=== PATIENT | female | born 1950 | race Caucasian/White ===

== ENCOUNTER 2023-02-12 09:27 | Outpatient (OUT) | payer MEDICARE, SELFPAY ==
[2023-02-12 09:51] LABS: Basophils Percent Auto 0.4 % (0.2-2.0); Eosinophils Absolute Auto 0.2 10^3/uL (0.0-0.7); Eosinophils Percent Auto 2.2 % (0.9-7.0); Hematocrit 38.8 % (36.0-48.0); Hemoglobin 13.1 g/dL (12.0-16.0); Immature Granulocytes Abs Auto 0.19 10^3/uL (0.00-0.03); Immature Granulocytes Pct Auto 1.7 % (0.0-0.5); Lymphocytes Absolute Auto 3.4 10^3/uL (1.2-3.8); Lymphocytes Percent Auto 31.2 % (20.5-60.0); Mean Corpuscular HGB Conc 33.8 g/dL (29.9-35.2); Mean Corpuscular Hemoglobin 29.6 pg (26.7-34.0); Mean Corpuscular Volume 87.6 fL (81.0-99.0); Mean Platelet Volume 9.2 fL (9.5-13.5); Monocytes Absolute Auto 0.6 10^3/uL (0.3-0.8); Monocytes Percent Auto 5.8 % (1.7-12.0); Neutrophils Absolute Auto 6.4 10^3/uL (1.4-6.5); Neutrophils Percent Auto 58.7 % (43.0-75.0); Platelet Count 221 10^3/uL (150-450); Red Blood Count 4.43 10^6/uL (4.20-5.40); Red Cell Distribution Width 12.4 % (11.0-15.0)
[2023-02-12 09:57] LABS: Microalbumin Urine Random 2.9 mg/dL (<=30.0)
[2023-02-12 09:59] LABS: Estimated Average Glucose 117 mg/dL; Glycohemoglobin A1C 5.7 % (4.5-6.2)
[2023-02-12 12:06] LABS: Bilirubin Urine NEGATIVE (NEGATIVE); Blood Urine TRACE-I (NEGATIVE); Clarity Urine CLEAR (CLEAR); Color Urine LT. YELLOW (YELLOW); Glucose Urine UA NEGATIVE (NEGATIVE); Ketones Urine NEGATIVE (NEGATIVE); Leukocyte Esterase Urine SMALL (NEGATIVE); Nitrite Urine NEGATIVE (NEGATIVE); Protein Urine NEGATIVE (NEG/TRACE); Specific Gravity Urine 1.015 (1.005-1.025); Urobilinogen Urine 0.2 EU/dL (0.2-1.0); pH Urine 6.5 (5.0-9.0)
[2023-02-12 12:27] LABS: Free T4 1.02 ng/dL (0.76-1.46)
[2023-02-12 12:35] LABS: Alanine Aminotransferase 19 U/L (14-59); Albumin Globulin Ratio 0.9; Albumin Level 3.7 g/dL (3.4-5.0); Alkaline Phosphatase 80 U/L (46-116); Anion Gap 13.1; Aspartate Amino Transferase 14 U/L (15-37); BUN Creatinine Ratio 31.7; Bilirubin Total 0.4 mg/dL (0.2-1.0); Calcium 8.8 mg/dL (8.5-10.1); Carbon Dioxide 30.3 mmol/L (21.0-32.0); Chloride 100 mmol/L (98-107); Chol HDL Ratio 4.2; Cholesterol 220 mg/dL (<=200); Estimated GFR (African America >60 (>=60); Estimated GFR (Non-African Ame >60 (>=60); Free T3 2.39 pg/mL (2.18-3.98); Globulin 4.3 g/dL; Glucose 111 mg/dL (74-106); HDL Cholesterol 52 mg/dL (40-60); Potassium 4.4 mmol/L (3.5-5.1); Sodium 139 mmol/L (136-145); Thyroid Stimulating Hormone 0.782 uIU/mL (0.358-3.740); Triglycerides 166 mg/dL (<=150); VLDL CHOLESTEROL 33.2 mg/dL
[2023-02-12 12:37] LABS: Bacteria Urine TRACE #/HPF (NONE SEEN); Mucus Urine TRACE (NONE SEEN); Squamous Epithelial Cell Urine FEW #/LPF (NONE/RARE)
[2023-02-12 12:38] LABS: Cast Seen? NONE SEEN #/LPF (NONE SEEN); Crystals Seen? None Seen #/HPF (None Seen); Urine Culture Indicated YES
== END 2023-02-12 09:28 | disposition home or self-care (01) ==
LOC: LAB 09:33
PROVIDERS: PCP Nurse Practitioner; Visit Provider Nurse Practitioner
DX: E11.65 Type 2 diabetes mellitus with hyperglycemia (principal); E03.9 Hypothyroidism, unspecified; R82.89 Other abnormal findings on cytological and histological examination of urine
CPT/HCPCS: 36415; 80053; 80061; 81001; 82043; 83036; 84439; 84443; 84481; 85025; 87086

== ENCOUNTER 2023-02-28 10:49 | Outpatient (REF) | payer MEDICARE, SELFPAY ==
[2023-02-28 12:21] LABS: Bilirubin Urine NEGATIVE (NEGATIVE); Blood Urine NEGATIVE (NEGATIVE); Clarity Urine CLEAR (CLEAR); Color Urine LT. YELLOW (YELLOW); Glucose Urine UA NEGATIVE (NEGATIVE); Ketones Urine NEGATIVE (NEGATIVE); Leukocyte Esterase Urine SMALL (NEGATIVE); Nitrite Urine NEGATIVE (NEGATIVE); Protein Urine NEGATIVE (NEG/TRACE); Urobilinogen Urine 0.2 EU/dL (0.2-1.0)
[2023-02-28 13:31] LABS: Bacteria Urine TRACE #/HPF (NONE SEEN); Mucus Urine MODERATE (NONE SEEN); RBC Urine NONE SEEN #/HPF (0-2); Squamous Epithelial Cell Urine FEW #/LPF (NONE/RARE)
[2023-02-28 13:32] LABS: Calcium Oxalate Crystals Urine FEW; Crystals Seen? Seen #/HPF (None Seen); Renal Epithelial Cells Urine FEW #/LPF (NONE SEEN); Transitional Epi Cells Urine FEW #/LPF (NONE SEEN)
== END 2023-02-28 10:50 | disposition home or self-care (01) ==
LOC: LAB 10:49
PROVIDERS: PCP Nurse Practitioner; Visit Provider Nurse Practitioner
DX: R31.29 Other microscopic hematuria (principal); E11.65 Type 2 diabetes mellitus with hyperglycemia; E03.9 Hypothyroidism, unspecified
CPT/HCPCS: 81001

== ENCOUNTER 2023-05-02 07:26 | Outpatient (RCR) | payer MEDICARE, SELFPAY ==
[2023-05-02 10:20] LABS: Alanine Aminotransferase 18 U/L (14-59); Aspartate Amino Transferase 15 U/L (15-37); Chol HDL Ratio 3.5; Cholesterol 233 mg/dL (<=200); HDL Cholesterol 67 mg/dL (40-60); Triglycerides 70 mg/dL (<=150)
[2023-05-02 10:42] LABS: Calcium 8.1 mg/dL (8.5-10.1)
[2023-05-02 10:43] LABS: Estimated GFR (African America >60 (>=60); Estimated GFR (Non-African Ame >60 (>=60)
[2023-05-02] MEDS: ZOLEDRONIC ACID/MANNITOL-WATER 5 MG/100 ML BOTTLE 400 MG IV (10:50)
== END 2023-05-17 23:59 | disposition home or self-care (01) ==
LOC: INF 07:26
PROVIDERS: PCP Nurse Practitioner; Visit Provider Nurse Practitioner
DX: M81.0 Age-related osteoporosis without current pathological fracture (principal); E78.5 Hyperlipidemia, unspecified
CPT/HCPCS: 36415; 80061; 82310; 82565; 84450; 84460; 84520; 96360; 96365; J3489

== ENCOUNTER 2023-06-04 11:53 | Outpatient (OUT) | payer MEDICARE, SELFPAY ==
[2023-06-04 12:35] LABS: Alanine Aminotransferase 22 U/L (14-59); Aspartate Amino Transferase 17 U/L (15-37); Chol HDL Ratio 3.6; Cholesterol 211 mg/dL (<=200); HDL Cholesterol 58 mg/dL (40-60); Triglycerides 140 mg/dL (<=150)
== END 2023-06-04 11:54 | disposition home or self-care (01) ==
LOC: LAB 11:55
PROVIDERS: PCP Nurse Practitioner; Visit Provider Nurse Practitioner
DX: E78.5 Hyperlipidemia, unspecified (principal)
CPT/HCPCS: 36415; 80061; 84450; 84460

== ENCOUNTER 2023-07-08 14:31 | Outpatient (OUT) | payer MEDICARE, SELFPAY ==
--- NOTE | 2023-07-08 | CONS_ITS ---
PROCEDURE DATE:?? 07/08/2023 PROCEDURE:? Right lumbar iliocostalis muscle trigger point injection at the L5 level. PREOPERATIVE DIAGNOSIS:? Pain secondary to post laminectomy syndrome with myofascial spasm of the lumbar iliocostalis muscle. POSTOPERATIVE DIAGNOSIS:? Pain secondary to post laminectomy syndrome with myofascial spasm of the lumbar iliocostalis muscle. SOLUTION USED FOR INJECTION:? 2 mL of 2% lidocaine, 2 mL of 0.25% Marcaine and 10 mg of Kenalog, total of 5 mL, and 2.5 mL used for the injection at the site. IMMEDIATE COMPLICATIONS:? None. PROCEDURE:? After informed consent was obtained from the patient, placed in the prone position.? Skin overlying the area was prepped with alcohol.? A 25 gauge, 1 ?? needle inserted into the substance of the right lumbar iliocostalis muscle at the L5 level.? Needle tip advanced until there was a mild twitch response, at which point we injected 2.5 mL of solution.? No indication of intravascular or intraneural needle tip placement or injection.? Patient reports significant reduction in pain symptoms post procedurally.?? MTDD
--- NOTE | 2023-07-08 | CONS_ITS ---
CONSULTATION DATE: ??07/08/2023 TO:? Noemi Mcnally CNP CHIEF COMPLAINT:? Includes severe right buttock pain, hip pain. HISTORY:? Patient returns today after undergoing a lumbar decompression and apparently stabilization surgery, details of which are unknown.? I did suspect a successful surgical procedure.? Patient still reports having pain in the right part of her lower back, right hip area, right buttock area.? Rates it at 9/10, a deep tingling type of pain, which increases with activities such as standing, walking and performing transitioning maneuvers.? She denies any change in bowel and bladder habits or new sensorimotor changes in the lower extremities. EXAM:? Her examination is notable for patient having dysesthesia and hypoesthesia overlying the distribution of the right superior gluteal nerve.? She had severe myofascial spasm of the right lumbar iliocostalis muscle.? She had no clinical signs consistent with myelopathy along the lower extremities. IMPRESSION:? Our impression is patient with chronic pain secondary to: 1.? Post laminectomy syndrome. 2.? Myofascial spasm of the lumbar paravertebral muscles involving the iliocostalis. 3.? 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 RECOMMENDATIONS:? I have placed her on Zonegran 15 mg at h.s.? I have discontinued tizanidine secondary to ineffectiveness.? I have placed her on baclofen 10 mg, half a pill to one pill b.i.d., and I have asked her to consider proceeding with a right superior gluteal nerve injection under fluoroscopic guidance.? I have requested she undergo lumbar spine films with flexion/extension views to evaluate the integrity of the fusion construct, and to proceed with a trigger point injection in the right lumbar iliocostalis muscle. As part of providing excellent, safe, comprehensive care, the following was completed at our patient's visit: 1. A medication reconciliation and review to ensure accurate knowledge of current/active medications, including asking our patients to inform us about any [id number] medications or herbal remedies/nutritional supplements/alternative remedies. 2. A review to specifically ensure our patients have had annual screening for: elevated body mass index (BMI, see intake chart for exact total), tobacco use, screening for depression, and screening for unhealthy alcohol use.? When screening is concerning, patients are provided with education and the specific recommendation to discuss the concerning health issue and treatment options with their primary care provider. ROSAD
== END 2023-07-08 14:32 | disposition home or self-care (01) ==
LOC: PM 15:50
PROVIDERS: PCP Nurse Practitioner; Visit Provider Anesthesiology Pain Medicine
DX: M25.551 Pain in right hip (principal); M62.838 Other muscle spasm; M96.1 Postlaminectomy syndrome, not elsewhere classified; Z98.1 Arthrodesis status
CPT/HCPCS: 20552; 72110; 73502

== ENCOUNTER 2023-07-08 15:50 | Outpatient (OUT) | payer MEDICARE, SELFPAY ==
--- NOTE | 2023-07-08 16:00 | XR_ITS ---
The [address] [address] Patient Name: RANDALL PRADO MRN: [id number] date: 1950 Sex: F Assigned Patient Location: [facility] Current Patient Location: [facility] Accession/Order Number: [id number] Exam Date: 07/08/2023 16:10 Report Date: 07/11/2023 06:10 At the request of: BRITTANY BEARDEN Procedure: XR hip RT min 2V PROCEDURE: XR hip RT min 2V HISTORY: Right Hip Pain , chronic COMPARISON: XR hip left with pelvis 05/01/2020 FINDINGS: BONES:No fracture, acute abnormality, or significant arthropathy. Posterior mechanical fusion L5-S1 with intervertebral disc spacer. SOFT TISSUES:No visible soft tissue swelling. EFFUSION:None visible. OTHER: Negative. XR/XR hip RT min 2V IMPRESSION: 1. No acute abnormality or significant degenerative joint disease of the right hip. 2. Mechanical fusion L5-S1 and intervertebral disc spacers; new since prior study. Electronically authenticated by: JACKIE ESCOBEDO Date: 07/11/2023 06:10
--- NOTE | 2023-07-08 16:00 | XR_ITS ---
The [address] [address] Patient Name: RANDALL PRADO MRN: [id number] date: 1950 Sex: F Assigned Patient Location: [facility] Current Patient Location: [facility] Accession/Order Number: [id number] Exam Date: 07/08/2023 16:10 Report Date: 07/10/2023 23:20 At the request of: BRITTANY BEARDEN Procedure: XR lumbar spine min 4V EXAM: XR lumbar spine min 4V HISTORY: Post Laminectomy COMPARISON: MRI lumbar spine 06/25/2022 TECHNIQUE: 5 views lumbar spine FINDINGS: There are 5 nonrib-bearing lumbar-type vertebral bodies. Posterior fixation with intervertebral disc spacer placement at L5-S1. Slight perihardware lucency at the right sacral fixation screw. Vertebral body heights and alignment are preserved. No significant spondylolisthesis on dynamic imaging. Incidental note of aortic vascular calcification. Moderate degenerative changes of the sacroiliac joints. Surgical clips project over the upper abdomen. XR/XR lumbar spine min 4V IMPRESSION: Posterior fixation at L5-S1 without definite complication. No spondylolisthesis on dynamic imaging. Electronically authenticated by: ADRIAN SINGLETON Date: 07/10/2023 23:20
== END 2023-07-08 15:51 | disposition home or self-care (01) ==
LOC: RAD 15:52
PROVIDERS: PCP Nurse Practitioner; Visit Provider Anesthesiology Pain Medicine
DX: M25.551 Pain in right hip (principal)
CPT/HCPCS: 72110; 73502

== ENCOUNTER 2023-07-22 06:17 | Day surgery (SDC) | payer MEDICARE, SELFPAY ==
[2023-07-22 06:58] LABS: Glucometer 117 mg/dL (74-106)
[2023-07-22 06:59] VITALS: BP 138/86; PULSE 92; RESP 16; TEMP 36.2; O2SAT 98
[2023-07-22 07:34] VITALS: BP 146/81; PULSE 92; RESP 18; O2SAT 99
[2023-07-22 07:35] VITALS: BP 153/81; PULSE 85; RESP 18; O2SAT 96
[2023-07-22] MEDS: BUPIVACAINE HCL 0.25% PF 25 MG/10 ML VIAL 2 ML INJ (07:37)
--- NOTE | 2023-07-22 09:18 | W.PM.PROCNOT ---
Date of procedure: 07/22/23 Pre-op diagnosis: Right superior gluteal neuritis Post-op diagnosis: same as pre-op Procedure: Right Superior gluteal nerve block, diagnostic Performed under fluoroscopic guidance Immediate complications none Anesthesia: none Solution used for injection: In each syringe, 2 milliliters 0.25% Marcaine 2.5 mL is used for injection for each side Time out process compliant After informed consent obtained patient was brought to the procedure room placed in the prone position skin overlying the area was prepped and draped in a sterile fashion using betadine. 25 gauge spinal needle Insert over each of the target areas identified in fluoroscopy corresponding needles were advanced Under fluoroscopic guidance until the target/targets encountered, no indication of intravascular or Intraneuronal needle tip placement. Solution injected.needles removed post procedurally. patient transferred to recovery room in stable condition to be discharged home after meeting criteria Anesthesia: Local Surgeon: Vu Melendez Condition: stable
== END 2023-07-22 07:41 | disposition home or self-care (01) ==
LOC: SURGOUT 06:18
PROVIDERS: PCP Nurse Practitioner; Visit Provider Anesthesiology Pain Medicine
DX: G57.81 Other specified mononeuropathies of right lower limb (principal); Z79.84 Long term (current) use of oral hypoglycemic drugs
CPT/HCPCS: 36415; 64450; 82948

== ENCOUNTER 2023-07-31 11:26 | Outpatient (OUT) | payer MEDICARE, SELFPAY ==
--- NOTE | 2023-07-31 11:40 | P.CN_ITS ---
Consult Note: HPI Data of Consult Patient: known to practice within the last 3 years Requesting Physician: Capri Dallas NP Primary Care Provider: Noemi Mcnally Consult Narrative Reason for consult: f/u Narrative: Michela Arias a pleasant 73 year old female presents for evaluation and management of chronic pain. Today pain 9/10 in right ankle and toes. Patient reports 99% relief from right superior gluteal nerve block. Patient finding benefit from baclofen and zonegran. cc:: CC: Capri Dallas NP Review of Systems ROS Status of ROS 10 or more systems reviewed and unremark able except as noted in history and below Musculoskeletal Reports: back pain and extremity pain PFSH PFSH Medical History Kidney stones ?N20.0 - Calculus of kidney (ICD-10) Diabetes 1.5, managed as type 2 ?E13.9 - Other specified diabetes mellitus without complications (ICD-10) Hypothyroid ?E03.9 - Hypothyroidism, unspecified (ICD-10) Surgical History H/O thyroidectomy ?E89.0 - Postprocedural hypothyroidism (ICD-10) H/O: hysterectomy ?Z90.710 - Acquired absence of both cervix and uterus (ICD-10) Hx of cholecystectomy ?Z90.49 - Acquired absence of other specified parts of digestive tract (ICD- 10) Meds Home Medications and Allergies Home Medications Medication Instructions Recorded Confirmed Type atorvastatin 80 mg tablet 80 mg PO BEDTIME 05/02/23 07/22/23 History metformin 500 mg tablet,extended 250 mg PO DAILY 05/02/23 07/22/23 History release 24 hr pioglitazone 15 mg tablet 15 mg PO DAILY 05/02/23 07/22/23 History baclofen 10 mg tablet 10 mg PO BID 07/09/23 07/22/23 History Allergies Allergy/AdvReac Type Severity Reaction Status Date / Time penicillins Allergy Mild Dizziness Uncoded 07/22/23 06:57 Exam Constitutional Documenting provider has reviewed patient's vital signs: yes Common normals: no apparent distress, oriented x3, healthy appearing, alert and well nourished General appearance: cooperative HENMT Common normals: normocephalic, hearing grossly normal bilaterally and moist oral mucous membranes Head and scalp: normocephalic Eye Common normals: PERRL Pupil: PERRL Neck & C-Spine Common normals: full ROM General: normal visual inspection Chest Common normals: inspection of chest normal Respiratory Common normals: normal respiratory effort, no retractions and no use of accessory muscles Back & Pelvis Lumbar spine/lower back: ROM limited, pain with ROM and straight leg raise positive right Other: pain following right L5/S1 dermatomal pattern Extremity Common normals: normal to inspection and full ROM Other: pain increased in bottom of right foot, lateral foot, and ankle Neuro Common normals: oriented x3, CN's II-XII intact bilaterally, moves all extremities, no focal motor deficits, no sensory deficits noted and deep tendon reflexes 2+ bilaterally Sensorium/orientation: alert Motor exam: strength 5/5 throughout and no movement abnormalities noted Psych Common normals: mental status grossly normal, thought process normal, cooperative, affect normal, speech normal and activity/motor behavior normal Speech: normal speech Thought process: normal thought process Results Additional Findings Additional findings: I have checked an [place] report on this patient today and there are no aberrancies noted in the prescribing history.?? A drug screen was completed and reviewed within the last year, and if there has not been a drug screen completed we ordered one today to monitor higher risk, state monitored pain medication use. As part of providing excellent, safe, comprehensive care, the following was completed at our patient's visit: 1. A medication reconciliation and review to ensure accurate knowledge of current/active medications, including asking our patients to inform us about any [id number]-[id number] medications or herbal remedies/nutritional supplements/alternative remedies. 2. A review to specifically ensure our patients have had annual screening for: elevated body mass index (BMI), tobacco use, screening for depression, and screening for unhealthy alcohol use. When screening is concerning, patients are provided with education and the specific recommendation to discuss the concerning health issue and treatment options with their primary care provider. Assessment and Plan Assessment and Plan (1) Lumbar radiculopathy: Assessment and Plan: The patient has had over 3 months of moderate to severe low back and right foot pain with functional impairment and inadequate response to conservative care including NSAIDS (unless there are contraindication such as concurrent blood thinners), multiple oral or topical pain medications, and home exercise program/physical therapy.? Patient has completed >6 weeks of guided home exercise program and/or formal physical therapy program without relief of their symptoms.? I have reviewed the imaging of the lumbar spine and no red flags were identified.? We discussed the risks and benefits of the procedure with the patient, and we are NOT planning on using sedation as outlined in the guidelines from Medicare unless there is a documented reason that sedation would be strongly recommended.?? ?The procedure will be completed with fluoroscopic guidance.? Plan caudal NOLVIA continue current medications at this time, can consider increase in zonegran if caudal NOLVIA not beneficial f/u 2 weeks after NOLVIA
== END 2023-07-31 11:27 | disposition home or self-care (01) ==
LOC: PM 11:27
PROVIDERS: PCP Nurse Practitioner; Visit Provider Nurse Practitioner
DX: M54.16 Radiculopathy, lumbar region (principal)
CPT/HCPCS: G0463

== ENCOUNTER 2023-08-26 06:57 | Day surgery (SDC) | payer MEDICARE, SELFPAY ==
--- OUTSIDE RECORDS SUMMARY | 2023-08-26 06:59 | XMS_ITS | CCD ---
Author Name Unknown Address [address] [facility] [address] [place] [address] Organization [facility] Care Team Providers Care Tumbling Instructor Name Role Phone PHYSICIAN, DEFAULT Admitting Unavailable PHYSICIAN, DEFAULT Attending Unavailable Kingston, Jacy T. Admitting Unavailable Hasmukh, Jacy T. Attending Unavailable AICHHOLZ, NOEMI Referring Unavailable AICHHOLZ, NOEMI Primary Care Unavailable Hasmukh, Jacy T. Admitting Unavailable Hasmukh, Jacy T. Attending Unavailable UNKNOWN, PHYSICIAN Referring Unavailable UNKNOWN, PHYSICIAN Primary Care Unavailable AICHHOLZ, OBSTETRICS TECH NOEMI Primary Care Unavailable AICHHOLZ, OBSTETRICS TECH NOEMI Attending Unavailable AICHHOLZ, OBSTETRICS TECH NOEMI Consulting Unavailable AICHHOLZ, OBSTETRICS TECH NOEMI Admitting Unavailable GREGG, DR JACKIE Li Consulting Unavailable JOSÉ MIGUEL ., DR COLLIER Admitting Unavailable HAY ., DR COLLIER Attending Unavailable KASSIDY, DR NIKA Montague Consulting Unavailable AICHHOLZ, OBSTETRICS TECH NOEMI Primary Care Unavailable HAY ., DR COLLIER Consulting Unavailable MISC, DR GIPSON Attending Unavailable MISC, DR GIPSON Admitting Unavailable AICHHOLZ, OBSTETRICS TECH NOEMI Primary Care Unavailable MISC, DR GIPSON Admitting Unavailable MISC, DR GIPSON Attending Unavailable KASSIDY, DR NIKA Montague Consulting Unavailable AICHHOLZ, OBSTETRICS TECH NOEMI Primary Care Unavailable MISC, DR GIPSON Consulting Unavailable AICHHOLZ, OBSTETRICS TECH NOEMI Primary Care Unavailable AICHHOLZ, OBSTETRICS TECH NOEMI Admitting Unavailable AICHHOLZ, OBSTETRICS TECH NOMEI Attending Unavailable AICHHOLZ, OBSTETRICS TECH NOEMI Consulting Unavailable FELISA ., DR ISHMAEL Zuniga Consulting Unavailable FELISA ., DR ISHMAEL Zuniga Admitting Unavailable AICHHOLZ, OBSTETRICS TECH NOEMI Primary Care Unavailable FELISA ., DR ISHMAEL Zuniga Attending Unavailable CAROLINE HINES Consulting Unavailable AICHHOLZ, OBSTETRICS TECH NOEMI Primary Care Unavailable JEY, DR BARRIE Gibson Consulting Unavailable JEY, DR BARRIE Gibson Admitting Unavailable JEY, DR BARRIE Gibson Attending Unavailable FELISA ., DR ISHMAEL Zuniga Admitting Unavailable ROBERTO ., DR ISHMAEL Zuniga Attending Unavailable AICHHOLZ, OBSTETRICS TECH NOEMI Primary Care Unavailable GREGG, DR JACKIE Li Consulting Unavailable ROBERTO ., DR ISHMAEL Zuniga Consulting Unavailable AICHHOLZ, OBSTETRICS TECH NOEMI Attending Unavailable AICHHOLZ, OBSTETRICS TECH NOEMI Consulting Unavailable AICHHOLZ, OBSTETRICS TECH NOEMI Admitting Unavailable AICHHOLZ, OBSTETRICS TECH NOEMI Primary Care Unavailable ROBERTO ., DR ISHMAEL Zuniga Attending Unavailable ROBERTO ., DR ISHMAEL Zuniga Admitting Unavailable AICHHOLZ, OBSTETRICS TECH NOEMI Primary Care Unavailable WEST, DR NIKA Montague Consulting Unavailable FELISA ., DR ISHMAEL Zuniga Consulting Unavailable MISC, DR GIPSON Attending Unavailable MISC, DR GIPSON Consulting Unavailable AICHHOLZ, OBSTETRICS TECH NOEMI Primary Care Unavailable MISC, DR GIPSON Admitting Unavailable MACIEL SUH Consulting Unavailable MISC, DR GIPSON Attending Unavailable MISC, DR GIPSON Consulting Unavailable AICHHOLZ, OBSTETRICS TECH NOEMI Primary Care Unavailable MISC, DR GIPSON Admitting Unavailable WEST, DR NIKA Montague Consulting Unavailable AICHHOLZ, OBSTETRICS TECH NOEMI Admitting Unavailable AICHHOLZ, OBSTETRICS TECH NOEMI Attending Unavailable AICHHOLZ, OBSTETRICS TECH NOEMI Primary Care Unavailable AICHHOLZ, OBSTETRICS TECH NOEMI Consulting Unavailable AICHHOLZ, OBSTETRICS TECH NOEMI Primary Care Unavailable AICHHOLZ, OBSTETRICS TECH NOEMI Admitting Unavailable AICHHOLZ, OBSTETRICS TECH NOEMI Attending Unavailable KASSIDY, DR NIKA Montague Consulting Unavailable AICHHOLZ, OBSTETRICS TECH NOEMI Consulting Unavailable ROBERTO ., DR ISHMAEL Zuniga Attending Unavailable ROBERTO ., DR ISHMAEL Zuniga Consulting Unavailable ROBERTO ., DR ISHMAEL Zuniga Admitting Unavailable AICHHOLZ, OBSTETRICS TECH NOEMI Primary Care Unavailable AICHHOLZ, OBSTETRICS TECH NOEMI Primary Care Unavailable AICHHOLZ, OBSTETRICS TECH NOEMI Attending Unavailable AICHHOLZ, OBSTETRICS TECH NOEMI Consulting Unavailable AICHHOLZ, OBSTETRICS TECH NOEMI Admitting Unavailable Celi Walker Consulting Unavailable AICHHOLZ, OBSTETRICS TECH NOEMI Attending Unavailable AICHHOLZ, OBSTETRICS TECH NOEMI Consulting Unavailable AICHHOLZ, OBSTETRICS TECH NOEMI Primary Care Unavailable AICHHOLZ, OBSTETRICS TECH NOEMI Admitting Unavailable GREGG, DR JACKIE Li Consulting Unavailable WHITNEY GOODMAN Primary Care Unavailable JG, DR MOLLY Alatorre Consulting Unavaillisa GREGORIO, DR MOLLY Alatorre Admitting Unavaillisa GREGORIO, DR MOLLY Alatorre Attending Unavailabl e FELISA ., DR ISHMAEL Zuniga Attending Unavailable FELISA ., DR ISHMAEL Zuniga Admitting Unavailable AICHHOLZ, OBSTETRICS TECH NOEMI Primary Care Unavailable AICHHOLZ, OBSTETRICS TECH NOEMI Admitting Unavailable AICHHOLZ, OBSTETRICS TECH NOEMI Attending Unavailable [place] [facility] Unavailable ROBERTO ., DR ISHMAEL Zuniga Attending Unavailable ROBERTO ., DR ISHMAEL Zuniga Admitting Unavailable AICHHOLZ, OBSTETRICS TECH NOEMI Primary Care Unavailable GREGG, DR JACKIE Li Consulting Unavailable FELISA ., DR ISHMAEL Zuniga Consulting Unavailable [place] [facility] Unavailable ROBERTO ., DR ISHMAEL Zuniga Attending Unavailable ROBERTO ., DR ISHMAEL Zuniga Consulting Unavailable FELISA ., DR ISHMAEL Zuniga Admitting Unavailable HASMUKH, JACY Referring Unavailable HASMUKH, JACY Attending Unavailable HASMUKH, JACY Attending Unavailable HASMUKH, JACY Attending Unavailable HASMUKH, JACY Attending Unavailable HASMUKH, JACY Attending Unavailable HASMUKH, JACY Referring Unavailable HASMUKH, JACY Referring Unavailable HASMUKH, JACY Referring Unavailable HASMUKH, JACY Referring Unavailable Allergies Allergy Classification Reported Allergen(s) Allergy Type Date of Onset Reaction(s) Facility (1 source) Penicillin Drug Allergy 04-24-2022 [facility] (1 source) Iodine (And Iodine Containting Drugs) Drug allergy (disorder) 08-08-2015 [facility] (1 source) Nalbuphine Drug Allergy 08-08-2015 [facility] (1 source) Penicillins Drug allergy (disorder) 08-08-2015 [facility] (1 source) SITagliptin Drug Allergy [facility] (1 source) Aminosyn (old formula) Drug allergy (disorder) [facility] (1 source) Iodine; Translations: [IODINE] Drug Allergy 05-[facility] (1 source) Nalbuphine; Translations: [NALBUPHINE] Drug Allergy 05-29-2022 [facility] Problems Active Problems Problem Classification Problem Date Documented Date Episodic/Chronic Complications of surgical procedures or medical care (1 source) Postprocedural hypothyroidism; Translations: [POSTPROCEDURAL HYPOTHYROIDISM] Onset: 2 Chronic Coronary atherosclerosis and other heart disease (1 source) Old myocardial infarction; Translations: [OLD MYOCARDIAL INFARCTION] Onset: 2 Chronic Diabetes mellitus with complications (1 source) Type 2 diabetes mellitus with hyperglycemia; Translations: [TYPE 2 DM W/HYPERGLYCEMIA] Onset: 2 Chronic Disorders of lipid metabolism (4 sources) Pure hyperglyceridemia; Translations: [PURE HYPERGLYCERIDEMIA] Onset: 2 Chronic Osteoporosis (4 sources) Age-related osteoporosis without current pathological fracture; Translations: [AGE-REL OSTEOPOR W/O CURR PATH FX] Onset: 2 Chronic Other connective tissue disease (4 sources) Pain in right foot; Translations: [PAIN IN RIGHT FOOT] Onset: 3 Episodic Other connective tissue disease (2 sources) Arthrodesis status; Translations: [Arthrodesis status] Onset: 3 Episodic Other screening for suspected conditions (not mental disorders or infectious disease) (9 sources) Abnormal electrocardiogram [ECG] [EKG]; Translations: [Encounter for screening mammogram for malignant neoplasm of breast] Onset: 2 Episodic Residual codes; unclassified (1 source) Family history of malignant neoplasm of breast; Translations: [FAMILY HX MALIG NEOPLASM OF BREAST] Onset: 3 Episodic Residual codes; unclassified (3 sources) Other specified postprocedural states; Translations: [OTH SPECIFIED POSTPROCEDURAL STATES] Onset: 2 Episodic Spondylosis; intervertebral disc disorders; other back problems (19 sources) Other intervertebral disc displacement, lumbar region; Translations: [Other intervertebral disc displacement, lumbosacral region] Onset: 2 Chronic Spondylosis; intervertebral disc disorders; other back problems (20 sources) Intervertebral disc disorders with radiculopathy, lumbar region; Translations: [Radiculopathy, lumbar region] Onset: 2 Episodic Thyroid disorders (8 sources) Thyroiditis, unspecified; Translations: [Nontoxic goiter, unspecified] Onset: 2 Chronic Unclassified (2 sources) DX Onset: 2 Unclassified (3 sources) LOW BACK PAIN, UNSPECIFIED; Translations: [LOW BACK PAIN, UNSPECIFIED] Onset: 2 Past or Other Problems Problem Classification Problem Date Documented Date Episodic/Chronic Other aftercare (1 source) 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; Translations: [OTH SNF CURRENT DRUG THERAPY] Onset: 06-24-2022 Episodic Other aftercare (1 source) 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; Translations: [HAIRSPRING STUDDER USE ORAL HYPOGLYCEMIC DX] Onset: 12-19-2021 Episodic Other connective tissue disease (6 sources) Other symptoms and signs involving the musculoskeletal system; Translations: [OTH SX AND SYMP INVOLV MUSCULOSKELTAL] Onset: 08-26-2022 Episodic Other connective tissue disease (5 sources) Pain in right leg; Translations: [PAIN IN RIGHT LEG] Onset: 12-25-2021 Episodic Other nervous system disorders (2 sources) Other acute postprocedural pain; Translations: [Other acute postprocedural pain] Onset: 07-15-2022 Episodic Other non-traumatic joint disorders (4 sources) Pain in right hip; Translations: [PAIN IN RIGHT HIP] Onset: 01-01-2022 Episodic Other non-traumatic joint disorders (2 sources) Pain in right ankle and joints of right foot; Translations: [Pain in right ankle and joints of right foot] Onset: 10-07-2022 Episodic Unclassified (1 source) LOW BACK PAIN, UNSPECIFIED; Translations: [LOW BACK PAIN, UNSPECIFIED] Onset: 06-20-2022 Results Test Name Value Interpretation Reference Range Facility Follow-Upon 06-23-2023 Follow-Up [id number] Michela Arias 1950 F Date Provider Department Center 06/23/2023 MOISES BOSSSTAIR [facility] Second Fl Family History Problem Relation Age of Onset Other Mother Diabetes Father Lung cancer Sister Heart attack Sister Family Status - Relation Status Age at Mother Father Sister Level of Service:53944 [place] OFFICE/OUTPATIENT ESTABLISHED MOD MDM 30-39 MIN Reason for Visit and Comments: Follow-up [211941] - Pt is here for a 6 month follow up and to review XR. [facility] Orders Onlyon 04-21-2023 Orders Only [id number] Michela Arias 1950 F Date Provider Department Center 04/21/2023 [facility] Second Fl Family History Problem Relation Age of Onset Other Mother Diabetes Father Lung cancer Sister Heart attack Sister Family Status - Relation Status Age at Mother Father Sister [facility] Follow-Upon 12-16-2022 Follow-Up [id number] Michela Arias 1950 F Date Provider Department Center 12/16/2022 Mat0-JACY NOE [facility] Second Fl Family History Problem Relation Age of Onset Other Mother Diabetes Father Lung cancer Sister Heart attack Sister Family Status - Relation Status Age at Mother Father Sister Level of Service:89214 [place] OFFICE/OUTPATIENT ESTABLISHED LOW [facility] 20-29 MIN Reason for Visit and Comments: Follow-up [348673] - Pt is here for a follow up visit. [facility] MG MAMM SCREEN 3D DIONE CADon 11-12-2022 MG MAMM SCREEN 3D DIONE CAD Patient: MICHELA ARIAS Exam Date: 11/12/2022 : 1950 Gender:F Ordering : GARRICK MCNALLY [facility] Admission #: [id number] Family : Order #: [id number] CLICK HERE TO VIEW EXAM RADIOLOGY REPORT PROCEDURE: MAMMOGRAM SCREENING 3D BILATERAL CAD COMPARISON: MG MAMM SCREEN DIONE W CAD, 08/01/2017. MG MAMM SCREEN 3D DIONE CAD, 11/07/2021. INDICATIONS: Screening mammography Calculator Name NCI Breast Cancer Risk Assessment Tool 5 Year Breast Cancer Risk 7.60% Lifetime Breast Cancer Risk 18.60% Personal Breast Cancer No Personal Ovarian Cancer No Treatments None Family Cancers Mother with breast cancer at age 42; Sister with breast cancer at age 20. LOCATION: [facility] BREAST COMPOSITION: Scattered areas fibroglandular density. FINDINGS: DIAGNOSTIC CATEGORY 1--NEGATIVE. NO CHANGE FROM COMPARISON ASSESSMENT. Scattered benign-appearing calcifications are present. Scattered benign-appearing lymph nodes are present. RIGHT BREAST: No significant suspicious finding. LEFT BREAST: No significant suspicious finding. RECOMMENDATIONS: ROUTINE MAMMOGRAM AND CLINICAL EVALUATION IN 12 MONTHS. PLEASE NOTE: A NORMAL MAMMOGRAM DOES NOT EXCLUDE THE POSSIBILITY OF BREAST CANCER. A CLINICALLY SUSPICIOUS PALPABLE LUMP SHOULD BE BIOPSIED. Dictated by: Nkia Yi MD on 11/12/2022 at 12:23 Approved by: Nika Yi MD on 11/12/2022 at 12:31 [facility] 36on 10-10-2022 36 LVM for pt with message from Dr. Noe and to call if any other questions. [facility] 36on 10-09-2022 36 Yes, XR's didn't nusrat w any fracture. I think it is fine to see PT again. If her ankle keeps bothering her, it would be a good idea to follow up with her PMD. [facility] 36 Pt called asking if you have reviewed her XR of her ankle and if it is ok to make next appt with PT. [facility] Follow-Upon 10-07-2022 Follow-Up [id number] Michela Arias 1950 F Date Provider Department Center 10/07/2022 MOISES [facility]STA[facility] Second Fl Family History Problem Relation Age of Onset Other Mother Diabetes Father Lung cancer Sister Heart attack Sister Family Status - Relation Status Age at Mother Father Sister Level of Service:37139 [place] POSTOP FOLLOW UP VISIT RELATED TO ORIGINAL PX Reason for Visit and Comments: Follow-up [[id number]] - s/p lumbar fusion, *6 wk f/u s/p PT. XR same day; Patient fell last . Landed on her back with her foot twisted under her. [facility] 36on 09-06-2022 36 Received a message from Elsy from Noemi Sanon (sp[facility] asking for gabapentin 300mg TID and add Duloxetine 30 mg. No number was given in message. [facility] Orders Onlyon 09-06-2022 Orders Only [id number] Michela Arias 1950 F Date Provider Department Center 09/06/2022 SANDHYA LINARES [facility] Second Fl Family History Problem Relation Age of Onset Other Mother Diabetes Father Lung cancer Sister Heart attack Sister Family Status - Relation Status Age at Mother Father Sister [facility] Office Visiton 08-26-2022 Follow-up visit [id number] Michela Arias 1950 F Date Provider Department Center 08/26/2022 MOISES [facility]OSSSTAIR [facility] Second Fl Family History Problem Relation Age of Onset Other Mother Diabetes Father Lung cancer Sister Heart attack Sister Family Status - Relation Status Age at Mother Father Sister Level of Service:98765 [place] POSTOP FOLLOW UP VISIT RELATED TO ORIGINAL PX Reason for Visit and Comments: Post-op [483] - s/p lumbar fusion [facility] Office Visiton 07-15-2022 Follow-up visit [id number] Michela Arias 1950 F Date Provider Department Center 07/15/2022 Hafsa-JACY NOE [facility] Second Fl Family History Problem Relation Age of Onset Other Mother Diabetes Father Lung cancer Sister Heart attack Sister Family Status - Relation Status Age at Mother Father Sister Level of Service:59277 [place] POSTOP FOLLOW UP VISIT RELATED TO ORIGINAL PX Reason for Visit and Comments: Post-op [483] - s/p lumbar fusion [facility] 36on 07-10-2022 36 Pt called stating th at she has burning pain in her foot. I asked if she was still taking gabapentin and stated she is as directed. Pt would like to know if she should take them closer together or if there is something else she could do. [facility] CBC AUTO DIFFon 06-27-2022 BASO # 0.0 103/ul Normal 0.0-0.1 [facility] Comment on above: Performed By: #### C BC #### [facility] [address] [place] [address] Dr. Lisa Thomson Basophils/100 WBC (Bld) 0.2 % Normal 0.2-2.0 [facility] Comment on above: Performed By: #### C BC #### [facility] [address] [address] [address] Lisa Thomson EO # 0.1 103/ul Normal 0.0-0.7 [facility] Comment on above: Performed By: #### C BC #### [facility] [address] [address] [address] Lisa Thomson Eosinophils/100 WBC (Bld) 0.6 % Critically low 0.9-7.0 [facility] Comment on above: Performed By: #### C BC #### [facility] [address] [place] [address] Dr. Lisa Thomson Erythrocyte distribution width (RBC) [Ratio] 14.2 % Normal 11.0-15.0 [facility] Comment on above: Performed By: #### C BC #### [facility] [address] [place] [address] Dr. Lisa Thomson Hematocrit (Bld) [Volume fraction] 39.4 % Normal 36.0-48.0 [facility] Comment on above: Performed By: #### C BC #### [facility] [address] [place] [address] Dr. Lisa Thomson Hemoglobin (Bld) [Mass/Vol] 13.4 g/dL Normal 12.0-16.0 [facility] Comment on above: Performed By: #### C BC #### [facility] [address] [place] [address] Dr. Lisa Thomson IG # 0.07 10e3/ul Critically high 0.00-0.03 [facility] Comment on above: Performed By: #### C BC #### [facility] [address] [place] [address] Dr. Lisa Thomson IG % 0.6 % Critically high 0.0-0.5 [facility] Comment on above: Performed By: #### C BC #### [facility] [address] [place] [address] Dr. Lisa Thomson LYMPH # 3.2 103/ul Normal 1.2-3.8 [facility] Comment on above: Performed By: #### C BC #### [facility] [address] [place] [address] Dr. Lisa Thomson Lymphocytes/100 WBC (Bld) 26.4 % Normal 20.5-60.0 [facility] Comment on above: Performed By: #### C BC #### [facility] [address] [place] [address] Dr. Lisa Thomson MANUAL DIFF REQ NO Normal [facility] Comment on above: Performed By: #### C BC #### [facility] [address] [place] [address] Dr. Lisa Thomson MCH (RBC) [Entitic mass] 30.9 pg Normal 26.7-34.0 [facility] Comment on above: Performed By: #### C BC #### [facility] [address] [address] [address] Lisa Thomson MCHC (RBC) [Mass/Vol] 34.0 g/dL Normal 29.9-35.2 [facility] Comment on above: Performed By: #### C BC #### [facility] [address] [address] [address] Lisa Thomson MCV (RBC) [Entitic vol] 91.0 fL Normal 81.0-99.0 [facility] Comment on above: Performed By: #### C BC #### [facility] [address] [address] [address] Lisa Thomson MONO # 1.0 103/ul Critically high 0.3-0.8 [facility] Comment on above: Performed By: #### C BC #### [facility] [address] [address] [address] Lisa Thomson Monocytes/100 WBC (Bld) 7.8 % Normal 1.7-12.0 [facility] Comment on above: Performed By: #### C BC #### [facility] [address] [address] [address] Lisa Thomson NEUT # 7.8 103/ul Critically high 1.4-6.5 [facility] Comment on above: Performed By: #### C BC #### [facility] [address] [address] [address] Lisa Thomson Neutrophils/100 WBC (Bld) 64.4 % Normal 43.0-75.0 [facility] Comment on above: Performed By: #### C BC #### [facility] [address] [address] [address] Lisa Thomson Platelet mean volume (Bld) [Entitic vol] 9.1 fL Critically low 9.5-13.5 [facility] Comment on above: Performed By: #### C BC #### [facility] [address] [address] [address] Lisa Thomson PLT 228 103/ul Normal 150-450 [facility] Comment on above: Performed By: #### C BC #### [facility] [address] [address] [address] Lisa Thomson RBC 4.33 106/ul Normal 4.20-5.40 [facility] Comment on above: Performed By: #### C BC #### [facility] [address] [address] [address] Lisa Thomson WBC 12.2 103/ul Critically high 4.0-11.0 [facility] Comment on above: Performed By: #### C BC #### [facility] [address] [place] [address] Dr. Lisa Thomson PROF CHEM 8 (BAS METB)on Anion gap [Moles/Vol] 11.7 mmol/L [facility] Comment on above: Performed By: #### B MP #### [facility] [address] [place] [address] Dr. Lisa Thomson Calcium [Mass/Vol] 8.9 mg/dL Normal 8.5-10.1 [facility] Comment on above: Performed By: #### B MP #### [facility] [address] [place] [address] Dr. Lisa Thomson Chloride [Moles/Vol] 101 mmol/L Normal 98-107 [facility] Comment on above: Performed By: #### B MP #### [facility] [address] [place] [address] Dr. Lisa Thomson CO2 [Moles/Vol] 29.0 mmol/L Normal 21.0-32.0 [facility] Comment on above: Performed By: #### B MP #### [facility] [address] [place] [address] Dr. Lisa Thomson Creatinine [Mass/Vol] 0.59 mg/dL Normal 0.55-1.02 [facility] Comment on above: Performed By: #### B MP #### [facility] [address] [place] [address] Dr. Lisa Thomson EGFR-AF ARMENIAN >60 Normal >=60 [facility] Comment on above: Performed By: #### B MP #### [facility] [address] [address] [address] Lisa Thomson EGFR-NON AF ARMENIAN >60 Normal >=60 [facility] Comment on above: Performed By: #### B MP #### [facility] [address] [address] [address] Lisa Thomson Glucose [Mass/Vol] 183 mg/dL Critically high 74-106 [facility] Comment on above: Performed By: #### B MP #### [facility] [address] [address] [address] Lisa Thomson Potassium [Moles/Vol] 3.7 mmol/L Normal 3.5-5.1 [facility] Comment on above: Performed By: #### B MP #### [facility] [address] [address] [address] Lisa Thomson Sodium [Moles/Vol] 138 mmol/L Normal 136-145 [facility] Comment on above: Performed By: #### B MP #### [facility] [address] [address] [address] Lisa Thomson Urea nitrogen [Mass/Vol] 34.0 mg/dL Critically high 7.0-18.0 [facility] Comment on above: Performed By: #### B MP #### [facility] [address] [address] [address] Lisa Thomson Urea nitrogen/Creatinine [Mass ratio] 57.6 mg/mg Normal [facility] Comment on above: Performed By: #### B MP #### [facility] [address] [address] [address] Lisa Thomson PROTIMEon 06-27-2022 INR Coag (PPP) [Relative time] 0.99 {INR} [facility] Comment on above: Performed By: #### C BC #### [facility] [address] [address] [address] Lisa Thomson INR GUIDELINES SEE BELOW Normal [facility] Comment on above: Result Comment: RONNIE RED INR: 2.0 - 3.0 CONDITIONS NOT LISTED BELOW 2.5 - 3.5 FOR PROSTHETIC HEART VALVE REPLACEMENT 2.5 - 3.5 RECURRENT THROMBOSIS Performed By: #### C BC #### [facility] [address] [address] [address] Lisa Thomson PT Coag (PPP) [Time] 10.7 s Normal 9.0-11.6 [facility] Comment on above: Performed By: #### C BC #### [facility] [id number] Lisa Thomson PTTon 06-27-2022 aPTT Coag (Bld) [Time] 23.5 s Normal 22.3-36.2 [facility] Comment on above: Performed By: #### C BC #### [facility] [address] [address] [address] iLsa Thomson MRI LSPINE WO W CONon 2021 MRI LSPINE WO W CON MRI LUMBAR SPINE WIT H AND WITHOUT CONTRAST, 06/25/2022. HISTORY: Chronic low back pain. Right leg pain. Radiculopathy. COMPARISON: MRI lumbar spine, 05/13/2022. TECHNIQUE: Sagittal T1, T2, STIR, axial T1 and T2, postcontrast sagittal and axial T1 images were obtained. FINDINGS: Alignment normal. No subluxation. Signal in the bone marrow spaces is appropriate. No bone marrow edema. No acute compression fractures. L5-S1, there are postoperative changes from previous right hemilaminectomy. There is a large amount of postoperative scar tissue in the right lateral recess. The scar tissue has low signal on T1 and contrast enhancement. The postoperative scar tissue surrounds the right S1 nerve root. The enhancing scar tissue in this area does appear to be greater than on the previous exam. No new disc herniation is clearly identified. There is scar tissue extending into the right neural foramen. There is moderate right neural foraminal narrowing which does not appear significantly changed. Facet hypertrophy results in mild left foraminal narrowing which is stable. No central canal stenosis. Moderate degenerative disc disease appears stable. L4-L5, mild degenerative disc disease. Diffuse disc bulge. No spinal canal stenosis. Disc bulge and facet hypertrophy results in mild bilateral foraminal narrowing. This level is stable. L3-L4, no spinal stenosis. No foraminal narrowing. This level is stable. L2-L3, no spinal stenosis. No foraminal narrowing. L1-L2, no spinal stenosis. No foraminal narrowing. No abnormal signal in the conus medullaris. No pathologic enhancement in the cauda equina. No paraspinal mass. IMPRESSION: 1. There are postoperative changes on the right at L5-S1 from a right hemilaminectomy. There is a large amount of enhancing scar tissue in the right lateral recess that surrounds the right S1 nerve root. There appears to be a greater amount of scar tissue in this area. No recurrent disc herniation is clearly identified. There is moderate right foraminal narrowing which appears stable. 2. The remainder of the lumbar levels appears stable. 3. Disc bulge and facet artery results in mild foraminal narrowing bilaterally at L4-L5. Electronically authenticated by: MACIEL SUH Date: 2022-06-26 12:47 Normal [facility] CBC AUTO DIFFon 06-20-2022 BASO # 0.0 103/ul Normal 0.0-0.1 [facility] Comment on above: Performed By: #### C BC #### [facility] [address] [place] [address] Dr. Lisa Thomson Basophils/100 WBC (Bld) 0.1 % Critically low 0.2-2.0 [facility] Comment on above: Performed By: #### C BC #### [facility] [address] [place] [address] Dr. Lisa Thomson EO # 0.0 103/ul Normal 0.0-0.7 [facility] Comment on above: Performed By: #### C BC #### [facility] [address] [place] [address] Dr. Lisa Thomson Eosinophils/100 WBC (Bld) 0.2 % Critically low 0.9-7.0 [facility] Comment on above: Performed By: #### C BC #### [facility] [address] [place] [address] Dr. Lisa Thomson Erythrocyte distribution width (RBC) [Ratio] 14.6 % Normal 11.0-15.0 [facility] Comment on above: Performed By: #### C BC #### [facility] [address] [place], [place] [id number] Dr. Lisa Thomson Hematocrit (Bld) [Volume fraction] 36.2 % Normal 36.0-48.0 [facility] Comment on above: Performed By: #### C BC #### [facility] [address] [place] [address] Dr. Lisa Thomson Hemoglobin (Bld) [Mass/Vol] 12.4 g/dL Normal 12.0-16.0 [facility] Comment on above: Performed By: #### C BC #### [facility] [address] [place] [address] Dr. Lisa Thomson IG # 0.04 10e3/ul Critically high 0.00-0.03 [facility] Comment on above: Performed By: #### C BC #### [facility] [address] [place] [address] Dr. Lisa Thomson IG % 0.4 % Normal 0.0-0.5 [facility] Comment on above: Performed By: #### C BC #### [facility] [address] [place] [address] Dr. Lisa Thomson LYMPH # 2.3 103/ul Normal 1.2-3.8 [facility] Comment on above: Performed By: #### C BC #### [facility] [address] [place] [address] Dr. Lisa Thomson Lymphocytes/100 WBC (Bld) 24.1 % Normal 20.5-60.0 [facility] Comment on above: Performed By: #### C BC #### [facility] [address] [place] [address] Dr. Lisa Thomson MANUAL DIFF REQ NO Normal [facility] Comment on above: Performed By: #### C BC #### [facility] [address] [place] [address] Dr. Lisa Thomson MCH (RBC) [Entitic mass] 30.9 pg Normal 26.7-34.0 [facility] Comment on above: Performed By: #### C BC #### [facility] [address] [place] [address] Dr. Lisa Thomson MCHC (RBC) [Mass/Vol] 34.3 g/dL Normal 29.9-35.2 [facility] Comment on above: Performed By: #### C BC #### [facility] [address] [place] [address] Dr. Lisa Thomson MCV (RBC) [Entitic vol] 90.3 fL Normal 81.0-99.0 [facility] Comment on above: Performed By: #### C BC #### [facility] [address] [address] [address] Lisa Thomson MONO # 0.6 103/ul Normal 0.3-0.8 [facility] Comment on above: Performed By: #### C BC #### [facility] [address] [place] [address] Dr. Lisa Thomson Monocytes/100 WBC (Bld) 5.9 % Normal 1.7-12.0 [facility] Comment on above: Performed By: #### C BC #### [facility] [address] [place] [address] Dr. Lisa Thomson NEUT # 6.7 103/ul Critically high 1.4-6.5 [facility] Comment on above: Performed By: #### C BC #### [facility] [address] [place] [address] Dr. Lisa Thomson Neutrophils/100 WBC (Bld) 69.3 % Normal 43.0-75.0 [facility] Comment on above: Performed By: #### C BC #### [facility] [address] [address] [address] Lisa Thomson Platelet mean volume (Bld) [Entitic vol] 9.6 fL Normal 9.5-13.5 [facility] Comment on above: Performed By: #### C BC #### [facility] [address] [place] [address] Dr. Lisa Thomson PLT 162 103/ul Normal 150-450 [facility] Comment on above: Performed By: #### C BC #### [facility] [address] [place] [address] Dr. Lisa Thomson RBC 4.01 106/ul Critically low 4.20-5.40 [facility] Comment on above: Performed By: #### C BC #### [facility] [address] [place], [place] [address] Dr. Lisa Thomson WBC 9.7 103/ul Normal 4.0-11.0 [facility] Comment on above: Performed By: #### C BC #### [facility] [address] [place], [place] [address] Dr. Lisa Thomson CTA ABD/PELVIS WO W CONon CTA ABD/PELVIS WO W CON EXAMINATION: CTA ABD/PELVIS WO W CON, 06/20/2022 12:22 PM EDT HISTORY: Abdominal pain COMPARISON: 12/27/2020 TECHNIQUE: CT scan of the abdomen and pelvis was performed with IV contrast. CT dose reduction technique was used, including Automated Exposure Control. FINDINGS: LUNG BASES: Cardiomegaly LIVER: No enlargement, atrophy, abnormal density, or significant focal lesion. BILIARY: Cholecystectomy PANCREAS: Diffuse irregular atrophy SPLEEN: No enlargement or focal lesion. ADRENALS: No mass or enlargement. KIDNEYS: Cortical thinning upper pole of the right kidney. No hydronephrosis or obstructing nephrolithiasis BOWEL/MESENTERY: Colonic diverticulosis without evidence of acute diverticulitis. Nonobstructive bowel gas pattern. AORTA: No aortic aneurysm or dissection. Mild to moderate atherosclerosis Celiac: Ostial atherosclerosis estimated 30% narrowing. No occlusion or aneurysm SMA: No flow significant stenosis occlusion or aneurysm Renals: Single right renal artery. Single left renal artery. No flow significant stenosis occlusion or aneurysm SADIQ: No flow significant stenosis occlusion or aneurysm Iliacs: Mild atherosclerosis. No flow significant stenosis occlusion or aneurysm RETROPERITONEUM: No mass or adenopathy. LYMPH NODES: No adenopathy. URINARY BLADDER: No visible focal wall thickening, lesion, or calculus. Underdistention PELVIC ORGANS: Hysterectomy ABDOMINAL WALL: No mass or hernia. BONES: No bony lesion or fracture. OTHER: Negative. IMPRESSION: No aortic aneurysm or dissection Stable cardiomegaly Electronically authenticated by: NIKA YI Date: 2022-06-20 13:30 Normal [facility] PROF CHEM 8 (BAS METB)on Anion gap [Moles/Vol] 10.1 mmol/L Normal [facility] Comment on above: Performed By: #### S EDR #### [facility] [address] [address] [address] Lisa Thomson Calcium [Mass/Vol] 9.0 mg/dL Normal 8.5-10.1 [facility] Comment on above: Performed By: #### S EDR #### [facility] [address] [address] [address] Lisa Thomson Chloride [Moles/Vol] 104 mmol/L Normal 98-107 [facility] Comment on above: Performed By: #### S EDR #### [facility] [address] [address] [address] Lisa Thomson CO2 [Moles/Vol] 26.2 mmol/L Normal 21.0-32.0 [facility] Comment on above: Performed By: #### S EDR #### [facility] [address] [place] [address] Dr. Lisa Thomson Creatinine [Mass/Vol] 0.59 mg/dL Normal 0.55-1.02 [facility] Comment on above: Performed By: #### S EDR #### [facility] [address] [address] [address] Lisa Thomson EGFR-AF ARMENIAN >60 Normal >=60 [facility] Comment on above: Performed By: #### S EDR #### [facility] [address] [place] [address] Dr. Lisa Thomson EGFR-NON AF ARMENIAN >60 Normal >=60 [facility] Comment on above: Performed By: #### S EDR #### [facility] [address] [address] [address] Lisa Thomson Glucose [Mass/Vol] 162 mg/dL Critically high 74-106 [facility] Comment on above: Performed By: #### S EDR #### [facility] [address] [address] [address] Lisa Thomson Potassium [Moles/Vol] 3.3 mmol/L Critically low 3.5-5.1 [facility] Comment on above: Performed By: #### S EDR #### [facility] [address] [address] [address] Lisa Thomson Sodium [Moles/Vol] 137 mmol/L Normal 136-145 [facility] Comment on above: Performed By: #### S EDR #### [facility] [address] [address] [address] Lisa Thomson Urea nitrogen [Mass/Vol] 25.0 mg/dL Critically high 7.0-18.0 [facility] Comment on above: Performed By: #### S EDR #### [facility] [address] [place] [address] Dr. Lisa Thomson Urea nitrogen/Creatinine [Mass ratio] 42.4 mg/mg Normal [facility] Comment on above: Performed By: #### S EDR #### [facility] [address] [place] [address] Dr. Lisa Thomson CREATININEon 05-13-2022 Creatinine [Mass/Vol] 0.81 mg/dL Normal 0.55-1.02 [facility] Comment on above: Performed By: #### M ALBR #### [facility] [address] [place] [address] Dr. Lisa Thomson EGFR-AF ARMENIAN >60 Normal >=60 [facility] Comment on above: Performed By: #### M ALBR #### [facility] [address] [place] [address] Dr. Lisa Thomson EGFR-NON AF ARMENIAN >60 Normal >=60 [facility] Comment on above: Performed By: #### M ALBR #### [facility] [address] [place] [address] Dr. Lisa Thomson MRI LSPINE WO W CONon 2021 MRI LSPINE WO W CON EXAMINATION: MRI LSPINE WO W CON HISTORY: Lumbar radiculopathy COMPARISON: 12/31/2021 TECHNIQUE: Axial T1 and T2; Sagittal T1, T2, and STIR sequences. Images were performed before and after the administration of 20 ml intravenous Dotarem contrast. FINDINGS: For the purposes of numbering, sagittal T2 image # 8 extends from the T10 vertebral body superiorly to the S3 level inferiorly. PARASPINAL AREA: Normal with no visible mass. BONES: Normal alignment with no acute fracture or spondylolisthesis. No bone edema CORD/CAUDA EQUINA: Normal caliber, contour, and signal intensity. DISC LEVELS: 12-L1: No significant disc/facet abnormality, spinal stenosis, or foraminal stenosis. L1-L2: No significant disc/facet abnormality, spinal stenosis, or foraminal stenosis. L2-L3: No significant disc/facet abnormality, spinal stenosis, or foraminal stenosis. L3-L4: Disc desiccation. No disc bulge or herniation. No central or foraminal stenosis. Moderate ligamentum flavum hypertrophy L4-L5: Disc desiccation. Moderate ligamentum flavum hypertrophy and facet osteoarthropathy. No central canal stenosis. Mild bilateral foraminal stenosis L5-S1: Right L5 hemilaminotomy. Disc desiccation and disc space narrowing. Right foraminal disc herniation of the protrusion type extending posteriorly up to 5.3 mm best seen on sagittal image #11. This area does not have postcontrast enhancement. This results in severe narrowing of the right neural foramen. No left foraminal stenosis IMPRESSION: Right L5-S1 foraminal disc herniation resulting in severe foraminal stenosis Electronically authenticated by: NIKA YI Date: 2022-05-13 19:43 Normal [facility] Operative Reporton 2 Operative Report MR#: [id number] [facility] Pt. Name: Michela Arias Room #: [id number] Discharge Date: Birthdate: 1950 OPERATIVE REPORT DATE OF SURGERY: 04/24/2022 SURGEON: Jacy Noe MD PREOPERATIVE DIAGNOSES: Lumbar spondylosis with lateral recess stenosis and intervertebral disk protrusion at L5-S1 with radiculopathy. POSTOPERATIVE DIAGNOSES: Lumbar spondylosis with lateral recess stenosis and intervertebral disk protrusion at L5-S1 with radiculopathy. PROCEDURES: Right L5 hemilaminectomy with L5-S1 foraminotomy and L5-S1 diskectomy. ANESTHESIA: General endotracheal. ESTIMATED BLOOD LOSS: Minimal. COMPLICATIONS: None noted. DRAINS: None. SPECIMENS: None. INDICATIONS: Ms. Arias is a 72-year-old woman, who developed severe pain and a degree of numbness involving the right lower extremity. Workup had demonstrated lateral recess stenosis with a degree of disk protrusion at the L5-S1 levels. The patient had failed multiple conservative therapies. Based on these findings, she was offered a right L5 hemilaminectomy with decompression of the lateral recess and possible diskectomy. After discussion of the risks, benefits, and alternatives, she elected to proceed. Informed consent was obtained. FINDINGS: There was a moderate-sized soft subligamentous intervertebral disk protrusion at L5-S1. There was a significant amount of hypertrophied ligamentous material within the lateral recess. At the conclusion of lateral recess decompression, foraminotomy, and diskectomy, the L5 and S1 nerve roots appeared well decompressed. There was no evidence of CSF egress. DESCRIPTION OF PROCEDURE: The patient was brought to the operating theater. General endotracheal anesthesia was induced without difficulty. Adequate vascular access was ensured. The patient was rolled into the prone position on a waiting Johnny table. Care was taken to ensure that all pressure points were padded adequately. The proposed site of surgery in the low lumbar midline was identified. The site was marked prepped and draped in the normal sterile fashion. A time-out was performed confirming the correct patient, procedure, and site. It was ensured that preoperative antibiotics had been delivered. The skin at the proposed site of incision was infiltrated with local anesthetic. A radiopaque marking needle was placed within the skin at this site and intraoperative radiographs demonstrated appropriate localization overlying the L5 lamina. The radiopaque marking needle was removed. The skin was opened in the midline at this site with a #10 blade. Dissection was carried down sharply to the superficial tissue. Monopolar cautery was used to extend the plane of dissection to the deep lumbar fascia. The lumbar fascia was opened in the midline. Subperiosteal dissection was carried down the right lateral face of the L5 lamina with monopolar cautery. Dissection was carried across the L5 lamina to the level of the facet. Care was taken not to disrupt the facet joints at L4-5 or L5-S1. A radiopaque marker was placed beneath the inferior margin of the L5 lamina and intraoperative radiographs demonstrated the correct level of exposure. A self-retaining retractor system was added to aid in exposure. The wound was irrigated thoroughly and hemostasis was ensured. Attention was then turned to right L5 hemilaminectomy. A small forward angle curette was used to define the inferior margin of the right L5 lamina. A #3 and #4 Kerrison rongeur were introduced and multiple bites were taken until the entirety of the right L5 lamina had been removed to the L4-5 disk space. Beneath hypertrophied ligamentous tissue including the ligamentum flavum was identified and resected piece orozco. The exiting L5 nerve root could be identified, although there was a significant amount of hypertrophied ligament surrounding it, which was resected piece orozco. It appeared somewhat discolored and edematous. The traversing S1 nerve root could likewise be identified. A #3 Kerrison rongeur was introduced in the lateral recess. Multiple bites were taken until there was capacious decompression of both the L5 and S1 nerve roots. A #3 Kerrison rongeur was introduced into the foramina at L5-S1 and multiple bites were taken until a Peach explorer could be easily passed into the foramina at this level. The thecal sac was mobilized and connective tissue was bluntly dissected between the L5 and S1 nerve roots. The thecal sac was retracted medially revealing a moderate-sized soft subligamentous disk protrusion. A nerve root retractor was introduced into this space. A #15 blade was used to create a rectangular opening in the posterior lateral anulus of the L5-S1 intervertebral disk. Combination of down pushing curettes and pituitary rongeurs was then used to remove disk material from this disk protrusion. A [place] #4 explorer was (more content not included)... Normal [facility] POC GLUCOSE LABon 04-25-2022 Glucose [Mass/Vol] 105 mg/dL High 70-100 [facility] Comment on above: Performed By: #### [id number] #### [facility] [address] [place] [address], [place] Glucose [Mass/Vol] 95 mg/dL Normal 70-100 [facility] Comment on above: Performed By: #### [id number] #### [facility] [address] [place] [address], [place] Glucose [Mass/Vol] 103 mg/dL High 70-100 [facility] Comment on above: Performed By: #### [id number] #### [id number] [place] [address] LUMBAR SPINE 2 OR 3 [facility] LUMBAR SPINE 2 OR 3 [facility] Department of Radiology [address] [place] [id number] ======== Patient Name: MICHELA ARIAS : 1950 Sex: F Age: Race: White Pt. Location: OUTP Patient Status: O Ordered Date: 04/24/2022 12:30:00 PM Completed Date: 04/24/2022 02:03 PM Requesting Provider: JACY NOE Attending Provider: JACY NOE Report Copy To: Signs & Symptoms: RIGHT L5 HEMILAMINECTOMY, RIGHT L5-S1 FORAMINOTOMY, POSS RIGHT L5-S1 DISCECTOMY FOR DECOMPRESSION History: Comments: RIGHT L5 HEMILAMINECTOMY, RIGHT L5-S1 FORAMINOTOMY, POSS RIGHT L5-S1 DISCECTOMY FOR DECOMPRESSION Exam: LUMBAR SPINE 2 OR 3 VWS ======== LUMBAR SPINE 2 OR 3 VWS 04/24/2022 2:03 PM CLINICAL INDICATIONS: RIGHT L5 HEMILAMINECTOMY, RIGHT L5-S1 FORAMINOTOMY, POSS RIGHT L5-S1 DISCECTOMY FOR DECOMPRESSION TECHNOLOGIST COMMENTS: 5 secs of fluoro used by Dr Noe QUESTION FOR RADIOLOGIST: RIGHT L5 HEMILAMINECTOMY, RIGHT L5-S1 FORAMINOTOMY, POSS RIGHT L5-S1 DISCECTOMY FOR DECOMPRESSION PROTOCOL: AP, Lateral and L5-S1 spot film was obtained. COMPARISON: None. IMPRESSION: Right L5 hemilaminectomy and right L5-S1 foraminotomy performed by Dr. Noe, utilizing 5 seconds of fluoroscopy time. 4 images were obtained. The radiologist was not present during this procedure. Please refer to operative documentation or referring service for further information. Approved by:Kirit Escobar04/25/2022 8:29 AM. I, Nacho Nieves,have reviewed the image(s) and agree with the findings in this report. Electronically signed: Nacho Nieves. Transcribed by: [email or web address], User Resident: NACHO LAU Electronically Signed by: NACHO NIEVES @ 04/25/2022 09:09 AM I personally read this/these film(s) with this resident Normal [facility] Comment on above: Order Comment: RIGHT L5 HEMILAMINECTOMY, RIGHT L5-S1 FORAMINOTOMY, POSS RIGHT L5-S1 DISCECTOMY FOR DECOMPRESSION POC GLUCOSE LABon 04-24-2022 Glucose [Mass/Vol] 188 mg/dL High 70-100 [facility] Comment on above: Performed By: #### [id number] #### [facility] [address] [place] [address], [place] Glucose [Mass/Vol] 127 mg/dL High 70-100 [facility] Comment on above: Performed By: #### [id number] #### [facility] [address] [place] [address], [place] Glucose [Mass/Vol] 91 mg/dL Normal 70-100 [facility] Comment on above: Performed By: #### [id number] #### [facility] [address] [place] [address], [place] TYPE AND CROSSMATCHon 2021 ABO INTERPRETATION A Normal [facility] Comment on above: Performed By: #### [id number] #### [facility] [address] [place] [address], [place] RH INTERPRETATION Positive Normal [facility] Comment on above: Performed By: #### [id number] #### [facility] [address] [place] [address], [facility] *MRSA/MSSA DNA NASALon 04-01 *MRSA/MSSA DNA NASAL Clinical Report: (D ) Specimen: NASAL SWAB Collected: 04/01/2022 17:05 Status: Final Last Updated: 04/02/2022 19:42 MSSA DNA (Final) Negative MRSA DNA (Final) Negative Normal [facility] Comment on above: Performed By: #### [id number] #### [facility] [address] [place] [address], [facility] APTTon 04-01-2022 aPTT Coag (Bld) [Time] 27.5 s Normal 25.0-35.0 [facility] Comment on above: Result Comment: ALL RESULTS MUST BE INTERPRETED WITH RESPECT TO BLOOD DRAWING ARTIFACT OR DILUTION ERROR OF ANTICOAGULANT AT THE TIME OF SAMPLING. THE APTT SHOULD NOT BE USED TO MONITOR UNFRACTIONATED HEPARIN THERAPY, THIS LABORATORY NO LONGER HAS AN ESTABLISHED THERAPEUTIC RANGE BASED ON THE APTT. IT IS RECOMMENDED THAT THE [facility] - HEPARIN ASSAY (ANTI-XA ACTIVITY) BE USED FOR THIS PURPOSE. Performed By: #### [id number] #### [facility] [address] [place] [address], [facility] BASIC METABOLIC PANELon 03-18 Calcium [Mass/Vol] 9.0 mg/dL Normal 8.6-10.3 [facility] Comment on above: Performed By: #### 8 [id number] #### [facility] [address] [place] [address], [facility] Chloride [Moles/Vol] 104 mmol/L Normal 98-107 [facility] Comment on above: Performed By: #### 8 [id number] #### [facility] [address] [place] [address], [facility] CO2 [Moles/Vol] 30 mmol/L Normal 21-31 The [facility] Comment on above: Performed By: #### 8 [id number] #### [facility] [address] [place] [address], [facility] Creatinine [Mass/Vol] 0.68 mg/dL Normal 0.60-1.20 [facility] Comment on above: Performed By: #### 8 [id number] #### [facility] [address] [place] [address], [facility] GFR/1.73 sq M.predicted among non-blacks MDRD (S/P/Bld) [Vol rate/Area] mL/min/{1.73_m2} Normal >60 [facility] Comment on above: Result Comment: [facility]'s estimated glomerular filtration rate (eGFR) will no longer include consideration of race in its calculation. The National Kid[employer] Foundation's eGFR Task Force developed new recommendations for the estimation of the glomerular filtration rate in the [place] They recommend immediate implementation of the new equation refit without the race variable in all laboratories because the calculation does not include race. In addition to not including race in the calculation and reporting, it included diversity in its development, and has acceptable performance characteristics and potential consequences that do not disproportionately affect any one group of individuals. Performed By: #### 8 [id number] #### [facility] [address] [place] [address], [facility] Glucose [Mass/Vol] 122 mg/dL High 70-100 [facility] Comment on above: Performed By: #### 8 [id number] #### [facility] [address] [place] [address], [facility] Potassium [Moles/Vol] 4.3 mmol/L Normal 3.5-5.1 [facility] Comment on above: Performed By: #### 8 [id number] #### [facility] [address] [place] [address], [place] Sodium [Moles/Vol] 144 mmol/L Normal 136-145 [facility] Comment on above: Performed By: #### 8 [id number] #### [facility] [address] Urea nitrogen [Mass/Vol] 28 mg/dL High 7-25 [facility] Comment on above: Performed By: #### 8 [id number] #### [facility] [address] [place] [address], [facility] CBC W/DIFFon 04-01-2022 ABS IMM GRANS 0.0 10*3/uL Normal 0.0-0.[address] [facility] Comment on above: Performed By: #### 8 [id number] #### [facility] [address] [place] [address], [facility] ABS NEUTROPHILS 4.7 10*3/uL Normal 1.6-7.6 The [facility] Comment on above: Performed By: #### 8 [id number] #### [facility] [address] [place] [address], [facility] Basophils (Bld) [#/Vol] 0.0 10*3/uL Normal 0.0-0.2 [facility] Comment on above: Performed By: #### 8 [id number] #### [facility] [address] [place] [address], [facility] Basophils/100 WBC (Bld) 0.4 % Normal 0.0-1.0 [facility] Comment on above: Performed By: #### 8 [id number] #### [facility] [address] [place] [address], [facility] Eosinophils (Bld) [#/Vol] 0.1 10*3/uL Normal 0.0-0.5 [facility] Comment on above: Performed By: #### 8 [id number] #### [facility] [address] [place] [address], [facility] Eosinophils/100 WBC (Bld) 1.3 % Normal 0.0-6.0 [facility] Comment on above: Performed By: #### 8 [id number] #### [facility] [address] [facility]. [address] Erythrocyte distribution width (RBC) [Ratio] 14.2 % Normal 11.5-15.0 [facility] Comment on above: Performed By: #### 8 [id number] #### [facility] [address] [facility]. [address] Hematocrit (Bld) [Volume fraction] 39.0 % Normal 36.0-45.0 [facility] Comment on above: Performed By: #### 8 [id number] #### [facility] [address] [facility]. [address] Hemoglobin (Bld) [Mass/Vol] 13.0 g/dL Normal 12.0-15.0 [facility] Comment on above: Performed By: #### 8 [id number] #### [facility] [address] [facility]. [address] IMMATURE GRANS 0.1 % Normal 0.0-1.[address] [facility] Comment on above: Performed By: #### 8 [id number] #### [facility] [address] [place] [address], [facility] Lymphocytes (Bld) [#/Vol] 2.9 10*3/uL Normal 1.2-4.0 [facility] Comment on above: Performed By: #### 8 [id number] #### [facility] [address] [facility] [place] [address], [facility] Lymphocytes/100 WBC (Bld) 35.3 % Normal 20.0-45.0 [facility] Comment on above: Performed By: #### 8 [id number] #### [facility] [address] [facility] [place] [address], [facility] MCH (RBC) [Entitic mass] 29.1 pg Normal 27.0-33.0 [facility] Comment on above: Performed By: #### 8 [id number] #### [facility] [address] [place] [address], [facility] MCHC (RBC) [Mass/Vol] 33.3 g/dL Normal 32.0-35.0 [facility] Comment on above: Performed By: #### 8 [id number] #### [facility] [address] [place] [address], [facility] MCV (RBC) [Entitic vol] 87.4 fL Normal 82.0-98.0 [facility] Comment on above: Performed By: #### 8 [id number] #### [facility] [address] [facility] [place] [address], [facility] Monocytes (Bld) [#/Vol] 0.5 10*3/uL Normal 0.1-1.0 [facility] Comment on above: Performed By: #### 8 [id number] #### [facility] [address] [facility] [place] [address], [facility] MONOS 6.2 % Normal 5.0-12.0 [facility] Comment on above: Performed By: #### 8 [id number] #### [facility] [address] [facility] [place] [address], [facility] Neutrophils/100 WBC (Bld) 56.7 % Normal 40.0-72.0 [facility] Comment on above: Performed By: #### 8 [id number] #### [facility] [address] [facility] [place] [address], [facility] Nucleated RBC/100 WBC (Bld) [Ratio] 0 % Normal 0-0 [facility] Comment on above: Performed By: #### 8 [id number] #### [facility] [address] [facility]. [place] [id number], [facility] PLAT CNT 182 10*3/uL Normal 150-400 [facility] Comment on above: Performed By: #### 8 [id number] #### [facility] [address] [place] [address], [facility] RBC (Bld) [#/Vol] 4.46 10*6/uL Normal 3.80-5.00 The [facility] Comment on above: Performed By: #### 8 [id number] #### [facility] [address] [facility] [place] [address], [facility] WBC (Bld) [#/Vol] 8.29 10*3/uL Normal 4.00-10.60 [facility] Comment on above: Performed By: #### 8 [id number] #### [facility] [address] [facility] [place] [address], [facility] CHEST AND LATERALon 04-01-20 CHEST AND LATERAL [facility] Department of Radiology [address] [place] [id number] ======== Patient Name: MICHELA ARIAS : 1950 Sex: F Age: Race: White Pt. Location: Patient Status: D Ordered Date: 04/01/2022 4:30:00 PM Completed Date: 04/01/2022 04:41 PM Requesting Provider: JACY NOE Attending Provider: JACY NOE Report Copy To: NOEMI MCNALLY Signs & Symptoms: M51.16 Intervertebral disc disorders w radiculopathy, lumbar region I10 History: Bess Comments: , , , Ordering Provider - JACY NOE MD , Exam: CHEST AND LATERAL ======== CHEST AND LATERAL 04/01/2022 4:41 PM CLINICAL INDICATIONS: M51.16 Intervertebral disc disorders w radiculopathy, lumbar region I10 TECHNOLOGIST COMMENTS: pr-op Intervertebral disc disorders w radiculopathy, lumbar region QUESTION FOR THE RADIOLOGIST: , , , Ordering Provider - JACY NOE MD , PROTOCOL: AP(PA) and Lateral views were obtained. COMPARISON: None Impression: 1. The lungs are clear. There are no effusions or pneumothorax. There is borderline enlargement of the cardiac silhouette. Electronically signed: Adrian Heath. Transcribed by: [email or web address], User Resident: Electronically Signed by: ADRIAN HEATH @ 04/02/2022 07:38 AM Normal [facility] Comment on above: Order Comment: , , = ========= , Ordering Provider - JACY NOE MD , PROTHROMBIN TIMEon 2 INR Coag (PPP) [Relative time] 0.97 {INR} Normal 0.91-1.16 [facility] Comment on above: Result Comment: ACCC P RECOMMENDED INR FOR WARFARIN THERAPY ------- ------- CONDITION INR PROPHYLAXIS OF VENOUS THROMBOSIS 2-3 (HIGH-RISK SURGERY) TREATMENT OF VENOUS THROMBOSIS 2-3 TREATMENT OF PULMONARY EMBOLISM 2-3 PREVENTION OF SYSTEMIC EMBOLISM: 2-3 ACUTE MYOCARDIAL INFARCTION TISSUE HEART VALVES VALVULAR HEART DISEASE ATRIAL FIBRILLATION RECURRENT SYSTEMIC EMBOLISM MECHANICAL HEART VALVE 2.5-3.5 FROM: ORAL ANTICOAGULANTS. MECHANISM OF ACTION, CLINICAL EFFECTIVENESS, AND OPTIMAL THERAPEUTIC RANGE. CHEST 1995;108:231S-246S. Performed By: #### 8 [id number] #### [facility] [address] [place] [address], [facility] PT Coag (PPP) [Time] 12.8 s Normal 12.3-14.8 [facility] Comment on above: Result Comment: ALL RESULTS MUST BE INTERPRETED WITH RESPECT TO BLOOD DRAWING ARTIFACT OR DILUTION ERROR OF ANTICOAGULANT AT THE TIME OF SAMPLING. Performed By: #### 8 [id number] #### [facility] [address] [place] [address], [facility] TYPE AND SCREENon 04-01-2022 ABO INTERPRETATION A Normal [facility] Comment on above: Performed By: #### 6 [id number] #### [facility] [address] [place] [address], [facility] RH INTERPRETATION Positive Normal [facility] Comment on above: Performed By: #### 6 [id number] #### [facility] [address] [place] [address], [facility] THYROGLOBULIN ABon Thyroglobulin Antibody <1.0 Normal 0.0-0.9 [facility] Comment on above: Result Comment: Thyr oglobulin Antibody measured by [employer] Performed By: #### C BC #### [facility] [address] [place] [address] Dr. Lisa Thomson THYROID PEROXIDASE ABon 02-17 Thyroid Peroxidase (TPO) Ab <8 Normal 0-34 [facility] Comment on above: Performed By: #### M ALBR #### [facility] [address] [place] [address] Dr. Lisa Thomson US THYROIDon 02-20-2022 US THYROID EXAMINATION: US THYROID HISTORY: Simple goiter COMPARISON: No relevant comparison available. FINDINGS: RIGHT LOBE: Enlarged, heterogeneous, hypervascular lobe without appreciable nodules. Lobe size: 7.9 x 2.8 x 2.8 cm LEFT LOBE: Heterogeneous echotexture without appreciable nodules or significant vascularity. Lobe size: 3.2 x 1.3 x 1.4 cm ISTHMUS: Heterogeneous echotexture without abnormal thickening or nodules. Thickness: 2 mm IMPRESSION: 1. Heterogeneous thyroid gland throughout without appreciable nodules. 2. Marked enlargement of the right lobe and increased vascularity; nonspecific. Appearance is suggestive of thyroiditis, but unusual to affect 1 lobe and not the other. Electronically authenticated by: JACKIE ESCOBEDO Date: 2022-02-20 09:25 Normal [facility] MRI CSPINE WO CONon 02-08-20 22 MRI CSPINE WO CON Exam: MR scan cervic al spine. TECHNIQUE: Sagittal T1, SERENA T2, STIR, axial gradient echo, and T2-weighted images through the cervical spine without contrast performed. COMPARISON: None. HISTORY: Degenerative cervical disc, acute pain. FINDINGS: Occiput to T6 evaluated in sagittal plane. Disc space narrowing C5-C6 and C6-C7. The craniocervical junction, cervicothoracic junction and cervical cord are normal in appearance. C1-C2: Normal. C2-C3: Normal. C3-C4: Normal. C4-C5: Disc bulge without stenosis. C5-C6: Disc bulge and uncinate process hypertrophy with an AP diameter of the central spinal canal of 8 mm. Right foraminal stenosis. C6-C7: Diffuse disc bulge left foraminal disc protrusion, disc herniation with severe left foraminal stenosis. AP diameter of the central spinal canal of 10 mm. C7-T1: Normal. The vertebral bodies and disc spaces are otherwise normal in appearance. Right thyroid goiter extending to the level of the manubrium. IMPRESSION: 1. Discogenic disease with an AP diameter canal of 8 mm C5-C6 effacing the CSF column. 2. Right foraminal stenosis C5-C6 and left foraminal disc protrusion, disc herniation and severe stenosis C6-C7. 3. Right thyroid goiter. Electronically authenticated by: Celi WALKER Date: 2022-02-07 16:19 Normal [facility] XR CSPINE MIN 4 VIEWSon 01-16 XR CSPINE MIN 4 VIEWS EXAMINATION: XR CSPINE MIN 4 VIEWS HISTORY: Chronic neck pain , arm and hand numbness, right leg pain COMPARISON: No relevant comparison available. FINDINGS: BONES: Straightening of the normal lordotic curvature. No significant spondylosis, scoliosis, fracture, or visible bony lesion. DISC SPACES: Moderate narrowing C5-C6, C6-C7. PARASPINOUS: Negative. No paraspinous abnormality is seen. OTHER: Negative. IMPRESSION: 1. Moderate degenerative disc disease of the lower cervical spine. Consider MRI for further evaluation. Electronically authenticated by: JACKIE ESCOBEDO Date: 2022-01-31 09:44 Normal [facility] CBC AUTO DIFFon 01-30-2022 BASO # 0.0 103/ul Normal 0.0-0.1 [facility] Comment on above: Performed By: #### C BC #### [facility] [address] [place] [address] [address] Lisa Thomson Basophils/100 WBC (Bld) 0.4 % Normal 0.2-2.0 [facility] Comment on above: Performed By: #### C BC #### [facility] [address] [place] [address] [address] Lisa Thomson EO # 0.1 103/ul Normal 0.0-0.7 [facility] Comment on above: Performed By: #### C BC #### [facility] [address] [place] [address] [address] Lisa Thomson Eosinophils/100 WBC (Bld) 1.3 % Normal 0.9-7.0 [facility] Comment on above: Performed By: #### C BC #### [facility] [address] [place] [address] [address] Lisa Thomson Erythrocyte distribution width (RBC) [Ratio] 13.1 % Normal 11.0-15.0 [facility] Comment on above: Performed By: #### C BC #### [facility] [address] [place] [address] [address] Lisa Thomson Hematocrit (Bld) [Volume fraction] 37.0 % Normal 36.0-48.0 [facility] Comment on above: Performed By: #### C BC #### [facility] [address] [place] [address] Dr. Lisa Thomson Hemoglobin (Bld) [Mass/Vol] 12.2 g/dL Normal 12.0-16.0 [facility] Comment on above: Performed By: #### C BC #### [facility] [address] [place] [address] Dr. Lisa Thomson IG # 0.03 10e3/ul Normal 0.00-0.03 [facility] Comment on above: Performed By: #### C BC #### [facility] [address] [place] [address] Dr. Lisa Thomson IG % 0.3 % Normal 0.0-0.5 [facility] Comment on above: Performed By: #### C BC #### [facility] [address] [place] [address] Dr. Lisa Thomson LYMPH # 2.4 103/ul Normal 1.2-3.8 [facility] Comment on above: Performed By: #### C BC #### [facility] [address] [place] [address] Dr. Lisa Thomson Lymphocytes/100 WBC (Bld) 27.1 % Normal 20.5-60.0 [facility] Comment on above: Performed By: #### C BC #### [facility] [address] [place] [address] Dr. Lisa Thomson MANUAL DIFF REQ NO Normal [facility] Comment on above: Performed By: #### C BC #### [facility] [address] [place] [address] Dr. Lisa Thomson MCH (RBC) [Entitic mass] 29.0 pg Normal 26.7-34.0 [facility] Comment on above: Performed By: #### C BC #### [facility] [address] [place] [address] Dr. Lisa Thomson MCHC (RBC) [Mass/Vol] 33.0 g/dL Normal 29.9-35.2 [facility] Comment on above: Performed By: #### C BC #### [facility] [address] [place] [address] Dr. Lisa Thomson MCV (RBC) [Entitic vol] 87.9 fL Normal 81.0-99.0 [facility] Comment on above: Performed By: #### C BC #### [facility] [address] [place] [address] Dr. Lisa Thomson MONO # 0.5 103/ul Normal 0.3-0.8 [facility] Comment on above: Performed By: #### C BC #### [facility] [address] [place] [address] Dr. Lisa Thomson Monocytes/100 WBC (Bld) 5.6 % Normal 1.7-12.0 [facility] Comment on above: Performed By: #### C BC #### [facility] [address] [place] [address] Dr. Lisa Thomson NEUT # 5.8 103/ul Normal 1.4-6.5 [facility] Comment on above: Performed By: #### C BC #### [facility] [address] [place] [address] Dr. Lisa Thomson Neutrophils/100 WBC (Bld) 65.3 % Normal 43.0-75.0 [facility] Comment on above: Performed By: #### C BC #### [facility] [address] [place] [address] Dr. Lisa Thomson Platelet mean volume (Bld) [Entitic vol] 9.3 fL Critically low 9.5-13.5 [facility] Comment on above: Performed By: #### C BC #### [facility] [address] [place] [address] Dr. Lisa Thomson PLT 242 103/ul Normal 150-450 [facility] Comment on above: Performed By: #### C BC #### [facility] [address] [place] [address] Dr. Lisa Thomson RBC 4.21 106/ul Normal 4.20-5.40 [facility] Comment on above: Performed By: #### C BC #### [facility] [address] [place] [address] Dr. Lisa Thomson WBC 8.9 103/ul Normal 4.0-11.0 [facility] Comment on above: Performed By: #### C BC #### [facility] [address] [place] [address] Dr. Lisa Thomson FREE T3on 01-30-2022 FREE T3 2.14 pg/mlL Critically low 2.18-3.98 [facility] Comment on above: Performed By: #### F T3, TSH #### [facility] [address] [place] [address] Dr. Lisa Thomson FREE T4on 01-30-2022 Free T4 [Mass/Vol] 1.05 ng/dL Normal 0.76-1.46 [facility] Comment on above: Performed By: #### F T4 #### [facility] [address] [place] [address] Dr. Lisa Thomson SED RATE WESTERGRENon 2021 SED RATE 60 mm/hr Critically high <=30 [facility] Comment on above: Performed By: #### S EDR #### [facility] [address] [place] [address] Dr. Lisa Thomson TSHon 01-30-2022 TSH 0.746 uIU/mL Normal 0.358-3.740 [facility] Comment on above: Performed By: #### F T3, TSH #### [facility] [address] [place] [address] Dr. Lisa Thomson CBC AUTO DIFFon 12-31-2021 BASO # 0.0 103/ul Normal 0.0-0.1 [facility] Comment on above: Performed By: #### M ALBR #### [facility] [address] [place] [address] Dr. Lisa Thomson Basophils/100 WBC (Bld) 0.2 % Normal 0.2-2.0 [facility] Comment on above: Performed By: #### M ALBR #### [facility] [address] [place] [address] Dr. Lisa Thomson EO # 0.0 103/ul Normal 0.0-0.7 [facility] Comment on above: Performed By: #### M ALBR #### [facility] [address] [place] [address] Dr. Lisa Thomson Eosinophils/100 WBC (Bld) 0.0 % Critically low 0.9-7.0 [facility] Comment on above: Performed By: #### M ALBR #### [facility] [address] [place] [address] Dr. Lisa Thomson Erythrocyte distribution width (RBC) [Ratio] 12.9 % Normal 11.0-15.0 [facility] Comment on above: Performed By: #### M ALBR #### [facility] [address] [place] [address] Dr. Lisa Thomson Hematocrit (Bld) [Volume fraction] 45.4 % Normal 36.0-48.0 [facility] Comment on above: Performed By: #### M ALBR #### [facility] [address] [place] [address] Dr. Lisa Thomson Hemoglobin (Bld) [Mass/Vol] 15.4 g/dL Normal 12.0-16.0 [facility] Comment on above: Performed By: #### M ALBR #### [facility] [address] [place] [address] Dr. Lisa Thomson IG # 0.05 10e3/ul Critically high 0.00-0.03 [facility] Comment on above: Performed By: #### M ALBR #### [facility] [address] [place] [address] Dr. Lisa Thomson IG % 0.4 % Normal 0.0-0.5 [facility] Comment on above: Performed By: #### M ALBR #### [facility] [address] [place] [address] Dr. Lisa Thomson LYMPH # 1.4 103/ul Normal 1.2-3.8 [facility] Comment on above: Performed By: #### M ALBR #### [facility] [address] [place] [address] Dr. Lisa Thomson Lymphocytes/100 WBC (Bld) 11.3 % Critically low 20.5-60.0 [facility] Comment on above: Performed By: #### M ALBR #### [facility] [address] [place] [address] Dr. Lisa Thomson MANUAL DIFF REQ NO Normal [facility] Comment on above: Performed By: #### M ALBR #### [facility] [address] [place] [address] [address] Lisa Thomson MCH (RBC) [Entitic mass] 29.4 pg Normal 26.7-34.0 [facility] Comment on above: Performed By: #### M ALBR #### [facility] [address] [place] [address] Dr. Lisa Thomson MCHC (RBC) [Mass/Vol] 33.9 g/dL Normal 29.9-35.2 [facility] Comment on above: Performed By: #### M ALBR #### [facility] [address] [place] [address] Dr. Lisa Thomson MCV (RBC) [Entitic vol] 86.6 fL Normal 81.0-99.0 [facility] Comment on above: Performed By: #### M ALBR #### [facility] [address] [place] [address] Dr. Lisa Thomson MONO # 0.1 103/ul Critically low 0.3-0.8 [facility] Comment on above: Performed By: #### M ALBR #### [facility] [address] [place] [address] Dr. Lisa Thomson Monocytes/100 WBC (Bld) 1.0 % Critically low 1.7-12.0 [facility] Comment on above: Performed By: #### M ALBR #### [facility] [address] [place] [address] Dr. Lisa Thomson NEUT # 10.8 103/ul Critically high 1.4-6.5 [facility] Comment on above: Performed By: #### M ALBR #### [facility] [address] [place] [address] Dr. Lisa Thomson Neutrophils/100 WBC (Bld) 87.1 % Critically high 43.0-75.0 [facility] Comment on above: Performed By: #### M ALBR #### [facility] [address] [place] [address] Dr. Lisa Thomson Platelet mean volume (Bld) [Entitic vol] 9.6 fL Normal 9.5-13.5 [facility] Comment on above: Performed By: #### M ALBR #### [facility] [address] [place] [address] Dr. Lisa Thomson PLT 172 103/ul Normal 150-450 [facility] Comment on above: Performed By: #### M ALBR #### [facility] [address] [place] [address] Dr. Lisa Thomson RBC 5.24 106/ul Normal 4.20-5.40 [facility] Comment on above: Performed By: #### M ALBR #### [facility] [address] [place] [address] Dr. Lisa Thomson WBC 12.4 103/ul Critically high 4.0-11.0 [facility] Comment on above: Performed By: #### M ALBR #### [facility] [address] [place] [address] Dr. Lisa Thomson FREE T4on 12-31-2021 Free T4 [Mass/Vol] 1.15 ng/dL Normal 0.76-1.46 [facility] Comment on above: Performed By: #### S EDR #### [facility] [address] [place] [address] Dr. Lisa Thomson GLYCOHEMOGLOBIN A1Con 2021 ADA RECOMMENDATION SEE BELOW Normal [facility] Comment on above: Result Comment: ADA RECOMMENDED LIMIT 4.0 - 6.0 ADA THERAPEUTIC TARGET < 7.0 ACTION SUGGESTED > 7.0 Performed By: #### C BC #### [facility] [address] [place] [address] Dr. Lisa Thomson Glucose [Mass/Vol] 140 mg/dL Normal [facility] Comment on above: Performed By: #### C BC #### [facility] [address] [place] [address] Dr. Lisa Thomson HbA1c (Bld) [Mass fraction] 6.5 % Critically high 4.5-6.2 [facility] Comment on above: Performed By: #### C BC #### [facility] [address] [place] [address] Dr. Lisa Thosmon LIPID PROFILEon 12-31-2021 CHOL-HDL RATIO NORM SEE BELOW Normal [facility] Comment on above: Result Comment: 3.3 - 4.4 LOW RISK 4.4 - 7.1 AVERAGE RISK 7.1 - 11.0 MODERATE RISK >11.0 HIGH RISK Performed By: #### C BC #### [facility] [address] [address] [address] Lisa Thomson Cholesterol [Mass/Vol] 242 mg/dL Critically high <=200 [facility] Comment on above: Performed By: #### C BC #### [facility] [address] [address] [address] Lisa Thomson Cholesterol in HDL [Mass/Vol] 58 mg/dL Normal 40-60 [facility] Comment on above: Performed By: #### C BC #### [facility] [address] [address] [address] Lisa Thomson Cholesterol in LDL [Mass/Vol] 149.2 mg/dL Normal [facility] Comment on above: Performed By: #### C BC #### [facility] [address] [address] [address] Lisa Thomson Cholesterol.total/Ch olesterol in HDL [Mass ratio] 4.2 {ratio} Normal [facility] Comment on above: Performed By: #### C BC #### [facility] [address] [address] [address] Lisa Thomson HDL NORMAL > or = 60 mg/dl - LO W CARDIOVASCULAR RISK <40 mg/dl - HIGH CARDIOVASCULAR RISK Normal [facility] Comment on above: Performed By: #### C BC #### [facility] [address] [address] [address] Lisa Thomson LDL CALC NORMAL SEE BELOW Normal [facility] Comment on above: Result Comment: <100 mg/dl OPTIMAL 100 - 129 mg/dl NEAR OR ABOVE OPTIMAL 130 - 159 mg/dl BORDERLINE HIGH 160 - 189 mg/dl HIGH >190 mg/dl VERY HIGH Performed By: #### C BC #### [facility] [address] [address] [address] Lisa Thomson Triglyceride [Mass/Vol] 174 mg/dL Critically high <=150 [facility] Comment on above: Performed By: #### C BC #### [facility] [address] [address] [address] Lisa Thomson VLDL CALC 34.8 mg/dL Normal [facility] Comment on above: Performed By: #### C BC #### [facility] [address] [address] [address] Lisa Thomson MICROALBUMIN, RAND URon 05- mALB <1.3 Normal <=30.0 [facility] Comment on above: Performed By: #### M ALBR #### [facility] [address] [place] [address] Dr. Lisa Thomson MRI LSPINE WO CONon 01-01-20 MRI LSPINE WO CON EXAMINATION: MRI LSPINE WO CON HISTORY: Lumbar radiculopathy , right leg pain and weakness COMPARISON: MRI lumbar spine 05/08/2020 TECHNIQUE: A variety of imaging planes and parameters were utilized for visualization of suspected pathology. FINDINGS: For the purposes of numbering, sagittal T2 image # 8 extends from the T11 vertebral body superiorly to the S2-3 level inferiorly. PARASPINAL AREA: Normal with no visible mass. BONES: No fracture, pars defect, or osseous lesion. CORD/CAUDA EQUINA: Normal caliber, contour, and signal intensity. DISC LEVELS: 12-L1: No significant disc/facet abnormality, spinal stenosis, or foraminal stenosis. L1-L2: No significant disc/facet abnormality, spinal stenosis, or foraminal stenosis. L2-L3: No significant disc/facet abnormality, spinal stenosis, or foraminal stenosis. L3-L4: Early degenerative disc disease is present without focal protrusion or neural impingement. L4-L5: Impingement of the exiting right nerve root between disc and facet joint despite only mild overall foramen narrowing bilaterally without significant central canal narrowing. Minimal diffuse disc bulging without disc height reduction. Mild degenerative facet arthropathy. L5-S1: Mild foramen narrowing bilaterally without significant central canal narrowing. Minimal diffuse disc bulging without disc height reduction. Mild degenerative facet arthropathy. IMPRESSION: 1. Right L4-5 exiting nerve root impingement between disc and facet joints. This appears to be because the nerve roots passes through the lower portion of the foramen which is narrowed rather than the upper portion. Findings are stable to very minimally progressed. Electronically authenticated by: JACKIE ESCOBEDO Date: 2021-12-31 11:29 Normal [facility] PROF 14(COMP METB)on 022 Albumin [Mass/Vol] 4.1 g/dL Normal 3.4-5.0 [facility] Comment on above: Performed By: #### C BC #### [facility] [address] [place] [address] Dr. Lisa Thomson Albumin/Globulin [Mass ratio] 1.1 {ratio} Normal [facility] Comment on above: Performed By: #### C BC #### [facility] [address] [place] [address] Dr. Lisa Thomson ALP [Catalytic activity/Vol] 56 U/L Normal 46-116 [facility] Comment on above: Performed By: #### C BC #### [facility] [address] [place] [address] Dr. Lisa Thomson ALT [Catalytic activity/Vol] 26 U/L Normal 14-59 [facility] Comment on above: Performed By: #### C BC #### [facility] [address] [place] [address] Dr. Lisa Thomson Anion gap [Moles/Vol] 17.0 mmol/L Normal [facility] Comment on above: Performed By: #### C BC #### [facility] [address] [place] [address] Dr. Lisa hTomson AST [Catalytic activity/Vol] 14 U/L Critically low 15-37 [facility] Comment on above: Performed By: #### C BC #### [facility] [address] [place] [address] Dr. Lisa Thomson Bilirubin [Mass/Vol] 0.9 mg/dL Normal 0.2-1.0 [facility] Comment on above: Performed By: #### C BC #### [facility] [address] [place] [address] Dr. Lisa Thomson Calcium [Mass/Vol] 8.7 mg/dL Normal 8.5-10.1 [facility] Comment on above: Performed By: #### C BC #### [facility] [address] [place] [address] Dr. Lisa Thomson Chloride [Moles/Vol] 101 mmol/L Normal 98-107 [facility] Comment on above: Performed By: #### C BC #### [facility] [address] [place] [address] Dr. Lisa Thomson CO2 [Moles/Vol] 23.0 mmol/L Normal 21.0-32.0 [facility] Comment on above: Performed By: #### C BC #### [facility] [address] [place] [address] Dr. Lisa Thomson Creatinine [Mass/Vol] 0.70 mg/dL Normal 0.55-1.02 [facility] Comment on above: Performed By: #### C BC #### [facility] [address] [place] [address] Dr. Lisa Thomson EGFR-AF ARMENIAN >60 Normal >=60 [facility] Comment on above: Performed By: #### C BC #### [facility] [address] [place] [address] Dr. Lisa Thomson EGFR-NON AF ARMENIAN >60 Normal >=60 [facility] Comment on above: Performed By: #### C BC #### [facility] [address] [place] [address] Dr. Lisa Thomson Globulin (S) [Mass/Vol] 3.6 g/dL Normal [facility] Comment on above: Performed By: #### C BC #### [facility] [address] [place] [address] Dr. Lisa Thomson Glucose [Mass/Vol] 178 mg/dL Critically high 74-106 [facility] Comment on above: Performed By: #### C BC #### [facility] [address] [place] [address] Dr. Lisa Thomson Potassium [Moles/Vol] 4.0 mmol/L Normal 3.5-5.1 [facility] Comment on above: Performed By: #### C BC #### [facility] [address] [address] [address] Lisa Thomson Protein [Mass/Vol] 7.7 g/dL Normal 6.4-8.2 [facility] Comment on above: Performed By: #### C BC #### [facility] [address] [address] [address] Lisa Thomson Sodium [Moles/Vol] 137 mmol/L Normal 136-145 [facility] Comment on above: Performed By: #### C BC #### [facility] [address] [address] [address] Lisa Thomson Urea nitrogen [Mass/Vol] 23.0 mg/dL Critically high 7.0-18.0 [facility] Comment on above: Performed By: #### C BC #### [facility] [address] [place] [address] Dr. Lisa Thomson Urea nitrogen/Creatinine [Mass ratio] 32.9 mg/mg Normal [facility] Comment on above: Performed By: #### C BC #### [facility] [address] [address] [address] Lisa Thomson TSHon 12-31-2021 TSH 0.123 uIU/mL Critically low 0.358-3.740 [facility] Comment on above: Performed By: #### C BC #### [facility] [address] [place] [address] Dr. Lisa Thomson TSH RANGE SEE BELOW Normal [facility] Comment on above: Result Comment: <0.3 4 UIU/ml HYPERTHYROID 0.34-5.60 UIU/ml EUTHYROID >5.60 UIU/ml HYPOTHYROID Performed By: #### C BC #### [facility] [address] [address] [address] Lisa Thomson UA RANDOM W/MICROSCOPICon BACTERIA NONE SEEN Normal NONE SEEN [facility] Comment on above: Performed By: #### U AMIC #### [facility] [address] [address] [address] Lisa Thomson Bilirubin Ql (U) Negative Normal NEGATIVE [facility] Comment on above: Performed By: #### U AMIC #### [facility] [address] [address] [address] Lisa Thomson CAST NONE SEEN Normal NONE SEEN [facility] Comment on above: Performed By: #### U AMIC #### [facility] [address] [address] [address] Lisa Thomson Clarity (U) CLEAR Normal CLEAR [facility] Comment on above: Performed By: #### U AMIC #### [facility] [address] [address] [address] Lisa Thomson Color (U) LT. YELLOW Normal YELLOW [facility] Comment on above: Performed By: #### U AMIC #### [facility] [address] [place] [address] Dr. Lisa Thomson Crystals LM Nom (Urine sed) NONE SEEN Normal NONE SEEN [facility] Comment on above: Performed By: #### U AMIC #### [facility] [address] [place] [address] Dr. Lisa Thomson Epithelial cells LM Ql (Urine sed) NONE SEEN Normal NONE SEEN /RARE [facility] Comment on above: Performed By: #### U AMIC #### [facility] [address] [place] [address] Dr. Lisa Thomson Glucose Ql (U) >1000 Abnormal NEGATIVE [facility] Comment on above: Performed By: #### U AMIC #### [facility] [address] [place] [address] Dr. Lisa Thomson Hemoglobin Ql (U) Negative Normal NEGATIVE [facility] Comment on above: Performed By: #### U AMIC #### [facility] [address] [address] [address] Lisa Thomson Ketones Ql (U) 15 mg/dl Abnormal NEGATIVE [facility] Comment on above: Performed By: #### U AMIC #### [facility] [address] [place] [address] Dr. Lisa Thomson LEUKOCYTES Negative Normal NEGATIVE [facility] Comment on above: Performed By: #### U AMIC #### [facility] [address] [address] [address] Lisa Thomson MUCOUS NONE SEEN Normal NONE SEEN [facility] Comment on above: Performed By: #### U AMIC #### [facility] [address] [address] [address] Lisa Thomson Nitrite Ql (U) Negative Normal NEGATIVE [facility] Comment on above: Performed By: #### U AMIC #### [facility] [address] [address] [address] Lisa Thomson pH (U) 5.5 [pH] Normal 5-9 [facility] Comment on above: Performed By: #### U AMIC #### [facility] [address] [address] [address] Lisa Thomson RBC NONE SEEN Abnormal 0-2 [facility] Comment on above: Performed By: #### U AMIC #### [facility] [address] [place] [address] Dr. Lisa Thomson SPEC GRAVITY 1.015 Normal 1.005-<=1.025 [facility] Comment on above: Performed By: #### U AMIC #### [facility] [address] [address] [address] Lisa Thomson UA PROTEIN Negative Normal NEGATIVE/ TRACE [facility] Comment on above: Performed By: #### U AMIC #### [facility] [address] [place] [address] Dr. Lisa Thomson Urobilinogen Qn (U) 0.2 {Tony'U}/dL Normal 0.2 - 1. 0 [facility] Comment on above: Performed By: #### U AMIC #### [facility] [address] [address] [address] Lisa Thomson WBC NONE SEEN Normal NONE SEEN [facility] Comment on above: Performed By: #### U AMIC #### [facility] [address] [place] [address] Dr. Lisa Thomson XR LSPINE W_OBLS AND FLEX_EX Ton 12-24-2021 XR LSPINE W_OBLS AND FLEX_EXT EXAMINATION: XR LSPINE W_OBLS AND FLEX_EXT HISTORY: Pain of right lower leg ; lumbar and right leg pain for 2 weeks, no known injury COMPARISON: XR lumbar spine 02/15/2019 FINDINGS: BONES: Mild straightening of the normal lordotic curvature; positioning versus muscle spasm. Mild degenerative facet arthropathy L4-L5, L5-S1. No fracture or spondylolisthesis. DISC SPACES: Mild narrowing L5-S1. PARASPINOUS: Negative. No paraspinous abnormality is seen. OTHER: Negative. IMPRESSION: 1. Mild degenerative changes of the lumbar spine, most notable at L5-S1. These do not appear significantly changed compared 02/15/2019. Electronically authenticated by: JACKIE ESCOBEDO Date: 2021-12-24 14:41 Normal [facility] BONE IMAGE 3 PHASEon [place] BONE IMAGE 3 PHASE EXAMINATION: NM BONE IMAGE 3 PHASE HISTORY: Pain in right leg COMPARISON: No relevant comparison available. TECHNIQUE: 25.0 mCi Technetium 99m MDP was injected intravenously followed by acquisition of dynamic flow, immediate blood pool, and delayed static images. FINDINGS: IMAGED AREA: Pelvis, bilateral thighs FLOW PHASE: Normal. BLOOD POOL PHASE: Normal. DELAYED IMAGES: Normal. OTHER: Negative. IMPRESSION: Normal exam. No areas of increased or decreased radionuclide activity Electronically authenticated by: NIKA YI Date: 2021-12-21 16:11 Normal [facility] Encounters Encounter Date Encounter Type Care Provider Facility Start: 06-23-2023 End: 06-24-2023 [facility] Start: 12-16-2022 End: 12-17-2022 [facility] Start: 11-12-2022 End: 11-13-2022 ambulatory GARRICK MCNALLY Facility:[facility] Start: 10-16-2022 End: 10-17-[address] NIKA YI Facility:[facility] Start: 10-07-2022 End: 10-08-2022 ambulatory [facility] Start: 10-07-2022 End: 10-07-2022 ambulatory [facility] Start: 10-04-[address] DOCTOR VERDE Facility :[facility] Start: 08-26-2022 End: 08-27-2022 ambulatory [facility] Start: 07-15-2022 End: 07-15-2022 ambulatory [facility] Start: 07-01-2022 Encounter for preprocedural laboratory examination DR DOCTOR VERDE [facility] Start: 06-27-2022 End: 06-28-[address] DOCTOR VERDE Facility:[facility] Start: 06-27-2022 End: 06-28-2022 Encounter for preprocedural laboratory examination DR DOCTOR VERDE Facility:[facility] Start: 06-25-2022 End: 06-26-[address] DOCTOR VERDE Facility:[facility] Start: 06-20-2022 End: 06-20-[address] NANDO VALDEZ . Facility:[facility] Start: 05-13-2022 End: 05-14-[address] DOCTOR VERDE Facility:[facility] Start: 04-24-2022 End: 04-25-2022 ambulatory Jacy T. [place] Facility:[facility] Start: 04-01-2022 End: 04-02-2022 ambulatory Jacy T. Kingston Facility:[facility] Start: 03-14-2022 End: 03-15-2022 ambulatory OBSTETRICS TECH NOEMI AICHHOLZ Facility:[facility] Start: 02-19-2022 End: 02-20-2022 ambulatory OBSTETRICS TECH NOEMI AICHHOLZ Facility:[facility] Start: 02-07-2022 End: 02-08-2022 ambulatory OBSTETRICS TECH NOEMI AICHSARAHZ Facility:[facility] Start: 01-30-2022 End: 01-31-2022 ambulatory OBSTETRICS TECH NOEMI AICHHOLZ Facility:[facility] Start: 01-17-2022 End: 01-18-2022 ambulatory DEFAULT PHYSICIAN Facility:[facility] Start: 01-15-2022 End: 01-15-2022 ambulatory OBSTETRICS TECH NOEMI AICSHAYZ Facility:[facility] Start: 01-01-2022 End: 01-02-[address] ISHMAEL ROBERTO . Facility:[facility] Start: 12-31-2021 End: 01-01-2022 ambulatory OBSTETRICS TECH NOEMI SARABJITZ Facility:[facility] Start: 12-27-2021 End: 01-05-[address] ISHMAEL ROBERTO . Facility:[facility] Start: 12-25-2021 End: 12-26-[address] ISHMAEL ROBERTO . Facility:[facility] Start: 12-24-2021 End: 12-25-[address] ISHMAEL ROBERTO . Facility:[facility] Start: 12-21-2021 End: 12-22-[address] ISHMAEL ROBERTO . Facility:[facility] Start: 12-18-2021 End: 12-19-2021 ambulatory WHITNEY GOODMAN Facility:[facility] Start: 12-17-2021 End: 12-17-2021 ambulatory WHITNEY GOODMAN Facility:[facility] Start: 12-07-2021 ambulatory GARRICK MULLINSSARAHKendra Facil ity:[facility] Procedures Date Procedure Procedure Detail Performing Clinician Start: 04-24-2022 Antibody screen DEFAULT PHYSICIAN Comment on above: Performed By: #### [id number] #### [facility] [address] [facility]. [address] Start: 04-01-2022 Antibody screen DEFAULT PHYSICIAN Comment on above: Performed By: #### [id number] #### [facility] [address] Payers Date Payer Category Payer Medicare [id number] 1959 Self-pay 1959 Unknown [id number] 1950 Unknown [id number] 2.16.8 40.1.358007.3.579.2.647 1950 Unknown [id number] .16.8 40.1.593363.3.579.2.647 1950 Unknown [id number] 2.16.8 40.1.527378.3.579.2.647 1950 Unknown [id number] 2.16.84 0.1.246877.3.579.2.593 1950 Unknown [id number] 2.16.84 0.1.345207.3.579.2.593 1950 Unknown [id number] 2.16.84 0.1.283634.3.579.2.593 1950 Unknown [id number] 2.16.84 0.1.384916.3.579.2.593 1950 Unknown [id number] 2.16.84 0.1.956954.3.579.2.593 1950 Unknown [id number] 2.16.84 0.1.993375.3.579.2.593 1950 Unknown [id number] 2.16.84 0.1.045636.3.579.2.593 1950 Unknown [id number] 2.16.84 0.1.769488.3.579.2.593 1950 Unknown [id number] 2.16.84 0.1.479140.3.579.2.593 1950 Unknown [id number] 2.16.84 0.1.472252.3.579.2.593 1950 Unknown [id number] 2.16.84 0.1.907457.3.579.2.593 1950 Unknown [id number] 2.16.84 0.1.153123.3.579.2.593 1950 Unknown [id number] 2.16.84 0.1.483500.3.579.2.593 1950 Unknown [id number] 2.16.84 0.1.050008.3.579.2.593 1950 Unknown [id number] 2.16.84 0.1.556495.3.579.2.593 1950 Unknown [id number] 2.16.84 0.1.153827.3.579.2.593 1950 Unknown [id number] 2.16.84 0.1.362543.3.579.2.593 1950 Unknown [id number] 2.16.84 0.1.713200.3.579.2.593 1950 Unknown [id number] 2.16.84 0.1.956118.3.579.2.593 1950 Unknown [id number] 2.16.84 0.1.753792.3.579.2.593 1950 Unknown [id number] 2.16.84 0.1.870522.3.579.2.593 1950 Unknown [id number] 2.16.84 0.1.696925.3.579.2.593 Unknown Clinical Notes 12-18-2021 to 06-23-2023 Note Date & Type Note Facility 06-23-2023 Note [facility]surgery [facility] Note Chief Complaint: Postop, leg pain. Interval History: Michela Arias is a 73 y.o. year-old female who presents for postoperative follow-up after undergoing an L5-S1 posterior lumbar interbody fusion with bilateral instrumentation on 07/02/2022. Prior to that surgery, she had suffered recurrent right lower extremity radiculopathy secondary to a second time recurrent disc herniation. When last seen approximately 6 months ago, she was walking without a walker and had been participating in physical therapy. She continued to have some pain in the lower back and uncomfortable numbness in the right L5 distribution. She presents for 1 year follow-up. She states that she is fallen 3 times since last seen. She continues to suffer from painful numbness which radiates from the back down the right leg to the foot. She feels that there is pain throughout the right leg and that it is worsened since she was last seen. She denies new ashley numbness or weakness. Problem List: Patient Active Problem List Diagnosis Recurrent herniation of lumbar disc Lumbar disc herniation Past Medical History: Past Medical History: Diagnosis Date Diabetes mellitus ([facility]/HCC) Hyperlipidemia Thyroid condition Past Surgical History: Past Surgical History: Procedure Laterality Date HYSTERECTOMY total LUMBAR DISCECTOMY Right 05/29/2022 Redo R L5-S1 diskectomy, Dr. Noe LUMBAR FUSION 07/02/2022 L5 laminectomy, L5-S1 interbody fusion, L5-S1 instrumented fusion, Dr. Noe LUMBAR LAMINECTOMY right L5-S1 diskectomy and foraminotomy on 04/24/22, Dr. Noe Medications: Current Outpatient Medications Medication Instructions atorvastatin (Lipitor) 80 mg tablet No dose, route, or frequency recorded. DULoxetine (CYMBALTA) 30 mg, oral, Daily, Do not crush or chew. ezetimibe (Zetia) 10 mg tablet No dose, route, or frequency recorded. gabapentin (NEURONTIN) 300 mg, oral, 3 times daily metFORMIN XR (GLUCOPHAGE-XR) 500 mg, oral, Daily with breakfast pioglitazone (ACTOS) 15 mg, oral, Every morning polyethylene glycol (GLYCOLAX) 17 g, oral, Daily PRN sennosides-docusate sodium (Senexon-S) 8.6-50 mg tablet TAKE 2 TABLETS BY MOUTH EVERY MORNING *DO NOT TAKE IF DIARRHEA* tiZANidine (ZANAFLEX) 4 mg, oral, Every 8 hours PRN Allergies: Allergies Allergen Reactions Iodine Dizziness Nubain [Nalbuphine] Other Pt passes out Review of Systems: Review of Systems Musculoskeletal: Positive for back pain and gait problem. Neurological: Positive for numbness. Exam: Vitals: Vitals: 06/23/23 1036 BP: 177/79 Pulse: 77 Temp: 36.8 ???C (98.3 ???F) Body mass index is 23.59 kg/m???. General: Awake, alert, NAD. Well groomed. HEENT: Normocephalic, atraumatic. Neck supple without lymphadenopathy. Heart: Regular rate and rhythm. Lungs: Clear to auscultation bilaterally. Abdomen: Soft, non-tender, non-distended. Bowel sounds present. Extremities: No cyanosis or edema. No noted deformities. Back: Well-healed low lumbar midline incision. Neurologic: Appropriate affect during exam. Oriented x 3. Normal fluency and prosody of speech. Content appropriate and higher function appears intact. CN II-XII grossly intact. PERRL. EOMI. Face symmetric strength and sensation. Tongue midline. Shoulder shrug full strength and symmetric. Palate elevates symmetrically. Motor 4+/5 throughout except 4/5 R DF, although pain limited. No pronator drift. Sensation intact to light touch throughout. Ambulates with a right-sided limp, but able to perform toe and heel walking. Lab: No visits with results within 30 Day(s) from this visit. Latest known visit with results is: Admission on 07/02/2022, Discharged on 07/05/2022 Component Date Value Ref Range Status MSSA DNA 07/02/2022 Negative Negative, Invalid Final MRSA DNA 07/02/2022 Negative Negative, Invalid Final ABO Grouping 07/02/2022 A Final Rh Type 07/02/2022 POS Final Ab Scrn 07/02/2022 NEG Final SARS-CoV-2 Ag POC 07/02/2022 Negative Negative Final Glucose POC 07/02/2022 119 (H) 70 - 105 mg/dL Final Glucose POC 07/02/2022 204 (H) 70 - 105 mg/dL Final Glucose POC 07/02/2022 273 (H) 70 - 105 mg/dL Final Auto WBC 07/02/2022 14.81 (H) 4.00 - 10.60 10*3/uL Final RBC 07/02/2022 2.81 (L) 3.80 - 5.00 10*6/uL Final Hemoglobin 07/02/2022 9.1 (L) 12.0 - 15.0 g/dL Final Hematocrit 07/02/2022 26.0 (L) 36.0 - 48.0 % Final MCV 07/02/2022 92.5 82.0 - 98.0 fL Final MCH 07/02/2022 32.4 27.0 - 33.0 pg Final MCHC 07/02/2022 35.0 32.0 - 35.0 g/dL Final RDW 07/02/2022 13.9 11.5 - 15.0 % Final Platelets 07/02/2022 167 150 - 400 10*3/uL Final Sodium 07/02/2022 138 136 - 145 mmol/L Final Potassium 07/02/2022 3.9 3.5 - 5.1 mmol/L Final Chloride 07/02/2022 107 98 - 107 mmol/L Final CO2 07/02/2022 18 (L) 21 - 31 mmol/L Final BUN 07/02/2022 21 7 - 25 mg/dL Final Creatinine 07/02/2022 0.49 (L) 0.60 - 1.20 mg/dL Final Glucose 07/02/2022 233 (H) (more content not included)... [facility] 12-16-[facility]22 Note Neurosurgery Clinic Note Chief Complaint: Interval History: Michela Arias is a 72 y.o. year-old female who presents for follow-up approximately 6 months after undergoing a L5-S1 posterior lumbar interbody fusion with bilateral instrumentation on 07/02/2022. Surgery was performed for right lower extremity radiculopathy secondary to a second time recurrent disc herniation. Her postoperative course of been difficult, but she has noted improvement in her right leg pain and functionality after surgery. Today, she presents without the use of a walker. She has been participating in physical therapy. She continues to suffer from some pain in the low back, but mostly uncomfortable numbness which then becomes throbbing and painful in the [id number] extending into her toes. She denies any new neurologic symptoms. She feels that her symptoms are somewhat improved since her last visit 3 months ago. Problem List: Patient Active Problem List Diagnosis Recurrent herniation of lumbar disc Lumbar disc herniation Past Medical History: Past Medical History: Diagnosis Date Diabetes mellitus (CMS/HCC) Hyperlipidemia Thyroid condition Past Surgical History: Past Surgical History: Procedure Laterality Date HYSTERECTOMY total LUMBAR DISCECTOMY Right 05/29/2022 Redo R L5-S1 diskectomy, Dr. Noe LUMBAR FUSION 07/02/2022 L5 laminectomy, L5-S1 interbody fusion, L5-S1 instrumented fusion, Dr. Noe LUMBAR LAMINECTOMY right L5-S1 diskectomy and foraminotomy on 04/24/22, Dr. Noe Medications: Current Outpatient Medications Medication Instructions atorvastatin (LIPITOR) 40 mg, oral, Daily DULoxetine (CYMBALTA) 30 mg, oral, Daily, Do not crush or chew. gabapentin (NEURONTIN) 300 mg, oral, 3 times daily metFORMIN XR (GLUCOPHAGE-XR) 500 mg, oral, Daily with breakfast pioglitazone (ACTOS) 15 mg, oral, Every morning polyethylene glycol (GLYCOLAX) 17 g, oral, Daily PRN sennosides-docusate sodium (Senexon-S) 8.6-50 mg tablet TAKE 2 TABLETS BY MOUTH EVERY MORNING *DO NOT TAKE IF DIARRHEA* tiZANidine (ZANAFLEX) 4 mg, oral, Every 8 hours PRN traZODone (DESYREL) 50 mg, oral, Every evening Allergies: Allergies Allergen Reactions Iodine Dizziness Nubain [Nalbuphine] Other Pt passes out Exam: Vitals: Vitals: 12/16/22 1154 BP: 129/60 Pulse: 79 Temp: 36.7 ???C (98.1 ???F) There is no height or weight on file to calculate BMI. General: Awake, alert, NAD. Well groomed. HEENT: Normocephalic, atraumatic. Neck supple without lymphadenopathy. Heart: Regular rate and rhythm. Lungs: Clear to auscultation bilaterally. Abdomen: Soft, non-tender, non-distended. Bowel sounds present. Extremities: No cyanosis or edema. No noted deformities. Back: Well-healed low lumbar midline incision. Neurologic: Appropriate affect during exam. Oriented x 3. Normal fluency and prosody of speech. Content appropriate and higher function appears intact. CN II-XII grossly intact. PERRL. EOMI. Face symmetric strength and sensation. Tongue midline. Shoulder shrug full strength and symmetric. Palate elevates symmetrically. Motor 4+/5 with perhaps a bit more weakness in R DF, although pain limited. No pronator drift. Sensation intact to light touch throughout. Ambulates with a right-sided limp, but able to perform toe and heel walking. Limp largely resolves and heel-to-toe gait. Lab: No visits with results within 30 Day(s) from this visit. Latest known visit with results is: Admission on 07/02/2022, Discharged on 07/05/2022 Component Date Value Ref Range Status MSSA DNA 07/02/2022 Negative Negative, Invalid Final MRSA DNA 07/02/2022 Negative Negative, Invalid Final ABO Grouping 07/02/2022 A Final Rh Type 07/02/2022 POS Final Ab Scrn 07/02/2022 NEG Final SARS-CoV-2 Ag POC 07/02/2022 Negative Negative Final Glucose POC 07/02/2022 119 (A) 70 - 105 mg/dL Final Glucose POC 07/02/2022 204 (A) 70 - 105 mg/dL Final Glucose POC 07/02/2022 273 (A) 70 - 105 mg/dL Final Auto WBC 07/02/2022 14.81 (A) 4.00 - 10.60 10*3/uL Final RBC 07/02/2022 2.81 (A) 3.80 - 5.00 10*6/uL Final Hemoglobin 07/02/2022 9.1 (A) 12.0 - 15.0 g/dL Final Hematocrit 07/02/2022 26.0 (A) 36.0 - 48.0 % Final MCV 07/02/2022 92.5 82.0 - 98.0 fL Final MCH 07/02/2022 32.4 27.0 - 33.0 pg Final MCHC 07/02/2022 35.0 32.0 - 35.0 g/dL Final RDW 07/02/2022 13.9 11.5 - 15.0 % Final Platelets 07/02/2022 167 150 - 400 10*3/uL Final Sodium 07/02/2022 138 136 - 145 mmol/L Final Potassium 07/02/2022 3.9 3.5 - 5.1 mmol/L Final Chloride 07/02/2022 107 98 - 107 mmol/L Final CO2 07/02/2022 18 (A) 21 - 31 mmol/L Final BUN 07/02/2022 21 7 - 25 mg/dL Final Creatinine 07/02/2022 0.49 (A) 0.60 - 1.20 mg/dL Final Glucose 07/02/2022 233 (A) 70 - 100 mg/dL Final Calcium 07/02/2022 7.4 (A) 8.6 - 10.3 mg/dL Final Anion Gap 07/02/2022 13 7 - 20 mmol/L Final eGFR 07/02/2022 97.6 >60.0 mL/min/1.73m*2 Final BUN/Creatinine Ratio 1 (more content not included)... [facility] 10-16-[facility] Note PROCEDURE: XR FOOT R T MIN 3 VIEWS, XR ANKLE RT MIN 3 VIEWS COMPARISON: None. HISTORY: Pain in right foot FINDINGS: BONES:No acute fracture or dislocation. Moderate enthesopathic spurring of the calcaneus. Mild with moderate degenerative changes SOFT TISSUES:Negative. No visible soft tissue swelling. EFFUSION:None visible. OTHER: Vascular calcifications IMPRESSION: Degenerative changes with no acute fracture Electronically authenticated by: NIKA YI Date: 2022-10-16 17:56 [facility] 10-16-2022 Note PROCEDURE: XR FOOT R T MIN 3 VIEWS, XR ANKLE RT MIN 3 VIEWS COMPARISON: None. HISTORY: Pain in right foot FINDINGS: BONES:No acute fracture or dislocation. Moderate enthesopathic spurring of the calcaneus. Mild with moderate degenerative changes SOFT TISSUES:Negative. No visible soft tissue swelling. EFFUSION:None visible. OTHER: Vascular calcifications IMPRESSION: Degenerative changes with no acute fracture Electronically authenticated by: NIKA YI Date: 2022-10-16 17:56 [facility] 10-07-2022 Note Neurosurgery Clinic Note Chief Complaint: Post op Interval History: Michela Arias is a 72 y.o. year-old female who presents for approximately 3-month postoperative follow-up after undergoing an L5-S1 posterior lumbar interbody fusion with bilateral instrumentation on 07/02/2022 for treatment of a second time recurrent disc herniation and right lower extremity radiculopathy. In general, she had a difficult perioperative course, but when last seen she had indicated that her right lower extremity pain was gradually improving. She had been doing well since her last visit, but unfortunately this past Friday fell while at a family birthday [employer], injuring her right ankle which has been swollen and painful. She also noted increased pain in her low back near her surgical site. She had attempted to undertake her normal physical therapy visit, but her right lower extremity pain, primarily at the ankle, limited her therapy. She has used ice and heat with some relief. She was going to see her primary care doctor tomorrow, but that appointment was apparently canceled. She denies any new neurologic symptoms. She does report that her right ankle pain is keeping her up at nights at this time. Problem List: Patient Active Problem List Diagnosis Recurrent herniation of lumbar disc Lumbar disc herniation Past Medical History: Past Medical History: Diagnosis Date Diabetes mellitus (CMS/HCC) Hyperlipidemia Thyroid condition Past Surgical History: Past Surgical History: Procedure Laterality Date HYSTERECTOMY total LUMBAR DISCECTOMY Right 05/29/2022 Redo R L5-S1 diskectomy, Dr. Noe LUMBAR FUSION 07/02/2022 L5 laminectomy, L5-S1 interbody fusion, L5-S1 instrumented fusion, Dr. Noe LUMBAR LAMINECTOMY right L5-S1 diskectomy and foraminotomy on 04/24/22, Dr. Noe Medications: Current Outpatient Medications Medication Instructions atorvastatin (LIPITOR) 40 mg, oral, Daily DULoxetine (CYMBALTA) 30 mg, oral, Daily, Do not crush or chew. gabapentin (NEURONTIN) 300 mg, oral, 3 times daily metFORMIN XR (GLUCOPHAGE-XR) 500 mg, oral, Daily with breakfast pioglitazone (ACTOS) 15 mg, oral, Every morning polyethylene glycol (GLYCOLAX) 17 g, oral, Daily PRN sennosides-docusate sodium (Senexon-S) 8.6-50 mg tablet TAKE 2 TABLETS BY MOUTH EVERY MORNING *DO NOT TAKE IF DIARRHEA* tiZANidine (ZANAFLEX) 4 mg, oral, Every 8 hours PRN traZODone (DESYREL) 50 mg, oral, Every evening Allergies: Allergies Allergen Reactions Iodine Dizziness Nubain [Nalbuphine] Other Pt passes out Review of Systems: Review of Systems Constitutional: Negative for chills, fatigue and fever. Musculoskeletal: Positive for back pain. Neurological: Positive for numbness (right leg and toes). Negative for dizziness, tremors, seizures, syncope, facial asymmetry, speech difficulty, weakness, light-headedness and headaches. Patient recently fell on her back at a birthday democr[employer]. Right leg and toes are numb. Exam: Vitals: Vitals: 10/07/22 1342 BP: 125/59 Pulse: 74 Temp: 36.6 ???C (97.9 ???F) Body mass index is 22.31 kg/m???. General: Awake, alert, NAD. Well groomed. HEENT: Normocephalic, atraumatic. Neck supple without lymphadenopathy. Heart: Regular rate and rhythm. Lungs: Clear to auscultation bilaterally. Abdomen: Soft, non-tender, non-distended. Bowel sounds present. Extremities: No cyanosis or edema. No noted deformities. Back: Well-healed low lumbar midline incision. Neurologic: Appropriate affect during exam. Oriented x 3. Normal fluency and prosody of speech. Content appropriate and higher function appears intact. CN II-XII grossly intact. PERRL. EOMI. Face symmetric strength and sensation. Tongue midline. Shoulder shrug full strength and symmetric. Palate elevates symmetrically. Motor 4/5 throughout RLE, 4+/5 LLE and BUE. No pronator drift. Sensation intact to light touch throughout. Lab: No visits with results within 30 Day(s) from this visit. Latest known visit with results is: Admission on 07/02/2022, Discharged on 07/05/2022 Component Date Value Ref Range Status MSSA DNA 07/02/2022 Negative Negative, Invalid Final MRSA DNA 07/02/2022 Negative Negative, Invalid Final ABO Grouping 07/02/2022 A Final Rh Type 07/02/2022 POS Final Ab Scrn 07/02/2022 NEG Final SARS-CoV-2 Ag POC 07/02/2022 Negative Negative Final Glucose POC 07/02/2022 119 (A) 70 - 105 mg/dL Final Glucose POC 07/02/2022 204 (A) 70 - 105 mg/dL Final Glucose POC 07/02/2022 273 (A) 70 - 105 mg/dL Final Auto WBC 07/02/2022 14.81 (A) 4.00 - 10.60 10*3/uL Final RBC 07/02/2022 2.81 (A) 3.80 - 5.00 10*6/uL Final Hemoglobin 07/02/2022 9.1 (A) 12.0 - 15.0 g/dL Final Hematocrit 07/02/2022 26.0 (A) 36.0 - 48.0 % Final MCV 07/02/2022 92.5 82.0 - 98.0 fL Final MCH 07/02/2022 32.4 27.0 - 33.0 pg Final MCHC 07/02/2022 35.0 32.0 - 35.0 g/dL Final RDW 07/02/2022 13.9 11.5 - 15.0 % Final Platele (more content not included)... [facility] 08-26-2022 Note Neurosurgery Clinic Note Chief Complaint: Postop. Interval History: Michela Arias is a 72 y.o. year-old female who presents for follow-up after undergoing an L5-S1 posterior lumbar interbody fusion with bilateral instrumentation on 07/02/2022 for treatment of a second time recurrent disc herniation and right lower extremity radiculopathy. She had a difficult postoperative course, but today reports that her right leg pain is gradually improving. She does note intermittent episodes of more sharp shooting pain, and she does note that her pain bothers her more at night, requiring her to sometimes take narcotic medication. However, she feels that in general her pain is significantly improved from preoperatively. She does note easy fatigue and persistent numbness in the toes of the right foot, but denies any new neurologic symptoms. She denies any substantial back pain at this point. Problem List: Patient Active Problem List Diagnosis Recurrent herniation of lumbar disc Lumbar disc herniation Past Medical History: Past Medical History: Diagnosis Date Diabetes mellitus (CMS/HCC) Hyperlipidemia Thyroid condition Past Surgical History: Past Surgical History: Procedure Laterality Date HYSTERECTOMY total LUMBAR DISCECTOMY Right 05/29/2022 Redo R L5-S1 diskectomy, Dr. Noe LUMBAR FUSION 07/02/2022 L5 laminectomy, L5-S1 interbody fusion, L5-S1 instrumented fusion, Dr. Noe LUMBAR LAMINECTOMY right L5-S1 diskectomy and foraminotomy on 04/24/22, Dr. Noe Medications: Current Outpatient Medications Medication Instructions atorvastatin (LIPITOR) 40 mg, oral, Daily gabapentin (NEURONTIN) 400 mg, oral, 3 times daily, DOSE CHANGED. metFORMIN XR (GLUCOPHAGE-XR) 500 mg, oral, Daily with breakfast polyethylene glycol (GLYCOLAX) 17 g, oral, Daily PRN sennosides-docusate sodium (Senexon-S) 8.6-50 mg tablet TAKE 2 TABLETS BY MOUTH EVERY MORNING *DO NOT TAKE IF DIARRHEA* tiZANidine (ZANAFLEX) 4 mg, oral, Every 8 hours PRN traZODone (DESYREL) 50 mg, oral, Every evening Allergies: Allergies Allergen Reactions Iodine Dizziness Nubain [Nalbuphine] Other Pt passes out Review of Systems: Review of Systems Constitutional: Negative for chills, fatigue and fever. Neurological: Negative for dizziness, tremors, seizures, syncope, facial asymmetry, speech difficulty, weakness, light-headedness, numbness and headaches. Exam: Vitals: Vitals: 08/26/22 1304 BP: 109/58 Pulse: 81 Temp: 36.9 ???C (98.4 ???F) General: Awake, alert, NAD. Well groomed. HEENT: Normocephalic, atraumatic. Neck supple without lymphadenopathy. Heart: Regular rate and rhythm. Lungs: Clear to auscultation bilaterally. Abdomen: Soft, non-tender, non-distended. Bowel sounds present. Extremities: No cyanosis or edema. No noted deformities. Back Exam: Lumbar site well-healed well-healed. Neurologic: Appropriate affect during exam. Oriented x 3. Normal fluency and prosody of speech. Content appropriate and higher function appears intact. CN II-XII grossly intact. PERRL. EOMI. Face symmetric strength and sensation. Tongue midline. Shoulder shrug full strength and symmetric. Palate elevates symmetrically. Motor 4+/5 throughout except 4/5 in L DF. Sensation intact to light touch throughout. Lab: No visits with results within 30 Day(s) from this visit. Latest known visit with results is: Admission on 07/02/2022, Discharged on 07/05/2022 Component Date Value Ref Range Status MSSA DNA 07/02/2022 Negative Negative, Invalid Final MRSA DNA 07/02/2022 Negative Negative, Invalid Final ABO Grouping 07/02/2022 A Final Rh Type 07/02/2022 POS Final Ab Scrn 07/02/2022 NEG Final SARS-CoV-2 Ag POC 07/02/2022 Negative Negative Final Glucose POC 07/02/2022 119 (A) 70 - 105 mg/dL Final Glucose POC 07/02/2022 204 (A) 70 - 105 mg/dL Final Glucose POC 07/02/2022 273 (A) 70 - 105 mg/dL Final Auto WBC 07/02/2022 14.81 (A) 4.00 - 10.60 10*3/uL Final RBC 07/02/2022 2.81 (A) 3.80 - 5.00 10*6/uL Final Hemoglobin 07/02/2022 9.1 (A) 12.0 - 15.0 g/dL Final Hematocrit 07/02/2022 26.0 (A) 36.0 - 48.0 % Final MCV 07/02/2022 92.5 82.0 - 98.0 fL Final MCH 07/02/2022 32.4 27.0 - 33.0 pg Final MCHC 07/02/2022 35.0 32.0 - 35.0 g/dL Final RDW 07/02/2022 13.9 11.5 - 15.0 % Final Platelets 07/02/2022 167 150 - 400 10*3/uL Final Sodium 07/02/2022 138 136 - 145 mmol/L Final Potassium 07/02/2022 3.9 3.5 - 5.1 mmol/L Final Chloride 07/02/2022 107 98 - 107 mmol/L Final CO2 07/02/2022 18 (A) 21 - 31 mmol/L Final BUN 07/02/2022 21 7 - 25 mg/dL Final Creatinine 07/02/2022 0.49 (A) 0.60 - 1.20 mg/dL Final Glucose 07/02/2022 233 (A) 70 - 100 mg/dL Final Calcium 07/02/2022 7.4 (A) 8.6 - 10.3 mg/dL Final Anion Gap 07/02/2022 13 7 - 20 mmol/L Final eGFR 07/02/2022 97.6 >60.0 mL/min/1.73m*2 Final BUN/Creatinine Ratio 07/02/2022 42.86 Final Sodium 07/03/2022 137 136 - 145 mmol/L Final Potassium 07/03/2022 (more content not included)... [facility] 07-15-2022 Note Neurosurgery Clinic Note Chief Complaint: Post op. Interval History: Michela Arias is a 72 y.o. year-old female who presents for follow-up after undergoing a L5-S1 posterior lumbar interbody fusion with bilateral instrumentation on 07/02/2022. She has a history of right L5-S1 foraminal stenosis and right lower extremity radiculopathy which was originally treated with a right L5-S1 discectomy and foraminotomies on 04/24/2022. The patient experienced pain relief for approximately 4 days before developing recurrent symptoms, and an MRI demonstrated recurrent disc herniation at the L5-S1 level. She underwent a second discectomy on 05/29/2022 with removal of a substantial fragment of disc material. While improvement after the surgery was delayed, she did have improvement in her leg symptoms until the beginning of June, at which point she had sudden worsening of her right leg symptoms. Repeat imaging again demonstrated a degree of foraminal stenosis primarily related to facet hypertrophy. Based upon these findings, the patient was offered most definitive decompression possible with complete facetectomy and L5-S1 interbody fusion. Surgery was completed on 07/02/2022. There was sufficient blood loss to create acute blood loss anemia and the patient required transfusion prior to discharge. The patient had some improvement in her right lower extremity pain with only intermittent bouts of pain as compared to continuous pain preoperatively. Since discharge, she again relates intermittent bouts of pain. The throbbing pain in her foot has improved, and now the primary portion of her pain radiates from the hip laterally down the leg in an intermittent fashion. She states her surgical site pain is under good control. She denies difficulties healing her wound. She is voiding appropriately. She continues to walk with a walker. She denies new neurologic symptoms. Problem List: Patient Active Problem List Diagnosis Recurrent herniation of lumbar disc Lumbar disc herniation Past Medical History: Past Medical History: Diagnosis Date Diabetes mellitus (CMS/HCC) Hyperlipidemia Thyroid condition Past Surgical History: Past Surgical History: Procedure Laterality Date HYSTERECTOMY total LUMBAR DISCECTOMY Right 05/29/2022 Redo R L5-S1 diskectomy, Dr. Noe LUMBAR FUSION 07/02/2022 L5 laminectomy, L5-S1 interbody fusion, L5-S1 instrumented fusion, Dr. Noe LUMBAR LAMINECTOMY right L5-S1 diskectomy and foraminotomy on 04/24/22, Dr. Noe Medications: Current Outpatient Medications Medication Instructions atorvastatin (LIPITOR) 40 mg, oral, Daily gabapentin (NEURONTIN) 400 mg, oral, 3 times daily, DOSE CHANGED. metFORMIN XR (GLUCOPHAGE-XR) 500 mg, oral, Daily with breakfast polyethylene glycol (GLYCOLAX) 17 g, oral, Daily PRN sennosides-docusate sodium (Senexon-S) 8.6-50 mg tablet TAKE 2 TABLETS BY MOUTH EVERY MORNING *DO NOT TAKE IF DIARRHEA* tiZANidine (ZANAFLEX) 4 mg, oral, Every 8 hours PRN traZODone (DESYREL) 50 mg, oral, Every evening Allergies: Allergies Allergen Reactions Iodine Dizziness Nubain [Nalbuphine] Other Pt passes out Review of Systems: Review of Systems Constitutional: Negative. Respiratory: Negative. Musculoskeletal: Positive for myalgias (leg pain from right hip down to the right ankle). Neurological: Positive for dizziness and light-headedness. Exam: Vitals: Vitals: 07/15/22 1124 BP: 102/56 Pulse: 75 Temp: 36.6 ???C (97.9 ???F) General: Awake, alert, NAD. Well groomed. HEENT: Normocephalic, atraumatic. Neck supple without lymphadenopathy. Heart: Regular rate and rhythm. Lungs: Clear to auscultation bilaterally. Abdomen: Soft, non-tender, non-distended. Bowel sounds present. Extremities: No cyanosis or edema. No noted deformities. Back Exam: Lumbar site C/D/I with dermbond in place. Neurologic: Appropriate affect during exam. Oriented x 3. Normal fluency and prosody of speech. Content appropriate and higher function appears intact. CN II-XII grossly intact. PERRL. EOMI. Face symmetric strength and sensation. Tongue midline. Shoulder shrug full strength and symmetric. Palate elevates symmetrically. Motor 4+/5 throughout except 4-/5 in L DF, partially pain limited. Sensation intact to light touch throughout. Lab: Admission on 07/02/2022, Discharged on 07/05/2022 Component Date Value Ref Range Status MSSA DNA 07/02/2022 Negative Negative, Invalid Final MRSA DNA 07/02/2022 Negative Negative, Invalid Final ABO Grouping 07/02/2022 A Final Rh Type 07/02/2022 POS Final Ab Scrn 07/02/2022 NEG Final SARS-CoV-2 Ag POC 07/02/2022 Negative Negative Final Glucose POC 07/02/2022 119 (A) 70 - 105 mg/dL Final Glucose POC 07/02/2022 204 (A) 70 - 105 mg/dL Final Glucose POC 07/02/2022 273 (A) 70 - 105 mg/dL Final Auto WBC 07/02/2022 14.81 (A) 4.00 - 10.60 10*3/uL Final RBC 07/02/2022 2.81 (A) 3.80 - 5.00 10*6/uL (more content not included)... [facility] 04-26-2022 Note MR#: [id number] [facility] Pt. Name: Michela Arias Admitted: 04/24/2022 Discharged: 04/25/2022 Date of : 1950 Physician: Jacy Noe MD DISCHARGE SUMMARY DISCHARGE DIAGNOSIS: Lumbar spondylosis with radiculopathy. PROCEDURES: Right L5-S1 diskectomy with foraminotomy and lateral recess decompression on 04/24/[address] Noe. HISTORY OF PRESENT ILLNESS: The patient is a very pleasant 72-year-old woman with several months history of progressive pain and numbness involving the right lower extremity. Despite multiple conservative therapies, her symptoms continued. Imaging demonstrated evidence of degenerative changes with stenosis of the lateral recess at the L5 level associated with a small degree of disk protrusion and foraminal stenosis at L5-S1. Based on these findings and her failure to respond to conservative therapies, the patient was offered a right L5 hemilaminectomy with diskectomy and foraminotomy. After discussion of the risks, benefits, and alternatives, she elected to proceed. Informed consent was obtained. HOSPITAL COURSE: The patient was admitted and taken directly to the operating theater, where she underwent the above-mentioned procedure. She tolerated surgery adequately and was transferred to the postanesthesia care unit. She was subsequently transferred to the general floor. Overnight after surgery, the patient's diet and activity were increased. She was able to void spontaneously and tolerated a general diet. She continued to have pain and numbness involving the right lower extremity, however, it appeared improved compared to before surgery. On the morning after surgery, her surgical site pain was under adequate control. She worked with physical therapy and a walker for home safety was recommended. On the afternoon of the first postoperative day, she met criteria for discharge, was anxious to go home. DISCHARGE DISPOSITION: Home. DISCHARGE CONDITION: Stable. DISCHARGE MEDICATIONS: 1. Metformin ER 500 mg p.o. daily. 2. Robaxin 500 mg p.o. every 6 hours p.r.n. for muscle spasm. 3. Hydrocodone/acetaminophen 5/325 one to two tablets p.o. every 6 hours p.r.n. for pain. 4. MiraLAX 17 g p.o. daily p.r.n. 5. Senna 8.6 mg two tablets p.o. daily, hold for loose stools. 6. Pioglitazone 15 mg p.o. q.a.m. 7. Acetaminophen 650 mg p.o. every 12 hours p.r.n. DISCHARGE INSTRUCTIONS: 1. The patient may begin to shower on the 1st day after surgery. She should not submerge her wound in water. 2. Keep the wound clean, dry, and open to the air. 3. Normal home activities including ambulation are encouraged. Do not lift more than 10 pounds. 4. You may resume your home medications. Take additional prescribed medications as needed for pain. 5. Do not drive until seen in followup. 6. Call or return with new symptoms including temperatures greater than 101.5, new neurologic symptoms, uncontrolled pain, or drainage from the wound. 7. Followup in Neurosurgery Clinic in approximately 10 days. Electronically Signed by: Jacy Noe MD 05/01/2022 04:01 P Jacy Noe MD Date Dict: 04/25/2022/03:21 P/Jacy Noe MD Date Trans: 04/26/2022 07:44 A/mmo [id number] [facility] 01-01-2022 Note CONSULTATION CONSULTATION DATE: CHIEF COMPLAINT: Right hip and leg pain. This is a very pleasant 71-year-old female who recently had an MRI that was ordered. It shows that the patient has nerve at the level of L5 on the right-hand side and slightly at the level of L4. The patient describes the pain as an 8 over 10, a throbbing sensation. The patient has significant difficulty with her with her sleep. The patient currently takes Percocet 5/325 t.i.d. and Baclofen 10 mg h.s. The MRI report and images were reviewed in the office today and the report is noted onto the chart. PHYSICAL EXAMINATION: This is a pleasant, tired, 71-year-old female who appears to be very uncomfortable. VITAL SIGNS: Blood pressure 136/85, heart rate 75, height 5'2 , weight 125 pounds. FOCUSED EXAMINATION: Today the conversation was in discussing the MRI with the patient. As such we have suggested that the current working diagnosis on the patient is lumbar radiculopathy L4-L5 on the right-hand side, severe right leg pain, impingement. PLAN: We have recommended a Neurosurgical consult. Options were given. The patient will be going to the [facility] in [place]. The refill of Percocet 5/325 t.i.d. will be done and Baclofen 10 mg at h.s. Trazadone 50 mg q.p.m. will also be added to help her with her sleep and pain. CC: Dr. Noemi Mcnally [facility] Signed and Approved by: DR ISHMAEL ROBERTO . 01/08/2022 12:21:00 [facility] 12-25-2021 Note CONSULTATION CONSULTATION DATE: 12/25/2021 CHIEF COMPLAINT: Right leg pain, right hip pain. HISTORY OF PRESENT ILLNESS: This is a very pleasant, 71-year-old female who is status post x-ray of her lumbar spine and a bone scan read by Dr. Yi, radiologist. They are within normal to functional levels. No overt increased uptake was noted on the bone scan. The bone scan is of the L5 junction and the lower extremity. The patient reports 9/10; stabbing, aching, throbbing sensation. She cannot recall inciting event. The patient states any activity such as pushing, sitting, standing, laying down, housework, lifting aggravate the patient's pain. Heat and ice help; however, at times not. The patient currently takes Percocet 5/325 t.i.d.; it helps. Baclofen 10 mg h.s. The patient's PAST MEDICAL HISTORY / SURGICAL HISTORY / REVIEW OF SYSTEMS are noted on the chart, along with the MEDICATION LIST / ALLERGIES and RADIOLOGICAL IMAGES. PHYSICAL EXAM: GENERAL APPEARANCE: Upon physical examination, this is a pleasant, cooperative female, who appears to be very uncomfortable. VITAL SIGNS: 142/80 with a heart rate of 92. At a height of 5'2 , the patient weighs 57 kg. FOCUSED EVALUATION: The patient is able to stand up out of the chair without any overt difficulty. No overt paravertebral spasming is noted. Extension, compression, direct palpation along the posterior elements does not aggravate the patient's pain; however, she feels a fullness and a pressure sensation. EXTREMITIES: Global atrophy of the muscle is noted. The patient has congenitally lower muscle bulk, muscle density in her lower extremities bilaterally, as noted in the past. MUSCULOSKELETAL: Intact in the lower extremity; however, the extensors are diminished on the right hand side compared to the left hand side. NEUROLOGICALLY: 1+ patellar reflexes are noted bilaterally; however, Achilles reflexes are absent bilaterally. Hypoesthesia is present along the L5-S1 distribution of the lower extremity on the right. PSYCHIATRICALLY: Affect is appropriate. The patient is distraught. IMPRESSION: Right leg pain, L5-S1 radiculitis/radiculopathy, lumbar degenerative disc disease, disc displacement and remote annular tear at the level of L5-S1 with possible progression, spinal canal stenosis. PLAN: We will request an MRI and a comparison to the 2019 MRI that the patient had. Physical therapy will be started for motor strengthening. Depending on the results, the patient would be either a candidate for a transforaminal epidural steroid injection or a neurosurgical consult. The patient understands and would like to proceed. CC: Noemi Mcnally CNP [facility] Signed and Approved by: DR ISHMAEL ROBERTO . 01/01/2022 10:40:00 [facility] 12-18-2021 Note CONSULTATION CONSULTATION DATE: 12/18/2021 CHIEF COMPLAINT: Severe right leg pain, right hip pain. HISTORY OF PRESENT ILLNESS: This is a very pleasant, 71-year-old female who had significant severe pain radiating into her right leg. It radiates into her right leg along the lateral aspect and into her foot. The patient was seen in the emergency room where the patient received pain medication, Dilaudid, along with a steroid. She is also finishing a steroid pack. She was also given Norflex. The patient is currently taking baclofen 10 mg h.s. on a p.r.n. basis, tramadol 50 mg one tablet p.o. b.i.d. Mobic and Prentice were discontinued in the past. The patient does not recall any inciting event. Rates the pain as a 10/10. Pushing, sitting, standing, walking, housework, activities, ADLs aggravate the pain. The patient cannot get comfortable. The pain received injections, what appears to be along the right trochanteric bursa and also the right leg. No diagnostic studies were done at the ER. The patient does have a remote MRI in April of 2020 noted on to her chart. PHYSICAL EXAM: GENERAL: Upon physical examination, this is an anxious, very uncomfortable female, who is sitting in a tripod posture. The patient is not using a cane for ambulation. The patient does favor her right leg. The patient uses the chair and the table to be able to stand up. VITAL SIGNS: Stable at 142/73, with a heart rate of 96. The patient maintains a tripod posture throughout the examination, both direct and indirect. At a height of 5'2 , the patient weighs 126 pounds. FOCUSED EVALUATION ALONG THE LUMBAR SPINE: Paravertebral spasming is noted in the thoracolumbar junction. The patient is tender along the L5-S1 junction; however, no reproduction of the patient's pain symptomatology is noted. Valsalva maneuver aggravates a component of the patient's pain symptomatology. MUSCULOSKELETAL: Global muscle weakness is noted in her right lower extremity. NEUROLOGICALLY: Focused neuritis/neuralgia long the L5-S1 distribution. IMPRESSION: Current working diagnosis on the patient is severe right leg pain, possible annular progression and rupture of the disc at the level of L5-S1 with a chemical neuritis/radiculitis. There is also the possibility of occult right femur fracture. PLAN: We will get an x-ray of her lumbar. The patient will discontinue the tramadol and Percocet 5/325 t.i.d. will be ordered for the patient. A bone scan will be performed. The patient will take Epsom Salt baths to decrease the myofascial spasming and also bring temporary comfort. The patient will be followed up in the office next week and earlier should she need us. [facility] Signed and Approved by: DR ISHMAEL ROBERTO . 12/25/2021 10:05:00 [facility] Summary Purpose Family History No Family History Records FoundNo Family History Records FoundNo Family History Records Found Advance Directives No Advanced Directives Records FoundNo Advanced Directives Records FoundNo Advanced Directives Records Found Additional Source Comments INFORMATION SOURCE (unrecogn ized section and content) DATE CREATED AUTHOR 05/15/2022 [facility] DATE CREATED AUTHOR AUTHOR'S ORGANIZ ATION 11/20/2022 [facility] DATE CREATED AUTHOR AUTHOR'S ORGANIZ ATION 07/07/2023 [facility] FOR RECORDS PERTAINING TO PATIENTS WHO ARE OR HAVE BEEN ENROLLED IN A CHEMICAL DEPENDENCY/SUBSTANCEABUSE PROGRAM, SOME INFORMATION MAY BE OMITTED. This clinical summary was aggregated from multiple sources. Caution should be exercised in using it in the provision of clinical care. This summary normalizes information from multiple sources, and as a consequence, information in this document may materially change the coding, format and clinical context of patient data. In addition, data may be omitted in some cases. CLINICAL DECISIONS SHOULD BE BASED ON THE PRIMARY CLINICAL RECORDS. [employer] provides no warranty or guarantee of the accuracy or completeness of information in this document.
[2023-08-26 07:15] LABS: Glucometer 132 mg/dL (74-106)
[2023-08-26 07:16] VITALS: BP 138/85; PULSE 82; RESP 16; TEMP 36.1; O2SAT 99
[2023-08-26 08:07] VITALS: RESP 20
[2023-08-26 08:12] VITALS: BP 172/80; PULSE 85; O2SAT 92
[2023-08-26 08:16] VITALS: BP 155/75; PULSE 83; O2SAT 95
[2023-08-26] MEDS: BUPIVACAINE HCL 0.25% PF 25 MG/10 ML VIAL 2 ML INJ (08:18)
[2023-08-26] MEDS: 0.9 % SODIUM CHLORIDE 10 ML SYRINGE - SALINE FLUSH 2 ML INJ (08:18)
[2023-08-26] MEDS: LIDOCAINE HCL 2% PF 100 MG/5 ML VIAL 4 ML INJ (08:19)
[2023-08-26] MEDS: IOHEXOL 240 MG/ML - 10 ML VIAL INJ (08:19)
[2023-08-26] MEDS: METHYLPREDNISOLONE ACETATE 80 MG/ML VIAL INJ (08:19)
--- NOTE | 2023-08-26 09:19 | P.ON_ITS ---
Date of procedure: 08/26/23 Pre-op diagnosis: Lumbar Radiculopathy Post-op diagnosis: same as pre-op Procedure: Caudal Epidural Steroid Injection With/without catheter advancement Pre-operative diagnosis includes Radiculopathy, Postoperative diagnosis same, Under fluoroscopic guidance Solution used for the injection is Marcaine 0.25% Depo-Medrol 80 mg total of 5ml Omnipaque 3cc,3ml total, 1ml was used for injection to confirm needle tip placement and catheter tip placement within the epidural space. catheter was removed with the tip intact. Anesthesia: local anesthesia using 2% lidocaine, total no more than 5 mL. Timeout process compliant After obtaining informed consent .the patient was brought to the procedure room .placed in the prone position . the area was prepped and draped in a sterile fashion utilizing betadine. 25 gauge needle was used to create a skin wheal over the sacral hiatus identified under fluoroscopy. 17 gauge touhy needle was inserted over the anesthetized area and directed to the [place] hiatus under fluoroscopic guidance . after piercing the sacrococcygeal ligament. Confirmation of needle tip placement within the epidural space was accomplished with injection of contrast solution. epidural catheter was advanced to the L5 level .catheter placement confirmed with injection of contrast solution . the steroid solution was then injected .needle and catheter was removed post procedurally. patient transferred to recovery area in stable condition. Discharged home after meeting criteria. Anesthesia: Local Surgeon: Vu Melendez Condition: stable
== END 2023-08-26 08:23 | disposition home or self-care (01) ==
PROVIDERS: PCP Nurse Practitioner; Visit Provider Anesthesiology Pain Medicine
DX: M54.16 Radiculopathy, lumbar region (principal); E11.9 Type 2 diabetes mellitus without complications
CPT/HCPCS: 36415; 62323; 82948; J0665; J1040; Q9966

== ENCOUNTER 2023-10-10 13:50 | Outpatient (OUT) | payer MEDICARE, SELFPAY ==
--- OUTSIDE RECORDS SUMMARY | 2023-10-10 14:15 | XMS_ITS | CCD ---
Author Name Unknown Address [address] [facility] [address] [place] [address] Organization [facility] Care Team Providers Care Policy Change Clerks Supervisor Name Role Phone PHYSICIAN, DEFAULT Admitting Unavailable PHYSICIAN, DEFAULT Attending Unavailable Hasmukh, Jacy T. Admitting Unavailable [place], Jacy T. Attending Unavailable AICHHOLZ, NOEMI Referring Unavailable AICHHOLZ, NOEMI Primary Care Unavailable [place], Jacy T. Admitting Unavailable Hasmukh, Jacy T. Attending Unavailable UNKNOWN, PHYSICIAN Referring Unavailable UNKNOWN, PHYSICIAN Primary Care Unavailable AICHHOLZ, GRADE SETTER NOEMI Primary Care Unavailable AICHHOLZ, GRADE SETTER NOEMI Attending Unavailable AICHHOLZ, GRADE SETTER NOEMI Consulting Unavailable AICHHOLZ, GRADE SETTER NOEMI Admitting Unavailable DR JACKIE ESCOBEDO Consulting Unavailable JOSÉ MIGUEL ., DR COLLIER Admitting Unavailable JOSÉ MIGUEL ., DR COLLIER Attending Unavailable KASSIDY, DR NIKA Montague Consulting Unavailable AICHHOLZ, GRADE SETTER NOEMI Primary Care Unavailable JOSÉ MIGUEL Pierce, DR COLLIER Consulting Unavailable MISC, DR GIPSON Attending Unavailable MISC, DR GIPSON Admitting Unavailable AICHHOLZ, GRADE SETTER NOEMI Primary Care Unavailable MISC, DR GIPSON Admitting Unavailable MISC, DR GIPSON Attending Unavailable KASSIDY, DR NIKA Montague Consulting Unavailable AICHHOLZ, GRADE SETTER NOEMI Primary Care Unavailable MISC, DR GIPSON Consulting Unavailable AICHHOLZ, GRADE SETTER NOEMI Primary Care Unavailable AICHHOLZ, GRADE SETTER NOEMI Admitting Unavailable AICHHOLZ, GRADE SETTER NOEMI Attending Unavailable AICHHOLZ, GRADE SETTER NOEMI Consulting Unavailable FELISA ., DR ISHMAEL Zuniga Consulting Unavailable FELISA ., DR ISHMAEL Zuniga Admitting Unavailable AICHHOLZ, GRADE SETTER NOEMI Primary Care Unavailable FELISA ., DR ISHMAEL Zuniga Attending Unavailable CAROLINE HINES Consulting Unavailable AICHHOLZ, GRADE SETTER NOEMI Primary Care Unavailable DR CRISTOPHER KHANNA Consulting Unavailable DR CRISTOPHER KHANNA Admitting Unavailable JEY, DR CRISTOPHER Gibson Attending Unavailable ROBERTO ., DR ISHMAEL Zuniga Admitting Unavailable ROBERTO ., DR ISHMAEL Zuniga Attending Unavailable AICHHOLZ, GRADE SETTER NOEMI Primary Care Unavailable GREGG, DR JACKIE Li Consulting Unavailable ROBERTO ., DR ISHMAEL Zuniga Consulting Unavailable AICHHOLZ, GRADE SETTER NOEMI Attending Unavailable AICHHOLZ, GRADE SETTER NOEMI Consulting Unavailable AICHHOLZ, GRADE SETTER NOEMI Admitting Unavailable AICHHOLZ, GRADE SETTER NOEMI Primary Care Unavailable ROEBRTO ., DR ISHMAEL Zuniga Attending Unavailable ROBERTO ., DR ISHMAEL Zuniga Admitting Unavailable AICHHOLZ, GRADE SETTER NOEMI Primary Care Unavailable WEST, DR NIKA Montague Consulting Unavailable FELISA ., DR ISHMAEL Zuniga Consulting Unavailable MISC, DR GIPSON Attending Unavailable MISC, DR GIPSON Consulting Unavailable AICHHOLZ, GRADE SETTER NOEMI Primary Care Unavailable MISC, DR GIPSON Admitting Unavailable MACIEL SUH Consulting Unavailable MISC, DR GIPSON Attending Unavailable MISC, DR GIPSON Consulting Unavailable AICHHOLZ, GRADE SETTER NOEMI Primary Care Unavailable MISC, DR GIPSON Admitting Unavailable WEST, DR NIKA Montague Consulting Unavailable AICHHOLZ, GRADE SETTER NOEMI Admitting Unavailable AICHHOLZ, GRADE SETTER NOEMI Attending Unavailable AICHHOLZ, GRADE SETTER NOEMI Primary Care Unavailable AICHHOLZ, GRADE SETTER NOEMI Consulting Unavailable AICHHOLZ, GRADE SETTER NOEMI Primary Care Unavailable AICHHOLZ, GRADE SETTER NOEMI Admitting Unavailable AICHHOLZ, GRADE SETTER NOEMI Attending Unavailable WEST, DR NIKA Montague Consulting Unavailable AICHHOLZ, GRADE SETTER NOEMI Consulting Unavailable ROBERTO ., DR ISHMAEL Zuniga Attending Unavailable ROBERTO ., DR ISHMAEL Zuniga Consulting Unavailable FELISA ., DR ISHMAEL Zuniga Admitting Unavailable AICHHOLZ, GRADE SETTER NOEMI Primary Care Unavailable AICHHOLZ, GRADE SETTER NOEMI Primary Care Unavailable AICHHOLZ, GRADE SETTER NOEMI Attending Unavailable AICHHOLZ, GRADE SETTER NOEMI Consulting Unavailable AICHHOLZ, GRADE SETTER NOEMI Admitting Unavailable Celi Walker Consulting Unavailable AICHHOLZ, GRADE SETTER NOEMI Attending Unavailable AICHHOLZ, GRADE SETTER NOEMI Consulting Unavailable AICHHOLZ, GRADE SETTER NOEMI Primary Care Unavailable AICHHOLZ, GRADE SETTER NOEMI Admitting Unavailable GREGG, DR JACKIE Li Consulting Unavailable WHITNEY GOODMAN [facility] Care Unavailable JG, DR MOLLY Alatorre Consulting Unavaillisa GREGORIO, DR MOLLY Alatorre Admitting Unavailabl e JG, DR MOLLY Alatorre Attending Unavailabl e FELISA ., DR ISHMAEL Zuniga Attending Unavailable FELISA ., DR ISHMAEL Zuniga Admitting Unavailable AICHHOLZ, GRADE SETTER NOEMI Primary Care Unavailable AICHHOLZ, GRADE SETTER NOEMI Admitting Unavailable AICHHOLZ, GRADE SETTER NOEMI Attending Unavailable [facility] Unavailable ROBERTO ., DR ISHMAEL Zuniga Attending Unavailable ROBERTO ., DR ISHMAEL Zuniga Admitting Unavailable AICHHOLZ, GRADE SETTER NOEMI Primary Care Unavailable GREGG, DR JACKIE Li Consulting Unavailable FELISA ., DR ISHMAEL Zuniga Consulting Unavailable [facility] Unavailable ROBERTO ., DR ISHMAEL Zuniga Attending Unavailable ROBERTO ., DR ISHMAEL Zuniga Consulting Unavailable FELISA ., DR ISHMAEL Zuniga Admitting Unavailable HASMUKH, JACY Referring Unavailable HASMUKH, JACY Attending Unavailable HASMUKH, JACY Attending Unavailable HASMUKH, JACY Attending Unavailable HASMUKH, JACY Attending Unavailable HASMUKH, JACY Attending Unavailable HASMUKH, JACY Referring Unavailable HASMUKH, JACY Referring Unavailable HASMUKH, JACY Referring Unavailable HASMUKH, JACY Referring Unavailable Aichholz BULB PACKER, Noemi Unavailable Cristopher Khanna MD Primary Care Provider NOEMI MCNALLY Attending Unavailable Allergies Allergy Classification Reported Allergen(s) Allergy Type Date of Onset Reaction(s) Facility (1 source) Penicillin Drug Allergy 2 [facility] Repository (1 source) Iodine (And Iodine Containting Drugs) Drug allergy (disorder) [address] [facility] Repository (1 source) Nalbuphine Drug Allergy [address] [facility] Repository (1 source) Penicillins Drug allergy (disorder) [address] [facility] Repository (1 source) SITagliptin Drug Allergy [facility] Repository (1 source) Aminosyn (old formula) Drug allergy (disorder) [facility] Repository (1 source) Iodine; Translations: [IODINE] Drug Allergy 2 [facility] Repository (4 sources) Nalbuphine; Translations: [NALBUPHINE] Drug Allergy 2 [facility] Repository (3 sources) Penicillins Propensity to adverse reactions 3 [facility] (3 sources) Aminosyn Ii Propensity to adverse reactions 3 [facility] Healthcare Medications Current Medications Medication Drug Class(es) Dates Sig (Normalized) Sig (Original) atorvastatin 80 mg oral tablet (5 sources) HMG-CoA Reductase Inhibitor Start: 06-05-2023 End: 12-31-2023 take 1 tablet by mouth at bedtime atorvastatin (Lipitor) 80 MG tablet Indications: Mixed hyperlipidemia (CMS/HCC) Take 1 tablet (80 mg) by mouth at bedtime 90 tablet 1 10/02/2023 12/31/2023 Active baclofen 10 mg oral tablet (3 sources) gamma-Aminobutyric Acid-ergic Agonist End: 10-02-2023 take 0.5 tablet by mouth in the morning baclofen (Lioresal) 10 MG tablet Take 10 mg by mouth in the morning and 10 mg before bedtime. 1/2 tablet bid per pain mgmt. 0 10/02/2023 Discontinued (Ineffective) cetirizine hydrochloride 10 mg oral tablet (2 sources) Histamine-1 Receptor Antagonist Start: 10-02-2023 End: 12-31-2023 take 1 tablet by mouth in the morning cetirizine (ZyrTEC) 10 MG tablet Indications: Chronic pruritus Take 1 tablet (10 mg) by mouth in the morning. 90 tablet 1 10/02/2023 12/31/2023 Active DULoxetine 30 mg delayed release oral capsule (3 sources) Serotonin and Norepinephrine Reuptake Inhibitor Start: 07-30-2023 End: 10-02-2023 take 1 capsule by mouth once daily DULoxetine (Cymbalta) [address] capsule Indications: Lumbar radiculopathy TAKE 1 CAPSULE BY MOUTH DAILY 90 capsule 1 07/30/2023 10/02/2023 Discontinued (Ineffective) ezetimibe 10 mg oral tablet (5 sources) Dietary Cholesterol Absorption Inhibitor Start: 06-05-2023 End: 12-31-2023 take 1 tablet by mouth in the morning ezetimibe (Zetia) 10 MG tablet Indications: Mixed hyperlipidemia (CMS/HCC) Take 1 tablet (10 mg) by mouth in the morning. 90 tablet 1 10/02/2023 12/31/2023 Active fluticasone propionate 0.05 mg/actuat metered dose nasal spray (5 sources) Corticosteroid Start: 02-05-2023 End: 12-31-2023 take 2 spray(s) nasal route in the morning, then take 2 spray(s) nasal route once daily fluticasone (Flonase) 50 MCG/ACT nasal spray Indications: Allergic rhinitis, unspecified seasonality, unspecified trigger Administer 2 sprays into each nostril in the morning. 2 sprays each nostril once a day. 3 g 1 10/02/2023 12/31/2023 Active gabapentin 300 mg oral capsule (3 sources) Anti-epileptic Agent Start: 02-13-2023 End: 10-02-2023 gabapentin (Neurontin) 300 MG capsule loratadine 10 mg oral tablet (3 sources) Start: 02-05-2023 End: 10-02-2023 take 1 tablet by mouth in the morning loratadine (Claritin) 10 MG tablet Take 10 mg by mouth in the morning. 0 02/05/2023 10/02/2023 Discontinued (Therapy completed) 24 hr metFORMIN hydrochloride 500 mg extended release oral tablet (3 sources) Biguanide Start: 07-30-2023 End: 10-28-2023 take 2 tablets by mouth every twenty-four hours in the morning metFORMIN XR (Glucophage-XR) 500 MG 24 hr tablet Indications: Type 2 diabetes mellitus without complication, without long-term current use of insulin (CMS/HCC) Take 2 tablets (1,000 mg) by mouth in the morning and 2 tablets (1,000 mg) before bedtime. 360 tablet 1 07/30/2023 10/28/2023 Active pioglitazone 15 mg oral tablet (5 sources) Peroxisome Proliferator Receptor alpha Agonist, Peroxisome Proliferator Receptor gamma Agonist, Thiazolidinedione Start: 07-30-2023 End: 12-31-2023 take 1 tablet by mouth in the morning pioglitazone (Actos) 15 MG tablet Indications: Type 2 diabetes mellitus without complication, without long-term current use of insulin (CMS/HCC) Take 1 tablet (15 mg) by mouth in the morning. 90 tablet 1 10/02/2023 12/31/2023 Active 100 ml zoledronic acid 0.05 mg/ml injection (2 sources) Bisphosphonate zoledronic acid (Reclast) 5 MG/100ML solution Indications: Osteoporosis Infuse 5 mg into a venous catheter 1 (one) time 0 Active zonisamide (3 sources) Anti-epileptic Agent End: 10-02-2023 take 15 mg by mouth at bedtime Zonisamide (ZONEGRAN PO) Take 15 mg by mouth at bedtime 0 10/02/2023 Discontinued (Ineffective) take 15 mg by mouth at bedtime Z onisamide (ZONEGRAN PO) Take 15 mg by mouth at bedtime 0 Active Problems Active Problems Problem Classification Problem Date Documented Date Episodic/Chronic Abdominal hernia (3 sources) Diaphragmatic hernia; Translations: [Diaphragmatic hernia without obstruction or gangrene] Onset: 4 10-02-2023 Episodic Complications of surgical procedures or medical care (1 source) Postprocedural hypothyroidism; Translations: [POSTPROCEDURAL HYPOTHYROIDISM] Onset: 2 Chronic Coronary atherosclerosis and other heart disease (1 source) Old myocardial infarction; Translations: [OLD MYOCARDIAL INFARCTION] Onset: 2 Chronic Diabetes mellitus with complications (4 sources) Type 2 diabetes mellitus with hyperglycemia; Translations: [Diabetes mellitus] Onset: 2 10-02-2023 Chronic Diabetes mellitus without complication (5 sources) Type 2 diabetes mellitus without complication; Translations: [Type 2 diabetes mellitus without complications] Onset: 3 07-30-2023 Chronic Disorders of lipid metabolism (9 sources) Pure hyperglyceridemia; Translations: [Hyperlipidemia] Onset: 2 Chronic Diverticulosis and diverticulitis (3 sources) Diverticula of intestine; Translations: [Diverticulosis of intestine, part unspecified, without perforation or abscess without bleeding] Onset: 4 10-02-2023 Chronic Essential hypertension (3 sources) Essential hypertension; Translations: [Essential (primary) hypertension] Onset: 4 10-02-2023 Chronic Genitourinary symptoms and ill-defined conditions (3 sources) Microscopic hematuria; Translations: [Other microscopic hematuria] Onset: 4 10-02-2023 Episodic Osteoporosis (9 sources) Age-related osteoporosis without current pathological fracture; Translations: [Osteoporosis] Onset: 2 Chronic Other connective tissue disease (4 sources) Pain in right foot; Translations: [PAIN IN RIGHT FOOT] Onset: 3 Episodic Other connective tissue disease (2 sources) Arthrodesis status; Translations: [Arthrodesis status] Onset: 3 Episodic Other inflammatory condition of skin (4 sources) Itching of skin; Translations: [Pruritus, unspecified] Onset: 4 10-02-2023 Episodic Other nutritional; endocrine; and metabolic disorders (4 sources) Overweight in adulthood with body mass index of 25 or more but less than 30; Translations: [Body mass index (BMI) 27.0-27.9, adult] Onset: 4 10-02-2023 Episodic Other screening for suspected conditions (not mental disorders or infectious disease) (14 sources) Abnormal electrocardiogram [ECG] [EKG]; Translations: [Encounter for screening mammogram for malignant neoplasm of breast] Onset: 2 Episodic Other upper respiratory disease (5 sources) Allergic rhinitis; Translations: [Allergic rhinitis, unspecified] Onset: 4 10-02-2023 Chronic Residual codes; unclassified (1 source) Family history of malignant neoplasm of breast; Translations: [FAMILY HX MALIG NEOPLASM OF BREAST] Onset: 3 Episodic Residual codes; unclassified (3 sources) Other specified postprocedural states; Translations: [OTH SPECIFIED POSTPROCEDURAL STATES] Onset: 2 Episodic Residual codes; unclassified (3 sources) Menopause present; Translations: [Asymptomatic menopausal state] Onset: 4 10-02-2023 Episodic Spondylosis; intervertebral disc disorders; other back problems (20 sources) Other intervertebral disc displacement, lumbar region; Translations: [Other intervertebral disc displacement, lumbosacral region] Onset: 2 Chronic Spondylosis; intervertebral disc disorders; other back problems (20 sources) Intervertebral disc disorders with radiculopathy, lumbar region; Translations: [Radiculopathy, lumbar region] Onset: 2 Episodic Thyroid disorders (17 sources) Thyroiditis, unspecified; Translations: [Nontoxic goiter, unspecified] Onset: 2 Chronic Unclassified (2 sources) DX Onset: 2 Unclassified (3 sources) LOW BACK PAIN, UNSPECIFIED; Translations: [LOW BACK PAIN, UNSPECIFIED] Onset: 2 Past or Other Problems Problem Classification Problem Date Documented Date Episodic/Chronic Intestinal infection (3 sources) Positive measurement finding; Translations: [Other specified bacterial intestinal infections] Onset: 08-18-2019 10-02-2023 Episodic Other aftercare (1 source) Other mcc (current) drug therapy; Translations: [OTH COMPUTER PROGRAMMER CURRENT DRUG THERAPY] Onset: 06-24-2022 Episodic Other aftercare (1 source) alf (current) use of oral hypoglycemic drugs; Translations: [CARE HOME USE ORAL HYPOGLYCEMIC DX] Onset: 12-19-2021 Episodic Other and unspecified benign neoplasm (3 sources) Polyp of colon; Translations: [Polyp of colon] Onset: 08-18-2019 10-02-2023 Episodic Other connective tissue disease (6 sources) [...] joints of right foot] Onset: 10-07-2022 Episodic Other upper respiratory infections (3 sources) Sinusitis; Translations: [Chronic sinusitis, unspecified] Onset: 10-02-2023 Resolved: 10-02-2023 10-02-2023 Chronic Unclassified (1 source) LOW BACK PAIN, UNSPECIFIED; Translations: [LOW BACK PAIN, UNSPECIFIED] Onset: 06-20-2022 Results Test Name Value Interpretation Reference Range Facility Follow-Upon 06-23-2023 Follow-Up [id number] Michela Arias 1950 F Date Provider Department Center 06/23/2023 JACY BOSS [facility] SURG Second Fl Family History Problem Relation Age of Onset Other Mother Diabetes Father Lung cancer Sister Heart attack Sister Family Status - Relation Status Age at Mother Father Sister Level of Service:47921 IN OFFICE/OUTPATIENT ESTABLISHED MOD MDM 30-39 MIN Reason for Visit and Comments: Follow-up [171682] - Pt is here for a 6 month follow up and to review XR. [facility] Orders Onlyon 04-21-2023 Orders Only [id number] Michela Arias 1950 F Date Provider Department Center 04/21/[address] [place] [address] SURG Second Fl Family History Problem Relation Age of Onset Other Mother Diabetes Father Lung cancer Sister Heart attack Sister Family Status - Relation Status Age at Mother Father Sister [facility] Follow-Upon 12-16-2022 Follow-Up [id number] Michela Arias 1950 F Date Provider Department Center 12/16/2022 [facility] Second Fl Family History Problem Relation Age of Onset Other Mother Diabetes Father Lung cancer Sister Heart attack Sister Family Status - Relation Status Age at Mother Father Sister Level of Service:89630 IN OFFICE/OUTPATIENT ESTABLISHED LOW MDM 20-29 MIN Reason for Visit and Comments: Follow-up [280736] - Pt is here for a follow up visit. [facility] MG MAMM SCREEN 3D DIONE CADon 11-12-2022 MG MAMM SCREEN 3D DIONE CAD Patient: MICHELA ARIAS Exam Date: 11/12/2022 : 1950 Gender:F Ordering : GARRICK MCNALLY [facility] Admission #: [id number] Family : Order #: [id number] CLICK HERE TO VIEW EXAM RADIOLOGY REPORT [...] breast cancer at age 20. LOCATION: [facility] BREAST COMPOSITION: Scattered areas fibroglandular density. FINDINGS: [...] PALPABLE LUMP SHOULD BE BIOPSIED. Dictated by: Nika Yi MD on 11/12/2022 at 12:23 Approved by: Nika Yi MD on 11/12/2022 at 12:31 [facility] 10-10-2022 36 LVM for pt with message from Dr. Noe and to call if any other questions. [facility] 10-09-2022 36 Yes, XR's didn't nusrat w any fracture. I think it is fine to see PT again. If her ankle keeps bothering her, it would be a good idea to follow up with her PMD. [facility] 36 Pt called asking if you have reviewed her XR of her ankle and if it is ok to make next appt with PT. [facility] Follow-Upon 10-07-2022 Follow-Up [id number] Michela Arias 1950 F Date Provider Department Center 10/07/2022 JACY BOSS [facility] SURG Second Fl Family History Problem Relation Age of Onset Other Mother Diabetes Father Lung cancer Sister Heart attack Sister Family Status - Relation Status Age at Mother Father Sister Level of Service:32678 IN POSTOP FOLLOW UP VISIT RELATED TO ORIGINAL PX Reason for Visit and Comments: Follow-up [[id number]] - s/p lumbar fusion, *6 wk f/u s/p PT. XR same day; Patient fell last . Landed on her back with her foot twisted under her. [facility] 09-06-2022 36 Received a message from Elsy from Noemi Sanon (sp?) office from [employer] asking for gabapentin 300mg TID and add Duloxetine 30 mg. No number was given in message. [facility] Orders Onlyon 09-06-2022 Orders Only [id number] Michela Arias 1950 F Date Provider Department Center 09/06/2022 SANDHYA LINARES [facility] SURG Second Fl Family History Problem Relation Age of Onset Other Mother Diabetes Father Lung cancer Sister Heart attack Sister Family Status - Relation Status Age at Mother Father Sister Normal [facility] Office Visiton 08-26-2022 Follow-up visit [id number] Michela Arias 1950 F Date Provider Department Center 08/26/2022 MOISES OBSSSTAIR [facility] SURG Second Fl Family History Problem Relation Age of Onset Other Mother Diabetes Father Lung cancer Sister Heart attack Sister Family Status - Relation Status Age at Mother Father Sister Level of Service:02128 IN POSTOP FOLLOW UP VISIT RELATED TO ORIGINAL PX Reason for Visit and Comments: Post-op [483] - s/p lumbar fusion Normal [facility] Office Visiton 07-15-2022 Follow-up visit [id number] Michela Arias 1950 F Date Provider Department Center 07/15/2022 MOISES BOSSSTAIR [facility] SURG Second Fl Family History Problem Relation Age of Onset Other Mother Diabetes Father Lung cancer Sister Heart attack Sister Family Status - Relation Status Age at Mother Father Sister Level of Service:97819 IN POSTOP FOLLOW UP VISIT RELATED TO ORIGINAL PX Reason for Visit and Comments: Post-op [483] - s/p lumbar fusion Normal [facility] 36on 07-10-2022 36 Pt called stating th at she has burning pain in her foot. I asked if she was still taking gabapentin and stated she is as directed. Pt would like to know if she should take them closer together or if there is something else she could do. Normal [facility] CBC AUTO DIFFon 06-27-2022 BASO # 0.0 103/ul Normal 0.0-0.1 [facility] Comment on above: Performed By: #### C BC #### [facility] [address] [place] [address] Dr. Lisa Thomson Basophils/100 WBC (Bld) 0.2 % Normal 0.2-2.0 [facility] Comment on above: Performed By: #### C BC #### [facility] [address] [place] [address] Dr. Lisa Thomson EO # 0.1 103/ul Normal 0.0-0.7 [facility] Comment on above: Performed By: #### C BC #### [facility] [address] [place] [address] Dr. Lisa Thomson Eosinophils/100 WBC (Bld) 0.6 % Critically low 0.9-7.0 [facility] Comment on above: Performed By: #### C BC #### [facility] [address] [place] [address] Dr. Lisa Thomson Erythrocyte distribution width (RBC) [Ratio] 14.2 % Normal 11.0-15.0 [facility] Comment on above: Performed By: #### C BC #### [facility] [address] [place] [address] Dr. Lisa Thomson Hematocrit (Bld) [Volume fraction] 39.4 % Normal 36.0-48.0 [facility] Comment on above: Performed By: #### C BC #### [facility] [address] [place] [address] Dr. Lisa Thomson Hemoglobin (Bld) [Mass/Vol] 13.4 g/dL Normal 12.0-16.0 [facility] Comment on above: Performed By: #### C BC #### [facility] [address] [place] [address] Dr. Lisa Thomson IG # 0.07 10e3/ul Critically high 0.00-0.03 [facility] Comment on above: Performed By: #### C BC #### [facility] [address] [place] [address] Dr. Lisa Thomson IG % 0.6 % Critically high 0.0-0.5 [facility] Comment on above: Performed By: #### C BC #### [facility] [address] [place] [address] Dr. Lisa Thomson LYMPH # 3.2 103/ul Normal 1.2-3.[address] [facility] Comment on above: Performed By: #### C BC #### [facility] [address] [place] [address] Dr. Lisa Thomson Lymphocytes/100 WBC (Bld) 26.4 % Normal 20.5-60.0 [facility] Comment on above: Performed By: #### C BC #### [facility] [address] [place] [address] Dr. Lisa Thomson MANUAL DIFF REQ NO Normal [facility] [facility] Comment on above: Performed By: #### C BC #### [facility] [address] [place] [address] Dr. Lisa Thomson MCH (RBC) [Entitic mass] 30.9 pg Normal 26.7-34.0 [facility] Comment on above: Performed By: #### C BC #### [facility] [address] [place] [address] Dr. Lisa Thomson MCHC (RBC) [Mass/Vol] 34.0 g/dL Normal 29.9-35.2 [facility] Comment on above: Performed By: #### C BC #### [facility] [address] [place] [address] Dr. Lisa Thomson MCV (RBC) [Entitic vol] 91.0 fL Normal 81.0-99.0 [facility] Comment on above: Performed By: #### C BC #### [facility] [address] [place] [address] Dr. Lisa Thomson MONO # 1.0 103/ul Critically high 0.3-0.8 [facility] Comment on above: Performed By: #### C BC #### [facility] [address] [place] [address] Dr. Lisa Thomson Monocytes/100 WBC (Bld) 7.8 % Normal 1.7-12.0 [facility] Comment on above: Performed By: #### C BC #### [facility] [address] [place] [address] Dr. Lisa Thomson NEUT # 7.8 103/ul Critically high 1.4-6.5 [facility] Comment on above: Performed By: #### C BC #### [facility] [address] [place] [address] Dr. Lisa Thomson Neutrophils/100 WBC (Bld) 64.4 % Normal 43.0-75.0 [facility] Comment on above: Performed By: #### C BC #### [facility] [address] [place] [address] Dr. Lisa Thomson Platelet mean volume (Bld) [Entitic vol] 9.1 fL Critically low 9.5-13.5 [facility] Comment on above: Performed By: #### C BC #### [facility] [address] [place] [address] Dr. Lisa Thomson PLT 228 103/ul Normal 150-450 [facility] Comment on above: Performed By: #### C BC #### [facility] [address] [place] [address] Dr. Lisa Thomson RBC 4.33 106/ul Normal 4.20-5.40 [facility] Comment on above: Performed By: #### C BC #### [facility] [address] [place] [address] Dr. Lisa Thomson WBC 12.2 103/ul Critically high 4.0-11.0 [facility] Comment on above: Performed By: #### C BC #### [facility] [address] [place] [address] Dr. Lisa Thomson PROF CHEM 8 (BAS METB)on Anion gap [Moles/Vol] 11.7 mmol/L Normal [facility] Comment on above: Performed By: #### B MP #### [facility] [address] [place] [address] Dr. Lisa Thomson Calcium [Mass/Vol] 8.9 mg/dL Normal 8.5-10.1 [facility] Comment on above: Performed By: #### B MP #### [facility] [address] [place] [address] Dr. Lisa Thomson Chloride [Moles/Vol] 101 mmol/L Normal 98-107 [facility] Comment on above: Performed By: #### B MP #### [facility] [address] [place] [address] Dr. Lisa Thomson CO2 [Moles/Vol] 29.0 mmol/L Normal 21.0-32.0 [facility] Comment on above: Performed By: #### B MP #### [facility] [address] [address] [address] Lisa Thomson Creatinine [Mass/Vol] 0.59 mg/dL Normal 0.55-1.02 [facility] Comment on above: Performed By: #### B MP #### [facility] [address] [address] [address] Lisa Thomson EGFR-AF ANGUILLAN >60 Normal >=60 [facility] Comment on above: Performed By: #### B MP #### [facility] [address] [address] [address] Lisa Thomson EGFR-NON AF ANGUILLAN >60 Normal >=60 [facility] Comment on above: Performed By: #### B MP #### [facility] [address] [address] [address] Lisa Thomson Glucose [Mass/Vol] 183 mg/dL Critically high 74-106 [facility] Comment on above: Performed By: #### B MP #### [facility] [address] [address] [address] Lisa Thomson Potassium [Moles/Vol] 3.7 mmol/L Normal 3.5-5.1 [facility] Comment on above: Performed By: #### B MP #### [facility] [address] [address] [address] Lisa Thomson Sodium [Moles/Vol] 138 mmol/L Normal 136-145 [facility] Comment on above: Performed By: #### B MP #### [facility] [address] [address] [address] Lisa Thomson Urea nitrogen [Mass/Vol] 34.0 mg/dL Critically high 7.0-18.0 [facility] Comment on above: Performed By: #### B MP #### [facility] [address] [address] [address] Lisa Thomson Urea nitrogen/Creatinine [Mass ratio] 57.6 mg/mg Normal [facility] Comment on above: Performed By: #### B MP #### [facility] [address] [place] [address] Dr. Lisa Thomson PROTIMEon 06-27-2022 INR Coag (PPP) [Relative time] 0.99 {INR} Normal [facility] Comment on above: Performed By: #### C BC #### [facility] [address] [place] [address] Dr. Lisa Thomson INR GUIDELINES SEE BELOW Normal [facility] Comment on above: Result Comment: RONNIE RED INR: 2.0 - 3.0 CONDITIONS NOT LISTED BELOW 2.5 - 3.5 FOR PROSTHETIC HEART VALVE REPLACEMENT 2.5 - 3.5 RECURRENT THROMBOSIS Performed By: #### C BC #### [facility] [address] [place] [address] Dr. Lisa Thomson PT Coag (PPP) [Time] 10.7 s Normal 9.0-11.[address] [facility] Comment on above: Performed By: #### C BC #### [facility] [address] [place] [address] Dr. Lisa Thomson PTTon 06-27-2022 aPTT Coag (Bld) [Time] 23.5 s Normal 22.3-36.[address] [facility] Comment on above: Performed By: #### C BC #### [facility] [address] [place] [address] Dr. Lisa Thomson MRI LSPINE WO W [...] MACIEL SUH Date: 2022-06-26 12:47 Normal [address] [facility] CBC AUTO DIFFon 06-20-2022 BASO # 0.0 103/ul Normal 0.0-0.[address] [facility] Comment on above: Performed By: #### C BC #### [facility] [address] [place], [place] [address] Dr. Lisa Thomson Basophils/100 WBC (Bld) 0.1 % Critically low 0.2-2.[address] [facility] Comment on above: Performed By: #### C BC #### [facility] [address] [place], [place] [address] Dr. Lisa Thomson EO # 0.0 103/ul Normal 0.0-0.[address] [facility] Comment on above: Performed By: #### C BC #### [facility] [address] [place] [address] Dr. Lisa Thomson Eosinophils/100 WBC (Bld) 0.2 % Critically low 0.9-7.0 [facility] Comment on above: Performed By: #### C BC #### [facility] [address] [place] [address] Dr. Lisa Thomson Erythrocyte distribution width (RBC) [Ratio] 14.6 % Normal 11.0-15.0 [facility] Comment on above: Performed By: #### C BC #### [facility] [address] [place] [address] Dr. Lisa Thomson Hematocrit (Bld) [Volume fraction] 36.2 % Normal 36.0-48.0 [facility] Comment on above: Performed By: #### C BC #### [facility] [address] [place] [address] Dr. Lisa Thomson Hemoglobin (Bld) [Mass/Vol] 12.4 g/dL Normal 12.0-16.0 [facility] Comment on above: Performed By: #### C BC #### [facility] [address] [place] [address] Dr. Lisa Thomson IG # 0.04 10e3/ul Critically high 0.00-0.03 [facility] Comment on above: Performed By: #### C BC #### [facility] [address] [place] [address] Dr. Lisa Thomson IG % 0.4 % Normal 0.0-0.[address] [facility] Comment on above: Performed By: #### C BC #### [facility] [address] [place] [address] Dr. Lisa Thomson LYMPH # 2.3 103/ul Normal 1.2-3.[address] [facility] Comment on above: Performed By: #### C BC #### [facility] [address] [place] [address] Dr. Lisa Thomson Lymphocytes/100 WBC (Bld) 24.1 % Normal 20.5-60.0 [facility] Comment on above: Performed By: #### C BC #### [facility] [address] [place] [address] Dr. Lisa Thomson MANUAL DIFF REQ NO Normal [facility] Comment on above: Performed By: #### C BC #### [facility] [address] [place] [address] Dr. Lisa Thomson MCH (RBC) [Entitic mass] 30.9 pg Normal 26.7-34.0 [facility] Comment on above: Performed By: #### C BC #### [facility] [address] [place] [address] Dr. Lisa Thomson MCHC (RBC) [Mass/Vol] 34.3 g/dL Normal 29.9-35.[address] [facility] Comment on above: Performed By: #### C BC #### [facility] [address] [place] [address] Dr. Lisa Thomson MCV (RBC) [Entitic vol] 90.3 fL Normal 81.0-99.0 [facility] Comment on above: Performed By: #### C BC #### [facility] [address] [place] [address] Dr. Lisa Thomson MONO # 0.6 103/ul Normal 0.3-0.[address] [facility] Comment on above: Performed By: #### C BC #### [facility] [address] [place] [address] Dr. Lisa Thomson Monocytes/100 WBC (Bld) 5.9 % Normal 1.7-12.[address] [facility] Comment on above: Performed By: #### C BC #### [facility] [address] [place] [address] Dr. Lisa Thomson NEUT # 6.7 103/ul Critically high 1.4-6.5 [facility] Comment on above: Performed By: #### C BC #### [facility] [address] [place] [address] Dr. Lisa Thomson Neutrophils/100 WBC (Bld) 69.3 % Normal 43.0-75.[address] [facility] Comment on above: Performed By: #### C BC #### [facility] [address] [place] [address] Dr. Lisa Thomson Platelet mean volume (Bld) [Entitic vol] 9.6 fL Normal 9.5-13.5 [facility] Comment on above: Performed By: #### C BC #### [facility] [address] [address] [address] Lisa Thomson PLT 162 103/ul Normal 150-[address] [facility] Comment on above: Performed By: #### C BC #### [facility] [address] [address] [address] Lsia Thomson RBC 4.01 106/ul Critically low 4.20-5.40 [facility] Comment on above: Performed By: #### C BC #### [facility] [address] [address] [address] Lisa Thomson WBC 9.7 103/ul Normal 4.0-11.0 [facility] Comment on above: Performed By: #### C BC #### [facility] [address] [address] [address] Lisa Thomson CTA ABD/PELVIS WO W [...] by: NIKA YI Date: 2022-06-20 13:30 Normal [facility] PROF CHEM 8 (BAS METB)on Anion gap [Moles/Vol] 10.1 mmol/L Normal [facility] Comment on above: Performed By: #### S EDR #### [facility] [address] [place] [address] Dr. Lisa Thomson Calcium [Mass/Vol] 9.0 mg/dL Normal 8.5-10.1 [facility] Comment on above: Performed By: #### S EDR #### [facility] [address] [place] [address] Dr. Lisa Thomson Chloride [Moles/Vol] 104 mmol/L Normal 98-107 [facility] Comment on above: Performed By: #### S EDR #### [facility] [address] [place] [address] Dr. Lisa Thomson CO2 [Moles/Vol] 26.2 mmol/L Normal 21.0-32.0 [facility] Comment on above: Performed By: #### S EDR #### [facility] [address] [address] [address] Lisa Thomson Creatinine [Mass/Vol] 0.59 mg/dL Normal 0.55-1.02 [facility] Comment on above: Performed By: #### S EDR #### [facility] [address] [place] [address] Dr. Lisa Thomson EGFR-AF ANGUILLAN >60 Normal >=60 [facility] Comment on above: Performed By: #### S EDR #### [facility] [address] [place] [address] Dr. Lisa Thomson EGFR-NON AF ANGUILLAN >60 Normal >=60 [facility] Comment on above: Performed By: #### S EDR #### [facility] [address] [address] [address] Lisa Thomson Glucose [Mass/Vol] 162 mg/dL Critically high 74-106 [facility] Comment on above: Performed By: #### S EDR #### [facility] [address] [address] [address] Lisa Thomson Potassium [Moles/Vol] 3.3 mmol/L Critically low 3.5-5.1 [facility] Comment on above: Performed By: #### S EDR #### [facility] [address] [address] [address] Lisa Thomson Sodium [Moles/Vol] 137 mmol/L Normal 136-145 [facility] Comment on above: Performed By: #### S EDR #### [facility] [address] [address] [address] Lisa Thomson Urea nitrogen [Mass/Vol] 25.0 mg/dL Critically high 7.0-18.0 [facility] Comment on above: Performed By: #### S EDR #### [facility] [address] [address] [address] Lisa Thomson Urea nitrogen/Creatinine [Mass ratio] 42.4 mg/mg Normal [facility] Comment on above: Performed By: #### S EDR #### [facility] [address] [address] [address] Lisa Thomson CREATININEon 05-13-2022 Creatinine [Mass/Vol] 0.81 mg/dL Normal 0.55-1.02 [facility] Comment on above: Performed By: #### M ALBR #### [facility] [address] [address] [address] Lisa Thomson EGFR-AF ANGUILLAN >60 Normal >=60 [facility] Comment on above: Performed By: #### M ALBR #### [facility] [address] [address] [address] Lisa Thomson EGFR-NON AF ANGUILLAN >60 Normal >=60 [facility] Comment on above: Performed By: #### M ALBR #### [facility] [address] [address] [address] Lisa Thomson MRI KARY Szymanski CONon 2021 MRI LSISAAC WO W CON EXAMINATION: MRI LSISAAC WO W CON HISTORY: Lumbar radiculopathy COMPARISON: [...] NIKA YI Date: 2022-05-13 19:43 Normal [facility] Operative Reporton 2 Operative Report MR#: [id number] 2 [facility] Pt. Name: Michela Arias Room #: [id number] Discharge Date: Birthdate: 1950 OPERATIVE REPORT DATE [...] and multiple bites were taken until a [place] explorer could be easily passed into the [...] disk material from this disk protrusion. A [place] #4 explorer was (more content not included)... Normal The [facility] POC GLUCOSE LABon 04-25-2022 Glucose [Mass/Vol] 105 mg/dL High 70-100 [facility] Comment on above: Performed By: #### [id number] #### [facility] [address] [place] [address], [facility] Glucose [Mass/Vol] 95 mg/dL Normal 70-100 The [facility] Comment on above: Performed By: #### [id number] #### [facility] [address] [place] [address], [place] Glucose [Mass/Vol] 103 mg/dL High 70-100 [facility] Comment on above: Performed By: #### [id number] #### [facility] [address] [place] [address], [facility] LUMBAR SPINE 2 OR 3 [facility] LUMBAR SPINE 2 OR 3 [facility] Department of Radiology [address] [place] [address] [id number] ======== Patient Name: MICHELA ARIAS : 1950 [...] report. Electronically signed: Nacho Nieves. Transcribed by: [email or web address], User Resident: NACHO LAU Electronically Signed by: NACHO NIEVES @ 04/25/2022 09:09 AM I personally read this/these film(s) with this resident Normal The [facility] Comment on above: Order Comment: RIGHT L5 HEMILAMINECTOMY, RIGHT L5-S1 FORAMINOTOMY, POSS RIGHT L5-S1 DISCECTOMY FOR DECOMPRESSION POC GLUCOSE LABon 04-24-2022 Glucose [Mass/Vol] 188 mg/dL High 70-100 [facility] Comment on above: Performed By: #### [id number] #### [facility] [address] [place] [address], [place] Glucose [Mass/Vol] 127 mg/dL High 70-100 [facility] Comment on above: Performed By: #### [id number] #### [facility] [address] [place] [address], [place] Glucose [Mass/Vol] 91 mg/dL Normal 70-100 The [facility] Comment on above: Performed By: #### [id number] #### [facility] [address] TYPE AND CROSSMATCHon 2021 ABO INTERPRETATION A Normal The [facility] Comment on above: Performed By: #### [id number] #### [facility] [address] RH INTERPRETATION Positive Normal [facility] Comment on above: Performed By: #### [id number] #### [facility] [address] [facility] [address] [address] [facility] *MRSA/MSSA DNA NASALon 04-01 *MRSA/MSSA DNA NASAL Clinical Report: (D ) Specimen: NASAL SWAB Collected: 04/01/2022 17:05 Status: Final Last Updated: 04/02/2022 19:42 MSSA DNA (Final) Negative MRSA DNA (Final) Negative Normal The [facility] Comment on above: Performed By: #### 3 [id number] #### [facility] [address] [facility] APTTon 04-01-2022 aPTT Coag (Bld) [Time] 27.5 s Normal 25.0-35.0 The [facility] Comment on above: Result Comment: ALL RESULTS [...] PURPOSE. Performed By: #### [id number] #### [facility] [address] BASIC METABOLIC PANELon 03-18 Calcium [Mass/Vol] 9.0 mg/dL Normal 8.6-10.3 [facility] Comment on above: Performed By: #### [id number] #### [facility] [address] [place] [address], [facility] Chloride [Moles/Vol] 104 mmol/L Normal 98-107 The [facility] Comment on above: Performed By: #### [id number] #### [facility] [address] [place] [address], [facility] CO2 [Moles/Vol] 30 mmol/L Normal 21-31 The [facility] Comment on above: Performed By: #### [id number] #### [facility] [address] [place] [address], [facility] Creatinine [Mass/Vol] 0.68 mg/dL Normal 0.60-1.20 The [facility] Comment on above: Performed By: #### [id number] #### [facility] [address] [place] [address], [facility] GFR/1.73 sq M.predicted among non-blacks MDRD (S/P/Bld) [Vol rate/Area] mL/min/{1.73_m2} Normal >60 The [facility] Comment on above: Result Comment: The [facility]'s estimated glomerular filtration rate (eGFR) [...] individuals. Performed By: #### [id number] #### [facility] [address] [place] [address], [facility] Glucose [Mass/Vol] 122 mg/dL High 70-100 [facility] Comment on above: Performed By: #### [id number] #### [facility] [address] [place] [address], [facility] Potassium [Moles/Vol] 4.3 mmol/L Normal 3.5-5.1 The [facility] Comment on above: Performed By: #### 8 [id number] #### [facility] [address] [place] [id number], [facility] Sodium [Moles/Vol] 144 mmol/L Normal 136-145 The [facility] Comment on above: Performed By: #### [id number] #### [facility] [address] [place] [address], [facility] Urea nitrogen [Mass/Vol] 28 mg/dL High 7-25 The [facility] Comment on above: Performed By: #### [id number] #### [facility] [address] [place] [address], [facility] CBC W/DIFFon 04-01-2022 ABS IMM GRANS 0.0 10*3/uL Normal 0.0-0.2 The [facility] Comment on above: Performed By: #### 8 [id number] #### [facility] [address] [place] [address], [facility] ABS NEUTROPHILS 4.7 10*3/uL Normal 1.6-7.6 [facility] Comment on above: Performed By: #### 8 [id number] #### [facility] [address] [place] [address], [facility] Basophils (Bld) [#/Vol] 0.0 10*3/uL Normal 0.0-0.2 The [facility] Comment on above: Performed By: #### [id number] #### [facility] [address] [place] [address], [facility] Basophils/100 WBC (Bld) 0.4 % Normal 0.0-1.0 The [facility] Comment on above: Performed By: #### [id number] #### [facility] [address] [place] [address], [facility] Eosinophils (Bld) [#/Vol] 0.1 10*3/uL Normal 0.0-0.5 The [facility] Comment on above: Performed By: #### [id number] #### [facility] [address] [place] [address], [facility] Eosinophils/100 WBC (Bld) 1.3 % Normal 0.0-6.0 The [facility] Comment on above: Performed By: #### [id number] #### [facility] [address] Erythrocyte distribution width (RBC) [Ratio] 14.2 % Normal 11.5-15.0 The [facility] Comment on above: Performed By: #### [id number] #### [facility] [address] [facility] [address] Hematocrit (Bld) [Volume fraction] 39.0 % Normal 36.0-45.0 The [facility] Comment on above: Performed By: #### [id number] #### [facility] [address] [facility] [place] [address], [facility] Hemoglobin (Bld) [Mass/Vol] 13.0 g/dL Normal 12.0-15.0 The [facility] Comment on above: Performed By: #### [id number] #### [facility] [address] [place] [address], [facility] IMMATURE GRANS 0.1 % Normal 0.0-1.0 The [facility] Comment on above: Performed By: #### [id number] #### [facility] [address] [place] [address], [facility] Lymphocytes (Bld) [#/Vol] 2.9 10*3/uL Normal 1.2-4.0 The [facility] Comment on above: Performed By: #### [id number] #### [facility] [address] [place] [address], [facility] Lymphocytes/100 WBC (Bld) 35.3 % Normal 20.0-45.0 The [facility] Comment on above: Performed By: #### [id number] #### [facility] [address] [place] [address], [facility] MCH (RBC) [Entitic mass] 29.1 pg Normal 27.0-33.0 The [facility] Comment on above: Performed By: #### [id number] #### [facility] [address] [facility] [address], [facility] MCHC (RBC) [Mass/Vol] 33.3 g/dL Normal 32.0-35.0 The [facility] Comment on above: Performed By: #### [id number] #### [facility] [address] [place] [address], [facility] MCV (RBC) [Entitic vol] 87.4 fL Normal 82.0-98.0 The [facility] Comment on above: Performed By: #### [id number] #### [facility] [address] [facility] [place] [address], [facility] Monocytes (Bld) [#/Vol] 0.5 10*3/uL Normal 0.1-1.0 The [facility] Comment on above: Performed By: #### [id number] #### [facility] [address] [facility] [address], [facility] MONOS 6.2 % Normal 5.0-12.0 The [facility] Comment on above: Performed By: #### [id number] #### [facility] [address] [place] [address], [facility] Neutrophils/100 WBC (Bld) 56.7 % Normal 40.0-72.0 The [facility] Comment on above: Performed By: #### [id number] #### [facility] [address] Nucleated RBC/100 WBC (Bld) [Ratio] 0 % Normal 0-0 The [facility] Comment on above: Performed By: #### [id number] #### [facility] [address] [place] [address], [facility] PLAT CNT 182 10*3/uL Normal 150-400 The [facility] Comment on above: Performed By: #### [id number] #### [facility] [address] RBC (Bld) [#/Vol] 4.46 10*6/uL Normal 3.80-5.00 The [facility] Comment on above: Performed By: #### [id number] #### [facility] [address] [place] [address], [facility] WBC (Bld) [#/Vol] 8.29 10*3/uL Normal 4.00-10.60 The [facility] Comment on above: Performed By: #### [id number] #### [address] CHEST AND LATERALon 04-01-20 CHEST AND LATERAL [facility] Department of Radiology [address] [place] [id number] ======== Patient Name: MIHCELA ARIAS : 1950 Sex: F Age: Race: [...] silhouette. Electronically signed: Adrian Heath. Transcribed by: [email or web address], User Resident: Electronically Signed by: ADRIAN HEATH @ 04/02/2022 07:38 AM Normal The [facility] Comment on above: Order Comment: , , = ========= , Ordering Provider - JACY NOE MD , PROTHROMBIN TIMEon 2 INR Coag (PPP) [Relative time] 0.97 {INR} Normal 0.91-1.16 The [facility] Comment on above: Result Comment: [facility] P RECOMMENDED INR FOR WARFARIN THERAPY ------- [...] 1995;[id number]. Performed By: #### [id number] #### [facility] [address] PT Coag (PPP) [Time] 12.8 s Normal 12.3-14.8 [facility] Comment on above: Result Comment: ALL RESULTS MUST BE INTERPRETED WITH RESPECT TO BLOOD DRAWING ARTIFACT OR DILUTION ERROR OF ANTICOAGULANT AT THE TIME OF SAMPLING. Performed By: #### [id number] #### [facility] [address] [facility] TYPE AND SCREENon 04-01-2022 ABO INTERPRETATION A Normal [facility] Comment on above: Performed By: #### [id number] #### [facility] [address] [facility] [place] [address], [facility] RH INTERPRETATION Positive Normal The [facility] Comment on above: Performed By: #### 6 [id number] #### [facility] [address] [facility] [place] [address], [facility] THYROGLOBULIN ABon 2 Thyroglobulin Antibody <1.0 Normal 0.0-0.9 [facility] Comment on above: Result Comment: Thyr oglobulin Antibody measured by [employer] Performed By: #### C BC #### [facility] [address] [place] [address] Dr. Lisa Thomson THYROID PEROXIDASE ABon 07-3 -2021 Thyroid Peroxidase (TPO) Ab <8 Normal 0-34 [facility] Comment on above: Performed By: #### M ALBR #### [facility] [address] [place] [address] Dr. Lisa Thomson US THYROIDon 02-20-2022 US [...] by: JACKIE ESCOBEDO Date: 2022-02-20 09:25 Normal [facility] MRI CSPINE WO CONon 02-08-20 MRI CSPINE WO CON Exam: MR scan [...] by: Celi WALKER Date: 2022-02-07 16:19 Normal [address] [facility] XR CSPINE MIN 4 VIEWSon 01-16 XR [...] JACKIE ESCOBEDO Date: 2022-01-31 09:44 Normal [address] [facility] CBC AUTO DIFFon 01-30-2022 BASO # 0.0 103/ul Normal 0.0-0.1 [facility] Comment on above: Performed By: #### C BC #### [facility] [address] [address] [address] Lisa Thomson Basophils/100 WBC (Bld) 0.4 % Normal 0.2-2.0 [facility] Comment on above: Performed By: #### C BC #### [facility] [address] [address] [address] Lisa Thomson EO # 0.1 103/ul Normal 0.0-0.7 [facility] Comment on above: Performed By: #### C BC #### [facility] [address] [address] [address] Lisa Thomson Eosinophils/100 WBC (Bld) 1.3 % Normal 0.9-7.[address] [facility] Comment on above: Performed By: #### C BC #### [facility] [address] [address] [address] Lisa Thomson Erythrocyte distribution width (RBC) [Ratio] 13.1 % Normal 11.0-15.0 [facility] Comment on above: Performed By: #### C BC #### [facility] [address] [address] [address] Lisa Thomson Hematocrit (Bld) [Volume fraction] 37.0 % Normal 36.0-48.0 [facility] Comment on above: Performed By: #### C BC #### [facility] [address] [place] [address] Dr. Lisa Thomson Hemoglobin (Bld) [Mass/Vol] 12.2 g/dL Normal 12.0-16.0 [facility] Comment on above: Performed By: #### C BC #### [facility] [address] [place] [address] Dr. Lisa Thomson IG # 0.03 10e3/ul Normal 0.00-0.03 [facility] Comment on above: Performed By: #### C BC #### [facility] [address] [place] [address] Dr. Lisa Thomson IG % 0.3 % Normal 0.0-0.5 [facility] Comment on above: Performed By: #### C BC #### [facility] [address] [place] [address] Dr. Lisa Thomson LYMPH # 2.4 103/ul Normal 1.2-3.8 [facility] Comment on above: Performed By: #### C BC #### [facility] [address] [place] [address] Dr. Lisa Thomson Lymphocytes/100 WBC (Bld) 27.1 % Normal 20.5-60.0 [facility] Comment on above: Performed By: #### C BC #### [facility] [address] [place] [address] Dr. Lisa Thomson MANUAL DIFF REQ NO Normal [facility] Comment on above: Performed By: #### C BC #### [facility] [address] [place] [address] Dr. Lisa Thomson MCH (RBC) [Entitic mass] 29.0 pg Normal 26.7-34.0 [facility] Comment on above: Performed By: #### C BC #### [facility] [address] [address] [address] Lisa Thomson MCHC (RBC) [Mass/Vol] 33.0 g/dL Normal 29.9-35.[address] [facility] Comment on above: Performed By: #### C BC #### [facility] [address] [address] [address] Lisa Thomson MCV (RBC) [Entitic vol] 87.9 fL Normal 81.0-99.[address] [facility] Comment on above: Performed By: #### C BC #### [facility] [address] [address] [address] Lisa Thomson MONO # 0.5 103/ul Normal 0.3-0.[address] [facility] Comment on above: Performed By: #### C BC #### [facility] [address] [place] [address] Dr. Lisa Thomosn Monocytes/100 WBC (Bld) 5.6 % Normal 1.7-12.0 [facility] Comment on above: Performed By: #### C BC #### [facility] [address] [place] [address] Dr. Lisa Thomson NEUT # 5.8 103/ul Normal 1.4-6.5 [facility] Comment on above: Performed By: #### C BC #### [facility] [address] [place] [address] Dr. Lisa Thomson Neutrophils/100 WBC (Bld) 65.3 % Normal 43.0-75.[address] [facility] Comment on above: Performed By: #### C BC #### [facility] [address] [address] [address] Lisa Thomson Platelet mean volume (Bld) [Entitic vol] 9.3 fL Critically low 9.5-13.[address] [facility] Comment on above: Performed By: #### C BC #### [facility] [address] [address] [address] Lisa Thomson PLT 242 103/ul Normal 150-[address] [facility] Comment on above: Performed By: #### C BC #### [facility] [address] [place] [address] Dr. Lisa Thomson RBC 4.21 106/ul Normal 4.20-5.40 [facility] Comment on above: Performed By: #### C BC #### [facility] [address] [place] [address] Dr. Lisa Thomson WBC 8.9 103/ul Normal 4.0-11.0 [facility] Comment on above: Performed By: #### C BC #### [facility] [address] [place] [address] Dr. Lisa Thomson FREE T3on 01-30-2022 FREE T3 2.14 pg/mlL Critically low 2.18-3.98 [facility] Comment on above: Performed By: #### F T3, TSH #### [facility] [address] [place] [address] Dr. Lisa Thomson FREE T4on 01-30-2022 Free T4 [Mass/Vol] 1.05 ng/dL Normal 0.76-1.46 [facility] Comment on above: Performed By: #### F T4 #### [facility] [address] [place] [address] Dr. Lisa Thomsno SED RATE WESTERGRENon 2021 SED RATE 60 mm/hr Critically high <=30 The [facility] Comment on above: Performed By: #### S EDR #### [facility] [address] [place] [address] Dr. Lisa Thomson TSHon 01-30-2022 TSH 0.746 uIU/mL Normal 0.358-3.740 The [facility] Comment on above: Performed By: #### F T3, TSH #### [facility] [address] [place] [address] Dr. Lisa Thomson CBC AUTO DIFFon 12-31-2021 BASO # 0.0 103/ul Normal 0.0-0.1 [facility] Comment on above: Performed By: #### M ALBR #### [facility] [address] [place] [address] Dr. Lisa Thomson Basophils/100 WBC (Bld) 0.2 % Normal 0.2-2.0 [facility] Comment on above: Performed By: #### M ALBR #### [facility] [address] [place] [address] Dr. Lisa Thomson EO # 0.0 103/ul Normal 0.0-0.7 [facility] Comment on above: Performed By: #### M ALBR #### [facility] [address] [place] [address] Dr. Lisa Thomson Eosinophils/100 WBC (Bld) 0.0 % Critically low 0.9-7.0 [facility] Comment on above: Performed By: #### M ALBR #### [facility] [address] [place] [address] Dr. Lisa Thomson Erythrocyte distribution width (RBC) [Ratio] 12.9 % Normal 11.0-15.0 [facility] Comment on above: Performed By: #### M ALBR #### [facility] [address] [place] [address] Dr. Lisa Thomson Hematocrit (Bld) [Volume fraction] 45.4 % Normal 36.0-48.0 [facility] Comment on above: Performed By: #### M ALBR #### [facility] [address] [place] [address] Dr. Lisa Thomson Hemoglobin (Bld) [Mass/Vol] 15.4 g/dL Normal 12.0-16.0 [facility] Comment on above: Performed By: #### M ALBR #### [facility] [address] [place] [address] Dr. Lisa Thomson IG # 0.05 10e3/ul Critically high 0.00-0.03 [facility] Comment on above: Performed By: #### M ALBR #### [facility] [address] [place] [address] Dr. Lisa Thomson IG % 0.4 % Normal 0.0-0.5 [facility] Comment on above: Performed By: #### M ALBR #### [facility] [address] [place] [address] Dr. Lisa Thomson LYMPH # 1.4 103/ul Normal 1.2-3.8 [facility] Comment on above: Performed By: #### M ALBR #### [facility] [address] [place] [address] Dr. Lisa Thomson Lymphocytes/100 WBC (Bld) 11.3 % Critically low 20.5-60.0 [facility] Comment on above: Performed By: #### M ALBR #### [facility] [address] [place] [address] Dr. Lisa Thomson MANUAL DIFF REQ NO Normal [facility] Comment on above: Performed By: #### M ALBR #### [facility] [address] [place] [address] Dr. Lisa Thomson MCH (RBC) [Entitic mass] 29.4 pg Normal 26.7-34.0 [facility] Comment on above: Performed By: #### M ALBR #### [facility] [address] [place] [address] Dr. Lisa Thomson MCHC (RBC) [Mass/Vol] 33.9 g/dL Normal 29.9-35.2 [facility] Comment on above: Performed By: #### M ALBR #### [facility] [address] [place] [address] Dr. Lisa Thomson MCV (RBC) [Entitic vol] 86.6 fL Normal 81.0-99.0 [facility] Comment on above: Performed By: #### M ALBR #### [facility] [address] [place] [address] Dr. Lisa Thomson MONO # 0.1 103/ul Critically low 0.3-0.8 [facility] Comment on above: Performed By: #### M ALBR #### [facility] [address] [place] [address] Dr. Lisa Thomson Monocytes/100 WBC (Bld) 1.0 % Critically low 1.7-12.0 [facility] Comment on above: Performed By: #### M ALBR #### [facility] [address] [place] [address] Dr. Lisa Thomson NEUT # 10.8 103/ul Critically high 1.4-6.5 [facility] Comment on above: Performed By: #### M ALBR #### [facility] [address] [place] [address] Dr. Lisa Thomson Neutrophils/100 WBC (Bld) 87.1 % Critically high 43.0-75.0 [facility] Comment on above: Performed By: #### M ALBR #### [facility] [address] [place] [address] Dr. Lisa Thomson Platelet mean volume (Bld) [Entitic vol] 9.6 fL Normal 9.5-13.[address] [facility] Comment on above: Performed By: #### M ALBR #### [facility] [address] [place] [address] Dr. Lisa Thomson PLT 172 103/ul Normal 150-450 [facility] Comment on above: Performed By: #### M ALBR #### [facility] [address] [place] [address] Dr. Lisa Thomson RBC 5.24 106/ul Normal 4.20-5.[address] [facility] Comment on above: Performed By: #### M ALBR #### [facility] [address] [place] [address] Dr. Lisa Thomson WBC 12.4 103/ul Critically high 4.0-11.0 [facility] Comment on above: Performed By: #### M ALBR #### [facility] [address] [place] [address] Dr. Lisa Thomson FREE T4on 12-31-2021 Free T4 [Mass/Vol] 1.15 ng/dL Normal 0.76-1.46 [facility] Comment on above: Performed By: #### S EDR #### [facility] [address] [place] [address] Dr. Lisa Thomson GLYCOHEMOGLOBIN A1Con 2021 ADA RECOMMENDATION SEE BELOW Normal [facility] Comment on above: Result Comment: ADA RECOMMENDED LIMIT 4.0 - 6.0 ADA THERAPEUTIC TARGET < 7.0 ACTION SUGGESTED > 7.0 Performed By: #### C BC #### [facility] [address] [address] [address] Lisa Thomson Glucose [Mass/Vol] 140 mg/dL Normal [facility] Comment on above: Performed By: #### C BC #### [facility] [address] [id number] Lisa Thomson HbA1c (Bld) [Mass fraction] 6.5 % Critically high 4.5-6.2 [facility] Comment on above: Performed By: #### C BC #### [facility] [address] [address] [address] Lisa Thomson LIPID PROFILEon 12-31-2021 CHOL-HDL RATIO NORM SEE BELOW Normal [facility] Comment on above: Result Comment: 3.3 - 4.4 LOW RISK 4.4 - 7.1 AVERAGE RISK 7.1 - 11.0 MODERATE RISK >11.0 HIGH RISK Performed By: #### C BC #### [facility] [address] [address] [address] Lisa Thomson Cholesterol [Mass/Vol] 242 mg/dL Critically high <=200 [facility] Comment on above: Performed By: #### C BC #### [facility] [address] [place] [address] Dr. Lisa Thomson Cholesterol in HDL [Mass/Vol] 58 mg/dL Normal 40-60 [facility] Comment on above: Performed By: #### C BC #### [facility] [address] [address] [address] Lisa Thomson Cholesterol in LDL [Mass/Vol] 149.2 mg/dL Normal [facility] Comment on above: Performed By: #### C BC #### [facility] [address] [address] [address] Lisa Thomson Cholesterol.total/Ch olesterol in HDL [Mass ratio] 4.2 {ratio} Normal [facility] Comment on above: Performed By: #### C BC #### [facility] [address] [address] [address] Lisa Thomson HDL NORMAL > or = 60 mg/dl - LO W CARDIOVASCULAR RISK <40 mg/dl - HIGH CARDIOVASCULAR RISK Normal [facility] Comment on above: Performed By: #### C BC #### [facility] [address] [address] [address] Lisa Thomson LDL CALC NORMAL SEE BELOW Normal [facility] Comment on above: Result Comment: <100 mg/dl OPTIMAL 100 - 129 mg/dl NEAR OR ABOVE OPTIMAL 130 - 159 mg/dl BORDERLINE HIGH 160 - 189 mg/dl HIGH >190 mg/dl VERY HIGH Performed By: #### C BC #### [facility] [address] [address] [address] Lisa Thomson Triglyceride [Mass/Vol] 174 mg/dL Critically high <=150 [facility] Comment on above: Performed By: #### C BC #### [facility] [address] [place] [address] Dr. Lisa Thomson VLDL CALC 34.8 mg/dL Normal [facility] Comment on above: Performed By: #### C BC #### [facility] [address] [address] [address] Lisa Thomson MICROALBUMIN, RAND URon 05- mALB <1.3 Normal <=30.0 [facility] Comment on above: Performed By: #### M ALBR #### [facility] [address] [place] [address] Dr. Lisa Thomson MRI LSPINE WO CONon [...] JACKIE ESCOBEDO Date: 2021-12-31 11:29 Normal [facility] PROF 14(COMP METB)on 022 Albumin [Mass/Vol] 4.1 g/dL Normal 3.4-5.0 [facility] Comment on above: Performed By: #### C BC #### [facility] [address] [place] [address] Dr. Lisa Thomson Albumin/Globulin [Mass ratio] 1.1 {ratio} Normal [facility] Comment on above: Performed By: #### C BC #### [facility] [address] [place] [address] Dr. Lisa Thomson ALP [Catalytic activity/Vol] 56 U/L Normal 46-[address] [facility] Comment on above: Performed By: #### C BC #### [facility] [address] [place] [address] Dr. Lisa Thomson ALT [Catalytic activity/Vol] 26 U/L Normal 14-59 [facility] Comment on above: Performed By: #### C BC #### [facility] [address] [place] [address] Dr. Lisa Thomson Anion gap [Moles/Vol] 17.0 mmol/L Normal [facility] Comment on above: Performed By: #### C BC #### [facility] [address] [place] [address] Dr. Lisa Thomson AST [Catalytic activity/Vol] 14 U/L Critically low 15-37 [facility] Comment on above: Performed By: #### C BC #### [facility] [address] [address] [address] Lisa Thomson Bilirubin [Mass/Vol] 0.9 mg/dL Normal 0.2-1.0 [facility] Comment on above: Performed By: #### C BC #### [facility] [address] [address] [address] Lisa Thomson Calcium [Mass/Vol] 8.7 mg/dL Normal 8.5-10.1 [facility] Comment on above: Performed By: #### C BC #### [facility] [address] [place] [address] Dr. Lisa Thomson Chloride [Moles/Vol] 101 mmol/L Normal 98-107 [facility] Comment on above: Performed By: #### C BC #### [facility] [address] [place] [address] Dr. Lisa Thomson CO2 [Moles/Vol] 23.0 mmol/L Normal 21.0-32.0 [facility] Comment on above: Performed By: #### C BC #### [facility] [address] [place] [address] Dr. Lisa Thomson Creatinine [Mass/Vol] 0.70 mg/dL Normal 0.55-1.02 [facility] Comment on above: Performed By: #### C BC #### [facility] [address] [place] [address] Dr. Lisa Thomson EGFR-AF ANGUILLAN >60 Normal >=60 [facility] Comment on above: Performed By: #### C BC #### [facility] [address] [place] [address] Dr. Lisa Thomson EGFR-NON AF ANGUILLAN >60 Normal >=60 [facility] Comment on above: Performed By: #### C BC #### [facility] [address] [place] [address] Dr. Lisa Thomson Globulin (S) [Mass/Vol] 3.6 g/dL Normal [facility] Comment on above: Performed By: #### C BC #### [facility] [address] [address] [address] Lisa Thomson Glucose [Mass/Vol] 178 mg/dL Critically high 74-106 [facility] Comment on above: Performed By: #### C BC #### [facility] [address] [address] [address] Lisa Thomson Potassium [Moles/Vol] 4.0 mmol/L Normal 3.5-5.1 [facility] Comment on above: Performed By: #### C BC #### [facility] [address] [address] [address] Lisa Thomson Protein [Mass/Vol] 7.7 g/dL Normal 6.4-8.2 [facility] Comment on above: Performed By: #### C BC #### [facility] [address] [address] [address] Lisa Thomson Sodium [Moles/Vol] 137 mmol/L Normal 136-145 [facility] Comment on above: Performed By: #### C BC #### [facility] [address] [address] [address] Lisa Thomson Urea nitrogen [Mass/Vol] 23.0 mg/dL Critically high 7.0-18.0 [facility] Comment on above: Performed By: #### C BC #### [facility] [address] [address] [address] Lisa Thomson Urea nitrogen/Creatinine [Mass ratio] 32.9 mg/mg Normal [facility] Comment on above: Performed By: #### C BC #### [facility] [address] [address] [address] Lisa Thomson TSHon 12-31-2021 TSH 0.123 uIU/mL Critically low 0.358-3.740 [facility] Comment on above: Performed By: #### C BC #### [facility] [address] [address] [address] Lisa Thomson TSH RANGE SEE BELOW Normal [facility] Comment on above: Result Comment: <0.3 4 UIU/ml HYPERTHYROID 0.34-5.60 UIU/ml EUTHYROID >5.60 UIU/ml HYPOTHYROID Performed By: #### C BC #### [facility] [address] [place] [address] Dr. Lisa Thomson UA RANDOM W/MICROSCOPICon BACTERIA NONE SEEN Normal NONE SEEN [facility] Comment on above: Performed By: #### U AMIC #### [facility] [address] [place] [address] Dr. Lisa Thomson Bilirubin Ql (U) Negative Normal NEGATIVE [facility] Comment on above: Performed By: #### U AMIC #### [facility] [address] [place] [address] Dr. Lisa Thomson CAST NONE SEEN Normal NONE SEEN [facility] Comment on above: Performed By: #### U AMIC #### [facility] [address] [place] [address] Dr. Lisa Thomson Clarity (U) CLEAR Normal CLEAR [facility] Comment on above: Performed By: #### U AMIC #### [facility] [address] [place] [address] Dr. Lisa Thomson Color (U) LT. YELLOW Normal YELLOW [facility] Comment on above: Performed By: #### U AMIC #### [facility] [address] [place] [address] Dr. Lisa Thomson Crystals LM Nom (Urine sed) NONE SEEN Normal NONE SEEN [facility] Comment on above: Performed By: #### U AMIC #### [facility] [address] [place] [address] Dr. Lisa Thomson Epithelial cells LM Ql (Urine sed) NONE SEEN Normal NONE SEEN /RARE [facility] Comment on above: Performed By: #### U AMIC #### [facility] [address] [place] [address] Dr. Lisa Thomson Glucose Ql (U) >1000 Abnormal NEGATIVE [facility] Comment on above: Performed By: #### U AMIC #### [facility] [address] [place] [address] Dr. Lisa Thomson Hemoglobin Ql (U) Negative Normal NEGATIVE [facility] Comment on above: Performed By: #### U AMIC #### [facility] [address] [address] [address] Lisa Thomson Ketones Ql (U) 15 mg/dl Abnormal NEGATIVE [facility] Comment on above: Performed By: #### U AMIC #### [facility] [address] [address] [address] Lisa Thomson LEUKOCYTES Negative Normal NEGATIVE [facility] Comment on above: Performed By: #### U AMIC #### [facility] [address] [place] [address] Dr. Lisa Thomson MUCOUS NONE SEEN Normal NONE SEEN [facility] Comment on above: Performed By: #### U AMIC #### [facility] [address] [place] [address] Dr. Lisa Thomson Nitrite Ql (U) Negative Normal NEGATIVE [facility] Comment on above: Performed By: #### U AMIC #### [facility] [address] [place] [address] Dr. Lisa Thomson pH (U) 5.5 [pH] Normal 5-9 [facility] Comment on above: Performed By: #### U AMIC #### [facility] [address] [place] [address] Dr. Lisa Thomson RBC NONE SEEN Abnormal 0-[address] [facility] Comment on above: Performed By: #### U AMIC #### [facility] [address] [place] [address] Dr. Lisa Thomson SPEC GRAVITY 1.015 Normal 1.005-<=1.025 [facility] Comment on above: Performed By: #### U AMIC #### [facility] [address] [place] [address] Dr. Lisa Thomson UA PROTEIN Negative Normal NEGATIVE/ TRACE [facility] Comment on above: Performed By: #### U AMIC #### [facility] [address] [place] [address] Dr. Lisa Thomson Urobilinogen Qn (U) 0.2 {Tony'U}/dL Normal 0.2 - 1. 0 [facility] Comment on above: Performed By: #### U AMIC #### [facility] [address] [address] [address] Lisa Thomson WBC NONE SEEN Normal NONE SEEN [facility] Comment on above: Performed By: #### U AMIC #### [facility] [address] [address] [address] Lisa Thomson XR LSPINE W_OBLS AND [...] by: JACKIE ESCOBEDO Date: 2021-12-24 14:41 Normal [facility] NM BONE IMAGE 3 PHASEon 05 NM BONE IMAGE 3 PHASE EXAMINATION: NM BONE [...] by: NIKA YI Date: 2021-12-21 16:11 Normal [facility] Vital Signs Date Time Vital Sign Value Performing Clinician [facility] 10-02-2023 09:32-0500 Body height 160 cm Noemi Mcnally NP Work Phone: [facility] 10-02-2023 09:32-0500 Body mass index (BMI) [Ratio] 27.03 kg/m2 Noemi Aichholz [employer]ER Work Phone: [facility] 10-02-2023 09:32-0500 Body temperature 96.91 [degF] Noemi Aichholz [employer]ER Work Phone: [facility] 10-02-2023 09:32-0500 Body weight 69.22 kg Noemi Aichholz [employer]ER Work Phone: [facility] 10-02-2023 09:32-0500 Diastolic blood pressure 82 mm[Hg] Noemi Aichholz [employer]ER Work Phone: [facility] 10-02-2023 09:32-0500 Heart rate 87 /min Noemi Aichholz [employer]ER Work Phone: [facility] 10-02-2023 09:32-0500 Respiratory rate 20 /min Noemi Aichholz [employer]ER Work Phone: [facility] 10-02-2023 09:32-0500 SaO2% (BldA) [Mass fraction] 99 % Noemi Aichholz [employer]ER Work Phone: [facility] 10-02-2023 09:32-0500 Systolic blood pressure 132 mm[Hg] Noemi Aichholz [employer]UL[employer]ER Work Phone: [facility] Healthcare Encounters Encounter Date Encounter Type Care Provider Facility Start: 10-02-2023 Bamboo flowsheet Noemi Aichholz [employer]ER Work Phone: [facility] Start: 10-02-2023 Bamboo flowsheet Noemi Aichholz [employer]UL[employer] P[employer]ER Work Phone: [facility] Start: 10-02-2023 End: 10-02-2023 ambulatory NOEMI AICHHOLZ Not Available Start: 10-02-2023 End: 10-02-2023 Office outpatient visit 25 minutes Noemi Aichholz [employer] Work Phone: [facility] Comment on above: Type 2 diabetes madeleine itus without complication, without long- term current use of insulin (CMS/HCC) (Primary Dx); Encounter for screening mammogram for malignant neoplasm of breast; Mixed hyperlipidemia (CMS/HCC); BMI 27.0-27.9,adult; Osteoporosis, unspecified osteoporosis type, unspecified pathological fracture presence (CMS/HCC); Chronic pruritus; Allergic rhinitis, unspecified seasonality, unspecified trigger Start: 06-23-2023 End: 06-24-2023 ambulatory [facility] Start: 12-16-2022 End: 12-17-2022 ambulatory [facility] Start: 11-12-2022 End: 11-13-2022 ambulatory GARRICK MCNALLY Facility:[facility] Start: 10-16-2022 End: 10-17-[address] NIKA YI Facility:[facility] Start: 10-07-2022 End: 10-08-2022 ambulatory [facility] Start: 10-07-2022 End: 10-07-2022 ambulatory [facility] Start: 10-04-[address] DOCTOR VERDE Facility :[facility] Start: 08-26-2022 End: 08-27-2022 ambulatory [facility] Start: 07-15-2022 End: 07-15-2022 ambulatory [facility] Start: 07-01-2022 Encounter for preprocedural laboratory examination DR DOCTOR VERDE [facility] Start: 06-27-2022 End: 06-28-[address] DOCTOR VERDE Facility:[facility] Start: 06-27-2022 End: 06-28-2022 Encounter for preprocedural laboratory examination DR DOCTOR VERDE Facility:[facility] Start: 06-25-2022 End: 06-26-[address] DOCTOR VERDE Facility:[facility] Start: 06-20-2022 End: 06-20-[address] NANDO Pierce Facility:[facility] Start: 05-13-2022 End: 05-14-[address] DOCTOR VERDE Facility:[facility] Start: 04-24-2022 End: 04-25-2022 ambulatory Jacy Noe Facility:[facility] Start: 04-01-2022 End: 04-02-2022 ambulatory Jacy Noe Facility:[facility] Start: 03-14-2022 End: 03-15-2022 ambulatory GARRICK LOYD ROXANAElliSARAHKendra Facility:[facility] Start: 02-19-2022 End: 02-20-2022 ambulatory GARRICK LOYD ROXANAElliSARAHKendra Facility:[facility] Start: 02-07-2022 End: 02-08-2022 ambulatory GARRICK LOYD ROXANAElliPAUL Facility:[facility] Start: 01-30-2022 End: 01-31-2022 ambulatory GARRICK LOYD ROXANAElliSARAHKendra Facility:[facility] Start: 01-17-2022 End: 01-18-2022 ambulatory DEFAULT PHYSICIAN Facility:[facility] Start: 01-15-2022 End: 01-15-2022 ambulatory GARRICK LOYD ROXANAElliSARAHKendra Facility:[facility] Start: 01-01-2022 End: 01-02-[address] ISHMAEL ROBERTO . Facility:[facility] Start: 12-31-2021 End: 01-01-2022 ambulatory GARRICK AVENDANOA NICKO Facility:[facility] Start: 12-27-2021 End: 01-05-[address] ISHMAEL ROBERTO . Facility:[facility] Start: 12-25-2021 End: 12-26-[address] ISHMAEL ROBERTO . Facility:[facility] Start: 12-24-2021 End: 12-25-[address] ISHMAEL ROBERTO . Facility:[facility] Start: 12-21-2021 End: 12-22-[address] ISHMAEL ROBERTO . Facility:[facility] Start: 12-18-2021 End: 12-19-2021 ambulatory WHITNEY GOODMAN Facility:[facility] Start: 12-17-2021 End: 12-17-2021 ambulatory WHITNEY GOODMAN Facility:[facility] Start: 12-07-2021 ambulatory GARRICK NOEMIArthur MCNALLY Facil ity:[facility]1 Procedures Date Procedure Procedure Detail Performing Clinician Start: 11-12-2022 Mammography Noemi amador [employer]ER Work Phone: Start: 04-24-2022 Antibody screen DEFAULT PHYSICIAN Comment on above: Performed By: #### [id number] #### [place] [address] [address] Start: 04-01-2022 Antibody screen DEFAULT PHYSICIAN Comment on above: Performed By: #### [id number] #### [facility] [place] [address], [facility] Start: 08-18-2012 Jae amador NP Work Phone: Plan of Treatment Date Care Activity Detail Author Start: 02-15-2024 Influenza vaccination Influenza Vacc ine (#1) [facility] Comment on above: Postponed from 04/18 (Patient Refused) Start: 02-13-2024 Urine screening for protein Diabetes: Urine Protein Screening [facility] Start: 11-17-2023 Glaucoma screening Diabetes: R etinopathy Screening [facility] Start: 11-14-2023 End: 10-02-2024 DXA Skeletal system Views for bone density DEXA bone density Imaging Routine Osteoporosis, unspecified osteoporosis type, unspecified pathological fracture presence ([facility]/HCC) Expected: 11/14/2023, Expires: 10/02/2024 [facility] Comment on above: Expected: 11/14/2023 , Expires: 10/02/2024 Start: 11-13-2023 Screening for malign ant neoplasm of breast Mammogram [facility] Start: 11-13-2023 End: 11-13-2023 Patient encounter procedure 11/13/2023 9:20 AM EDT Office Visit [facility] [address] [place] [address] Noemi Mcnally, [place] [address] [place] [id number] [facility] Start: 10-31-2023 End: 11-30-2024 MG Breast - bilateral Screening Bilateral screening mammogram Imaging Routine Encounter for screening mammogram for malignant neoplasm of breast Expected: 10/31/2023 (Approximate), Expires: 11/30/2024 [facility] Comment on above: Expected: 10/31/2023 (Approximate), Expires: 11/30/2024 Start: 10-02-2023 End: 10-02-2024 Alanine aminotransferase [Enzymatic activity/volume] in Serum or Plasma ALT Lab Routine Mixed hyperlipidemia ([facility]/HCC) Expected: 10/02/2023 (Approximate), Expires: 10/02/2024 [facility] Comment on above: Expected: 10/02/2023 (Approximate), Expires: 10/02/2024 Start: 10-02-2023 End: 10-02-2024 Aspartate aminotransferase [Enzymatic activity/volume] in Serum or Plasma AST Lab Routine Mixed hyperlipidemia ([facility]) Expected: 10/02/2023 (Approximate), Expires: 10/02/2024 [facility] Comment on above: Expected: 10/02/2023 (Approximate), Expires: 10/02/2024 Start: 10-02-2023 End: 10-02-2024 Hemoglobin A1c/Hemoglobin.total in Blood Hemoglobin A1c Lab Routine Type 2 diabetes mellitus without complication, without long-term current use of insulin ([facility]) Expected: 10/02/2023 (Approximate), Expires: 10/02/2024 [facility] Comment on above: Expected: 10/02/2023 (Approximate), Expires: 10/02/2024 Start: 10-02-2023 End: 10-02-2024 Lipid 1996 panel - Serum or Plasma Lipid panel Lab Routine Mixed hyperlipidemia ([facility]) Expected: 10/02/2023 (Approximate), Expires: 10/02/2024 [facility] Work Phone: Comment on above: Expected: 10/02/2023 (Approximate), Expires: 10/02/2024 Start: 05-15-2023 Hemoglobin A1c measurement Manasa betes: Hemoglobin A1C [facility] Start: 04-18-2023 Influenza vaccination Influenza Vacc ine (#1) [facility] Start: 08-18-2022 Screening for malign ant neoplasm of colon [facility] Start: 11-17-2019 Glaucoma screening Diabetes: R etinopathy Screening [facility] Start: 07-18-2017 Pneumococcal Vaccine : 65+ Years (2 of 2 - PCV) Pneumococcal Vaccine: 65+ Years (2 of 2 - PCV) [facility] Start: 1950 Screening for malign ant neoplasm of colon [facility] Immunizations Immunization Date Immunization Notes Care Provider Fa [facility] 06-17-2018 Influenza, High-dose Seasonal, Quadrivalent, Preservative Free Noemi Aichholz [employer]ER Work Phone: [facility] 06-17-2018 influenza virus vacc ine, unspecified formulation Noemi Mcnally [employer]ER Work Phone: [facility] 05-19-2017 Influenza, High-dose Seasonal, Quadrivalent, Preservative Free Noemi Mcnally [employer]ER Work Phone: [facility] 07-18-2016 pneumococcal polysaccharide vaccine, 23 valent Noemi Mcnally [employer]ER Work Phone: [facility] Healthcare Payers Date Payer Category Payer Unknown 2015 Medicare MEDICARE MEDICAR E RAILROAD [id number] 2015-Present [employer]IC[employer] [address] [address] [place] [address] Medicare [id number] 1959 Medicare [id number] 1959 Self-pay 1959 Unknown [id number] 1950 Unknown [id number] 2.16.840.1.949242.3.579.2.647 1950 Unknown [id number] 2.16.840.1.581097.3.579.2.647 1950 Unknown [id number] 2.16.840.1.706190.3.579.2.647 1950 Unknown [id number] 2.16.840.1.002583.3.579.2.593 1950 Unknown [id number] 2.16.840.1.424228.3.579.2.593 1950 Unknown [id number] 2.16.840.1.336408.3.579.2.593 1950 Unknown [id number] 2.16.840.1.500095.3.579.2.593 1950 Unknown [id number] 2.16.840.1.966507.3.579.2.593 1950 Unknown [id number] 2.16.840.1.367913.3.579.2.593 1950 Unknown [id number] 2.16.840.1.388134.3.579.2.593 1950 Unknown [id number] 2.16.840.1.890071.3.579.2.593 1950 Unknown [id number] 2.16.840.1.504556.3.579.2.593 1950 Unknown [id number] 2.16.840.1.811746.3.579.2.593 1950 Unknown [id number] 2.16.840.1.126167.3.579.2.593 1950 Unknown [id number] 2.16.840.1.466088.3.579.2.593 1950 Unknown [id number] 2.16.840.1.325231.3.579.2.593 1950 Unknown [id number] 2.16.840.1.980919.3.579.2.593 1950 Unknown [id number] 2.16.840.1.089169.3.579.2.593 1950 Unknown [id number] 2.16.840.1.312577.3.579.2.593 1950 Unknown [id number] 2.16.840.1.688430.3.579.2.593 1950 Unknown [id number] 2.16.840.1.412288.3.579.2.593 1950 Unknown [id number] 2.16.840.1.630374.3.579.2.593 1950 Unknown [id number] 2.16.840.1.300612.3.579.2.593 1950 Unknown [id number] 2.16.840.1.761010.3.579.2.593 1950 Unknown [id number] 2.16.840.1.128628.3.579.2.593 1950 Unknown [id number] 2.16.840.1.625503.3.579.2.1259 Social History Date Type Detail Facility Start: 09-29-2023 Tobacco smoking status NHIS Never sm oked tobacco [facility] Start: 10-02-2023 Alcohol intake Ex-drinker (finding) [facility] Start: 09-29-2023 End: 10-02-2023 History of Social function [facility] Start: 09-29-2023 End: 10-02-2023 Tobacco use panel [facility] Start: 1950 Sex Assigned At Not on file [facility] Clinical Notes 12-18-2021 to 10-02-2023 Noemi Mcnally NP - 10/02/2023 10:53 AM Evelyn Mcnally, [place] - 10/02/2023 10:52 AM Evelyn Mcnally, [place] - 10/02/2023 10:51 AM Evelyn Mcnally, [place] - 10/02/2023 10:50 AM EST Note Date & Type Note Facility 10-02-2023 History of Present illness Narrative Associated Problem(s): Chronic pruritus No evidence of rash, no specific time of day Will trial a change in her allergy med to cetirizine to see if helps If not consider dermatology No evidence of scabies no rash at all Associated Problem(s): Hyperlipidemia (CMS/HCC) Check labs, cont statin and zetia Associated Problem(s): Type 2 diabetes mellitus without complication, without long-term current use of insulin (CMS/HCC) Check blood sugars daily, notify if <70 or >200. Take medications (pills or insulin) as directed. Monitor for s/s of hypoglycemia (sweaty, dizziness, nausea, vomiting, or shakiness). Watch for increase in thirst, urination, or appetite. Inspect feet frequently monitoring for open wounds , and also recommend yearly eye exam. Pt should attempt to remain as physically active as chronic conditions allow, as well as trying to follow a diet low in carbohydrates, and simple sugars. Associated Problem(s): Osteoporosis (CMS/HCC) Check DEXA scan when mammogram is due Pt needs a refill on her pioglitazone 15mg and the ezetimibe 10mg Pt asks if she can have the metformin on hold she has many Images from the original note were not included. Michela Arias is a 73 y.o. female presents with chief complaint of No chief complaint on file. HPI: Itching: all over body , for months, worse trunk, has trialed to use warm water Diabetes She presents for her follow-up diabetic visit. She has type 2 diabetes mellitus. Her disease course has been stable. There are no hypoglycemic associated symptoms. Pertinent negatives for hypoglycemia include no dizziness, headaches, nervousness/anxiousness, seizures or tremors. Pertinent negatives for diabetes include no chest pain, no foot ulcerations, no polydipsia, no polyphagia, no polyuria and no visual change. There are no hypoglycemic complications. Symptoms are stable. There are no diabetic complications. Risk factors for coronary artery disease include dyslipidemia and sedentary lifestyle. Current diabetic treatment includes oral agent (dual therapy). She is compliant with treatment all of the time. Her overall blood glucose range is 110-130 mg/dl. An SONIA inhibitor/angiotensin II receptor dony is not being taken. Eye exam is not current. SUBJECTIVE: MEDICATIONS: Current Outpatient Medications Medication Instructions atorvastatin (Lipitor) 80 MG tablet baclofen (LIORESAL) 10 mg, Oral, 2 times daily, 1/2 tablet bid per pain mgmt DULoxetine (CYMBALTA) 30 mg, Oral, Daily ezetimibe (Zetia) 10 MG tablet fluticasone (Flonase) 50 MCG/ACT nasal spray 2 sprays, Each Nostril, Daily gabapentin (Neurontin) 300 MG capsule loratadine (CLARITIN) 10 mg, Oral, Daily metFORMIN XR (GLUCOPHAGE-XR) 1,000 mg, Oral, 2 times daily pioglitazone (ACTOS) 15 mg, Oral, Daily Zonisamide (ZONEGRAN PO) 15 mg, Oral, Nightly ALLERGIES: Allergies Allergen Reactions Aminosyn Ii Nubain [Nalbuphine] Penicillins Hives REVIEW OF SYMPTOMS: Review of Systems Constitutional: Negative for appetite change, chills and fever. HENT: Negative for congestion, ear pain and sore throat. Eyes: Negative for pain, discharge, redness and visual disturbance. Respiratory: Negative for cough, shortness of breath and wheezing. Cardiovascular: Negative for chest pain, palpitations and leg swelling. Gastrointestinal: Negative for abdominal pain, blood in stool, constipation, diarrhea, nausea and vomiting. Genitourinary: Negative for difficulty urinating, dysuria and frequency. Musculoskeletal: Positive for back pain. Negative for arthralgias, joint swelling and myalgias. Skin: Negative for rash and wound. itching Neurological: Negative for dizziness, tremors, seizures, syncope and headaches. Psychiatric/Behavioral: Negative for behavioral problems, self-injury and suicidal ideas. The patient is not nervous/anxious. Hematological: Does not bruise/bleed easily. Endocrine: Negative for polydipsia, polyphagia and polyuria. Allergic/Immunologic: Negative for environmental allergies and food allergies. PAST MEDICAL HISTORY Past Medical History: Diagnosis Date Allergic rhinitis 10/02/2023 Cervical pain (neck) 10/02/2023 Colon polyp 2019 Degenerative disc disease, cervical Diaphragmatic hernia without obstruction or gangrene Displacement of lumbar intervertebral disc without myelopathy Diverticulosis of intestine without perforation or abscess without bleeding Hematuria, microscopic 10/02/2023 High triglycerides (CMS/HCC) Hip pain, left Hypothyroidism (CMS/HCC) 10/02/2023 Lumbar back pain with radiculopathy affecting right lower extremity 10/02/2023 Lumbar degenerative disc disease Lumbar radiculopathy 07/30/2023 Menopause Non-proliferative diabetic retinopathy, both eyes (CMS/HCC) 10/02/2023 [place] 10/02/2023 Positive H. pylori test 2019 Radiculopathy of arm 10/02/2023 Sinusitis 10/02/2023 Thyroid goiter [place] 10/02/2023 Thyroiditis [place] 10/02/2023 Type 2 diabetes mellitus without complication, without long-term current use of insulin [place] 07/30/2023 Past Surgical History: Procedure Laterality Date APPENDECTOMY 1974 CHOLECYSTECTOMY 12/2007 Lap Ad[facility] COLONOSCOPY 09/2006 COLONOSCOPY W/ POLYPECTOMY 10/2019 tubular adenoma /[place] EGD 12/2006 EGD 10/2019 EGD with Bx HYSTERECTOMY 1973 THYROIDECTOMY family history includes Breast cancer in her mother, sibling, sister, and sister; Cancer in her mother, sister, and sister; Diabetes in her father; Heart disease in her mother; Hypertension in her mother; Kidney disease in her father; Parkinsonism in her father and sibling. OBJECTIVE: Visit Vitals BP 132/82 (BP Location: Left arm, Patient Position: Sitting, BP Cuff Size: Adult) Pulse 87 Temp 96.9 F (Temporal) Resp 20 Ht 5' 3 Wt 152 lb 9.6 oz SpO2 99% BMI 27.03 kg/m Smoking Status Never BSA 1.75 m Physical Exam Vitals reviewed. Constitutional: General: She is not in acute distress. Appearance: Normal appearance. HENT: Head: Normocephalic and atraumatic. Right Ear: Tympanic membrane, ear canal and external ear normal. Left Ear: Tympanic membrane, ear canal and external ear normal. Nose: Nose normal. No congestion or rhinorrhea. Comments: pallor Mouth/Throat: Mouth: Mucous membranes are moist. Pharynx: No oropharyngeal exudate or posterior oropharyngeal erythema. Eyes: Extraocular Movements: Extraocular movements intact. Conjunctiva/sclera: Conjunctivae normal. Neck: Vascular: No carotid bruit. Cardiovascular: Rate and Rhythm: Normal rate and regular rhythm. Pulses: Normal pulses. Heart sounds: Normal heart sounds. No murmur heard. Pulmonary: Effort: Pulmonary effort is normal. No respiratory distress. Breath sounds: Normal breath sounds. No wheezing. Abdominal: General: Bowel sounds are normal. There is no distension. Palpations: Abdomen is soft. There is no mass. Tenderness: There is no abdominal tenderness. Musculoskeletal: General: Normal range of motion. Cervical back: Normal range of motion and neck supple. Right lower leg: No edema. Left lower leg: No edema. Lymphadenopathy: Cervical: No cervical adenopathy. Skin: General: Skin is warm and dry. Capillary Refill: Capillary refill takes 2 to 3 seconds. Findings: No rash. Comments: No skin lesions or rashes Neurological: General: No focal deficit present. Mental Status: She is alert and oriented to person, place, and time. Psychiatric: Mood and Affect: Mood normal. Behavior: Behavior normal. Thought Content: Thought content normal. Judgment: Judgment normal. ASSESSMENT AND PLAN: No follow-ups on file. Problem List Items Addressed This Visit Type 2 diabetes mellitus without complication, without long-term current use of insulin ([facility]) Check blood sugars daily, notify if <70 or >200. Take medications (pills or insulin) as directed. Monitor for s/s of hypoglycemia (sweaty, dizziness, nausea, vomiting, or shakiness). Watch for increase in thirst, urination, or appetite. Inspect feet frequently monitoring for open wounds , and also recommend yearly eye exam. Pt should attempt to remain as physically active as chronic conditions allow, as well as trying to follow a diet low in carbohydrates, and simple sugars. Relevant Medications pioglitazone (Actos) 15 MG tablet Other Relevant Orders Hemoglobin A1c Hyperlipidemia ([facility]) Check labs, cont statin and zetia Relevant Medications ezetimibe (Zetia) 10 MG tablet atorvastatin (Lipitor) 80 MG tablet Other Relevant Orders Lipid panel ALT AST Encounter for screening mammogram for malignant neoplasm of breast - Primary Relevant Orders Bilateral screening mammogram Osteoporosis ([facility]) Check DEXA scan when mammogram is due Relevant Orders DEXA bone density Allergic rhinitis Relevant Medications fluticasone (Flonase) 50 MCG/ACT nasal spray BMI 27.0-27.9,adult Chronic pruritus No evidence of rash, no specific time of day Will trial a change in her allergy med to cetirizine to see if helps If not consider dermatology No evidence of scabies no rash at all Relevant Medications cetirizine (ZyrTEC) 10 MG tablet documented in this encounter [facility] 06-23-2023 Note Neurosurgery Clinic Note Chief Complaint: [...] L5-S1 interbody fusion, L5-S1 instrumented fusion, Dr. oNe LUMBAR LAMINECTOMY right L5-S1 diskectomy and foraminotomy [...] 07/02/2022 233 (H) (more content not included)... [facility] 12-16-2022 Note Neurosurgery Clinic Note [...] then becomes throbbing and painful in the [id number] extending into her toes. She denies any [...] BUN/Creatinine Ratio 1 (more content not included)... [facility] 10-16-2022 Note PROCEDURE: XR FOOT [...] authenticated by: NIKA YI Date: 2022-10-16 17:56 [facility] 10-16-2022 Note PROCEDURE: XR FOOT R T [...] authenticated by: NIKA YI Date: 2022-10-16 17:56 [facility] 10-07-2022 Note Neurosurgery Clinic Note Chief Complaint: [...] Friday fell while at a family birthday green party, injuring her right ankle which has been [...] Past Medical History: Diagnosis Date Diabetes mellitus ([facility]) Hyperlipidemia Thyroid condition Past Surgical History: Past [...] fell on her back at a birthday green party. Right leg and toes are numb. Exam: [...] % Final Platele (more content not included)... [facility] 08-26-2022 Note Neurosurgery Clinic Note [...] Final Potassium 07/03/2022 (more content not included)... [facility] 07-15-2022 Note Neurosurgery Clinic Note [...] Past Medical History: Diagnosis Date Diabetes mellitus ([facility]) Hyperlipidemia Thyroid condition Past Surgical History: Past [...] - 5.00 10*6/uL (more content not included)... [facility] 04-26-2022 Note MR#: [id number] [facility] Pt. Name: Michela Arias Admitted: [...] by: Jacy Noe MD 05/01/2022 04:01 P ____ Jacy Noe MD Date Dict: 04/25/2022/03:21 P/Jacy Noe MD Date Trans: 04/26/2022 07:44 A/sharyn [id number] [facility] 01-01-2022 Note CONSULTATION CONSULTATION DATE: CHIEF COMPLAINT: [...] The patient will be going to the [facility] in [place]. The refill of Percocet 5/325 t.i.d. will be done and Baclofen 10 mg at h.s. Trazadone 50 mg q.p.m. will also be added to help her with her sleep and pain. CC: Dr. Noemi Mcnally [facility] Signed and Approved by: DR ISHMAEL ROBERTO . 01/08/2022 12:21:[address] [facility] 12-25-2021 Note CONSULTATION CONSULTATION DATE: 12/25/2021 CHIEF [...] like to proceed. CC: Noemi Mcnally CNP [facility] Signed and Approved by: DR ISHMAEL ROBERTO . 01/01/2022 10:40:00 [facility] 12-18-2021 Note CONSULTATION CONSULTATION DATE: 12/18/2021 CHIEF [...] mg one tablet p.o. b.i.d. Mobic and [place] were discontinued in the past. The patient [...] week and earlier should she need us. [facility] Signed and Approved by: DR ISHMAEL ROBERTO . 12/25/2021 10:05:[address] [facility] Evaluation note Diagnosis Type 2 diabetes mellitus without complication, without long-term current use of insulin ([facility])- Primary Encounter for screening mammogram for malignant neoplasm of breast Mixed hyperlipidemia (CMS/HCC) Mixed hyperlipidemia BMI 27.0-27.9,adult Osteoporosis, unspecified osteoporosis type, unspecified pathological fracture presence ([facility]) Chronic pruritus Allergic rhinitis, unspecified seasonality, unspecified trigger documented in this encounter [facility] Summary Purpose Family History No Family History Records FoundNo Family History Records FoundNo Family History Records FoundNo Family History Records Found Advance Directives No Advanced Directives Records FoundNo Advanced Directives Records FoundNo Advanced Directives Records FoundNo Advanced Directives Records Found Additional Source Comments INFORMATION SOURCE (unrecogn ized section and content) DATE CREATED AUTHOR 05/15/2022 [facility] DATE CREATED AUTHOR AUTHOR'S ORGANIZ ATION 11/20/2022 [facility] DATE CREATED AUTHOR AUTHOR'S ORGANIZ ATION 07/07/2023 [facility] DATE CREATED AUTHOR AUTHOR'S ORGANIZ ATION 10/04/2023 [facility] [employer] Care Teams (unrecognized sec tion and content) Policy Change Clerks Supervisor Relationship Specialty Start Date End Date Cristopher Khanan MD [address] [place] [address] PCP - General Family Medicine 09/29/23 Noemi Mcnally NP [address] [place] [address] Nurse Practitioner Family Medicine 05/28/23 Policy Change Clerks Supervisor Relationship Specialty Start Date End Date Cristopher Khanna MD [address] [place] [address] PCP - General Family Medicine 09/29/23 Noemi Mcnally NP [address] [place] [id number] Nurse Practitioner Family Medicine 05/28/23 FOR RECORDS PERTAINING TO PATIENTS WHO ARE [...] BE BASED ON THE PRIMARY CLINICAL RECORDS. [facility] [employer] [facility]. provides no warranty or guarantee of the accuracy or completeness of information in this document.
[2023-10-10 14:42] LABS: Estimated Average Glucose 140 mg/dL; Glycohemoglobin A1C 6.5 % (4.5-6.2)
[2023-10-10 14:43] LABS: Alanine Aminotransferase 21 U/L (14-59); Aspartate Amino Transferase 14 U/L (15-37); Chol HDL Ratio 3.9; Cholesterol 203 mg/dL (<=200); HDL Cholesterol 52 mg/dL (40-60); Triglycerides 188 mg/dL (<=150); VLDL CHOLESTEROL 37.6 mg/dL
== END 2023-10-10 13:51 | disposition home or self-care (01) ==
LOC: LAB 13:53
PROVIDERS: PCP Nurse Practitioner; Visit Provider Nurse Practitioner
DX: E78.2 Mixed hyperlipidemia (principal); E11.9 Type 2 diabetes mellitus without complications
CPT/HCPCS: 36415; 80061; 83036; 84450; 84460

== ENCOUNTER 2023-11-17 09:58 | Outpatient (OUT) | payer MEDICARE, SELFPAY ==
--- OUTSIDE RECORDS SUMMARY | 2023-11-17 10:06 | XMS_ITS | CCD ---
Author Organization [facility] Care Team Providers Care Real Time Trader Name Role Phone PHYSICIAN, DEFAULT Admitting Unavailable PHYSICIAN, DEFAULT Attending Unavailable Hasmukh, Vipul T. Admitting Unavailable Hasmukh, Vipul T. Attending Unavailable AICHHOLZ, NOEMI Referring Unavailable AICHHOLZ, NOEMI Primary Care Unavailable [place], Vipul T. Admitting Unavailable [place], Vipul T. Attending Unavailable UNKNOWN, PHYSICIAN Referring Unavailable UNKNOWN, PHYSICIAN Primary Care Unavailable AICHHOLZ, MANAGER SCHEDULING NOEMI Primary Care Unavailable AICHHOLZ, MANAGER SCHEDULING NOEMI Attending Unavailable AICHHOLZ, MANAGER SCHEDULING NOEMI Consulting Unavailable AICHHOLZ, MANAGER SCHEDULING NOEMI Admitting Unavailable DR JACKIE ESCOBEDO Consulting Unavailable JOSÉ MIGUEL ., DR COLLIER Admitting Unavailable JOSÉ MIGUEL ., DR COLLIER Attending Unavailable KASSIDY, DR NIKA Montague Consulting Unavailable AICHHOLZ, MANAGER SCHEDULING NOEMI Primary Care Unavailable HAY Stan, DR COLLIER Consulting Unavailable MISC, DR GIPSON Attending Unavailable MISC, DR GIPSON Admitting Unavailable AICHHOLZ, MANAGER SCHEDULING NOEMI Primary Care Unavailable MISC, DR GIPSON Admitting Unavailable MISC, DR GIPSON Attending Unavailable KASSIDY, DR NIKA Montague Consulting Unavailable AICHHOLZ, MANAGER SCHEDULING NOEMI Primary Care Unavailable MISC, DR GIPSON Consulting Unavailable AICHHOLZ, MANAGER SCHEDULING NOEMI Primary Care Unavailable AICHHOLZ, MANAGER SCHEDULING NOEMI Admitting Unavailable AICHHOLZ, MANAGER SCHEDULING NOEMI Attending Unavailable AICHHOLZ, MANAGER SCHEDULING NOEMI Consulting Unavailable FELISA ., DR ISHMAEL Zuniga Consulting Unavailable FELISA ., DR ISHMAEL Zuniga Admitting Unavailable AICHHOLZ, MANAGER SCHEDULING NOEMI Primary Care Unavailable ROBERTO ., DR ISHMAEL Zuniga Attending Unavailable CAROLINE HINES Consulting Unavailable AICHHOLZ, MANAGER SCHEDULING NOEMI Primary Care Unavailable JEY, DR CRISTOPHER Gibson Consulting Unavailable JEY, DR CRISTOPHER Gibson Admitting Unavailable JEY, DR CRISTOPHER Gibson Attending Unavailable FELISA ., DR ISHMAEL Zuniga Admitting Unavailable FELISA ., DR ISHMAEL Zuniga Attending Unavailable AICHHOLZ, MANAGER SCHEDULING NOEMI Primary Care Unavailable GREGG, DR JACKIE Li Consulting Unavailable FELISA ., DR ISHMAEL Zuniga Consulting Unavailable AICHHOLZ, MANAGER SCHEDULING NOEMI Attending Unavailable AICHHOLZ, MANAGER SCHEDULING NOEMI Consulting Unavailable AICHHOLZ, MANAGER SCHEDULING NOEMI Admitting Unavailable AICHHOLZ, MANAGER SCHEDULING NOEMI Primary Care Unavailable ROBERTO ., DR ISHMAEL Zuniga Attending Unavailable ROBERTO ., DR ISHMAEL Zuniga Admitting Unavailable AICHHOLZ, MANAGER SCHEDULING NOEMI Primary Care Unavailable WEST, DR NIKA Montague Consulting Unavailable FELISA ., DR ISHMAEL Zuniga Consulting Unavailable MISC, DR GIPSON Attending Unavailable MISC, DR GIPSON Consulting Unavailable AICHHOLZ, MANAGER SCHEDULING NOEMI Primary Care Unavailable MISC, DR GIPSON Admitting Unavailable MACIEL SUH Consulting Unavailable MISC, DR GIPSON Attending Unavailable MISC, DR GIPSON Consulting Unavailable AICHHOLZ, MANAGER SCHEDULING NOEMI Primary Care Unavailable MISC, DR GIPSON Admitting Unavailable WEST, DR NIKA Montague Consulting Unavailable AICHHOLZ, MANAGER SCHEDULING NOEMI Admitting Unavailable AICHHOLZ, MANAGER SCHEDULING NOEMI Attending Unavailable AICHHOLZ, MANAGER SCHEDULING NOEMI Primary Care Unavailable AICHHOLZ, MANAGER SCHEDULING NOEMI Consulting Unavailable AICHHOLZ, MANAGER SCHEDULING NOEMI Primary Care Unavailable AICHHOLZ, MANAGER SCHEDULING NOEMI Admitting Unavailable AICHHOLZ, MANAGER SCHEDULING NOEMI Attending Unavailable KASSIDY, DR NIKA Montague Consulting Unavailable AICHHOLZ, MANAGER SCHEDULING NOEMI Consulting Unavailable ROBERTO ., DR ISHMAEL Zuniga Attending Unavailable ROBERTO ., DR ISHMAEL Zuniga Consulting Unavailable ROBERTO ., DR ISHMAEL Zuniga Admitting Unavailable AICHHOLZ, MANAGER SCHEDULING NOEMI Primary Care Unavailable AICHHOLZ, MANAGER SCHEDULING NOEMI Primary Care Unavailable AICHHOLZ, MANAGER SCHEDULING NOEMI Attending Unavailable AICHHOLZ, MANAGER SCHEDULING NOEMI Consulting Unavailable AICHHOLZ, MANAGER SCHEDULING NOEMI Admitting Unavailable Celi Walker Consulting Unavailable AICHHOLZ, MANAGER SCHEDULING NOEMI Attending Unavailable AICHHOLZ, MANAGER SCHEDULING NOEMI Consulting Unavailable AICHHOLZ, MANAGER SCHEDULING NOEMI Primary Care Unavailable AICHHOLZ, MANAGER SCHEDULING NOEMI Admitting Unavailable GREGG, DR JACKIE Li Consulting Unavailable WHITNEY GOODMAN Primary Care Unavailable JG, DR MOLLY Alatorre Consulting Unavaillisa GREGORIO, DR MOLLY Alatorre Admitting Unavaillisa GREGORIO, DR MOLLY Alatorre Attending Unavailabl e FELISA ., DR ISHMAEL Zuniga Attending Unavailable FELISA ., DR ISHMAEL Zuniga Admitting Unavailable AICHHOLZ, MANAGER SCHEDULING NOEMI Primary Care Unavailable AICHHOLZ, MANAGER SCHEDULING NOEMI Admitting Unavailable AICHHOLZ, MANAGER SCHEDULING NOEMI Attending Unavailable [facility] Primary Care Unavailable ROBERTO ., DR ISHMAEL Zuniga Attending Unavailable ROBERTO ., DR ISHMAEL Zuniga Admitting Unavailable AICHHOLZ, MANAGER SCHEDULING NOEMI Primary Care Unavailable GREGG, DR JACKIE Li Consulting Unavailable ROBERTO ., DR ISHMAEL Zuniga Consulting Unavailable [facility] Primary Care Unavailable ROBERTO ., DR ISHMAEL Zuniga Attending Unavailable ROBERTO ., DR ISHMAEL Zuniga Consulting Unavailable ROBERTO ., DR ISHMAEL Zuniga Admitting Unavailable HASMUKH, VIPUL Referring Unavailable HASMUKH, VIPUL Attending Unavailable HASMUKH, VIPUL Attending Unavailable HASMUKH, VIPUL Attending Unavailable HASMUKH, VIPUL Attending Unavailable HASMUKH, VIPUL Attending Unavailable HASMUKH, VIPUL Referring Unavailable HASMUKH, VIPUL Referring Unavailable HASMUKH, VIPUL Referring Unavailable HASMUKH, VIPUL Referring Unavailable Aichholz DETECTIVE CAPTAIN, Noemi Unavailable Cristopher Harvey MD Primary Care Provider [phone] DALI NOEMI Attending Unavailable Allergies Allergy Classification Reported Allergen(s) Allergy Type Date of Onset Reaction(s) Facility (1 source) Penicillin Drug Allergy 2 [facility] Repository (1 source) Iodine (And Iodine Containting Drugs) Drug allergy (disorder) 5 [facility] Repository (1 source) Nalbuphine Drug Allergy 5 [facility] Repository (1 source) Penicillins Drug allergy (disorder) 5 [facility] Repository (1 source) SITagliptin Drug Allergy [facility] Rep[facility] (1 source) Aminosyn (old formula) Drug allergy (disorder) [facility] Rep[facility] (1 source) Iodine; Translations: [IODINE] Drug Allergy 2 [facility] Repository (4 sources) Nalbuphine; Translations: [NALBUPHINE] Drug Allergy 2 [facility] Repository (3 sources) Penicillins Propensity to adverse reactions 3 [facility] (3 sources) Aminosyn Ii Propensity to adverse reactions 3 [facility] Medications Current Medications Medication Drug Class(es) [...] 10-02-2023 Episodic Other aftercare (1 source) 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; Translations: [OTH LONGTERM CURRENT DRUG THERAPY] Onset: 06-24-2022 Episodic Other aftercare (1 source) [facility] (current) use of oral hypoglycemic drugs; Translations: [AREA DEVELOPMENT MANAGER USE ORAL HYPOGLYCEMIC DX] Onset: 12-19-2021 Episodic [...] Interpretation Reference Range Facility Follow-Upon 06-23-2023 Follow-Up [id number] Randall Arias 1950 F Date Provider Department Center 06/23/2023 VIPUL BOSS [facility] Second Fl Family History Problem Relation Age of Onset Other Mother Diabetes Father Lung cancer Sister Heart attack Sister Family Status - Relation Status Age at Mother Father Sister Level of Service:[address]002 [place] OFFICE/OUTPATIENT ESTABLISHED MOD MDM 30-39 MIN Reason for Visit and Comments: Follow-up [493827] - Pt is here for a 6 month follow up and to review XR. [facility] Orders Onlyon 04-21-2023 Orders Only [id number] Randall Arias 1950 F Date Provider Department Center 04/21/2023 MatNancySANDRAHASMUKH [facility] Second Fl Family History Problem Relation Age of Onset Other Mother Diabetes Father Lung cancer Sister Heart attack Sister Family Status - Relation Status Age at Mother Father Sister [facility] Follow-Upon 12-16-2022 Follow-Up [id number] Randall Arias 1950 F Date Provider Department Center 12/16/2022 3720-HASMUKH [facility] Second Fl Family History Problem Relation Age of Onset Other Mother Diabetes Father Lung cancer Sister Heart attack Sister Family Status - Relation Status Age at Mother Father Sister Level of Service:65708 [place] OFFICE/OUTPATIENT ESTABLISHED LOW MDM 20-29 MIN Reason for Visit and Comments: Follow-up [818316] - Pt is here for a follow up visit. [facility] MG MAMM SCREEN 3D DIONE CADon 11-12-2022 MG MAMM SCREEN 3D DIONE CAD Patient: RANDALL ARIAS Exam Date: 11/12/2022 : 1950 Gender:F Ordering : GARRICK MCNALLY CNP Admission #: [id number] Family : Order #: [id number] CLICK HERE TO VIEW EXAM RADIOLOGY REPORT [...] breast cancer at age 20. LOCATION: [facility] BREAST COMPOSITION: Scattered areas fibroglandular density. [...] Nika Yi MD on 11/12/2022 at 12:31 [facility] 10-10-2022 36 LVM for pt with message from Dr. Noe and to call if any other questions. [facility] 36on 10-09-2022 36 Yes, XR's didn't nusrat w any fracture. I think it is fine to see PT again. If her ankle keeps bothering her, it would be a good idea to follow up with her PMD. [facility] 36 Pt called asking if you have reviewed her XR of her ankle and if it is ok to make next appt with PT. [facility] Follow-Upon 10-07-2022 Follow-Up [id number] Randall Arias 1950 F Date Provider Department Center 10/07/2022 VIPUL BOSS [facility] Second Fl Family History Problem Relation Age of Onset Other Mother Diabetes Father Lung cancer Sister Heart attack Sister Family Status - Relation Status Age at Mother Father Sister Level of Service:61448 [place] POSTOP FOLLOW UP VISIT RELATED TO ORIGINAL PX Reason for Visit and Comments: Follow-up [[id number]] - s/p lumbar fusion, *6 wk f/u s/p PT. XR same day; Patient fell last . Landed on her back with her foot twisted under her. [facility] 3609-06-2022 36 Received a message from Elsy from Noemi Sanon (sp?) office from [place] asking for gabapentin 300mg TID and add Duloxetine 30 mg. No number was given in message. [facility] Orders Onlyon 09-06-2022 Orders Only [id number] Radnall Arias 1950 F Date Provider Department Center 09/06/2022 SANDHYA LINARES [facility] Second Fl Family History Problem Relation Age of Onset Other Mother Diabetes Father Lung cancer Sister Heart attack Sister Family Status - Relation Status Age at Mother Father Sister Normal [facility] Office Visiton 08-26-2022 Follow-up visit [id number] Randall Arias 1950 F Date Provider Department Center 08/[facility]20[facility] Family History Problem Relation Age of Onset Other Mother Diabetes Father Lung cancer Sister Heart attack Sister Family Status - Relation Status Age at Mother Father Sister Level of Service:33945 [place] POSTOP FOLLOW UP VISIT RELATED TO ORIGINAL PX Reason for Visit and Comments: Post-op [483] - s/p lumbar fusion Normal [facility] Office Visiton 07-15-2022 Follow-up visit [id number] Randall Arias 1950 F Date Provider Department Center 07/15/2022 [facility] Fl Family History Problem Relation Age of Onset Other Mother Diabetes Father Lung cancer Sister Heart attack Sister Family Status - Relation Status Age at Mother Father Sister Level of Service:57507 [place] POSTOP FOLLOW UP VISIT RELATED TO ORIGINAL PX Reason for Visit and Comments: Post-op [483] - s/p lumbar fusion Normal [facility] 36on 07-10-2022 36 Pt called stating th at she has burning pain in her foot. I asked if she was still taking gabapentin and stated she is as directed. Pt would like to know if she should take them closer together or if there is something else she could do. Normal [facility] CBC AUTO DIFFon 06-27-2022 BASO # 0.0 103/ul Normal 0.0-0.1 [facility] Comment on above: Performed By: #### C BC #### [facility] [address] [address] [address] Lisa Thomson Basophils/100 WBC (Bld) 0.2 % Normal 0.2-2.0 [facility] Comment on above: Performed By: #### C BC #### [facility] [address] [address] [address] Lisa Thomson EO # 0.1 103/ul Normal 0.0-0.7 [facility] Comment on above: Performed By: #### C BC #### [facility] [address] [address] [address] Lisa Thomson Eosinophils/100 WBC (Bld) 0.6 % Critically low 0.9-7.0 [facility] Comment on above: Performed By: #### C BC #### [facility] [address] [place] [address] Dr. Lisa Thomson Erythrocyte distribution width (RBC) [Ratio] 14.2 % Normal 11.0-15.0 [facility] Comment on above: Performed By: #### C BC #### [facility] [address] [place] [address] Dr. Lisa Thomson Hematocrit (Bld) [Volume fraction] 39.4 % Normal 36.0-48.0 [facility] Comment on above: Performed By: #### C BC #### [facility] [address] [place] [address] Dr. Lisa Thomson Hemoglobin (Bld) [Mass/Vol] 13.4 g/dL Normal 12.0-16.0 [facility] Comment on above: Performed By: #### C BC #### [facility] [address] [place] [address] Dr. Lisa Thomson IG # 0.07 10e3/ul Critically high 0.00-0.03 [facility] Comment on above: Performed By: #### C BC #### [facility] [address] [place] [address] Dr. Lisa Thomson IG % 0.6 % Critically high 0.0-0.5 [facility] Comment on above: Performed By: #### C BC #### [facility] [address] [place] [address] Dr. Lisa Thomson LYMPH # 3.2 103/ul Normal 1.2-3.8 [facility] Comment on above: Performed By: #### C BC #### [facility] [address] [place] [address] Dr. Lisa Thomson Lymphocytes/100 WBC (Bld) 26.4 % Normal 20.5-60.0 [facility] Comment on above: Performed By: #### C BC #### [facility] [address] [place] [address] Dr. Lisa Thomson MANUAL DIFF REQ NO Normal [facility] Comment on above: Performed By: #### C BC #### [facility] [address] [place] [address] Dr. Lisa Thomson MCH (RBC) [Entitic mass] 30.9 pg Normal 26.7-34.0 [facility] Comment on above: Performed By: #### C BC #### [facility] [address] [place] [address] Dr. Lisa Thomson MCHC (RBC) [Mass/Vol] 34.0 g/dL Normal 29.9-35.2 [facility] Comment on above: Performed By: #### C BC #### [facility] [address] [place] [address] Dr. Lisa Thomson MCV (RBC) [Entitic vol] 91.0 fL Normal 81.0-99.0 [facility] Comment on above: Performed By: #### C BC #### [facility] [address] [place] [address] Dr. Lisa Thomson MONO # 1.0 103/ul Critically high 0.3-0.8 [facility] Comment on above: Performed By: #### C BC #### [facility] [address] [place] [address] Dr. Lisa Thomson Monocytes/100 WBC (Bld) 7.8 % Normal 1.7-12.0 [facility] Comment on above: Performed By: #### C BC #### [facility] [address] [place] [address] Dr. Lisa Thomson NEUT # 7.8 103/ul Critically high 1.4-6.5 [facility] Comment on above: Performed By: #### C BC #### [facility] [address] [place] [address] Dr. Lisa Thomson Neutrophils/100 WBC (Bld) 64.4 % Normal 43.0-75.0 [facility] Comment on above: Performed By: #### C BC #### [facility] [address] [place] [address] Dr. Lisa Thomson Platelet mean volume (Bld) [Entitic vol] 9.1 fL Critically low 9.5-13.5 [facility] Comment on above: Performed By: #### C BC #### [facility] [address] [place] [address] Dr. Lisa Thomson PLT 228 103/ul Normal 150-450 [facility] Comment on above: Performed By: #### C BC #### [facility] [address] [place] [address] Dr. Lisa Thomson RBC 4.33 106/ul Normal 4.20-5.40 [facility] Comment on above: Performed By: #### C BC #### [facility] [address] [place] [address] Dr. Lisa Thomson WBC 12.2 103/ul Critically high 4.0-11.0 [facility] Comment on above: Performed By: #### C BC #### [facility] [address] [place] [address] Dr. Lisa Thosmon PROF CHEM 8 (BAS METB)on Anion gap [Moles/Vol] 11.7 mmol/L Normal [facility] Comment on above: Performed By: #### B MP #### [facility] [address] [place] [address] Dr. Lisa Thomson Calcium [Mass/Vol] 8.9 mg/dL Normal 8.5-10.1 [facility] Comment on above: Performed By: #### B MP #### [facility] [address] [place] [address] Dr. Lisa Thomson Chloride [Moles/Vol] 101 mmol/L Normal 98-107 [facility] Comment on above: Performed By: #### B MP #### [facility] [address] [place] [address] Dr. Lisa Thomson CO2 [Moles/Vol] 29.0 mmol/L Normal 21.0-32.0 [facility] Comment on above: Performed By: #### B MP #### [facility] [address] [address] [address] Lisa Thomson Creatinine [Mass/Vol] 0.59 mg/dL Normal 0.55-1.02 [facility] Comment on above: Performed By: #### B MP #### [facility] [address] [address] [address] Lisa Thomson EGFR-AF BARBADIAN >60 Normal >=60 [facility] Comment on above: Performed By: #### B MP #### [facility] [address] [address] [address] Lisa Thomson EGFR-NON AF BARBADIAN >60 Normal >=60 [facility] Comment on above: Performed By: #### B MP #### [facility] [address] [address] [address] Lisa Thomson Glucose [Mass/Vol] 183 mg/dL Critically high 74-106 [facility] Comment on above: Performed By: #### B MP #### [facility] [address] [address] [address] Lisa Thomson Potassium [Moles/Vol] 3.7 mmol/L Normal 3.5-5.1 [facility] Comment on above: Performed By: #### B MP #### [facility] [address] [place] [address] Dr. Lisa Thomson Sodium [Moles/Vol] 138 mmol/L Normal 136-145 [facility] Comment on above: Performed By: #### B MP #### [facility] [address] [address] [address] Lisa Thomson Urea nitrogen [Mass/Vol] 34.0 mg/dL Critically high 7.0-18.0 [facility] Comment on above: Performed By: #### B MP #### [facility] [address] [place] [address] Dr. Lisa Thomson Urea nitrogen/Creatinine [Mass ratio] 57.6 mg/mg Normal [facility] Comment on above: Performed By: #### B MP #### [facility] [address] [place] [address] Dr. Lisa Thomson PROTIMEon 11-10-2022 INR Coag (PPP) [Relative time] 0.99 {INR} Normal [facility] Comment on above: Performed By: #### C BC #### [facility] [address] [place] [address] Dr. Lisa Thomson INR GUIDELINES SEE BELOW Normal [facility] Comment on above: Result Comment: RONNIE RED INR: 2.0 - 3.0 CONDITIONS NOT LISTED BELOW 2.5 - 3.5 FOR PROSTHETIC HEART VALVE REPLACEMENT 2.5 - 3.5 RECURRENT THROMBOSIS Performed By: #### C BC #### [facility] [address] [place] [address] Dr. Lisa Thomson PT Coag (PPP) [Time] 10.7 s Normal 9.0-11.6 [facility] Comment on above: Performed By: #### C BC #### [facility] [address] [place] [address] Dr. Lisa Thomson PTTon 06-27-2022 aPTT Coag (Bld) [Time] 23.5 s Normal 22.3-36.2 [facility] Comment on above: Performed By: #### C BC #### [facility] [address] [place] [address] Dr. Lisa Thomson MRI LSPINE WO W [...] MACIEL SUH Date: 2022-06-26 12:47 Normal [facility] CBC AUTO DIFFon 06-20-2022 BASO # 0.0 103/ul Normal 0.0-0.1 [facility] Comment on above: Performed By: #### C BC #### [facility] [address] [place] [address] Dr. Lisa Thomson Basophils/100 WBC (Bld) 0.1 % Critically low 0.2-2.0 [facility] Comment on above: Performed By: #### C BC #### [facility] [address] [place] [address] Dr. Lisa Thomson EO # 0.0 103/ul Normal 0.0-0.7 [facility] Comment on above: Performed By: #### C BC #### [facility] [address] [place] [address] Dr. Lisa Thomson Eosinophils/100 WBC (Bld) 0.2 % Critically low 0.9-7.0 [facility] Comment on above: Performed By: #### C BC #### [facility] [address] [place] [address] Dr. Lisa Thomson Erythrocyte distribution width (RBC) [Ratio] 14.6 % Normal 11.0-15.0 [facility] Comment on above: Performed By: #### C BC #### [facility] [address] [place] [address] Dr. Lisa Thomson Hematocrit (Bld) [Volume fraction] 36.2 % Normal 36.0-48.0 [facility] Comment on above: Performed By: #### C BC #### [facility] [address] [place] [address] Dr. Lisa Thomson Hemoglobin (Bld) [Mass/Vol] 12.4 g/dL Normal 12.0-16.0 [facility] Comment on above: Performed By: #### C BC #### [facility] [address] [place] [address] Dr. Lisa Thomson IG # 0.04 10e3/ul Critically high 0.00-0.03 [facility] Comment on above: Performed By: #### C BC #### [facility] [address] [place] [address] Dr. Lisa Thomson IG % 0.4 % Normal 0.0-0.5 [facility] Comment on above: Performed By: #### C BC #### [facility] [address] [place] [address] Dr. Lisa Thomson LYMPH # 2.3 103/ul Normal 1.2-3.8 [facility] Comment on above: Performed By: #### C BC #### [facility] [address] [place] [address] Dr. Lisa Thomson Lymphocytes/100 WBC (Bld) 24.1 % Normal 20.5-60.0 [facility] Comment on above: Performed By: #### C BC #### [facility] [address] [place] [address] Dr. Lisa Thomson MANUAL DIFF REQ NO Normal [facility] Comment on above: Performed By: #### C BC #### [facility] [address] [place] [address] Dr. Lisa Thomson MCH (RBC) [Entitic mass] 30.9 pg Normal 26.7-34.0 [facility] Comment on above: Performed By: #### C BC #### [facility] [address] [place] [address] Dr. Lisa Thomson MCHC (RBC) [Mass/Vol] 34.3 g/dL Normal 29.9-35.2 [facility] Comment on above: Performed By: #### C BC #### [facility] [address] [place] [address] Dr. Lisa Thomson MCV (RBC) [Entitic vol] 90.3 fL Normal 81.0-99.0 [facility] Comment on above: Performed By: #### C BC #### [facility] [address] [place] [address] Dr. Lisa Thomson MONO # 0.6 103/ul Normal 0.3-0.8 [facility] Comment on above: Performed By: #### C BC #### [facility] [address] [place] [address] Dr. Lisa Thomson Monocytes/100 WBC (Bld) 5.9 % Normal 1.7-12.0 [facility] Comment on above: Performed By: #### C BC #### [facility] [address] [place] [address] Dr. Lisa Thomson NEUT # 6.7 103/ul Critically high 1.4-6.5 [facility] Comment on above: Performed By: #### C BC #### [facility] [address] [place] [address] Dr. Lisa Thomson Neutrophils/100 WBC (Bld) 69.3 % Normal 43.0-75.0 [facility] Comment on above: Performed By: #### C BC #### [facility] [address] [place] [address] Dr. Lisa Thomson Platelet mean volume (Bld) [Entitic vol] 9.6 fL Normal 9.5-13.5 [facility] Comment on above: Performed By: #### C BC #### [facility] [address] [place], [place] [address] Dr. Lisa Thomson PLT 162 103/ul Normal 150-450 [facility] Comment on above: Performed By: #### C BC #### [facility] [address] [place], [place] [address] Dr. Lisa Thomson RBC 4.01 106/ul Critically low 4.20-5.40 [facility] Comment on above: Performed By: #### C BC #### [facility] [address] [place], [place] [address] Dr. Lisa Thomson WBC 9.7 103/ul Normal 4.0-11.0 [facility] Comment on above: Performed By: #### C BC #### [facility] [address] [place], [place] [address] Dr. Lisa Thomson CTA ABD/PELVIS WO W [...] NIKA YI Date: 2022-06-20 13:30 Normal [facility] PROF CHEM 8 (BAS METB)on Anion gap [Moles/Vol] 10.1 mmol/L Normal [facility] Comment on above: Performed By: #### S EDR #### [facility] [address] [place] [address] [address] Lisa Thomson Calcium [Mass/Vol] 9.0 mg/dL Normal 8.5-10.1 [facility] Comment on above: Performed By: #### S EDR #### [facility] [address] [place] [address] [address] Lisa Thomson Chloride [Moles/Vol] 104 mmol/L Normal 98-107 [facility] Comment on above: Performed By: #### S EDR #### [facility] [address] [address] [address] Lisa Thomson CO2 [Moles/Vol] 26.2 mmol/L Normal 21.0-32.0 [facility] Comment on above: Performed By: #### S EDR #### [facility] [address] [address] [address] Lisa Thomson Creatinine [Mass/Vol] 0.59 mg/dL Normal 0.55-1.02 [facility] Comment on above: Performed By: #### S EDR #### [facility] [address] [address] [address] Lisa Thomson EGFR-AF BARBADIAN >60 Normal >=60 [facility] Comment on above: Performed By: #### S EDR #### [facility] [address] [address] [address] Lisa Thomson EGFR-NON AF BARBADIAN >60 Normal >=60 [facility] Comment on above: Performed By: #### S EDR #### [facility] [address] [address] [address] Lisa Thomson Glucose [Mass/Vol] 162 mg/dL Critically high 74-106 [facility] Comment on above: Performed By: #### S EDR #### [facility] [address] [address] [address] Lisa Thomson Potassium [Moles/Vol] 3.3 mmol/L Critically low 3.5-5.1 [facility] Comment on above: Performed By: #### S EDR #### [facility] [address] [place] [address] Dr. Lisa Thomson Sodium [Moles/Vol] 137 mmol/L Normal 136-145 [facility] Comment on above: Performed By: #### S EDR #### [facility] [address] [place] [address] Dr. Lisa Thomson Urea nitrogen [Mass/Vol] 25.0 mg/dL Critically high 7.0-18.0 [facility] Comment on above: Performed By: #### S EDR #### [facility] [address] [place] [address] Dr. Lisa Thomson Urea nitrogen/Creatinine [Mass ratio] 42.4 mg/mg Normal [facility] Comment on above: Performed By: #### S EDR #### [facility] [address] [place] [address] Dr. Lisa Thomson CREATININEon 05-13-2022 Creatinine [Mass/Vol] 0.81 mg/dL Normal 0.55-1.02 [facility] Comment on above: Performed By: #### M ALBR #### [facility] [address] [place] [address] Dr. Lisa Thomson EGFR-AF BARBADIAN >60 Normal >=60 [facility] Comment on above: Performed By: #### M ALBR #### [facility] [address] [place] [address] Dr. Lisa Thomson EGFR-NON AF BARBADIAN >60 Normal >=60 [facility] Comment on above: Performed By: #### M ALBR #### [facility] [address] [place] [address] Dr. Lisa Thomson MRI LSISAAC WO W CONon 2021 MRI LSISAAC WO W CON [...] by: NIKA YI Date: 2022-05-13 19:43 Normal [facility] Operative Reporton 2 Operative Report MR#: [id number] [facility] Pt. Name: Randall Arias Room #: [id number] Discharge Date: Birthdate: 1950 OPERATIVE REPORT DATE OF SURGERY: 04/24/2022 SURGEON: Vipul Noe MD PREOPERATIVE DIAGNOSES: Lumbar spondylosis with [...] and multiple bites were taken until a Jed explorer could be easily passed into the [...] disk material from this disk protrusion. A [place] #4 explorer was (more content not included)... Normal [facility] POC GLUCOSE LABon 04-25-2022 Glucose [Mass/Vol] 105 mg/dL High 70-100 [facility] Comment on above: Performed By: #### 8 [id number] #### [facility] [address] [place] [address], [facility] Glucose [Mass/Vol] 95 mg/dL Normal 70-100 [facility] Comment on above: Performed By: #### 8 [id number] #### [facility] [address] [facility] [place] [address], [facility] Glucose [Mass/Vol] 103 mg/dL High 70-100 [facility] Comment on above: Performed By: #### 8 [id number] #### [facility] [address] [facility] [place] [address], [facility] LUMBAR SPINE 2 OR 3 [facility] LUMBAR SPINE 2 OR 3 [facility] Department of Radiology [address] [place] [address] [id number] ======== Patient Name: RANDALL ARIAS : 1950 Sex: F Age: Race: White Pt. Location: OUTP Patient Status: O Ordered Date: 04/24/2022 12:30:00 PM Completed Date: 04/24/2022 02:03 PM Requesting Provider: VIPUL NOE Attending Provider: VIPUL NOE Report Copy To: Signs & Symptoms: [...] report. Electronically signed: Nacho Nieves. Transcribed by: [email or web address], User Resident: NACHO LAU Electronically Signed by: NACHO NIEVES @ 04/25/2022 09:09 AM I personally read this/these film(s) with this resident Normal [facility] Comment on above: Order Comment: RIGHT L5 HEMILAMINECTOMY, RIGHT L5-S1 FORAMINOTOMY, POSS RIGHT L5-S1 DISCECTOMY FOR DECOMPRESSION POC GLUCOSE LABon 04-24-2022 Glucose [Mass/Vol] 188 mg/dL High 70-100 [facility] Comment on above: Performed By: #### 8 [id number] #### [facility] [address] [place] [address], [place] Glucose [Mass/Vol] 127 mg/dL High 70-100 [facility] Comment on above: Performed By: #### 8 [id number] #### [facility] [address] [place] [address], [place] Glucose [Mass/Vol] 91 mg/dL Normal 70-100 [facility] Comment on above: Performed By: #### 8 [id number] #### [facility] [address] [place] [address], [facility] TYPE AND CROSSMATCHon 2021 ABO INTERPRETATION A Normal [facility] Comment on above: Performed By: #### 8 [id number] #### [facility] [address] [place] [address], [facility] RH INTERPRETATION Positive Normal The [facility] Comment on above: Performed By: #### 8 [id number] #### [facility] [address] [place], [place] [id number] [place] [address] *MRSA/MSSA DNA NASALon 04-01 *MRSA/MSSA DNA NASAL Clinical Report: (D ) Specimen: NASAL SWAB Collected: 04/01/2022 17:05 Status: Final Last Updated: 04/02/2022 19:42 MSSA DNA (Final) Negative MRSA DNA (Final) Negative Normal [facility] Comment on above: Performed By: #### 3 1595 #### [facility] [address] [place], [place] [id number] [place] [address] APTTon 04-01-2022 aPTT Coag (Bld) [Time] 27.5 s Normal 25.0-35.0 [facility] Comment on above: Result Comment: [...] PURPOSE. Performed By: #### 8 [id number] #### [facility] [address] [place] [address], [facility] BASIC METABOLIC PANELon 03-18 Calcium [Mass/Vol] 9.0 mg/dL Normal 8.6-10.3 [facility] Comment on above: Performed By: #### 8 [id number] #### [facility] [address] [place] [address], [place] Chloride [Moles/Vol] 104 mmol/L Normal 98-107 [facility] Comment on above: Performed By: #### 8 [id number] #### [facility] [address] [place] [address], [place] CO2 [Moles/Vol] 30 mmol/L Normal 21-[address] [facility] Comment on above: Performed By: #### 8 [id number] #### [facility] [address] [place] [address], [place] Creatinine [Mass/Vol] 0.68 mg/dL Normal 0.60-1.20 [facility] Comment on above: Performed By: #### 8 [id number] #### [facility] [address] [place] [address], [place] GFR/1.73 sq M.predicted among non-blacks MDRD (S/P/Bld) [Vol rate/Area] mL/min/{1.73_m2} Normal >60 [facility] Comment on above: Result Comment: [facility]'s estimated glomerular filtration rate (eGFR) [...] individuals. Performed By: #### 8 [id number] #### [facility] [address] [place] [address], [place] Glucose [Mass/Vol] 122 mg/dL High 70-[address] [facility] Comment on above: Performed By: #### 8 [id number] #### [facility] [address] [place] [address], [place] Potassium [Moles/Vol] 4.3 mmol/L Normal 3.5-5.1 [facility] Comment on above: Performed By: #### 8 [id number] #### [facility] [address] [facility] [place] [address], [facility] Sodium [Moles/Vol] 144 mmol/L Normal 136-145 [facility] Comment on above: Performed By: #### 8 [id number] #### [facility] [address] [facility]. [address] Urea nitrogen [Mass/Vol] 28 mg/dL High 7-25 [facility] Comment on above: Performed By: #### 8 [id number] #### [facility] [address] [facility]. [address] CBC W/DIFFon 04-01-2022 ABS IMM GRANS 0.0 10*3/uL Normal 0.0-0.2 [facility] Comment on above: Performed By: #### 8 [id number] #### [facility] [address] [place] [address], [facility] ABS NEUTROPHILS 4.7 10*3/uL Normal 1.6-7.6 The [facility] Comment on above: Performed By: #### 8 [id number] #### [facility] [address] [place] [address], [facility] Basophils (Bld) [#/Vol] 0.0 10*3/uL Normal 0.0-0.2 [facility] Comment on above: Performed By: #### 8 [id number] #### [facility] [address] [place] [address], [facility] Basophils/100 WBC (Bld) 0.4 % Normal 0.0-1.0 [facility] Comment on above: Performed By: #### 8 [id number] #### [facility] [address] [place] [address], [place] Eosinophils (Bld) [#/Vol] 0.1 10*3/uL Normal 0.0-0.5 [facility] Comment on above: Performed By: #### 8 [id number] #### [facility] [address] [place] [address], [facility] Eosinophils/100 WBC (Bld) 1.3 % Normal 0.0-6.0 [facility] Comment on above: Performed By: #### 8 5499 #### [facility] [address] [place] [address], [facility] Erythrocyte distribution width (RBC) [Ratio] 14.2 % Normal 11.5-15.0 [facility] Comment on above: Performed By: #### 8 [id number] #### [facility] [address] [place] [address], [facility] Hematocrit (Bld) [Volume fraction] 39.0 % Normal 36.0-45.0 [facility] Comment on above: Performed By: #### 8 [id number] #### [facility] [address] [facility] [place] [address], [facility] Hemoglobin (Bld) [Mass/Vol] 13.0 g/dL Normal 12.0-15.0 [facility] Comment on above: Performed By: #### 8 5499 #### [facility] [address] [facility] [place] [address], [facility] IMMATURE GRANS 0.1 % Normal 0.0-1.0 [facility] Comment on above: Performed By: #### 8 5499 #### [facility] [address] [place] [address], [facility] Lymphocytes (Bld) [#/Vol] 2.9 10*3/uL Normal 1.2-4.0 [facility] Comment on above: Performed By: #### 8 5499 #### [facility] [address] [facility] [place] [address], [facility] Lymphocytes/100 WBC (Bld) 35.3 % Normal 20.0-45.0 [facility] Comment on above: Performed By: #### 8 [id number] #### [facility] [address] [place] [address], [facility] MCH (RBC) [Entitic mass] 29.1 pg Normal 27.0-33.0 [facility] Comment on above: Performed By: #### 8 5499 #### [facility] [address] [place] [address], [facility] MCHC (RBC) [Mass/Vol] 33.3 g/dL Normal 32.0-35.0 [facility] Comment on above: Performed By: #### 8 [id number] #### [facility] [address] [place] [address], [facility] MCV (RBC) [Entitic vol] 87.4 fL Normal 82.0-98.0 [facility] Comment on above: Performed By: #### 8 5499 #### [facility] [address] [place] [address], [facility] Monocytes (Bld) [#/Vol] 0.5 10*3/uL Normal 0.1-1.0 [facility] Comment on above: Performed By: #### 8 5499 #### [facility] [address] [place] [address], [facility] MONOS 6.2 % Normal 5.0-12.0 [facility] Comment on above: Performed By: #### 8 5499 #### [facility] [address] [place] [address], [facility] Neutrophils/100 WBC (Bld) 56.7 % Normal 40.0-72.0 [facility] Comment on above: Performed By: #### 8 [id number] #### [facility] [address] [place] [id number], [facility] Nucleated RBC/100 WBC (Bld) [Ratio] 0 % Normal 0-0 [facility] Comment on above: Performed By: #### 8 5499 #### [address] PLAT CNT 182 10*3/uL Normal 150-400 The [facility] Comment on above: Performed By: #### 8 5499 #### [address] RBC (Bld) [#/Vol] 4.46 10*6/uL Normal 3.80-5.00 The [facility] Comment on above: Performed By: #### 8 5499 #### [address] WBC (Bld) [#/Vol] 8.29 10*3/uL Normal 4.00-10.60 [facility] Comment on above: Performed By: #### 8 5499 #### [address] CHEST AND LATERALon 04-01-20 CHEST AND LATERAL [facility] Department of Radiology [address] [place], [place] [id number] ======== Patient Name: RANDALL ARIAS : 1950 Sex: F Age: Race: White Pt. Location: Patient Status: D Ordered Date: 04/01/2022 4:30:00 PM Completed Date: 04/01/2022 04:41 PM Requesting Provider: VIPUL NOE Attending Provider: VIPUL NOE Report Copy To: NOEMI MCNALLY Signs & Symptoms: M51.16 Intervertebral disc disorders w radiculopathy, lumbar region I10 History: Bess Comments: , , , Ordering Provider - VIPUL NOE MD , Exam: CHEST AND LATERAL ======== CHEST AND LATERAL 04/01/2022 4:41 PM CLINICAL INDICATIONS: M51.16 Intervertebral disc disorders w radiculopathy, lumbar region I10 TECHNOLOGIST COMMENTS: pr-op Intervertebral disc disorders w radiculopathy, lumbar region QUESTION FOR THE RADIOLOGIST: , , , Ordering Provider - VIPUL NOE MD , PROTOCOL: AP(PA) and Lateral views were obtained. COMPARISON: None Impression: 1. The lungs are clear. There are no effusions or pneumothorax. There is borderline enlargement of the cardiac silhouette. Electronically signed: Adrian Heath. Transcribed by: [email or web address], User Resident: Electronically Signed by: ADRIAN HEATH @ 04/02/2022 07:38 AM Normal [facility] Comment on above: Order Comment: , , = ========= , Ordering Provider - VIPUL NOE MD , PROTHROMBIN TIMEon 2 INR Coag (PPP) [Relative time] 0.97 {INR} Normal 0.91-1.16 [facility] Comment on above: Result Comment: ACC P RECOMMENDED INR FOR WARFARIN THERAPY ------- [...] 1995;108:[id number]-246S. Performed By: #### 8 [id number] #### [facility] [address] PT Coag (PPP) [Time] 12.8 s Normal 12.3-14.8 [facility] Comment on above: Result Comment: ALL RESULTS MUST BE INTERPRETED WITH RESPECT TO BLOOD DRAWING ARTIFACT OR DILUTION ERROR OF ANTICOAGULANT AT THE TIME OF SAMPLING. Performed By: #### 8 [id number] #### [facility] [address] TYPE AND SCREENon 04-01-2022 ABO INTERPRETATION A Normal [facility] Comment on above: Performed By: #### 6 2586 #### [facility] [address] [address], [facility] RH INTERPRETATION Positive Normal [facility] Comment on above: Performed By: #### 6 2586 #### [facility] [address] [place] [address], [facility] THYROGLOBULIN ABon Thyroglobulin Antibody <1.0 Normal 0.0-0.9 [facility] Comment on above: Result Comment: Thyr oglobulin Antibody measured by [employer] Performed By: #### C BC #### [facility] [address] [place] [address] Dr. Lisa Thomson THYROID PEROXIDASE ABon 07-3 Thyroid Peroxidase (TPO) Ab <8 Normal 0-34 [facility] Comment on above: Performed By: #### M ALBR #### [facility] [address] [address] [address] Lisa Thomson US THYROIDon 02-20-2022 US [...] by: JACKIE ESCOBEDO Date: 2022-02-20 09:25 Normal [facility] MRI CSPINE WO CONon 02-08-20 MRI [facility] CON Exam: MR scan cervic al spine. [...] Celi WALKER Date: 2022-02-07 16:19 Normal [facility] XR CSPINE MIN 4 VIEWSon [...] JACKIE ESCOBEDO Date: 2022-01-31 09:44 Normal [facility] CBC AUTO DIFFon 01-30-2022 BASO # 0.0 103/ul Normal 0.0-0.1 [facility] Comment on above: Performed By: #### C BC #### [facility] [address] [place] [address] Dr. Lisa Thomson Basophils/100 WBC (Bld) 0.4 % Normal 0.2-2.0 [facility] Comment on above: Performed By: #### C BC #### [facility] [address] [place] [address] Dr. Lisa Thomson EO # 0.1 103/ul Normal 0.0-0.7 [facility] Comment on above: Performed By: #### C BC #### [facility] [address] [place] [address] [address] Lisa Thomson Eosinophils/100 WBC (Bld) 1.3 % Normal 0.9-7.0 [facility] Comment on above: Performed By: #### C BC #### [facility] [address] [place] [address] Dr. Lisa Thomson Erythrocyte distribution width (RBC) [Ratio] 13.1 % Normal 11.0-15.0 [facility] Comment on above: Performed By: #### C BC #### [facility] [address] [place] [address] Dr. Lisa Thomson Hematocrit (Bld) [Volume fraction] 37.0 % Normal 36.0-48.0 [facility] Comment on above: Performed By: #### C BC #### [facility] [address] [place] [address] Dr. Lisa Thomson Hemoglobin (Bld) [Mass/Vol] 12.2 g/dL Normal 12.0-16.0 [facility] Comment on above: Performed By: #### C BC #### [facility] [address] [place] [address] Dr. Lisa Thomson IG # 0.03 10e3/ul Normal 0.00-0.03 [facility] Comment on above: Performed By: #### C BC #### [facility] [address] [place] [address] Dr. Lisa Thomson IG % 0.3 % Normal 0.0-0.5 [facility] Comment on above: Performed By: #### C BC #### [facility] [address] [place] [address] Dr. Lisa Thomson LYMPH # 2.4 103/ul Normal 1.2-3.8 [facility] Comment on above: Performed By: #### C BC #### [facility] [address] [place] [address] Dr. Lisa Thomson Lymphocytes/100 WBC (Bld) 27.1 % Normal 20.5-60.0 [facility] Comment on above: Performed By: #### C BC #### [facility] [address] [place] [address] Dr. Lisa Thomson MANUAL DIFF REQ NO Normal [facility] Comment on above: Performed By: #### C BC #### [facility] [address] [place] [address] Dr. Lisa Thomson MCH (RBC) [Entitic mass] 29.0 pg Normal 26.7-34.0 [facility] Comment on above: Performed By: #### C BC #### [facility] [address] [place] [address] Dr. Lisa Thomson MCHC (RBC) [Mass/Vol] 33.0 g/dL Normal 29.9-35.2 [facility] Comment on above: Performed By: #### C BC #### [facility] [address] [address] [address] Lisa Thomson MCV (RBC) [Entitic vol] 87.9 fL Normal 81.0-99.0 [facility] Comment on above: Performed By: #### C BC #### [facility] [address] [address] [address] Lisa Thomson MONO # 0.5 103/ul Normal 0.3-0.8 [facility] Comment on above: Performed By: #### C BC #### [facility] [address] [place] [address] Dr. Lisa Thomson Monocytes/100 WBC (Bld) 5.6 % Normal 1.7-12.0 [facility] Comment on above: Performed By: #### C BC #### [facility] [address] [place] [address] Dr. Lisa Thomson NEUT # 5.8 103/ul Normal 1.4-6.5 [facility] Comment on above: Performed By: #### C BC #### [facility] [address] [place] [address] Dr. Lisa Thomson Neutrophils/100 WBC (Bld) 65.3 % Normal 43.0-75.0 [facility] Comment on above: Performed By: #### C BC #### [facility] [address] [address] [address] Lisa Thomson Platelet mean volume (Bld) [Entitic vol] 9.3 fL Critically low 9.5-13.5 [facility] Comment on above: Performed By: #### C BC #### [facility] [address] [place] [address] Dr. Lisa Thomson PLT 242 103/ul Normal 150-450 [facility] Comment on above: Performed By: #### C BC #### [facility] [address] [place] [address] Dr. Lisa Thomson RBC 4.21 106/ul Normal 4.20-5.40 [facility] Comment on above: Performed By: #### C BC #### [facility] [address] [place] [address] Dr. Lisa Thomson WBC 8.9 103/ul Normal 4.0-11.0 [facility] Comment on above: Performed By: #### C BC #### [facility] [address] [place] [address] Dr. Lisa Thomson FREE T3on 01-30-2022 FREE T3 2.14 pg/mlL Critically low 2.18-3.98 [facility] Comment on above: Performed By: #### F T3, TSH #### [facility] [address] [place] [address] Dr. Lisa Thomson FREE T4on 01-30-2022 Free T4 [Mass/Vol] 1.05 ng/dL Normal 0.76-1.46 [facility] Comment on above: Performed By: #### F T4 #### [facility] [address] [place] [address] Dr. Lisa Thomson SED RATE WESTERGRENon 2021 SED RATE 60 mm/hr Critically high <=30 [facility] Comment on above: Performed By: #### S EDR #### [facility] [address] [place] [address] Dr. Lisa Thomson TSHon 01-30-2022 TSH 0.746 uIU/mL Normal 0.358-3.740 [facility] Comment on above: Performed By: #### F T3, TSH #### [facility] [address] [place] [address] Dr. Lisa Thomson CBC AUTO DIFFon 12-31-2021 BASO # 0.0 103/ul Normal 0.0-0.1 [facility] Comment on above: Performed By: #### M ALBR #### [facility] [address] [place] [address] Dr. Lisa Thomson Basophils/100 WBC (Bld) 0.2 % Normal 0.2-2.0 [facility] Comment on above: Performed By: #### M ALBR #### [facility] [address] [place] [address] Dr. Lisa Thomson EO # 0.0 103/ul Normal 0.0-0.7 [facility] Comment on above: Performed By: #### M ALBR #### [facility] [address] [place] [address] Dr. Lisa Thomson Eosinophils/100 WBC (Bld) 0.0 % Critically low 0.9-7.0 [facility] Comment on above: Performed By: #### M ALBR #### [facility] [address] [place] [address] Dr. Lisa Thomson Erythrocyte distribution width (RBC) [Ratio] 12.9 % Normal 11.0-15.0 [facility] Comment on above: Performed By: #### M ALBR #### [facility] [address] [place] [address] Dr. Lisa Thomson Hematocrit (Bld) [Volume fraction] 45.4 % Normal 36.0-48.0 [facility] Comment on above: Performed By: #### M ALBR #### [facility] [address] [place] [address] Dr. Lisa Thomson Hemoglobin (Bld) [Mass/Vol] 15.4 g/dL Normal 12.0-16.0 [facility] Comment on above: Performed By: #### M ALBR #### [facility] [address] [place] [address] Dr. Lisa Thomson IG # 0.05 10e3/ul Critically high 0.00-0.03 [facility] Comment on above: Performed By: #### M ALBR #### [facility] [address] [place] [address] Dr. Lisa Thomson IG % 0.4 % Normal 0.0-0.5 [facility] Comment on above: Performed By: #### M ALBR #### [facility] [address] [place] [address] Dr. Lisa Thomson LYMPH # 1.4 103/ul Normal 1.2-3.8 [facility] Comment on above: Performed By: #### M ALBR #### [facility] [address] [place] [address] Dr. Lisa Thomson Lymphocytes/100 WBC (Bld) 11.3 % Critically low 20.5-60.0 [facility] Comment on above: Performed By: #### M ALBR #### [facility] [address] [place] [address] Dr. Lisa Thomson MANUAL DIFF REQ NO Normal [facility] Comment on above: Performed By: #### M ALBR #### [facility] [address] [place] [address] Dr. Lisa Thomson MCH (RBC) [Entitic mass] 29.4 pg Normal 26.7-34.0 [facility] Comment on above: Performed By: #### M ALBR #### [facility] [address] [place] [address] Dr. Lisa Thomson MCHC (RBC) [Mass/Vol] 33.9 g/dL Normal 29.9-35.2 [facility] Comment on above: Performed By: #### M ALBR #### [facility] [address] [place] [address] Dr. Lisa Thomson MCV (RBC) [Entitic vol] 86.6 fL Normal 81.0-99.0 [facility] Comment on above: Performed By: #### M ALBR #### [facility] [address] [place] [address] Dr. Lisa Thomson MONO # 0.1 103/ul Critically low 0.3-0.8 [facility] Comment on above: Performed By: #### M ALBR #### [facility] [address] [place] [address] Dr. Lisa Thomson Monocytes/100 WBC (Bld) 1.0 % Critically low 1.7-12.0 [facility] Comment on above: Performed By: #### M ALBR #### [facility] [address] [place] [address] Dr. Lisa Thomson NEUT # 10.8 103/ul Critically high 1.4-6.5 [facility] Comment on above: Performed By: #### M ALBR #### [facility] [address] [address] [address] Lisa Thomson Neutrophils/100 WBC (Bld) 87.1 % Critically high 43.0-75.0 [facility] Comment on above: Performed By: #### M ALBR #### [facility] [address] [address] [address] Lisa Thomson Platelet mean volume (Bld) [Entitic vol] 9.6 fL Normal 9.5-13.5 [facility] Comment on above: Performed By: #### M ALBR #### [facility] [address] [place] [address] Dr. Lisa Thomson PLT 172 103/ul Normal 150-450 [facility] Comment on above: Performed By: #### M ALBR #### [facility] [address] [place] [address] Dr. Lisa Thomson RBC 5.24 106/ul Normal 4.20-5.40 [facility] Comment on above: Performed By: #### M ALBR #### [facility] [address] [place] [address] Dr. Lisa Thomson WBC 12.4 103/ul Critically high 4.0-11.0 [facility] Comment on above: Performed By: #### M ALBR #### [facility] [address] [place] [address] Dr. Lisa Thomson FREE T4on 12-31-2021 Free T4 [Mass/Vol] 1.15 ng/dL Normal 0.76-1.46 [facility] Comment on above: Performed By: #### S EDR #### [facility] [address] [place] [address] Dr. Lisa Thomson GLYCOHEMOGLOBIN A1Con 2021 ADA RECOMMENDATION SEE BELOW Normal [facility] Comment on above: Result Comment: ADA RECOMMENDED LIMIT 4.0 - 6.0 ADA THERAPEUTIC TARGET < 7.0 ACTION SUGGESTED > 7.0 Performed By: #### C BC #### [facility] [address] [place] [address] Dr. Lisa Thomson Glucose [Mass/Vol] 140 mg/dL Normal [facility] Comment on above: Performed By: #### C BC #### [facility] [address] [address] [address] Lisa Thomson HbA1c (Bld) [Mass fraction] 6.5 % Critically high 4.5-6.2 [facility] Comment on above: Performed By: #### C BC #### [facility] [address] [address] [address] Lisa Thomson LIPID PROFILEon 12-31-2021 CHOL-HDL RATIO NORM SEE BELOW Normal [facility] Comment on above: Result Comment: 3.3 - 4.4 LOW RISK 4.4 - 7.1 AVERAGE RISK 7.1 - 11.0 MODERATE RISK >11.0 HIGH RISK Performed By: #### C BC #### [facility] [address] [place] [address] Dr. Lisa Thomson Cholesterol [Mass/Vol] 242 mg/dL Critically high <=200 [facility] Comment on above: Performed By: #### C BC #### [facility] [address] [address] [address] Lisa Thomson Cholesterol in HDL [Mass/Vol] 58 mg/dL Normal 40-60 [facility] Comment on above: Performed By: #### C BC #### [facility] [address] [place] [address] Dr. Lisa Thomson Cholesterol in LDL [Mass/Vol] 149.2 mg/dL Normal [facility] Comment on above: Performed By: #### C BC #### [facility] [address] [place] [address] Dr. Lisa Thomson Cholesterol.total/Ch olesterol in HDL [Mass ratio] 4.2 {ratio} Normal [facility] Comment on above: Performed By: #### C BC #### [facility] [address] [place] [address] Dr. Lisa Thomson HDL NORMAL > or = 60 mg/dl - LO W CARDIOVASCULAR RISK <40 mg/dl - HIGH CARDIOVASCULAR RISK Normal [facility] Comment on above: Performed By: #### C BC #### [facility] [address] [place], [place] [address] Dr. Lisa Thomson LDL CALC NORMAL SEE BELOW Normal [facility] Comment on above: Result Comment: <100 mg/dl OPTIMAL 100 - 129 mg/dl NEAR OR ABOVE OPTIMAL 130 - 159 mg/dl BORDERLINE HIGH 160 - 189 mg/dl HIGH >190 mg/dl VERY HIGH Performed By: #### C BC #### [facility] [address] [address] [address] Lisa Thomson Triglyceride [Mass/Vol] 174 mg/dL Critically high <=150 [facility] Comment on above: Performed By: #### C BC #### [facility] [address] [address] [address] Lisa Thomson VLDL CALC 34.8 mg/dL Normal [facility] Comment on above: Performed By: #### C BC #### [facility] [address] [place] [address] Dr. Lisa Thomson MICROALBUMIN, RAND URon 05- mALB <1.3 Normal <=30.0 [facility] Comment on above: Performed By: #### M ALBR #### [facility] [address] [place], [place] [id number] Dr. Lisa Thomson MRI LSPINE WO CONon 01-01-20 MRI LSPINE WO CON EXAMINATION: MRI [place] CON HISTORY: Lumbar radiculopathy , right [...] JACKIE ESCOBEDO Date: 2021-12-31 11:29 Normal [facility] PROF 14(COMP METB)on 022 Albumin [Mass/Vol] 4.1 g/dL Normal 3.4-5.0 [facility] Comment on above: Performed By: #### C BC #### [facility] [address] [place] [address] Dr. Lisa Thomson Albumin/Globulin [Mass ratio] 1.1 {ratio} Normal [facility] Comment on above: Performed By: #### C BC #### [facility] [address] [place] [address] Dr. Lisa Thomson ALP [Catalytic activity/Vol] 56 U/L Normal 46-116 [facility] Comment on above: Performed By: #### C BC #### [facility] [address] [place] [address] Dr. Lisa Thomson ALT [Catalytic activity/Vol] 26 U/L Normal 14-59 [facility] Comment on above: Performed By: #### C BC #### [facility] [address] [place] [address] Dr. Lisa Thomson Anion gap [Moles/Vol] 17.0 mmol/L Normal [facility] Comment on above: Performed By: #### C BC #### [facility] [address] [place] [address] Dr. Lisa Thomson AST [Catalytic activity/Vol] 14 U/L Critically low 15-37 [facility] Comment on above: Performed By: #### C BC #### [facility] [address] [address] [address] Lisa Thomson Bilirubin [Mass/Vol] 0.9 mg/dL Normal 0.2-1.0 [facility] Comment on above: Performed By: #### C BC #### [facility] [address] [address] [address] Lisa Thomson Calcium [Mass/Vol] 8.7 mg/dL Normal 8.5-10.1 [facility] Comment on above: Performed By: #### C BC #### [facility] [address] [address] [address] Lisa Thomson Chloride [Moles/Vol] 101 mmol/L Normal 98-107 [facility] Comment on above: Performed By: #### C BC #### [facility] [address] [address] [address] Lisa Thomson CO2 [Moles/Vol] 23.0 mmol/L Normal 21.0-32.0 [facility] Comment on above: Performed By: #### C BC #### [facility] [address] [address] [address] Lisa Thomson Creatinine [Mass/Vol] 0.70 mg/dL Normal 0.55-1.02 [facility] Comment on above: Performed By: #### C BC #### [facility] [address] [address] [address] Lisa Thomson EGFR-AF BARBADIAN >60 Normal >=60 [facility] Comment on above: Performed By: #### C BC #### [facility] [address] [address] [address] Lisa Thomson EGFR-NON AF BARBADIAN >60 Normal >=60 [facility] Comment on above: Performed By: #### C BC #### [facility] [address] [address] [address] Lisa Thomson Globulin (S) [Mass/Vol] 3.6 g/dL Normal [facility] Comment on above: Performed By: #### C BC #### [facility] [address] [address] [address] Lisa Thomson Glucose [Mass/Vol] 178 mg/dL Critically high 74-106 [facility] Comment on above: Performed By: #### C BC #### [facility] [address] [address] [address] Lisa Thomson Potassium [Moles/Vol] 4.0 mmol/L Normal 3.5-5.1 [facility] Comment on above: Performed By: #### C BC #### [facility] [address] [address] [address] Lisa Thomson Protein [Mass/Vol] 7.7 g/dL Normal 6.4-8.2 [facility] Comment on above: Performed By: #### C BC #### [facility] [address] [address] [address] Lisa Thomson Sodium [Moles/Vol] 137 mmol/L Normal 136-145 [facility] Comment on above: Performed By: #### C BC #### [facility] [address] [address] [address] Lisa Thomson Urea nitrogen [Mass/Vol] 23.0 mg/dL Critically high 7.0-18.0 [facility] Comment on above: Performed By: #### C BC #### [facility] [address] [address] [address] Lisa Thomson Urea nitrogen/Creatinine [Mass ratio] 32.9 mg/mg Normal [facility] Comment on above: Performed By: #### C BC #### [facility] [address] [address] [address] Lisa Thomson TSHon 12-31-2021 TSH 0.123 uIU/mL Critically low 0.358-3.740 [facility] Comment on above: Performed By: #### C BC #### [facility] [address] [address] [address] Lisa Thomson TSH RANGE SEE BELOW Normal [facility] Comment on above: Result Comment: <0.3 4 UIU/ml HYPERTHYROID 0.34-5.60 UIU/ml EUTHYROID >5.60 UIU/ml HYPOTHYROID Performed By: #### C BC #### [facility] [address] [address] [address] Lisa Thomson UA RANDOM W/MICROSCOPICon BACTERIA NONE SEEN Normal NONE SEEN [facility] Comment on above: Performed By: #### U AMIC #### [facility] [address] [place] [address] Dr. Lisa Thomson Bilirubin Ql (U) Negative Normal NEGATIVE [facility] Comment on above: Performed By: #### U AMIC #### [facility] [address] [address] [address] Lisa Thomson CAST NONE SEEN Normal NONE SEEN [facility] Comment on above: Performed By: #### U AMIC #### [facility] [address] [place] [address] Dr. Lisa Thomson Clarity (U) CLEAR Normal CLEAR [facility] Comment on above: Performed By: #### U AMIC #### [facility] [address] [place] [address] Dr. Lisa Thomson Color (U) LT. YELLOW Normal YELLOW [facility] Comment on above: Performed By: #### U AMIC #### [facility] [address] [place] [address] Dr. Lisa Thomson Crystals LM Nom (Urine sed) NONE SEEN Normal NONE SEEN [facility] Comment on above: Performed By: #### U AMIC #### [facility] [address] [place] [address] Dr. Lisa Thomson Epithelial cells LM Ql (Urine sed) NONE SEEN Normal NONE SEEN /RARE [facility] Comment on above: Performed By: #### U AMIC #### [facility] [address] [address] [address] Lisa Thomson Glucose Ql (U) >1000 Abnormal NEGATIVE [facility] Comment on above: Performed By: #### U AMIC #### [facility] [address] [place] [address] Dr. Lisa Thomson Hemoglobin Ql (U) Negative Normal NEGATIVE [facility] Comment on above: Performed By: #### U AMIC #### [facility] [address] [address] [address] Lisa Thomson Ketones Ql (U) 15 mg/dl Abnormal NEGATIVE [facility] Comment on above: Performed By: #### U AMIC #### [facility] [address] [place] [address] Dr. Lisa Thomson LEUKOCYTES Negative Normal NEGATIVE [facility] Comment on above: Performed By: #### U AMIC #### [facility] [address] [address] [address] Lisa Thomson MUCOUS NONE SEEN Normal NONE SEEN [facility] Comment on above: Performed By: #### U AMIC #### [facility] [address] [place] [address] Dr. Lisa Thomson Nitrite Ql (U) Negative Normal NEGATIVE [facility] Comment on above: Performed By: #### U AMIC #### [facility] [address] [place] [address] Dr. Lisa Thomson pH (U) 5.5 [pH] Normal 5-9 [facility] Comment on above: Performed By: #### U AMIC #### [facility] [address] [place] [address] Dr. Lisa Thomson RBC NONE SEEN Abnormal 0-2 [facility] Comment on above: Performed By: #### U AMIC #### [facility] [address] [place] [address] Dr. Lisa Thomson SPEC GRAVITY 1.015 Normal 1.005-<=1.025 [facility] Comment on above: Performed By: #### U AMIC #### [facility] [address] [place] [address] Dr. Lisa Thomson UA PROTEIN Negative Normal NEGATIVE/ TRACE [facility] Comment on above: Performed By: #### U AMIC #### [facility] [address] [place] [address] Dr. Lisa Thomson Urobilinogen Qn (U) 0.2 {Tony'U}/dL Normal 0.2 - 1. 0 [facility] Comment on above: Performed By: #### U AMIC #### [facility] [address] [address] [address] Lisa Thomson WBC NONE SEEN Normal NONE SEEN [facility] Comment on above: Performed By: #### U AMIC #### [facility] [address] [place], [place] [id number] Dr. Lisa Thomson XR LSPINE W_OBLS AND [...] by: JACKIE ESCOBEDO Date: 2021-12-24 14:41 Normal [facility] NM BONE IMAGE 3 PHASEon 05 SD BONE IMAGE 3 PHASE EXAMINATION: NM BONE [...] by: NIKA YI Date: 2021-12-21 16:11 Normal [facility] Vital Signs Date Time Vital Sign Value Performing Clinician Faci lity 10-02-2023 09:32-0500 Body height 160 cm Noemi Mcnally DETECTIVE CAPTAIN Work Phone: [facility] 10-02-2023 09:32-0500 Body mass index (BMI) [Ratio] 27.03 kg/m2 Noemi Aichholz DETECTIVE CAPTAIN Work Phone: [facility] 10-02-2023 09:32-0500 Body temperature 96.91 [degF] Noemi Ciciholz DETECTIVE CAPTAIN Work Phone: [facility] 10-02-2023 09:32-0500 Body weight 69.22 kg Noemi Aichholz DETECTIVE CAPTAIN Work Phone: [facility] 10-02-2023 09:32-0500 Diastolic blood pressure 82 mm[Hg] Noemi Aichholz DETECTIVE CAPTAIN Work Phone: [facility] 10-02-2023 09:32-0500 Heart rate 87 /min Noemi Aichholz DETECTIVE CAPTAIN Work Phone: [facility] 10-02-2023 09:32-0500 Respiratory rate 20 /min Noemi Aichholz DETECTIVE CAPTAIN Work Phone: [facility] 10-02-2023 09:32-0500 SaO2% (BldA) [Mass fraction] 99 % Noemi Rodgerhholz DETECTIVE CAPTAIN Work Phone: [facility] 10-02-2023 09:32-0500 Systolic blood pressure 132 mm[Hg] Noemi Aichholz DETECTIVE CAPTAIN Work Phone: [facility] Healthcare Encounters Encounter Date Encounter Type Care Provider Facility Start: 10-02-2023 Bamboo flowsheet Noemi Aichholz DETECTIVE CAPTAIN Work Phone: [facility] Start: 10-02-2023 Bamboo flowsheet Noemi Aichholz DETECTIVE CAPTAIN Work Phone: [facility] Start: 10-02-2023 End: 10-02-2023 ambulatory NOEMI AICHHOLZ Not Available Start: 10-02-2023 End: 10-02-2023 Office outpatient visit 25 minutes Noemi Ciciholz DETECTIVE CAPTAIN Work Phone: [facility] Comment on above: Type 2 diabetes madeleine itus without complication, without long- term current use of insulin ([facility]) (Primary Dx); Encounter for screening mammogram for malignant neoplasm of breast; Mixed hyperlipidemia (CMS/HCC); BMI 27.0-27.9,adult; Osteoporosis, unspecified osteoporosis type, unspecified pathological fracture presence (CMS/HCC); Chronic pruritus; Allergic rhinitis, unspecified seasonality, unspecified trigger Start: 06-23-2023 End: 06-24-2023 ambulatory [facility] Start: 12-16-2022 End: 12-17-2022 ambulatory [facility] Start: 11-12-2022 End: 11-13-2022 ambulatory GARRICK MCNALLY Facility:[facility] Start: 10-16-2022 End: 10-17-[address] NIKA YI Facility:[facility] Start: 10-07-2022 End: 10-08-2022 ambulatory [facility] Start: 10-07-2022 End: 10-07-2022 ambulatory [facility] Start: 10-04-[address] DOCTOR VERDE Facility :[facility] Start: 08-26-2022 End: 08-27-2022 ambulatory [facility] Start: 07-15-2022 End: 07-15-2022 ambulatory [facility] Start: 07-01-2022 Encounter for preprocedural laboratory examination DR DOCTOR VERDE [facility] Start: 06-27-2022 End: 06-28-[address] DOCTOR VERDE Facility:[facility] Start: 06-27-2022 End: 06-28-2022 Encounter for preprocedural laboratory examination DR DOCTOR VERDE Facility:[facility] Start: 06-25-2022 End: 06-26-[address] DOCTOR VERDE Facility:[facility] Start: 06-20-2022 End: 06-20-[address] NANDO Pierce Facility:[facility] Start: 05-13-2022 End: 05-14-[address] DOCTOR VERDE Facility:[facility] Start: 04-24-2022 End: 04-25-2022 ambulatory Vipul Noe Facility:[facility] Start: 04-01-2022 End: 04-02-2022 ambulatory Vipul Noe Facility:[facility] Start: 03-14-2022 End: 03-15-2022 ambulatory GARRICK MCNALLY Facility:[facility] Start: 02-19-2022 End: 02-20-2022 ambulatory MANAGER SCHEDULING NOEMI BOLANOSSARAHKendra Facility:[facility] Start: 02-07-2022 End: 02-08-2022 ambulatory GARRICK MCNALLY Facility:[facility] Start: 01-30-2022 End: 01-31-2022 ambulatory GARRICK BOLANOSSARAHKendra Facility:[facility] Start: 01-17-2022 End: 01-18-2022 ambulatory DEFAULT PHYSICIAN Facility:[facility] Start: 01-15-2022 End: 01-15-2022 ambulatory GARRICK LOYD RODGERElliSARAHKendra Facility:[facility] Start: 01-01-2022 End: 01-02-[address] ISHMAEL ROBERTO . Facility:[facility] Start: 12-31-2021 End: 01-01-2022 ambulatory GARRICK NOEMI RODGERElliPAUL Facility:[facility] Start: 12-27-2021 End: 01-05-[address] ISHMAEL ROBERTO . Facility:[facility] Start: 12-25-2021 End: 12-26-[address] ISHMAEL ROBERTO . Facility:[facility] Start: 12-24-2021 End: 12-25-[address] ISHMAEL ROBERTO . Facility:[facility] Start: 12-21-2021 End: 12-22-[address] ISHMAEL ROBERTO . Facility:[facility] Start: 12-18-2021 End: 12-19-2021 ambulatory WHITNEY GOODMAN Facility:[facility] Start: 12-17-2021 End: 12-17-2021 ambulatory WHITNEY GOODMAN Facility:[facility] Start: 12-07-2021 ambulatory GARRICK LOYD RODGERElliSARAHKendra Facil ity:[facility] Procedures Date Procedure Procedure Detail Performing Clinician Start: 11-12-2022 Mammography Noemi Escamilla shashankkendra DETECTIVE CAPTAIN Work Phone: Start: 04-24-2022 Antibody screen DEFAULT PHYSICIAN Comment on above: Performed By: #### [id number] #### [facility] [address] Start: 04-01-2022 Antibody screen DEFAULT PHYSICIAN Comment on above: Performed By: #### [id number] #### [facility] James BRADLEY. [address] Start: 08-18-2012 Jae amador DETECTIVE CAPTAIN Work Phone: Plan of Treatment Date Care Activity Detail Author Start: 02-15-2024 Influenza vaccination Influenza Vacc ine (#1) [facility] Comment on above: Postponed from 04/18 (Patient Refused) Start: 02-13-2024 Urine screening for protein Diabetes: Urine Protein Screening [facility] Start: 11-17-2023 Glaucoma screening Diabetes: R etinopathy Screening [facility] Start: 11-14-2023 End: 10-02-2024 DXA Skeletal system Views for bone density DEXA bone density Imaging Routine Osteoporosis, unspecified osteoporosis type, unspecified pathological fracture presence (CMS/HCC) Expected: 11/14/2023, Expires: 10/02/2024 [facility] Comment on above: Expected: 11/14/2023 , Expires: 10/02/2024 Start: 11-13-2023 Screening for malign ant neoplasm of breast [facility] [facility] Start: 11-13-2023 End: 11-13-2023 Patient encounter procedure 11/13/2023 9:20 AM EDT Office Visit [facility] [address] [place] [id number] Noemi Mcnally NP [address] [place] [id number] [facility] Start: 10-31-2023 End: 11-30-2024 MG Breast - bilateral Screening Bilateral screening mammogram Imaging Routine Encounter for screening mammogram for malignant neoplasm of breast Expected: 10/31/2023 (Approximate), Expires: 11/30/2024 [facility] Comment on above: Expected: 10/31/2023 (Approximate), Expires: 11/30/2024 Start: 10-02-2023 End: 10-02-2024 Alanine aminotransferase [Enzymatic activity/volume] in Serum or Plasma ALT Lab Routine Mixed hyperlipidemia (CMS/HCC) Expected: 10/02/2023 (Approximate), Expires: 10/02/2024 [facility] Comment on above: Expected: 10/02/2023 (Approximate), Expires: 10/02/2024 Start: 10-02-2023 End: 10-02-2024 Aspartate aminotransferase [Enzymatic activity/volume] in Serum or Plasma AST Lab Routine Mixed hyperlipidemia ([facility]) Expected: 10/02/2023 (Approximate), Expires: 10/02/2024 [facility] Comment on above: Expected: 10/02/2023 (Approximate), Expires: 10/02/2024 Start: 10-02-2023 End: 10-02-2024 Hemoglobin A1c/Hemoglobin.total in Blood Hemoglobin A1c Lab Routine Type 2 diabetes mellitus without complication, without long-term current use of insulin ([facility]) Expected: 10/02/2023 (Approximate), Expires: 10/02/2024 [facility] Comment on above: Expected: 10/02/2023 (Approximate), Expires: 10/02/2024 Start: 10-02-2023 End: 10-02-2024 Lipid 1996 panel - Serum or Plasma Lipid panel Lab Routine Mixed hyperlipidemia ([facility]) Expected: 10/02/2023 (Approximate), Expires: 10/02/2024 [facility] Work Phone: Comment on above: Expected: 10/02/2023 (Approximate), Expires: 10/02/2024 Start: 05-15-2023 Hemoglobin A1c measurement Manasa betes: Hemoglobin A1C [facility] Start: 04-18-2023 Influenza vaccination Influenza Vacc ine (#1) [facility] Start: 08-18-2022 Screening for malign ant neoplasm of colon [facility] Start: 11-17-2019 Glaucoma screening Diabetes: R etinopathy Screening [facility] Start: 07-18-2017 Pneumococcal Vaccine : 65+ Years (2 of 2 - PCV) Pneumococcal Vaccine: 65+ Years (2 of 2 - PCV) [facility] Start: 1950 Screening for malign ant neoplasm of colon [facility] Immunizations Immunization Date Immunization Notes Care Provider Landon peralta 06-17-2018 Influenza, High-dose Seasonal, Quadrivalent, Preservative Free Noemi Mcnally NP Work Phone: [facility] 06-17-2018 influenza virus vacc ine, unspecified formulation Noemi Mcnally DETECTIVE CAPTAIN Work Phone: [facility] 05-19-2017 Influenza, High-dose Seasonal, Quadrivalent, Preservative Free Noemi Bolanospaul DETECTIVE CAPTAIN Work Phone: [facility] 07-18-2016 pneumococcal polysaccharide vaccine, 23 valent Noemi Rodgerellipaul DETECTIVE CAPTAIN Work Phone: [facility] Payers Date Payer Category Payer Unknown 2015 Medicare MEDICARE MEDICAR E RAILROAD [id number] 2015-Present YOUALEXIS SCHULTZArthur RAILRO[employer] MEDICARE [address] [address] [place] [address] Medicare [id number] 1959 Medicare [id number] 1959 Self-pay 1959 Unknown [id number] 1950 Unknown [id number] 2.16.840.1.846766.3.579.2.647 1950 Unknown [id number] 2.16.840.1.279657.3.579.2.647 1950 Unknown [id number] 2.16.840.1.046349.3.579.2.647 1950 Unknown [id number] 2.16.840.1.293483.3.579.2.593 1950 Unknown [id number] 2.16.840.1.641817.3.579.2.593 1950 Unknown [id number] 2.16.840.1.014744.3.579.2.593 1950 Unknown [id number] 2.16.840.1.441762.3.579.2.593 1950 Unknown [id number] 2.16.840.1.380652.3.579.2.593 1950 Unknown [id number] 2.16.840.1.336475.3.579.2.593 1950 Unknown [id number] 2.16.840.1.556064.3.579.2.593 1950 Unknown [id number] 2.16.840.1.133353.3.579.2.593 1950 Unknown [id number] 2.16.840.1.159579.3.579.2.593 1950 Unknown [id number] 2.16.840.1.278997.3.579.2.593 1950 Unknown [id number] 2.16.840.1.318212.3.579.2.593 1950 Unknown [id number] 2.16.840.1.158284.3.579.2.593 1950 Unknown [id number] 2.16.840.1.140485.3.579.2.593 1950 Unknown [id number] 2.16.840.1.020301.3.579.2.593 1950 Unknown [id number] 2.16.840.1.719803.3.579.2.593 1950 Unknown [id number] 2.16.840.1.887038.3.579.2.593 1950 Unknown [id number] 2.16.840.1.047133.3.579.2.593 1950 Unknown [id number] 2.16.840.1.094490.3.579.2.593 1950 Unknown [id number] 2.16.840.1.545379.3.579.2.593 1950 Unknown [id number] 2.16.840.1.978334.3.579.2.593 1950 Unknown [id number] 2.16.840.1.199816.3.579.2.593 1950 Unknown [id number] 2.16.840.1.982858.3.579.2.593 1950 Unknown [id number] 2.16.840.1.781810.3.579.2.1259 Social History Date Type Detail Facility Start: 09-29-2023 Tobacco smoking status NHIS Never sm oked tobacco [facility] Start: 10-02-2023 Alcohol intake Ex-drinker (finding) [facility] Start: 09-29-2023 End: 10-02-2023 [facility] Start: 09-29-2023 End: 10-02-2023 Tobacco use panel [facility] Start: 1950 Sex Assigned At Not on file N [facility] Clinical Notes 12-18-2021 to 10-02-2023 Noemi Mcnally NP - 10/02/2023 10:53 AM ESTNoemi Mcnally, [place] - 10/02/2023 10:52 AM ESTNoemi Mcnally, [place] - 10/02/2023 10:51 AM ESTLisa Dali, DETECTIVE CAPTAIN - 10/02/2023 10:50 AM EST Note Date [...] from the original note were not included. Randall Arias is a 73 y.o. female presents [...] diabetic retinopathy, both eyes (CMS/HCC) 10/02/2023 Osteoporosis (CMS/HCC) 10/02/2023 Positive H. pylori test 2019 Radiculopathy of arm 10/02/2023 Sinusitis 10/02/2023 Thyroid goiter ([facility]) 10/02/2023 Thyroiditis ([facility]) 10/02/2023 Type 2 diabetes mellitus without complication, without long-term current use of insulin ([facility]) 07/30/2023 Past Surgical History: Procedure Laterality Date APPENDECTOMY 1974 CHOLECYSTECTOMY 12/2007 Lap Adina COLONOSCOPY 09/2006 COLONOSCOPY W/ POLYPECTOMY 10/2019 tubular adenoma /Wiecek EGD 12/2006 EGD 10/2019 EGD with Bx HYSTERECTOMY 1974 THYROIDECTOMY family history includes Breast cancer in [...] complication, without long-term current use of insulin ([facility]) Check blood sugars daily, notify if <70 [...] tablet Other Relevant Orders Hemoglobin A1c Hyperlipidemia ([facility]) Check labs, cont statin and zetia Relevant Medications ezetimibe (Zetia) 10 MG tablet atorvastatin (Lipitor) 80 MG tablet Other Relevant Orders Lipid panel ALT AST Encounter for screening mammogram for malignant neoplasm of breast - Primary Relevant Orders Bilateral screening mammogram Osteoporosis ([facility]) Check DEXA scan when mammogram is due [...] 10 MG tablet documented in this encounter [facility] 06-23-2023 Note Neurosurgery Clinic Note Chief Complaint: Postop, leg pain. Interval History: Randall Arias is a 73 y.o. year-old female [...] 07/02/2022 233 (H) (more content not included)... [facility] 12-16-2022 Note Neurosurgery Clinic Note Chief Complaint: Interval History: Randall Arias is a 72 y.o. year-old female [...] then becomes throbbing and painful in the [id number] extending into her toes. She denies any new neurologic symptoms. She feels that her symptoms are somewhat improved since her last visit 3 months ago. Problem List: Patient Active Problem List Diagnosis Recurrent herniation of lumbar disc Lumbar disc herniation Past Medical History: Past Medical History: Diagnosis Date Diabetes mellitus ([facility]) Hyperlipidemia Thyroid condition Past Surgical History: Past [...] BUN/Creatinine Ratio 1 (more content not included)... [facility] 10-16-2022 Note PROCEDURE: XR FOOT [...] authenticated by: NIKA YI Date: 2022-10-16 17:56 [facility] 10-16-2022 Note PROCEDURE: XR FOOT [...] authenticated by: NIKA YI Date: 2022-10-16 17:56 [facility] 10-07-2022 Note Neurosurgery Clinic Note Chief Complaint: Post op Interval History: Randall Arias is a 72 y.o. year-old female [...] Past Medical History: Diagnosis Date Diabetes mellitus ([facility]) Hyperlipidemia Thyroid condition Past Surgical History: Past [...] % Final Platele (more content not included)... [facility] 08-26-2022 Note Neurosurgery Clinic Note Chief Complaint: Postop. Interval History: Randall Arias is a 72 y.o. year-old female [...] Final Potassium 07/03/2022 (more content not included)... [facility] 07-15-2022 Note Neurosurgery Clinic Note Chief Complaint: Post op. Interval History: Randall Arias is a 72 y.o. year-old female [...] Past Medical History: Diagnosis Date Diabetes mellitus ([facility]) Hyperlipidemia Thyroid condition Past Surgical History: Past [...] - 5.00 10*6/uL (more content not included)... [facility] 04-26-2022 Note MR#: [id number] [facility] Pt. Name: Randall Arias Admitted: 04/24/2022 Discharged: 04/25/2022 Date of : 1950 Physician: Vipul Noe MD DISCHARGE SUMMARY DISCHARGE DIAGNOSIS: Lumbar [...] in approximately 10 days. Electronically Signed by: Vipul Noe MD 05/01/2022 04:01 P ____ Vipul Noe MD Date Dict: 04/25/2022/03:21 P/Vipul Noe MD Date Trans: 04/26/2022 07:44 A/sharyn JUDGE_JN:[id number] [facility] 01-01-2022 Note CONSULTATION CONSULTATION DATE: CHIEF COMPLAINT: [...] The patient will be going to the [facility] in [place]. The refill of Percocet 5/325 t.i.d. will be done and Baclofen 10 mg at h.s. Trazadone 50 mg q.p.m. will also be added to help her with her sleep and pain. CC: Dr. Noemi Mcnally [facility] Signed and Approved by: DR ISHMAEL ROBERTO . 01/08/2022 12:21:00 [facility] 12-25-2021 Note CONSULTATION CONSULTATION DATE: [...] like to proceed. CC: Noemi Mcnally CNP [facility] Signed and Approved by: DR ISHMAEL ROBERTO . 01/01/2022 10:40:00 [facility] 12-18-2021 Note CONSULTATION CONSULTATION DATE: [...] mg one tablet p.o. b.i.d. Mobic and [place] were discontinued in the past. The patient [...] week and earlier should she need us. [facility] Signed and Approved by: DR ISHMAEL ROBERTO . 12/25/2021 10:05:00 [facility] Evaluation note Diagnosis Type 2 diabetes mellitus without complication, without long-term current use of insulin ([facility])- Primary Encounter for screening mammogram for malignant neoplasm of breast Mixed hyperlipidemia ([facility]) Mixed hyperlipidemia BMI 27.0-27.9,adult Osteoporosis, unspecified osteoporosis type, unspecified pathological fracture presence ([facility]) Chronic pruritus Allergic rhinitis, unspecified seasonality, unspecified [...] and content) DATE CREATED AUTHOR 05/15/2022 [facility] DATE CREATED AUTHOR AUTHOR'S ORGANIZ ATION 11/20/[address] [facility] DATE CREATED AUTHOR AUTHOR'S ORGANIZ ATION 07/07/2023 [facility] DATE CREATED AUTHOR AUTHOR'S ORGANIZ ATION 10/04/2023 [facility] dical Specialists EPIC Care Teams (unrecognized sec tion and content) Real Time Trader Relationship Specialty Start Date End Date Cristopher Harvey MD [address] [place] [address] PCP - General Family Medicine 09/29/23 Noemi Mcnally NP [address] [place] [address] Nurse Practitioner Family Medicine 05/28/23 Real Time Trader Relationship Specialty Start Date End Date Cristopher Harvey MD [address] [place] [address] PCP - General Family Medicine 09/29/23 Noemi Mcnally NP [address] [place] [address] Nurse Practitioner Family Medicine 05/28/23 FOR RECORDS [...] BE BASED ON THE PRIMARY CLINICAL RECORDS. [facility] [employer] [facility]. provides no warranty or guarantee of the accuracy or completeness of information in this document.
--- NOTE | 2023-11-17 10:12 | MM_ITS ---
Patient Name: RANDALL PRADO MR#: [id number] : 1950 Exam Date: 11/17/2023 Ordering Doctor: GARRICK Mcnally CNP RADIOLOGY REPORT PROCEDURE: MM TOMOSYNTHESIS SCREENING BI COMPARISON: MG MAMM SCREEN 3D DIONE CAD, 11/12/2022. MG MAMM SCREEN 3D DIONE CAD, 11/07/2021. MG MAMM SCREEN DIONE W CAD, 08/01/2017. MG MAMM DIONE SCRN W CAD DIG, 08/06/2013. INDICATIONS: Screening for malignant neoplasm Calculator Name NCI Breast Cancer Risk Assessment Tool 5 Year Breast Cancer Risk 7.60% Lifetime Breast Cancer Risk 17.70% Personal Breast Cancer No Personal Ovarian Cancer No Treatments None Family Cancers Mother with breast cancer at age 42; Sister with breast cancer at age ~20. LOCATION: [facility] BREAST COMPOSITION: Scattered areas fibroglandular density. FINDINGS: DIAGNOSTIC CATEGORY 1--NEGATIVE. RIGHT BREAST: No significant suspicious finding. No significant change has occurred. LEFT BREAST: No significant suspicious finding. No significant change has occurred. RECOMMENDATIONS: ROUTINE MAMMOGRAM AND CLINICAL EVALUATION IN 12 MONTHS. PLEASE NOTE: A NORMAL MAMMOGRAM DOES NOT EXCLUDE THE POSSIBILITY OF BREAST CANCER. A CLINICALLY SUSPICIOUS PALPABLE LUMP SHOULD BE BIOPSIED. Dictated by: Ismael Washington M.D. on 11/19/2023 at 11:32 Approved by: Ismael Washington M.D. on 11/19/2023 at 11:44
--- NOTE | 2023-11-17 10:12 | XR_ITS ---
[address] [address] Patient Name: RANDALL PRADO MRN: [id number] date: 1950 Sex: F Assigned Patient Location: [facility] Current Patient Location: [facility] Accession/Order Number: [id number] Exam Date: 11/17/2023 10:30 Report Date: 11/17/2023 11:19 At the request of: RACH MAHARAJ Procedure: XR DEXA axial skeleton EXAMINATION: XR DEXA axial skeleton HISTORY: Screening COMPARISON: DEXA bone densitometry 11/07/2021 TECHNIQUE: Dual-energy X-ray absorptiometry (DXA) was performed. FINDINGS: FOREARM ANALYSIS: Average bone mineral density is 0.518 g/cm2. T-score (standard deviation relative to young adult mean): -2.7 . HIP ANALYSIS: Lowest bone mineral density is within the right femoral neck, 0.667 g/cm2. T-score (standard deviation relative to young adult mean): -2.7 . +2.7% change since prior study. XR/XR DEXA axial skeleton IMPRESSION: World Rhett Organization Classification: Osteoporosis - High Fracture Risk Electronically authenticated by: JACKIE ESCOBEDO Date: 11/17/2023 11:19
== END 2023-11-17 09:59 | disposition home or self-care (01) ==
LOC: MAMMO 09:58
PROVIDERS: PCP Nurse Practitioner; Visit Provider Nurse Practitioner
DX: M81.0 Age-related osteoporosis without current pathological fracture (principal); Z12.31 Encounter for screening mammogram for malignant neoplasm of breast; Z80.3 Family history of malignant neoplasm of breast
CPT/HCPCS: 77063; 77067; 77080

== ENCOUNTER 2024-03-15 11:15 | Outpatient (OUT) | payer MEDICARE, SELFPAY ==
--- NOTE | 2024-03-15 11:48 | XR_ITS ---
The [address] [address] Patient Name: RANDALL PRADO MRN: [id number] date: 1950 Sex: F Assigned Patient Location: [facility] Current Patient Location: Accession/Order Number: [id number] Exam Date: 03/15/2024 11:57 Report Date: 03/16/2024 07:31 At the request of: RACH MAHARAJ Procedure: XR ankle RT min 3V PROCEDURE: XR ankle RT min 3V, XR foot RT min 3V COMPARISON: None. HISTORY: Foot Swelling FINDINGS: BONES:Corticated bone fragment identified along the inferior medial malleolus, remote injury. No acute fracture or dislocation. Moderate enthesopathic spurring of the calcaneus at the Achilles and plantar insertions SOFT TISSUES:Negative. No visible soft tissue swelling. EFFUSION:None visible. OTHER: Negative. XR/XR ankle RT min 3V IMPRESSION: No acute fracture of the foot or ankle Electronically authenticated by: NIKA YI Date: 03/16/2024 07:31
--- NOTE | 2024-03-15 11:48 | XR_ITS ---
The [address] [address] Patient Name: RANDALL PRADO MRN: [id number] date: 1950 Sex: F Assigned Patient Location: [facility] Current Patient Location: Accession/Order Number: [id number] Exam Date: 03/15/2024 11:58 Report Date: 03/16/2024 07:31 At the request of: RACH MAHARAJ Procedure: XR foot RT min 3V PROCEDURE: XR ankle RT min 3V, XR foot RT min 3V COMPARISON: None. HISTORY: Foot Swelling FINDINGS: BONES:Corticated bone fragment identified along the inferior medial malleolus, remote injury. No acute fracture or dislocation. Moderate enthesopathic spurring of the calcaneus at the Achilles and plantar insertions SOFT TISSUES:Negative. No visible soft tissue swelling. EFFUSION:None visible. OTHER: Negative. XR/XR foot RT min 3V IMPRESSION: No acute fracture of the foot or ankle Electronically authenticated by: NIKA YI Date: 03/16/2024 07:31
[2024-03-15 11:50] LABS: Basophils Percent Auto 0.2 % (0.2-2.0); Eosinophils Absolute Auto 0.1 10^3/uL (0.0-0.7); Eosinophils Percent Auto 1.7 % (0.9-7.0); Hemoglobin 12.1 g/dL (12.0-16.0); Immature Granulocytes Abs Auto 0.02 10^3/uL (0.00-0.03); Immature Granulocytes Pct Auto 0.2 % (0.0-0.5); Lymphocytes Absolute Auto 2.2 10^3/uL (1.2-3.8); Lymphocytes Percent Auto 27.2 % (20.5-60.0); Mean Corpuscular HGB Conc 31.8 g/dL (29.9-35.2); Mean Corpuscular Hemoglobin 29.2 pg (26.7-34.0); Mean Corpuscular Volume 91.6 fL (81.0-99.0); Mean Platelet Volume 9.1 fL (9.5-13.5); Monocytes Absolute Auto 0.5 10^3/uL (0.3-0.8); Monocytes Percent Auto 5.6 % (1.7-12.0); Neutrophils Absolute Auto 5.2 10^3/uL (1.4-6.5); Neutrophils Percent Auto 65.1 % (43.0-75.0); Platelet Count 236 10^3/uL (150-450); Red Blood Count 4.15 10^6/uL (4.20-5.40); Red Cell Distribution Width 14.9 % (11.0-15.0); White Blood Count 8.1 10^3/uL (4.0-11.0)
[2024-03-15 13:31] LABS: Free T4 1.24 ng/dL (0.76-1.46)
[2024-03-15 13:34] LABS: Alanine Aminotransferase 23 U/L (14-59); Albumin Level 3.8 g/dL (3.4-5.0); Alkaline Phosphatase 283 U/L (46-116); Anion Gap 14.3; Aspartate Amino Transferase 17 U/L (15-37); BUN Creatinine Ratio 31.7; Bilirubin Total 0.7 mg/dL (0.2-1.0); Calcium 9.1 mg/dL (8.5-10.1); Carbon Dioxide 28.2 mmol/L (21.0-32.0); Chloride 103 mmol/L (98-107); Chol HDL Ratio 3.7; Cholesterol 196 mg/dL (<=200); Estimated GFR (African America >60 (>=60); Estimated GFR (Non-African Ame >60 (>=60); Globulin 3.7 g/dL; Glucose 107 mg/dL (74-106); HDL Cholesterol 53 mg/dL (40-60); Potassium 3.5 mmol/L (3.5-5.1); Sodium 142 mmol/L (136-145); Thyroid Stimulating Hormone 0.172 uIU/mL (0.358-3.740); Total Protein 7.5 g/dL (6.4-8.2); Triglycerides 272 mg/dL (<=150); VLDL CHOLESTEROL 54.4 mg/dL
[2024-03-15 13:49] LABS: Estimated Average Glucose 117 mg/dL; Glycohemoglobin A1C 5.7 % (4.5-6.2)
== END 2024-03-15 11:16 | disposition home or self-care (01) ==
LOC: RAD 11:28
PROVIDERS: PCP Nurse Practitioner; Visit Provider Nurse Practitioner
DX: R31.29 Other microscopic hematuria (principal); I10 Essential (primary) hypertension; M81.0 Age-related osteoporosis without current pathological fracture; E11.9 Type 2 diabetes mellitus without complications; E78.2 Mixed hyperlipidemia; E03.9 Hypothyroidism, unspecified; M79.89 Other specified soft tissue disorders
CPT/HCPCS: 36415; 73610; 73630; 80053; 80061; 82043; 82570; 83036; 84439; 84443; 85025

== ENCOUNTER 2024-04-21 12:49 | Outpatient (OUT) | payer SELFPAY ==
--- NOTE | 2024-04-21 | XR_ITS ---
The [place] [id number] Patient Name: RANDALL PRADO MRN: [id number] date: 1950 Sex: F Assigned Patient Location: Current Patient Location: Accession/Order Number: [id number] Exam Date: 04/21/2024 12:50 Report Date: 04/22/2024 06:56 At the request of: TRINIDAD GONZALEZ Procedure: XR ankle RT min 3V PROCEDURE: XR foot RT min 3V, XR ankle RT min 3V HISTORY: RIGHT FOOT PAIN COMPARISON: XR right foot and ankle 03/15/2024 FINDINGS: BONES:Stable mild degenerative changes and sequela of remote injury. No acute fracture, healing fracture, or bone lesion. SOFT TISSUES:No visible soft tissue swelling. EFFUSION:None visible. OTHER: Negative. XR/XR ankle RT min 3V IMPRESSION: 1. No appreciable acute or subacute abnormality. 2. Stable degenerative and chronic changes. Electronically authenticated by: JACKIE ESCOBEDO Date: 04/22/2024 06:56
--- NOTE | 2024-04-21 | XR_ITS ---
The [address] [address] Patient Name: RANDALL PRADO MRN: [id number] date: 1950 Sex: F Assigned Patient Location: Current Patient Location: Accession/Order Number: [id number] Exam Date: 04/21/2024 12:50 Report Date: 04/22/2024 06:56 At the request of: TRINIDAD GONZALEZ Procedure: XR foot RT min 3V PROCEDURE: XR foot RT min 3V, XR ankle RT min 3V HISTORY: RIGHT FOOT PAIN COMPARISON: XR right foot and ankle 03/15/2024 FINDINGS: BONES:Stable mild degenerative changes and sequela of remote injury. No acute fracture, healing fracture, or bone lesion. SOFT TISSUES:No visible soft tissue swelling. EFFUSION:None visible. OTHER: Negative. XR/XR foot RT min 3V IMPRESSION: 1. No appreciable acute or subacute abnormality. 2. Stable degenerative and chronic changes. Electronically authenticated by: JACKIE ESCOBEDO Date: 04/22/2024 06:56
== END 2024-04-21 12:50 | disposition home or self-care (01) ==
LOC: EC 12:49
PROVIDERS: PCP Nurse Practitioner; Visit Provider Podiatrist Foot & Ankle Surgery
DX: M25.571 Pain in right ankle and joints of right foot (principal)
CPT/HCPCS: 73610; 73630

== ENCOUNTER 2024-04-27 10:47 | Outpatient (OUT) | payer MEDICARE, SELFPAY ==
--- NOTE | 2024-04-27 10:48 | VEIN_ITS ---
The [place] [address] Patient Name: RANDALL PRADO MRN: [id number] date: 1950 Sex: F Assigned Patient Location: Current Patient Location: Accession/Order Number: [id number] Exam Date: 04/27/2024 10:48 Report Date: 04/28/2024 07:25 At the request of: TRINIDAD GONZALEZ Procedure: VC SEGMENTAL PRESSURES EXAM: VC SEGMENTAL PRESSURES HISTORY: I73.9 Indication: COMPARISON: None. FINDINGS: Segmental pressures presented as follows (right, left) in mmHg. 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 Toe: 194, 173 FRANCI: 1.42, 1.16 TBI: 1.13, 1.09 The ABIs are elevated on the right, normal on the left The TBI's are normal bilaterally PVR waveforms: Right leg: Thigh: Mild peripheral arterial disease Above knee: Mild peripheral arterial disease Below knee: Normal Right ankle: Mild peripheral arterial disease Metatarsal: Mild peripheral arterial disease Left leg: Thigh: Normal Above knee: Normal Below knee: Normal Right ankle: Mild peripheral arterial disease Metatarsal: Mild peripheral arterial disease VEIN/VC SEGMENTAL PRESSURES IMPRESSION: Elevated right FRANCI likely related to arterial sclerosis Wave form suggests mild bilateral diffuse peripheral arterial disease Electronically authenticated by: NIKA YI Date: 04/28/2024 07:25
== END 2024-04-27 10:48 | disposition home or self-care (01) ==
LOC: VC 10:47
PROVIDERS: PCP Nurse Practitioner; Visit Provider Podiatrist Foot & Ankle Surgery
DX: I73.9 Peripheral vascular disease, unspecified (principal); M76.71 Peroneal tendinitis, right leg; R09.89 Other specified symptoms and signs involving the circulatory and respiratory systems
CPT/HCPCS: 93923

== ENCOUNTER 2024-06-11 08:36 | Outpatient (OUT) | payer MEDICARE, SELFPAY ==
--- NOTE | 2024-06-11 08:46 | MR_ITS ---
[address] [address] Patient Name: RANDALL PRADO MRN: [id number] date: 1950 Sex: F Assigned Patient Location: MRI Current Patient Location: Accession/Order Number: [id number] Exam Date: 06/11/2024 08:57 Report Date: 06/13/2024 13:00 At the request of: TRINIDAD GONZALEZ Procedure: MR ankle RT wo con EXAM: MR ankle RT wo con REASON FOR EXAM: Peroneal Tendonitis. TECHNIQUE: Multiplanar, multisequence imaging of the right ankle was performed before and after the uneventful intravenous administration of gadolinium contrast COMPARISON: Radiographs 04/21/2024. FINDINGS: There is fusiform thickening and intermediate signal the Achilles tendon, consistent with tendinosis. Distal Achilles enthesophytes are present. No tear is evident. Nonspecific edema is present in Kager's fat pad. The plantar fascia is thickened with an inferior calcaneal spur. No tear. Laterally, the peroneal tendons are mildly thickened with intermediate signal consistent with tendinosis. No tear. The superficial peroneal retinaculum is intact. The lateral ligaments appear intact. Medially, the medial flexor tendons demonstrate normal thickness and signal without tendinosis or tear. The deep deltoid ligament appears intact. The spring ligament is intact. Anteriorly, the anterior extensor tendons demonstrate normal thickness and signal without tendinosis or tear. The bone marrow signal is without fracture. The talar dome is congruent. The subtalar joints intact. The sinus tarsi is nonedematous. The midfoot appears congruent. The plantar musculature demonstrates normal bulk and signal. Nonspecific subcutaneous edema about the ankle. MR/MR ankle RT wo con IMPRESSION: 1. Mild peroneal tendinosis without tear. 2. 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 3. Chronic plantar fasciopathy. 4. No acute osseous abnormality. Electronically authenticated by: TSERING BAILEY Date: 06/13/2024 13:00
== END 2024-06-11 08:37 | disposition home or self-care (01) ==
LOC: MRI 08:36
PROVIDERS: PCP Nurse Practitioner; Visit Provider Podiatrist Foot & Ankle Surgery
DX: M76.71 Peroneal tendinitis, right leg (principal); M76.61 Achilles tendinitis, right leg; M72.2 Plantar fascial fibromatosis
CPT/HCPCS: 73721

== ENCOUNTER 2024-06-23 09:12 | Outpatient (OUT) | payer MEDICARE, SELFPAY ==
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
== END 2024-06-23 09:13 | disposition home or self-care (01) ==
PROVIDERS: PCP Nurse Practitioner; Visit Provider Nurse Practitioner
DX: M96.1 Postlaminectomy syndrome, not elsewhere classified (principal); M54.16 Radiculopathy, lumbar region; M79.18 Myalgia, other site
CPT/HCPCS: G0463

== ENCOUNTER 2024-08-04 09:48 | Outpatient (OUT) | payer MEDICARE, SELFPAY ==
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
== END 2024-08-04 09:49 | disposition home or self-care (01) ==
LOC: PM 09:49
PROVIDERS: PCP Nurse Practitioner; Visit Provider Nurse Practitioner
DX: M96.1 Postlaminectomy syndrome, not elsewhere classified (principal); M54.16 Radiculopathy, lumbar region; M79.18 Myalgia, other site
CPT/HCPCS: G0463

== ENCOUNTER 2024-08-24 09:18 | Outpatient (OUT) | payer MEDICARE, SELFPAY ==
--- NOTE | 2024-08-24 09:22 | MR_ITS ---
The [address] [address] Patient Name: RANDALL PRADO MRN: [id number] date: 1950 Sex: F Assigned Patient Location: MRI Current Patient Location: MRI Accession/Order Number: [id number] Exam Date: 08/24/2024 09:47 Report Date: 08/24/2024 13:57 At the request of: NIK MARLOW Procedure: MR lumbar spine wo con EXAM: MR lumbar spine wo con REASON FOR EXAM: Failed Back Syndrome M96.1. TECHNIQUE: Multiplanar, multisequence imaging of the lumbar spine was performed without contrast COMPARISON: Radiographs 07/08/2023, prior MRI 06/25/2022. FINDINGS: 5 nonrib-bearing lumbar vertebrae. Unchanged alignment of the lumbar spine. Vertebral body heights are maintained. Since prior MRI, there are surgical changes from anterior posterior fusion of the L5-S1 level. Vertebral body heights are maintained. No acute or aggressive osseous abnormality is evident. 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 Limited evaluation of the abdominopelvic viscera is unremarkable. L1-L2: Minimal broad-based disc bulge without spinal canal or neural foraminal stenosis. L2-L3: Minimal broad-based disc bulge without spinal canal stenosis. Minimal bilateral neural foraminal stenosis. L3-L4: Mild broad-based disc bulge with flattening of the ventral thecal sac. Minimal spinal canal stenosis. Mild bilateral neural foraminal stenosis secondary to disc osteophyte complex and facet arthropathy. L4-L5: Broad-based disc bulge with mild spinal canal lateral recess stenosis bilaterally. Moderate bilateral neural foraminal stenosis, right greater than left secondary to disc osteophyte complex and facet arthropathy. L5-S1: No spinal canal stenosis is evident. Granulation tissue within the right neural foramina is present, which results in moderate to severe right neural foraminal stenosis. Moderate left neural foraminal stenosis. MR/MR lumbar spine wo con IMPRESSION: 1. Postsurgical changes as described. 2. Moderate to severe right neural foraminal stenosis at the L5-S1 level likely secondary to facet arthropathy and granulation tissue. 3. Mild to moderate degenerative disease and facet arthropathy the nonsurgical levels, most notable at the L4-L5 level as described above. 4. No acute or aggressive osseous abnormality. Electronically authenticated by: TSERING BAILEY Date: 08/24/2024 13:57
== END 2024-08-24 09:19 | disposition home or self-care (01) ==
LOC: MRI 09:18
PROVIDERS: PCP Nurse Practitioner; Visit Provider Nurse Practitioner
DX: M96.1 Postlaminectomy syndrome, not elsewhere classified (principal); M48.062 Spinal stenosis, lumbar region with neurogenic claudication; M51.369 Other intervertebral disc degeneration, lumbar region without mention of lumbar back pain or lower extremity pain
CPT/HCPCS: 72148

== ENCOUNTER 2024-09-01 14:28 | Outpatient (OUT) | payer MEDICARE, SELFPAY ==
--- OUTSIDE RECORDS SUMMARY | 2024-09-01 14:47 | XMS_ITS | CCD ---
Author Organization [facility] Care Team Providers Care Hotel Guest Service Agent Name Role Phone PHYSICIAN, DEFAULT Admitting Unavailable PHYSICIAN, DEFAULT Attending Unavailable [place], Vipul T. Admitting Unavailable [place], Vipul T. Attending Unavailable AICHHOLZ, NOEMI Referring Unavailable AICHHOLZ, NOEMI Primary Care Unavailable [place], Vipul T. Admitting Unavailable [place], Vipul T. Attending Unavailable UNKNOWN, PHYSICIAN Referring Unavailable UNKNOWN, PHYSICIAN Primary Care Unavailable AICHHOLZ, TIRE SPOTTER NOEMI Primary Care Unavailable AICHHOLZ, TIRE SPOTTER NOEMI Attending Unavailable AICHHOLZ, TIRE SPOTTER NOEMI Consulting Unavailable AICHHOLZ, TIRE SPOTTER NOEMI Admitting Unavailable GREGG, DR JACKIE Li Consulting Unavailable HAY ., DR COLLIER Admitting Unavailable HAY ., DR COLLIER Attending Unavailable KASSIDY, DR NIKA Montague Consulting Unavailable AICHHOLZ, TIRE SPOTTER NOEMI Primary Care Unavailable HAY ., DR COLLIER Consulting Unavailable MISC, DR GIPSON Attending Unavailable MISC, DR GIPSON Admitting Unavailable AICHHOLZ, TIRE SPOTTER NOEMI Primary Care Unavailable MISC, DR GIPSON Admitting Unavailable MISC, DR GIPSON Attending Unavailable KASSIDY, DR NIKA Montague Consulting Unavailable AICHHOLZ, TIRE SPOTTER NOEMI Primary Care Unavailable MISC, DR GIPSON Consulting Unavailable AICHHOLZ, TIRE SPOTTER NOEMI Primary Care Unavailable AICHHOLZ, TIRE SPOTTER NOEMI Admitting Unavailable AICHHOLZ, TIRE SPOTTER NOEMI Attending Unavailable AICHHOLZ, TIRE SPOTTER NOEMI Consulting Unavailable FELISA ., DR ISHMAEL Zuniga Consulting Unavailable FELISA ., DR ISHMAEL Zuniga Admitting Unavailable AICHHOLZ, TIRE SPOTTER NOEMI Primary Care Unavailable ROBERTO ., DR ISHMAEL Zuniga Attending Unavailable JOSEPH CAROLINE Pierce Consulting Unavailable AICHHOLZ, TIRE SPOTTER NOEMI Primary Care Unavailable NADEREJen, DR CRISTOPHER Gibson Consulting Unavailable JEY, DR CRISTOPHER Gibson Admitting Unavailable JEY, DR CRISTOPHER Gibson Attending Unavailable FELISA ., DR ISHMAEL Zuniga Admitting Unavailable FELISA ., DR ISHMAEL Zuniga Attending Unavailable AICHHOLZ, TIRE SPOTTER NOEMI Primary Care Unavailable LUISEBSTANLEY, DR JACKIE Li Consulting Unavailable FELISA ., DR ISHMAEL Zuniga Consulting Unavailable AICHHOLZ, TIRE SPOTTER NOEMI Attending Unavailable AICHHOLZ, TIRE SPOTTER NOEMI Consulting Unavailable AICHHOLZ, TIRE SPOTTER NOEMI Admitting Unavailable AICHHOLZ, TIRE SPOTTER NOEMI Primary Care Unavailable ROBERTO ., DR ISHMAEL Zuniga Attending Unavailable ROBERTO ., DR ISHMAEL Zuniga Admitting Unavailable AICHHOLZ, TIRE SPOTTER NOEMI Primary Care Unavailable WEST, DR NIKA Montague Consulting Unavailable FELISA ., DR ISHMAEL Zuniga Consulting Unavailable MISC, DR GIPSON Attending Unavailable MISC, DR GIPSON Consulting Unavailable AICHHOLZ, TIRE SPOTTER NOEMI Primary Care Unavailable MISC, DR GIPSON Admitting Unavailable MACIEL SUH Consulting Unavailable MISC, DR GIPSON Attending Unavailable MISC, DR GIPSON Consulting Unavailable AICHHOLZ, TIRE SPOTTER NOEMI Primary Care Unavailable MISC, DR GIPSON Admitting Unavailable WEST, DR NIKA Montague Consulting Unavailable AICHHOLZ, TIRE SPOTTER NOEMI Admitting Unavailable AICHHOLZ, TIRE SPOTTER NOEMI Attending Unavailable AICHHOLZ, TIRE SPOTTER NOEMI Primary Care Unavailable AICHHOLZ, TIRE SPOTTER NOEMI Consulting Unavailable AICHHOLZ, TIRE SPOTTER NOEMI Primary Care Unavailable AICHHOLZ, TIRE SPOTTER NOEMI Admitting Unavailable AICHHOLZ, TIRE SPOTTER NOEMI Attending Unavailable WEST, DR NIKA Montageu Consulting Unavailable AICHHOLZ, TIRE SPOTTER NOEMI Consulting Unavailable ROBERTO ., DR ISHMAEL Zuniga Attending Unavailable ROBERTO ., DR ISHMAEL Zuniga Consulting Unavailable FELISA ., DR ISHMAEL Zuniga Admitting Unavailable AICHHOLZ, TIRE SPOTTER NOEMI Primary Care Unavailable AICHHOLZ, TIRE SPOTTER NOEMI Primary Care Unavailable AICHHOLZ, TIRE SPOTTER NOEMI Attending Unavailable AICHHOLZ, TIRE SPOTTER NOEMI Consulting Unavailable AICHHOLZ, TIRE SPOTTER NOEMI Admitting Unavailable Celi Walker Consulting Unavailable AICHHOLZ, TIRE SPOTTER NOEMI Attending Unavailable AICHHOLZ, TIRE SPOTTER NOEMI Consulting Unavailable AICHHOLZ, TIRE SPOTTER NOEMI Primary Care Unavailable AICHHOLZ, TIRE SPOTTER NOEMI Admitting Unavailable GREGG, DR JACKIE Li Consulting Unavailable WHITNEY GOODMAN Primary Care Unavailable JG, DR MOLLY Lipscomb Consulting Unavaillisa e JG, DR MOLLY Lipscomb Admitting Unavailabl e JG, DR MOLLY Lipscomb Attending Unavailabl e FELISA ., DR ISHMAEL Zuniga Attending Unavailable FELISA ., DR ISHMAEL Zuniga Admitting Unavailable AICHHOLZ, TIRE SPOTTER NOEMI Primary Care Unavailable AICHHOLZ, TIRE SPOTTER NOEMI Admitting Unavailable AICHHOLZ, TIRE SPOTTER NOEMI Attending Unavailable ROSS, WHITNEY BEVERLY Primary Care Unavailable FELISA ., DR ISHMAEL Zuniga Attending Unavailable FELISA ., DR ISHMAEL Zuniga Admitting Unavailable AICHHOLZ, TIRE SPOTTER NOEMI Primary Care Unavailable GREGG, DR JACKIE Li Consulting Unavailable ROBERTO ., DR ISHMAEL Zuniga Consulting Unavailable ROSS, WHITNEY BEVERLY Primary Care Unavailable FELISA ., DR ISHMAEL Zuniga Attending Unavailable FELISA ., DR ISHMAEL Zuniga Consulting Unavailable FELISA ., DR ISHMAEL Zuniga Admitting Unavailable HASMUKH, VIPUL Referring Unavailable HASMUKH, VIPUL Attending Unavailable HASMUKH, VIPUL Attending Unavailable HASMUKH, VIPUL Attending Unavailable HASMUKH, VIPUL Attending Unavailable HASMUKH, VIPUL Attending Unavailable HASMUKH, VIPUL Referring Unavailable HASMUKH, VIPUL Referring Unavailable HASMUKH, VIPUL Referring Unavailable HASMUKH, VIPUL Referring Unavailable Aichholz INSTALLATION TECH, Noemi Unavailable Cristopher Harvey MD Primary Care Provider [phone] DO Jose Lara Emergency Provider [phone] NON STAFF Primary Care Provider UnavailMD Favian Cho Admit Provider MD Favian Damon Attending Provider DO Sergio Dailey A Other Provider [phone] LORETO Armando Other Provider Unavailable LORETO Engel Other Provider Unavailable LORETO Barnes Other Provider Unavailable LORETO Osullivan Other Provider Unavailable LORETO Goodman Other Provider Unavailable MD Mekhi Mcleod Other Provider DO Arina Guzman Other Provider MD Mika Mena Other Provider [phone] DO Justin Coats Other Provider [phone] MD Fernandez Leon Other Provider [phone] MD Sharon Myers Other Provider MD Kris Mitchell Other Provider Unavailable ENA Marte Other Provider [phone] MD Mansoor Feldman Other Provider MD Francis Marrero Other Provider MD Lora Meek Other Provider MD Mitul Dupont Other Provider DO Power Garcia Other Provider MD Crystal Craven Other Provider MD Tani Simpson Other Provider JEREMY MccormickC Taty Sue Other Provider ENA Hinton Other Provider Unavailable MD Bolivar Gomes Other Provider MD Ruiz Hassan Other Provider MD Jermaine Hernández Other Provider MD Eyal Phipps Other Provider Unavailable MD Rashaun Squires Other Provider DO Gayle Hull Other Provider DO Lj Elizabeth Other Provider ENA Lozada Other Provider DO Prieto Reed Other Provider MD Andres Matuteayjose M Other Provider ENA Worley Other Provider ENA Esquivel Other Provider MD Leatha Contreras Other Provider MD Irving Tucker Other Provider DO Sonia Au Other Provider DO Pavithra Huitron Other Provider MD Mata Hernández P Other Provider MD Jolene Fox Other Provider ENA Hinojosa Other Provider MD Bobo Seo Other Provider MD Rodrigo Eli Other Provider LORETO Miranda Other Provider Unavailable MD Ev Sandra Other Provider MD August Alexandra Other Provider Adalberto WEB DEVELOPMENT INTERN Pia Other Provider [phone] DO Natalio Aguilera Jr Other Provider MD Gus Quesada Other Provider [phone] MD August Alexandra Admit Provider MD August Alexandra Attending Provider DO Sergio Dailey Attending Provider Aichholz INSTALLATION TECH, Noemi Unavailable Adalberto, WEB DEVELOPMENT INTERN Pia Other Provider NON STAFF Primary Care Provider Unavailabl e Sergio Dailey DO Attending Provider AICHHOLZ, NOEMI Attending Unavailable SONIA CELAYA Attending Unavailable AICHHOLZ, NOEMI Referring Unavailable BLACKSTON, HAMIDA T Attending Unavailable DARRYN, AUGUST Referring Unavailable AICHHOLZ, NOEMI Attending Unavailable KELBLEY, LIGIA Attending Unavailable DARRYN, AUGUST Referring Unavailable BLACKSTON, HAMIDA T Attending Unavailable DARRYN, AUGUST Referring Unavailable KELBLEY, LIGIA Attending Unavailable DARRYN, AUGUST Referring Unavailable KELBLEY, LIGIA Attending Unavailable DARRYN, AUGUST Referring Unavailable BLACKSTON, HAMIDA T Attending Unavailable DARRYN, AUGUST Referring Unavailable KELBLEY, LIGIA Attending Unavailable DARRYN, AUGUST Referring Unavailable KELBLEY, LIGIA Attending Unavailable DARRYN, AUGUST Referring Unavailable BRINK, LOREN Attending Unavailable DARRYN, AUGUST Referring Unavailable AICHHOLZ, NOEMI Attending Unavailable KELBLEY, LIGIA Attending Unavailable DARRYN, AUGUST Referring Unavailable JOHNATHON FERRARI Attending Unavailable DARRYN, AUGUST Referring Unavailable BRINK, LOREN Attending Unavailable DARRYN, AUGUST Referring Unavailable BLACKSTON, HAMIDA T Attending Unavailable DARRYN, AUGUST Referring Unavailable KELBLEY, LIGIA Attending Unavailable AICHHOLZ, NOEMI Referring Unavailable KELBLEY, LIGIA Attending Unavailable DARRYN, AUGUST Referring Unavailable BRLOREN PUGH Attending Unavailable DARRYN, AUGUST Referring Unavailable KELBLEY, LIGIA Attending Unavailable DARRYN, AUGUST Referring Unavailable KELBLEY, LIGIA Attending Unavailable DARRYN, AUGUST Referring Unavailable BLACKSTONHAMIDA Attending Unavailable DARRYN, AUGUST Referring Unavailable KELBLEY, LIGIA Attending Unavailable DARRYN, AUGUST Referring Unavailable KELBLEY, LIGIA Attending Unavailable DARRYN, AUGUST Referring Unavailable KELBLEY, LIGIA Attending Unavailable DARRYN, AUGUST Referring Unavailable KELBLEY, LIGIA Attending Unavailable DARRYN, AUGUST Referring Unavailable KELBLEY, LIGIA Attending Unavailable DARRYN, AUGUST Referring Unavailable BRLOREN PUGH Attending Unavailable DARRYN, AUGUST Referring Unavailable KELBLEY, LIGIA Attending Unavailable DARRYN, AUGUST Referring Unavailable JING ROBIN Attending Unavailable MACARENA, SERGIO Referring Unavailable BLACKSTON, JING Attending Unavailable MACARENA, SERGIO Referring Unavailable Macarena, Sergio A Attending Unavailable Macarena Sergio A Admitting Unavailable NON STAFF Primary Care Unavailable Favian Damon Admitting Unavailable Sergio Dailey A Consulting Unavailable Favian Damon Attending Unavailable NON STAFF Primary Care Unavailable Sally Armando Consulting Unavailable Radha Engel Consulting Unavailable Denselise, Jessica Consulting Unavailable Barbara Osullivan Consulting Unavailable Edyta Goodman Consulting Unavailable Mekhi Mcleod Consulting Unavailable Arina Guzman Consulting Unavailable Mika Mena Consulting Unavailable Justin Coats Consulting Unavailabl Fernandez Cormier Consulting Unavailable Louis, Sharon Consulting Unavailable Kris Mitchell Consulting Unavailable Nurys Marte Consulting Unavailabl e Wassodylan, Marwan Consulting Unavailable Zrairosalia, Francis Consulting Unavailable Meek, Lora Consulting Unavailable Toshia Dupontwan Consulting Unavailable Power Garcia Consulting Unavailable Crystal Craven Consulting Unavailable Tani Simpson Consulting Unavailable Taty Mccormick Consulting Unavailable Meryl Hinton Consulting Unavailable Bolivar Gomes Consulting Unavailab Ruiz Laughlin Consulting Unavailable Jermaine Hernández Consulting Unavailable Eyal Phipps Consulting Unavailable Tavia Rashaun Consulting Unavailable Gayle Hull Consulting Unavailable Lj Elizabeth Consulting Unavailable Obhardy Lissette Consulting Unavailable Prieto Reed Consulting Unavailable Daromar, Obaydah M Consulting Unavailable Toshia Worley Consulting Unavailable Elizabeth Esquivel Consulting Unavailable Leatha Contreras Consulting Unavailable Irving Tucker Consulting Unavailable Sonia Au Consulting Unavailable Pavithra Huitron Consulting Unavailable Mata Hernández Consulting Unavailable Jolene Fox Consulting Unava ilable Ashleigh Hinojosa Consulting Unavailable Bobo Seo Consulting Unavailable Rodrigo Eli Consulting Unavailable Monica Miranda Consulting Unavailable Ev Sandra Consulting Unavailable August Alexandra Consulting Unavailable Pia Glover Consulting Unavailable Natalio Aguilera Jr Consulting UnavailGus Haider Consulting Unavaila August Conley Admitting Unavailable Sally Armando Consulting Unavailable August Alexandra Attending Unavailable NON STAFF Primary Care Unavailable Radha Engel Consulting Unavailable Jessica Barnes Consulting Unavailable Barbara Osullivan Consulting Unavailable Edyta Goodman Consulting Unavailable Mekhi Mcleod Consulting Unavailable Arina Guzman Consulting Unavailable Mika Mena Consulting Unavailable Justin Coats Consulting UnavailFernandez Thapa Consulting Unavailable Sharon Myers Consulting Unavailable Kris Mitchell Consulting Unavailable Nurys Marte Consulting UnavailMansoor Villalpando Consulting Unavailable Francis Marrero Consulting Unavailable Lora Meek Consulting Unavailable Mitul Dupont Consulting Unavailable Power Garcia Consulting Unavailable Crystal Craven Consulting Unavailable Tani Simpson Consulting Unavailable Taty Mccormick Consulting Unavailable Meryl Hinton Consulting Unavailable Bolivar Gomes Consulting Unavailab Ruiz Laughlin Consulting Unavailable Jermaine Hernández Consulting Unavailable Eyal Phipps Consulting Unavailable Tavia Rashaun Consulting Unavailable Gayle Hull Consulting Unavailable Lj Elizabeth Consulting Unavailable Lissette Lozada Consulting Unavailable Prieto Reed Consulting Unavailable Anne Matute Consulting Unavailable Toshia Worley Consulting Unavailable Elizabeth Esquivel Consulting Unavailable Ben Alaa Consulting Unavailable Irving Tucker Consulting Unavailable Sonia Au Consulting Unavailable Tomy, Pavithra Consulting Unavailable Mata Hernández Consulting Unavailable Jolene Fox Consulting Unava ilable Ashish, Ashleigh Consulting Unavailable Rayray, Bobo Consulting Unavailable Rodrigo Eli Consulting Unavailable Monica Miranda Consulting Unavailable Macarena, Sergio A Admitting Unavailable Macarnea, Sergio A Attending Unavailable NON STAFF Primary Care Unavailable Macarena, Sergio A Attending Unavailable Macarena, Sergio A Admitting Unavailable NON STAFF Primary Care Unavailable Macarena, Sergio A Attending Unavailable Macarena, Sergio A Admitting Unavailable NON STAFF Primary Care Unavailable Macarena, Sergio A Admitting Unavailable Macarena, Sergio A Attending Unavailable NON STAFF Primary Care Unavailable Allergies Allergy Classification Reported Allergen(s) Allergy Type Date of Onset Reaction(s) Facility (1 source) Penicillin Drug Allergy 2 [facility] Repository (1 source) Iodine (And Iodine Containting Drugs) Drug allergy (disorder) 5 [facility] Repository (1 source) Nalbuphine Drug Allergy 5 [facility] Repository (1 source) Penicillins Drug allergy (disorder) 5 [facility] Repository (1 source) SITagliptin Drug Allergy [facility] Repository (1 source) Aminosyn (old formula) Drug allergy (disorder) [facility] Repository (20 sources) Iodine; Translations: [IODINE] Drug Allergy 2 [facility] Repository (20 sources) Nalbuphine; Translations: [NALBUPHINE] Drug Allergy 2 [facility] Repository (20 sources) Penicillins Propensity to adverse reactions 3 Hives [facility] (20 sources) Aminosyn Ii Propensity to adverse reactions 3 [facility] (20 sources) metFORMIN Drug Allergy 4 GI intolerance [facility] (20 sources) SITagliptin Drug Allergy 4 Unknown [facility] (20 sources) Iodinated Contrast Media Drug Allergy 4 Unknown [facility] Work Phone: (1 source) Penicillins Drug allergy (disorder) 4 [facility] Repository Medications Current Medications Medication Drug Class(es) Dates Sig (Normalized) Sig (Original) acetaminophen 500 mg oral tablet (20 sources) Start: 03-08-2024 take 2 tablets by mouth in the morning, then take 2 tablets by mouth in the evening, then take 2 tablets by mouth at bedtime Acetaminophen Extra Strength 500 MG tablet Take 2 tablets by mouth in the morning and 2 tablets in the evening and 2 tablets before bedtime. 03/08/2024 Active Start: 03-08-2024 take 1000 mg by mout h three times daily Acetaminophen Active 1000 MG PO Three times daily 90 March 08, 2024 12:00am ascorbic acid 500 mg chewable tablet (20 sources) Vitamin C Start: 03-08-2024 take 1 tablet by mouth in the morning [facility] Vitamin C 500 MG tablet Take 500 mg by mouth in the morning and 500 mg before bedtime. 03/08/2024 Active Start: 02-24-2024 End: 03-08-2024 take 1 tablet by mouth twice daily at mealtime Ascorbic Acid (Vitamin C) (Vitamin C) 500 mg Tablet Active 500 MG PO Twice daily with meals 60 30 March 07, 2024 11:00pm atorvastatin 80 mg oral tablet (20 sources) HMG-CoA Reductase Inhibitor Start: 06-05-2023 End: 07-05-2024 take 1 tablet by mouth at bedtime atorvastatin (Lipitor) 80 MG tablet Indications: Mixed hyperlipidemia (CMS/HCC) Take 1 tablet (80 mg) by mouth at bedtime 90 tablet 1 04/06/2024 Active baclofen 10 mg oral tablet (3 sources) gamma-Aminobutyric Acid-ergic Agonist End: 10-02-2023 take 0.5 tablet by mouth in the morning baclofen (Lioresal) 10 MG tablet Take 10 mg by mouth in the morning and 10 mg before bedtime. 1/2 tablet bid per pain mgmt. 0 10/02/2023 Discontinued (Ineffective) cetirizine hydrochloride 10 mg oral tablet (20 sources) Histamine-1 Receptor Antagonist Start: 10-02-2023 End: 07-05-2024 take 1 tablet by mouth once daily cetirizine (ZyrTEC) 10 MG tablet Indications: Chronic pruritus Take 1 tablet (10 mg) by mouth Daily 90 tablet 1 04/06/2024 Active DULoxetine 30 mg delayed release oral capsule (3 sources) Serotonin and Norepinephrine Reuptake Inhibitor Start: 07-30-2023 End: 10-02-2023 take 1 capsule by mouth once daily DULoxetine (Cymbalta) [address] capsule Indications: Lumbar radiculopathy TAKE 1 CAPSULE BY MOUTH DAILY 90 capsule 1 07/30/2023 10/02/2023 Discontinued (Ineffective) ezetimibe 10 mg oral tablet (20 sources) Dietary Cholesterol Absorption Inhibitor Start: 06-05-2023 End: 07-05-2024 take 1 tablet by mouth once daily ezetimibe (Zetia) 10 MG tablet Indications: Mixed hyperlipidemia (CMS/HCC) Take 1 tablet (10 mg) by mouth Daily 90 tablet 1 04/06/2024 Active fluticasone propionate 0.05 mg/actuat metered dose nasal spray (20 sources) Corticosteroid Start: 04-06-2024 End: 07-05-2024 take 2 spray(s) nasal route once daily fluticasone (Flonase) 50 MCG/ACT nasal spray Indications: Allergic rhinitis, unspecified seasonality, unspecified trigger Administer 2 sprays into each nostril Daily 48 g 1 04/06/2024 Active Start: 02-05-2023 End: 04-06-2024 take 2 spray(s) nasal route in the morning, then take 2 spray(s) nasal route once daily fluticasone (Flonase) 50 MCG/ACT nasal spray Indications: Allergic rhinitis, unspecified seasonality, unspecified trigger Administer 2 sprays into each nostril in the morning. 2 sprays each nostril once a day. 3 g 10/07/2023 04/06/2024 Discontinued (Reorder) gabapentin 300 mg oral capsule (3 sources) Anti-epileptic Agent Start: 02-13-2023 End: 10-02-2023 gabapentin (Neurontin) 300 MG capsule hydrOXYzine hydrochloride 25 mg oral tablet (20 sources) Antihistamine Start: 10-14-2023 hydrOXYzine HC l (Atarax) 25 MG tablet Take 25 mg by mouth as needed at bedtime for itching 10/14/2023 Active Insulin Aspart U-100 (Novolog Flexpen U-100 Insulin) 100 unit/mL (3 mL) Insulin Pen (9 sources) Start: 03-08-2024 Insulin Aspart U-100 (Novolog Flexpen U-100 Insulin) 100 unit/mL (3 mL) Insulin Pen Active 0 UNIT SUBCUT 3X/Day with meals and bedtime March 07, 2024 11:00pm Please contact the information source for Protocol details. Start: 03-08-2024 Insulin Aspart U-100 (Novolog Flexpen U-100 Insulin) 100 unit/mL (3 mL) Insulin Pen Active 0 UNIT SUBCUT 3X/Day with meals and bedtime March 08, 2024 12:00am loratadine 10 mg oral tablet (3 sources) Start: 02-05-2023 End: 10-02-2023 take 1 tablet by mouth in the morning loratadine (Claritin) 10 MG tablet Take 10 mg by mouth in the morning. 0 02/05/2023 10/02/2023 Discontinued (Therapy completed) 24 hr metFORMIN hydrochloride 500 mg extended release oral tablet (20 sources) Biguanide Start: 02-20-2024 End: 03-08-2024 take 1 tablet by mouth once daily at breakfast Metformin 500 mg Tablet Active 500 MG PO Daily with breakfast March 07, 2024 11:00pm Start: 07-30-2023 End: 07-05-2024 take 2 tablets by mouth every twenty-four hours in the morning metFORMIN XR (Glucophage-XR) 500 MG 24 hr tablet Indications: Type 2 diabetes mellitus without complication, without long-term current use of insulin ([facility]) Take 2 tablets (1,000 mg) by mouth in the morning and 2 tablets (1,000 mg) before bedtime. 360 tablet 1 04/06/2024 Active ofloxacin 3 mg/ml otic solution (7 sources) Quinolone Antimicrobial Start: 04-06-2024 End: 04-13-2024 ofloxacin (Floxin) 0.3 % otic solution Indications: Acute otitis externa of right ear, unspecified type Administer 10 drops into the right ear Daily for 7 days 5 mL 04/06/2024 04/13/2024 Active oxyCODONE hydrochloride 5 mg oral tablet (20 sources) Opioid Agonist Start: 02-24-2024 End: 03-08-2024 take 1 tablet by mouth every four hours as needed for pain Oxycodone 5 mg Tablet Active 5 MG PO Every 4 hours as needed for Pain Scale 1 - 5 28 7 March 08, 2024 Start: 02-24-2024 End: 03-08-2024 take 2 tablets by mouth every four hours as needed for pain Oxycodone 5 mg Tablet Discontinued 10 MG PO Every 4 hours as needed for Pain Scale 6 - 10 0 February 24, 2024 March 08, 2024 8:04am Start: 02-24-2024 End: 03-08-2024 take 10 mg by mouth every four hours Oxycodone Discontinued 10 MG PO Every 4 hours 0 February 24, 2024 March 08, 2024 9:04am pioglitazone 15 mg oral tablet (20 sources) Peroxisome Proliferator Receptor alpha Agonist, Peroxisome Proliferator Receptor gamma Agonist, Thiazolidinedione Start: 02-20-2024 End: 07-05-2024 take 1 tablet by mouth once daily pioglitazone (Actos) 15 MG tablet Indications: Type 2 diabetes mellitus without complication, without long-term current use of insulin (CMS/HCC) Take 1 tablet (15 mg) by mouth Daily 90 tablet 1 04/06/2024 Active Start: 07-30-2023 End: 12-31-2023 take 1 tablet by mouth in the morning pioglitazone (Actos) 15 MG tablet Indications: Type 2 diabetes mellitus without complication, without long-term current use of insulin (CMS/HCC) Take 1 tablet (15 mg) by mouth in the morning. 90 tablet 1 10/02/2023 12/31/2023 Active polyethylene glycol 3350 41436 mg powder for oral solution (9 sources) Osmotic Laxative Start: 03-08-2024 Polyethylene Glycol 3350 (Healthylax) 17 gram Powder In Packet Active 17 GM PO Twice daily March 07, 2024 11:00pm triamcinolone acetonide 1 mg/ml topical cream (20 sources) Corticosteroid Start: 10-14-2023 triamcinolone (Kenalog) 0.1 % cream APPLY TO AFFECTED AREAS DAILY, THEN NEEDED FOR FLARES. 10/14/2023 Active 100 ml zoledronic acid 0.05 mg/ml injection (20 sources) Bisphosphonate zoledronic acid (Reclast) 5 MG/100ML solution Indications: Osteoporosis Infuse 5 mg into a venous catheter 1 (one) time Active zonisamide 50 mg oral capsule (20 sources) Anti-epileptic Agent Start: 07-08-2023 take 1 capsule by mouth at bedtime zonisamide (Zonegran) 50 MG capsule Take 50 mg by mouth at bedtime 07/08/2023 Active End: 10-02-2023 take 15 mg by mouth at bedtime Zonisamide (ZONEGRAN PO ) Take 15 mg by mouth at bedtime 0 10/02/2023 Discontinued (Ineffective) take 15 mg by mouth at bedtime Z onisamide (ZONEGRAN PO) Take 15 mg by mouth at bedtime 0 Active Completed/Discontinued Medications Medication Drug Class(es) Dates Sig (Normalized) Sig (Original) Repaglinide-Metfor min (9 sources) Start: 02-20-2024 End: 03-08-2024 take 5 tablets by mouth once daily Repaglinide-Metform in Discontinued 5 TAB PO Daily February 20, 2024 12:00am March 08, 2024 9:04am Start: 02-20-2024 take 5 tablets by mo uth once daily Repaglinide-Metformin Active 5 TAB PO Daily February 20, 2024 12:00am Repaglinide-Metformin 2-500 mg tablet (2 sources) Start: 02-20-2024 End: 03-08-2024 take 5 tablets by mouth once daily Repaglinide-Metformin 2-500 mg tablet Discontinued 5 TAB PO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 #### G LULS ####Point of Care testing, Glucose Poct Glucometerson 0 03-07-2024 Glucose [Mass/Vol] 156 mg/dL Normal [facility] Comment on above: Result Comment: [place] [facility] Glucose Reference Range is dependent on time and content of last meal. Glucose of more than 200 mg/dL in a nonstressed, ambulatory subject supports the diagnosis of Diabetes Mellitus. PERFORMED BY: [place] [address] PATHOLOGIST [employer]UOUS [employer]OVEMENT LEAD GABRIEL ALVARADO M.D. Performed By: #### G LULS ####Point of Care testing, Commemt1 Glu2: Cleaned Meter Normal [facility] Comment on above: Result Comment: PERF ORMED BY: [address] [place] [id number] PATHOLOGIST CONTINUOUS IMPROVEMENT LEAD GABRIEL ALVARADO M.D. Performed By: #### G LULS ####Point of Care testing, Glucose [Mass/Vol] 111 mg/dL Normal [facility] Comment on above: Result Comment: [place] [facility] Glucose Reference Range is dependent on time and content of last meal. Glucose of more than 200 mg/dL in a nonstressed, ambulatory subject supports the diagnosis of Diabetes Mellitus. Performed By: #### G LULS ####Point of Care testing, Glucose [Mass/Vol] 124 mg/dL Normal [facility] Comment on above: Result Comment: [place] [facility] Glucose Reference Range is dependent on time and content of last meal. Glucose of more than 200 mg/dL in a nonstressed, ambulatory subject supports the diagnosis of Diabetes Mellitus. PERFORMED BY: [address] [place] [id number] PATHOLOGIST CONTINU[employer] IMPROVEMENT LEAD GABRIEL ALVARADO M.D. Performed By: #### G LULS ####Point of Care testing, Commemt1 Glu2: Cleaned Meter Normal [facility] Comment on above: Result Comment: PERF ORMED BY: [facility] [address] [place] [address] PATHOLOGIST [employer]OUS [employer]OVEMENT LEAD GABRIEL ALVARADO M.D. Performed By: #### G LULS ####Point of Care testing, Glucose [Mass/Vol] 127 mg/dL Normal [facility] Comment on above: Result Comment: [place] [facility] Glucose Reference Range is dependent on time and content of last meal. Glucose of more than 200 mg/dL in a nonstressed, ambulatory subject supports the diagnosis of Diabetes Mellitus. Performed By: #### G LULS ####Point of Care testing, No Panel InformationOrdered By: August Alexandra on 03-07-2024 Bedside Glucose Comment Glu2: cleaned meter [facility] Glucose Poct Glucometerson 0 03-06-2024 Glucose [Mass/Vol] 158 mg/dL Normal [facility] Comment on above: Result Comment: [place] [facility] Glucose Reference Range is dependent on time and content of last meal. Glucose of more than 200 mg/dL in a nonstressed, ambulatory subject supports the diagnosis of Diabetes Mellitus. PERFORMED BY: [facility] [address] [address] PATHOLOGIST CONTINUOUS IMPROVEMENT LEAD GABRIEL ALVARADO M.D. Performed By: #### G LULS ####Point of Care testing, Glucose [Mass/Vol] 116 mg/dL Normal [facility] Comment on above: Result Comment: [place] [facility] Glucose Reference Range is dependent on time and content of last meal. Glucose of more than 200 mg/dL in a nonstressed, ambulatory subject supports the diagnosis of Diabetes Mellitus. PERFORMED BY: [facility] [address] [address] PATHOLOGIST CONTINUOUS IMPROVEMENT LEAD GABRIEL ALVARADO M.D. Performed By: #### G LULS ####Point of Care testing, Glucose [Mass/Vol] 115 mg/dL Normal [facility] Comment on above: Result Comment: [place] [facility] Glucose Reference Range is dependent on time and content of last meal. Glucose of more than 200 mg/dL in a nonstressed, ambulatory subject supports the diagnosis of Diabetes Mellitus. PERFORMED BY: [facility] [address] [place] [address] PATHOLOGIST CONT[employer]OUS IMPROVEMENT LEAD GABRIEL ALVARADO M.D. Performed By: #### G LULS ####Point of Care testing, Commemt1 Glu2: Cleaned Meter Normal [facility] Comment on above: Result Comment: PERF ORMED BY: [facility] [address] [place] [address] PATHOLOGIST CONT[employer]OUS IMPROVEMENT LEAD GABRIEL ALVARADO M.D. Performed By: #### G LULS ####Point of Care testing, Glucose [Mass/Vol] 131 mg/dL Normal [facility] Comment on above: Result Comment: [facility] Glucose Reference Range is dependent on time and content of last meal. Glucose of more than 200 mg/dL in a nonstressed, ambulatory subject supports the diagnosis of Diabetes Mellitus. Performed By: #### G LULS ####Point of Care testing, Automated basophil %Ordered By: Gus Quesada on 03-05-2024 Basophils/100 WBC (Bld) 0.9 % Normal . [facility] Comment on above: Performed By: #### B MP, CBC ####[address] Automated basophil countOrde red By: Gus Quesada on 03-05-2024 Basophils (Bld) [#/Vol] 0.1 10*3/uL Normal 0.0-0.2 [facility] Comment on above: Result Comment: PERF ORMED BY: [facility] [address] [place] [address] PATHOLOGIST CONTIN[employer]OUS IM[employer]OVEMENT LEAD GABRIEL ALVARADO M.D. Performed By: #### B MP, CBC ####[address] Automated blood monocyte cou ntOrdered By: Gus Quesada on 03-05-2024 Monocytes (Bld) [#/Vol] 0.4 10*3/uL Normal 0.0-0.8 [facility] Comment on above: Performed By: #### B MP, CBC ####[place] [id number] [address] Automated eosinophil %Ordere d By: Gus Quesada on 03-05-2024 Eosinophils/100 WBC (Bld) 2.7 % Normal . [facility] Comment on above: Performed By: #### B MP, CBC ####[address] Automated eosinophil countOr dered By: Gus Quesada on 03-05-2024 Eosinophils (Bld) [#/Vol] 0.2 10*3/uL Normal 0.0-0.45 [facility] Comment on above: Performed By: #### B MP, CBC ####[address] Automated monocyte %Ordered By: Gus Quesada on 03-05-2024 Monocytes/100 WBC (Bld) 5.8 % Normal . [facility] Comment on above: Performed By: #### B MP, CBC ####[address] Automated neutrophil %Ordere d By: Gus Quesada on 03-05-2024 Neutrophils/100 WBC (Bld) 67.9 % Normal . [facility] Comment on above: Performed By: #### B MP, CBC ####[address] Basic Metabolic Panelon 02-15 Creatinine Clr Calc Pharmacy 58.40 Normal [facility] Comment on above: Result Comment: PERF ORMED BY: [facility] [address] [place] [id number] PATHOLOGIST [employer]OUS IMPROVEMENT LEAD GABRIEL ALVARADO M.D. Performed By: #### B MP, CBC ####[address] GFR/1.73 sq M.predicted MDRD (S/P/Bld) [Vol rate/Area] mL/min/{1.73_m2} Normal [facility] Comment on above: Performed By: #### B MP, CBC ####[place] [id number] [place] Calcium [Mass/volume] in Ser um or PlasmaOrdered By: Gus Quesada on 03-05-2024 Calcium [Mass/Vol] 8.1 mg/dL Low 8.6-10.3 [facility] Comment on above: Performed By: #### B MP, CBC ####[address] Carbon dioxide, total [Moles /volume] in Serum or PlasmaOrdered By: Gus Quesada on 03-05-2024 CO2 [Moles/Vol] 24.2 mmol/L Normal 21.0-31.0 [facility] Comment on above: Performed By: #### B MP, CBC ####[address] Chloride [Moles/volume] in S john or PlasmaOrdered By: Gus Quesada on 03-05-2024 Chloride [Moles/Vol] 108 mmol/L High 98-107 [facility] Comment on above: Performed By: #### B MP, CBC ####[address] Complete Blood Count Auto Di ffon 03-05-2024 Mean Corpuscular HGB Conc 34.4 g/dL Normal 32.0-35.0 [facility] Comment on above: Performed By: #### B MP, CBC ####[address] NRBC% 0.2 /100{WBC} Normal 0-0.5 [facility] Comment on above: Performed By: #### B MP, CBC ####[address] Creatinine [Mass/volume] in Serum or PlasmaOrdered By: Gus Quesada on 03-05-2024 Creatinine [Mass/Vol] 0.56 mg/dL Low 0.60-1.20 [facility] Comment on above: Performed By: #### B MP, CBC ####[place] [address] [facility] Erythrocyte distribution wid th [Ratio] by Automated countOrdered By: Gus Quesada on 03-05-2024 Erythrocyte distribution width (RBC) [Ratio] 15.3 % Normal 11.9-15.3 [facility] Comment on above: Performed By: #### B MP, CBC ####[facility] [id number] [place] [id number] [facility] Erythrocytes [#/volume] in B lood by Automated countOrdered By: Gus Quesada on 03-05-2024 RBC (Bld) [#/Vol] 3.29 10*6/uL Low 3.60-5.00 [facility] Comment on above: Performed By: #### B MP, CBC ####[place] [address] [place] [id number] [facility] Glucose Poct Glucometerson 0 03-05-2024 Glucose [Mass/Vol] 198 mg/dL Normal [facility] Comment on above: Result Comment: [facility] Glucose Reference Range is dependent on time and content of last meal. Glucose of more than 200 mg/dL in a nonstressed, ambulatory subject supports the diagnosis of Diabetes Mellitus. PERFORMED BY: [address] [place] [address] PATHOLOGIST CONTINUOUS IMPROVEMENT LEAD GABRIEL ALVARADO M.D. Performed By: #### G LULS ####Point of Care testing, Commemt1 Glu2: Cleaned Meter Normal [facility] Comment on above: Result Comment: PERF ORMED BY: [facility] [address] [place] [address] PATHOLOGIST CONTINUOUS IMPROVEMENT LEAD GABRIEL ALVARADO M.D. Performed By: #### G LULS ####Point of Care testing, Glucose [Mass/Vol] 105 mg/dL Normal [facility] Comment on above: Result Comment: [place] Glucose Reference Range is dependent on time and content of last meal. Glucose of more than 200 mg/dL in a nonstressed, ambulatory subject supports the diagnosis of Diabetes Mellitus. Performed By: #### G LULS ####Point of Care testing, Commemt1 Glu2: Cleaned Meter Normal [facility] Comment on above: Result Comment: PERF ORMED BY: [facility] [address] [facility] [address] PATHOLOGIST CONTINUOUS IMPROVEMENT LEAD GABRIEL ALVARADO M.D. Performed By: #### G LULS ####Point of Care testing, Glucose [Mass/Vol] 128 mg/dL Normal [facility] Comment on above: Result Comment: [place] [facility] Glucose Reference Range is dependent on time and content of last meal. Glucose of more than 200 mg/dL in a nonstressed, ambulatory subject supports the diagnosis of Diabetes Mellitus. Performed By: #### G LULS ####Point of Care testing, Glucose [Mass/Vol] 108 mg/dL Normal [facility] Comment on above: Result Comment: [place] [facility] Glucose Reference Range is dependent on time and content of last meal. Glucose of more than 200 mg/dL in a nonstressed, ambulatory subject supports the diagnosis of Diabetes Mellitus. PERFORMED BY: [facility] [address] [place] [address] PATHOLOGIST CONTINUOUS IMPROVEMENT LEAD GABRIEL ALVARADO M.D. Performed By: #### G LULS ####Point of Care testing, Glucose [Mass/volume] in Ser um or PlasmaOrdered By: Gus Quesada on 03-05-2024 Glucose [Mass/Vol] 112 mg/dL High 70-100 [facility] Comment on above: ADA recommended refe rence rangeRandom Glucose Reference Range is dependent on time and content of last meal. Glucose of more than 200 mg/dL in a nonstressed, ambulatory subject supports the diagnosis of Diabetes Mellitus. Result Comment: [place] [facility] Glucose Reference Range is dependent on time and content of last meal. Glucose of more than 200 mg/dL in a nonstressed, ambulatory subject supports the diagnosis of Diabetes Mellitus. ADA recommended reference range Performed By: #### B MP, CBC ####[facility] [id number] [place] [id number] [facility] Hematocrit [Volume Fraction] of Blood by Automated countOrdered By: Gus Quesada on 03-05-2024 Hematocrit (Bld) [Volume fraction] 28.8 % Low 34.0-46.4 [facility] Comment on above: Performed By: #### B MP, CBC ####[address] Hemoglobin [Mass/volume] in BloodOrdered By: Gus Quesada on 03-05-2024 Hemoglobin (Bld) [Mass/Vol] 9.9 g/dL Low 11.8-15.4 [facility] Comment on above: Performed By: #### B MP, CBC ####[address] Leukocytes [#/volume] correc estephania for nucleated erythrocytes in Blood by Automated counOrdered By: Gus Quesada on 03-05-2024 WBC corrected for nucl RBC Auto (Bld) [#/Vol] 7.0 10*3/uL 3.8-11.6 [facility] Leukocytes [#/volume] in Blo od by Automated countOrdered By: Gus Quesada on 03-05-2024 WBC (Bld) [#/Vol] 7.0 10*3/uL Normal 3.8-11.6 [facility] Comment on above: Performed By: #### B MP, CBC ####[address] Lymphocytes [#/volume] in Bl ood by Automated countOrdered By: Gus Quesada on 03-05-2024 Lymphocytes (Bld) [#/Vol] 1.6 10*3/uL Normal 1.00-4.8 [facility] Comment on above: Performed By: #### B MP, CBC ####[address] Lymphocytes/100 leukocytes i n Blood by Automated countOrdered By: Gus Quesada on 03-05-2024 Lymphocytes/100 WBC (Bld) 22.7 % Normal . [facility] Comment on above: Performed By: #### B MP, CBC ####[address] MCH [Entitic mass] by Automa estephania countOrdered By: Gus Quesada on 03-05-2024 MCH (RBC) [Entitic mass] 30.1 pg Normal 24.7-34.3 [facility] Comment on above: Performed By: #### B MP, CBC ####[place] [id number] [address] MCHC Auto (RBC) [Mass/Vol]Or dered By: Gus Quesada on 03-05-2024 MCHC (RBC) [Mass/Vol] 34.4 g/dL 32.0-35.0 [facility] MCV [Entitic volume] by Auto mated countOrdered By: Gus Quesada on 03-05-2024 MCV (RBC) [Entitic vol] 87.6 fL Normal 80-100 [facility] Comment on above: Performed By: #### B MP, CBC ####[address] Neutrophils [#/volume] in Bl ood by Automated countOrdered By: Gus Quesada on 03-05-2024 Neutrophils (Bld) [#/Vol] 4.8 10*3/uL Normal 1.8-7.7 [facility] Comment on above: Performed By: #### B MP, CBC ####[address] No Panel InformationOrdered By: Gus Quesada on 03-05-2024 Estimated GFR (CKD-EPI) > 60.0 mL/Min [facility] Creatinine Clearance (Chem 58.40 [facility] Nucleated erythrocytes [Pres ence] in Blood by Automated countOrdered By: Gus Quesada on 03-05-2024 Nucleated RBC Auto Ql (Bld) 0.2 /100{WBC} 0-0.5 [facility] Platelet mean volume [Entiti c volume] in Blood by Automated countOrdered By: Gus Quesada on 03-05-2024 Platelet mean volume (Bld) [Entitic vol] 7.7 fL Normal 6.3-10.7 [facility] Comment on above: Performed By: #### B MP, CBC ####[place] [id number] [facility] Platelets [#/volume] in Bloo d by Automated countOrdered By: Gus Quesada on 03-05-2024 Platelets (Bld) [#/Vol] 285 10*3/uL Normal 150-450 [facility] Comment on above: Performed By: #### B MP, CBC ####[place] [id number] [facility] Potassium [Moles/volume] in Serum or PlasmaOrdered By: Gus Quesada on 03-05-2024 Potassium [Moles/Vol] 3.9 mmol/L Normal 3.5-5.1 [facility] Comment on above: Performed By: #### B MP, CBC ####[address] Serum or plasma anion gap de terminationOrdered By: Gus Quesada on 03-05-2024 Anion gap [Moles/Vol] 7.7 mmol/L Normal 6.0-15.0 [facility] Comment on above: Performed By: #### B MP, CBC ####[address] Sodium [Moles/volume] in Ser um or PlasmaOrdered By: Gus Quesada on 03-05-2024 Sodium [Moles/Vol] 136 mmol/L Normal 136-145 [facility] Comment on above: Performed By: #### B MP, CBC ####[place] [id number] [facility] Urea nitrogen [Mass/volume] in Serum or PlasmaOrdered By: Gus Quesada on 03-05-2024 Urea nitrogen [Mass/Vol] 19 mg/dL Normal 7-25 [facility] Comment on above: Performed By: #### B MP, CBC ####[address] [address] [facility] COVID CepheidOrdered By: Chr rebeca Quesada on 03-04-2024 SARS-CoV-2 (COVID-19) Ab IA Ql Negative Negative [facility] Comment on above: This is a duplicate Cepheid Xpert Xpress CoV-2/Flu/RSV Plus RNA by RT-PCR result to be used for statistical tracking purpose only. SARS-CoV-2 (COVID-19) RNA BLAS+probe Ql (Unsp spec) [facility] COVID-19 / Flu A/B / RSV PCR on 03-04-2024 SARS-CoV-2 (COVID-19) RNA BLAS+probe Ql (Unsp spec) COVID-19 Cepheid Result Negative for SARS-CoV-2 RNA by RT-PCR Flu A Cepheid Result Negative for Flu A RNA by RT-PCR Flu B Cepheid Result Negative for Flu B RNA by RT-PCR RSV Cepheid Result Negative for RSV RNA by RT-PCR COVID19 Blank Space -- Reference: Negative COVID19 Blank Space -- Cepheid Disclaimer The Cepheid Xpert Xpress CoV-2/Flu/RSV Plus has Cepheid Disclaimer not been FDA cleared or approved; this test has Cepheid Disclaimer been authorized by FDA under an EUA for use by Cepheid Disclaimer authorized laboratories; this test has been Cepheid Disclaimer authorized only for the simultaneous qualitative Cepheid Disclaimer detection and differentiation of nucleic acids from Cepheid Disclaimer SARS-CoV-2, influenza A, influenza B, and Cepheid Disclaimer respiratory syncytial virus (RSV), and not for any Cepheid Disclaimer other viruses or pathogens; and this test is only Cepheid Disclaimer authorized for the duration of the declaration that Cepheid Disclaimer circumstances exist justifying the authorization of Cepheid Disclaimer emergency use of in vitro diagnostic tests for Cepheid Disclaimer detection and/or diagnosis of COVID-19 under Cepheid Disclaimer Section 564(b)(1) of the Act, 21 U.S.C. 360bbb- Cepheid Disclaimer 3(b)(1), unless the authorization is terminated or Cepheid Disclaimer revoked sooner. PERFORMED BY: [address] [place] [id number] PATHOLOGIST CONTINUOUS IMPROVEMENT LEAD GABRIEL ALVARADO M.D. Normal [facility] Comment on above: Performed By: #### C EPHEID NEG, COVID19 FLU RSV ####[place] [address] [place] [id number] [facility] Cepheid COVID PCR Negativeon 03-04-2024 SARS-CoV-2 (COVID-19) RNA BLAS+probe Ql (Unsp spec) Negative Normal Negative [facility] Comment on above: Result Comment: This is a duplicate Cepheid Xpert Xpress CoV-2/Flu/RSV Plus RNA by RT-PCR result to be used for statistical tracking purpose only. PERFORMED BY: [address] [place] [id number] PATHOLOGIST CONTINUOUS IMPROVEMENT LEAD GABRIEL ALVARADO M.D. Performed By: #### C EPHEID NEG, COVID19 FLU RSV ####[place] [id number] [facility] Glucose Poct Glucometerson 0 03-04-2024 Glucose [Mass/Vol] 154 mg/dL Normal [facility] Comment on above: Result Comment: [place] Glucose Reference Range is dependent on time and content of last meal. Glucose of more than 200 mg/dL in a nonstressed, ambulatory subject supports the diagnosis of Diabetes Mellitus. PERFORMED BY: [address] [place] [id number] PATHOLOGIST CONTINUOUS IMPROVEMENT LEAD GABRIEL ALVARADO M.D. Performed By: #### G LULS ####Point of Care testing, Glucose [Mass/Vol] 110 mg/dL Normal [facility] Comment on above: Result Comment: [place] Glucose Reference Range is dependent on time and content of last meal. Glucose of more than 200 mg/dL in a nonstressed, ambulatory subject supports the diagnosis of Diabetes Mellitus. PERFORMED BY: [address] [address] PATHOLOGIST CONTINUOUS IMPROVEMENT LEAD GABRIEL ALVARADO M.D. Performed By: #### G LULS ####Point of Care testing, Glucose [Mass/Vol] 103 mg/dL Normal [facility] Comment on above: Result Comment: [place] [facility] Glucose Reference Range is dependent on time and content of last meal. Glucose of more than 200 mg/dL in a nonstressed, ambulatory subject supports the diagnosis of Diabetes Mellitus. PERFORMED BY: [address] [address] PATHOLOGIST CONTINUOUS IMPROVEMENT LEAD GABRIEL ALVARADO M.D. Performed By: #### G LULS ####Point of Care testing, Glucose [Mass/Vol] 194 mg/dL Normal [facility] Comment on above: Result Comment: [place] Glucose Reference Range is dependent on time and content of last meal. Glucose of more than 200 mg/dL in a nonstressed, ambulatory subject supports the diagnosis of Diabetes Mellitus. PERFORMED BY: [address] [address] PATHOLOGIST CONTINUOUS IMPROVEMENT LEAD GABRIEL ALVARADO M.D. Performed By: #### G LULS #### Point of Care testing , Glucose Poct Glucometerson 0 03-03-2024 Glucose [Mass/Vol] 148 mg/dL Normal [facility] Comment on above: Result Comment: [place] Glucose Reference Range is dependent on time and content of last meal. Glucose of more than 200 mg/dL in a nonstressed, ambulatory subject supports the diagnosis of Diabetes Mellitus. PERFORMED BY: [address] [address] PATHOLOGIST CONTINUOUS IMPROVEMENT LEAD GABRIEL ALVARADO M.D. Performed By: #### G LULS ####Point of Care testing, Glucose [Mass/Vol] 123 mg/dL Normal [facility] Comment on above: Result Comment: [place] Glucose Reference Range is dependent on time and content of last meal. Glucose of more than 200 mg/dL in a nonstressed, ambulatory subject supports the diagnosis of Diabetes Mellitus. PERFORMED BY: [address] [place] [address] PATHOLOGIST CONTINUOUS IMPROVEMENT LEAD GABRIEL ALVARADO M.D. Performed By: #### G LULS ####Point of Care testing, Glucose [Mass/Vol] 184 mg/dL Normal [facility] Comment on above: Result Comment: [place] Glucose Reference Range is dependent on time and content of last meal. Glucose of more than 200 mg/dL in a nonstressed, ambulatory subject supports the diagnosis of Diabetes Mellitus. PERFORMED BY: [place] [address] PATHOLOGIST CONTINUOUS IMPROVEMENT LEAD GABRIEL ALVARADO M.D. Performed By: #### G LULS ####Point of Care testing, Commemt1 Glu2: Cleaned Meter Normal [facility] Comment on above: Result Comment: PERF ORMED BY: [place] [address] PATHOLOGIST CONTINUOUS IMPROVEMENT LEAD GABRIEL ALVARADO M.D. Performed By: #### G LULS ####Point of Care testing, Glucose [Mass/Vol] 117 mg/dL Normal [facility] Comment on above: Result Comment: [place] Glucose Reference Range is dependent on time and content of last meal. Glucose of more than 200 mg/dL in a nonstressed, ambulatory subject supports the diagnosis of Diabetes Mellitus. Performed By: #### G LULS ####Point of Care testing, ECG 12 lead ECGon 03-02-2024 ECG 12 lead ECG [facility] Main [place] [id number] Electrocardiograph Report Signed Patient: Randall Arias MR#: [id number] : 1950 Acct:[id number] Age/Sex: 74 / F ADM Date: 02/25/24 Loc: Room: 8Q1830-3 Type: ADM IN Attending Dr: August Alexandra MD Ordering Provider: August Alexandra MD Date of Service: 03/02/24 ECG/ECG 12 lead ECG: chest pain Copies to: Test Reason : Blood Pressure : */* mmHG Vent. Rate : 71 BPM Atrial Rate : 71 BPM P-R Int : 138 ms QRS Dur : 82 ms QT Int : 430 ms P-R-T Axes : 58 37 66 degrees QTcB Int : 467 ms Normal sinus rhythm Cannot rule out Inferior infarct , age undetermined T wave abnormality, consider anterior ischemia Abnormal ECG When compared with ECG of 26-Feb-2024 12:53, Minimal criteria for Inferior infarct are now present Nonspecific T wave abnormality no longer evident in Inferior leads Nonspecific T wave abnormality has replaced inverted T waves in Lateral leads Confirmed by KATHRYN SIMMS [facility] ([id number]) on 03/02/2024 4:49:33 PM Referred By: Electronically Signed By: JESSE SHEETS MD [facility] Transcribed By: MUS Signed By Dwain Sheets MD 03/02/24 1649 Normal [facility] Glucose Poct Glucometerson 0 03-02-2024 Commemt1 Glu2: Cleaned Meter Normal [facility] Comment on above: Result Comment: PERF ORMED BY: [address] [place] [address] PATHOLOGIST [employer]AD GABRIEL ALVARADO M.D. Performed By: #### G LULS ####Point of Care testing, Glucose [Mass/Vol] 160 mg/dL Normal [facility] Comment on above: Result Comment: [facility] Glucose Reference Range is dependent on time and content of last meal. Glucose of more than 200 mg/dL in a nonstressed, ambulatory subject supports the diagnosis of Diabetes Mellitus. Performed By: #### G LULS ####Point of Care testing, Glucose [Mass/Vol] 118 mg/dL Normal [facility] Comment on above: Result Comment: [place] Glucose Reference Range is dependent on time and content of last meal. Glucose of more than 200 mg/dL in a nonstressed, ambulatory subject supports the diagnosis of Diabetes Mellitus. PERFORMED BY: [address] [place] [address] PATHOLOGIST [employer] LEAD GABRIEL ALVARADO M.D. Performed By: #### G LULS ####Point of Care testing, Commemt1 Glu2: Cleaned Meter Normal [facility] Comment on above: Result Comment: PERF ORMED BY: [address] [place] [address] PATHOLOGIST [employer] LEAD GABRIEL ALVARADO M.D. Performed By: #### G LULS ####Point of Care testing, Glucose [Mass/Vol] 150 mg/dL Normal [facility] Comment on above: Result Comment: [place] [facility] Glucose Reference Range is dependent on time and content of last meal. Glucose of more than 200 mg/dL in a nonstressed, ambulatory subject supports the diagnosis of Diabetes Mellitus. Performed By: #### G LULS ####Point of Care testing, Glucose [Mass/Vol] 128 mg/dL Normal [facility] Comment on above: Result Comment: [place] [facility] Glucose Reference Range is dependent on time and content of last meal. Glucose of more than 200 mg/dL in a nonstressed, ambulatory subject supports the diagnosis of Diabetes Mellitus. PERFORMED BY: [place] [address] PATHOLOGIST [employer] LEAD GABRIEL ALVARADO M.D. Performed By: #### G LULS ####Point of Care testing, Troponin I High Sensitivityo n 03-02-2024 Troponin I High Sensitivity 4.0 pg/mL Normal 0.0-15.0 [facility] Comment on above: Order Comment: Comme nt chest pain Result Comment: PERF ORMED BY: [place] [address] PATHOLOGIST [employer] LEAD GABRIEL ALVARADO M.D. Performed By: #### H S TROP ####[facility] [id number] [place] [id number] [facility] Troponin I.cardiac [Mass/vol ume] in Serum or Plasma by Detection limit <= 0.01 ng/Ordered By: August Alexandra on 03-02-2024 Troponin I.cardiac DL <= 0.01 ng/mL [Mass/Vol] 4.0 pg/mL 0.0-15.0 [facility] US venous duplex LE RTon US venous duplex LE RT [facility] Main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 Performed By: #### C BC #### [facility] [address] [place] [address] Dr. Lisa Thomson LYMPH # 2.3 103/ul Normal 1.2-3.8 [facility] Comment on above: Performed By: #### C BC #### [facility] [address] [place] [address] Dr. Lisa Thomson Lymphocytes/100 WBC (Bld) 24.1 % Normal 20.5-60.[address] [facility] Comment on above: Performed By: #### C BC #### [facility] [address] [place] [address] Dr. Lisa Thomson MANUAL DIFF REQ NO Normal [facility] Comment on above: Performed By: #### C BC #### [facility] [address] [place] [address] Dr. Lisa Thomson MCH (RBC) [Entitic mass] 30.9 pg Normal 26.7-34.[address] [facility] Comment on above: Performed By: #### C BC #### [facility] [address] [place] [address] Dr. Lisa Thomson MCHC (RBC) [Mass/Vol] 34.3 g/dL Normal 29.9-35.2 [facility] Comment on above: Performed By: #### C BC #### [facility] [address] [place] [address] Dr. Lisa Thomson MCV (RBC) [Entitic vol] 90.3 fL Normal 81.0-99.[address] [facility] Comment on above: Performed By: #### C BC #### [facility] [address] [place] [address] Dr. Lisa Thomson MONO # 0.6 103/ul Normal 0.3-0.[address] [facility] Comment on above: Performed By: #### C BC #### [facility] [address] [address] [address] Lisa Thomson Monocytes/100 WBC (Bld) 5.9 % Normal 1.7-12.[address] [facility] Comment on above: Performed By: #### C BC #### [facility] [address] [place] [address] Dr. Lisa Thomson NEUT # 6.7 103/ul Critically high 1.4-6.[address] [facility] Comment on above: Performed By: #### C BC #### [facility] [address] [place] [address] Dr. Lisa Thomson Neutrophils/100 WBC (Bld) 69.3 % Normal 43.0-75.[address] [facility] Comment on above: Performed By: #### C BC #### [facility] [address] [place] [address] Dr. Lisa Thomson Platelet mean volume (Bld) [Entitic vol] 9.6 fL Normal 9.5-13.[address] [facility] Comment on above: Performed By: #### C BC #### [facility] [address] [place] [address] Dr. Lisa Thomson PLT 162 103/ul Normal 150-450 [facility] Comment on above: Performed By: #### C BC #### [facility] [address] [place] [address] Dr. Lisa Thomson RBC 4.01 106/ul Critically low 4.20-5.40 [facility] Comment on above: Performed By: #### C BC #### [facility] [address] [place] [address] Dr. Lisa Thomson WBC 9.7 103/ul Normal 4.0-11.0 [facility] Comment on above: Performed By: #### C BC #### [facility] [address] [address] [address] Lisa Thomson CTA ABD/PELVIS WO W [...] dissection Stable cardiomegaly Electronically authenticated by: NIKA MARSH Date: 2022-06-20 13:30 Normal [facility] PROF CHEM 8 (BAS METB)on Anion gap [Moles/Vol] 10.1 mmol/L Normal [facility] Comment on above: Performed By: #### S EDR #### [facility] [address] [address] [address] Lisa Thomson Calcium [Mass/Vol] 9.0 mg/dL Normal 8.5-10.[address] [facility] Comment on above: Performed By: #### S EDR #### [facility] [address] [address] [address] Lisa Thomson Chloride [Moles/Vol] 104 mmol/L Normal 98-[address] [facility] Comment on above: Performed By: #### S EDR #### [facility] [address] [address] [address] Lisa Thomson CO2 [Moles/Vol] 26.2 mmol/L Normal 21.0-32.[address] [facility] Comment on above: Performed By: #### S EDR #### [facility] [address] [address] [address] Lisa Thomson Creatinine [Mass/Vol] 0.59 mg/dL Normal 0.55-1.[address] [facility] Comment on above: Performed By: #### S EDR #### [facility] [address] [address] [address] Lisa Thomson EGFR-AF ROMANIAN >60 Normal >=[address] [facility] Comment on above: Performed By: #### S EDR #### [facility] [address] [address] [address] Lisa Thomson EGFR-NON AF ROMANIAN >60 Normal >=[address] [facility] Comment on above: Performed By: #### S EDR #### [facility] [address] [address] [address] Lisa Thomson Glucose [Mass/Vol] 162 mg/dL Critically high 74-106 [facility] Comment on above: Performed By: #### S EDR #### [facility] [address] [address] [address] Lisa Thomson Potassium [Moles/Vol] 3.3 mmol/L Critically low 3.5-5.[address] [facility] Comment on above: Performed By: #### S EDR #### [facility] [address] [address] [address] Lisa Thomson Sodium [Moles/Vol] 137 mmol/L Normal 136-145 [facility] Comment on above: Performed By: #### S EDR #### [facility] [address] [address] [address] Lisa Thomson Urea nitrogen [Mass/Vol] 25.0 mg/dL Critically high 7.0-18.[address] [facility] Comment on above: Performed By: #### S EDR #### [facility] [address] [place] [address] Dr. Lisa Thomson Urea nitrogen/Creatinine [Mass ratio] 42.4 mg/mg Normal [facility] Comment on above: Performed By: #### S EDR #### [facility] [address] [place] [address] Dr. Lisa Thomson CREATININEon 05-13-2022 Creatinine [Mass/Vol] 0.81 mg/dL Normal 0.55-1.[address] [facility] Comment on above: Performed By: #### M ALBR #### [facility] [address] [place] [address] Dr. Lisa Thomson EGFR-AF ROMANIAN >60 Normal >=[address] [facility] Comment on above: Performed By: #### M ALBR #### [facility] [address] [place] [address] Dr. Lisa Thomson EGFR-NON AF ROMANIAN >60 Normal >=[address] [facility] Comment on above: Performed By: #### M ALBR #### [facility] [address] [place] [address] Dr. Lisa Thomson MRI LSPINE WO W CONon 2021 MRI LSPINE WO W CON EXAMINATION: MRI LSP INE WO W CON HISTORY: Lumbar radiculopathy COMPARISON: [...] severe foraminal stenosis Electronically authenticated by: NIKA MARSH Date: 2022-05-13 19:[address] [facility] Operative Reporton 2 Operative Report MR#: [id number] [facility] Pt. Name: Randall Arias Room #: [id number] Discharge Date: Birthdate: 1950 OPERATIVE REPORT DATE [...] disk material from this disk protrusion. A [place] #4 explorer was (more content not included)... Normal [facility] POC GLUCOSE LABon 04-25-2022 Glucose [Mass/Vol] 105 mg/dL High 70-[address] [facility] Comment on above: Performed By: #### 8 [id number] #### [address] Glucose [Mass/Vol] 95 mg/dL Normal 70-100 [facility] Comment on above: Performed By: #### 8 [id number] #### [address] Glucose [Mass/Vol] 103 mg/dL High 70-100 [facility] Comment on above: Performed By: #### 8 [id number] #### [address] LUMBAR SPINE 2 OR 3 [facility] LUMBAR SPINE 2 OR 3 [facility] Department of Radiology [address] [place] [id number] Patient Name: RANDALL ARIAS : 1950 Sex: [...] Exam: LUMBAR SPINE 2 OR 3 V[facility] LUMBAR SPINE 2 OR 3 VWS 04/24/2022 [...] further information. Approved by:Kirit Escobar04/25/2022 8:29 AM. Nacho Rmoeros,have reviewed the image(s) and agree with the findings in this report. Electronically signed: Nacho Nieves. Transcribed by: [email or web address], User Resident: NACHO LAU Electronically Signed by: NACHO NIEVES @ 04/25/2022 09:09 AM I personally read this/these film(s) with this resident Normal [facility] Comment on above: Order Comment: RIGHT L5 HEMILAMINECTOMY, RIGHT L5-S1 FORAMINOTOMY, POSS RIGHT L5-S1 DISCECTOMY FOR DECOMPRESSION POC GLUCOSE LABon 04-24-2022 Glucose [Mass/Vol] 188 mg/dL High 70-100 [facility] Comment on above: Performed By: #### 8 [id number] #### [facility] [address] [place] [address], [place] Glucose [Mass/Vol] 127 mg/dL High 70-100 [facility] Comment on above: Performed By: #### 8 [id number] #### [facility] [address] [place] [address], [place] Glucose [Mass/Vol] 91 mg/dL Normal 70-100 [facility] Comment on above: Performed By: #### 8 [id number] #### [facility] [address] [place] [address], [place] TYPE AND CROSSMATCHon 2021 ABO INTERPRETATION A Normal [facility] Comment on above: Performed By: #### 8 [id number] #### [facility] [address] [place] [address], [place] RH INTERPRETATION Positive Normal [facility] Comment on above: Performed By: #### 8 [id number] #### [facility] [address] [place] [address], [place] *MRSA/MSSA DNA NASALon 04-01 *MRSA/MSSA DNA NASAL Clinical Report: (D ) Specimen: NASAL SWAB Collected: 04/01/2022 17:05 Status: Final Last Updated: 04/02/2022 19:42 MSSA DNA (Final) Negative MRSA DNA (Final) Negative Normal [facility] Comment on above: Performed By: #### 3 [id number] #### [facility] [address] [place] [address], [facility] APTTon 04-01-2022 aPTT Coag (Bld) [Time] 27.5 s Normal 25.0-35.0 Th e [facility] Comment on above: Result Comment: ALL [...] PURPOSE. Performed By: #### 8 [id number] #### [facility] [address] [facility] [place] [address], [facility] BASIC METABOLIC PANELon 03-18 Calcium [Mass/Vol] 9.0 mg/dL Normal 8.6-10.3 [facility] Comment on above: Performed By: #### 8 [id number] #### [facility] [address] [facility] [place] [address], [facility] Chloride [Moles/Vol] 104 mmol/L Normal 98-107 [facility] Comment on above: Performed By: #### 8 [id number] #### [facility] [address] [facility] [place] [address], [facility] CO2 [Moles/Vol] 30 mmol/L Normal 21-31 [facility] Comment on above: Performed By: #### 8 [id number] #### [facility] [address] [facility]. [place] [id number], [facility] Creatinine [Mass/Vol] 0.68 mg/dL Normal 0.60-1.20 [facility] Comment on above: Performed By: #### 8 [id number] #### [facility] [address] [facility] [place] [id number], [facility] GFR/1.73 sq M.predicted among non-blacks MDRD (S/P/Bld) [Vol rate/Area] mL/min/{1.73_m2} Normal >60 [facility] Comment on above: Result Comment: [facility]'s estimated glomerular filtration rate (eGFR) will no [...] individuals. Performed By: #### 8 [id number] #### [facility] [address] [place] [address], [facility] Glucose [Mass/Vol] 122 mg/dL High 70-100 [facility] Comment on above: Performed By: #### 8 [id number] #### [facility] [address] [place] [address], [facility] Potassium [Moles/Vol] 4.3 mmol/L Normal 3.5-5.1 [facility] Comment on above: Performed By: #### 8 [id number] #### [facility] [address] [place] [address], [place] Sodium [Moles/Vol] 144 mmol/L Normal 136-145 [facility] Comment on above: Performed By: #### 8 [id number] #### [facility] [address] [place] [address], [facility] Urea nitrogen [Mass/Vol] 28 mg/dL High 7-25 [facility] Comment on above: Performed By: #### 8 [id number] #### [facility] [address] [place] [address], [place] CBC W/DIFFon 04-01-2022 ABS IMM GRANS 0.0 10*3/uL Normal 0.0-0.2 [facility] Comment on above: Performed By: #### 8 [id number] #### [facility] [address] [facility] [place] [address], [facility] ABS NEUTROPHILS 4.7 10*3/uL Normal 1.6-7.6 [facility] Comment on above: Performed By: #### 8 [id number] #### [facility] [address] [facility] [place] [address], [facility] Basophils (Bld) [#/Vol] 0.0 10*3/uL Normal 0.0-0.2 [facility] Comment on above: Performed By: #### 8 [id number] #### [facility] [address] [facility] [place] [address], [facility] Basophils/100 WBC (Bld) 0.4 % Normal 0.0-1.0 [facility] Comment on above: Performed By: #### 8 [id number] #### [facility] [address] [facility] [place] [address], [facility] Eosinophils (Bld) [#/Vol] 0.1 10*3/uL Normal 0.0-0.5 [facility] Comment on above: Performed By: #### 8 [id number] #### [facility] [address] [facility] [place] [address], [facility] Eosinophils/100 WBC (Bld) 1.3 % Normal 0.0-6.0 [facility] Comment on above: Performed By: #### 8 [id number] #### [facility] [address] [facility] [place] [address], [facility] Erythrocyte distribution width (RBC) [Ratio] 14.2 % Normal 11.5-15.0 [facility] Comment on above: Performed By: #### 8 [id number] #### [facility] [address] [place] [address], [facility] Hematocrit (Bld) [Volume fraction] 39.0 % Normal 36.0-45.0 [facility] Comment on above: Performed By: #### 8 [id number] #### [facility] [address] [place] [address], [facility] Hemoglobin (Bld) [Mass/Vol] 13.0 g/dL Normal 12.0-15.0 [facility] Comment on above: Performed By: #### 8 [id number] #### [facility] [address] [place] [address], [facility] IMMATURE GRANS 0.1 % Normal 0.0-1.0 [facility] Comment on above: Performed By: #### 8 [id number] #### [facility] [address] [facility] [place] [address], [facility] Lymphocytes (Bld) [#/Vol] 2.9 10*3/uL Normal 1.2-4.0 [facility] Comment on above: Performed By: #### 8 [id number] #### [facility] [address] [facility] [place] [address], [facility] Lymphocytes/100 WBC (Bld) 35.3 % Normal 20.0-45.0 [facility] Comment on above: Performed By: #### 8 [id number] #### [facility] [address] [facility] [place] [address], [facility] MCH (RBC) [Entitic mass] 29.1 pg Normal 27.0-33.0 [facility] Comment on above: Performed By: #### 8 [id number] #### [facility] [address] [facility] [place] [address], [facility] MCHC (RBC) [Mass/Vol] 33.3 g/dL Normal 32.0-35.0 [facility] Comment on above: Performed By: #### 8 [id number] #### [facility] [address] [place] [address], [facility] MCV (RBC) [Entitic vol] 87.4 fL Normal 82.0-98.0 [facility] Comment on above: Performed By: #### 8 [id number] #### [facility] [address] [facility] [place] [address], [facility] Monocytes (Bld) [#/Vol] 0.5 10*3/uL Normal 0.1-1.0 [facility] Comment on above: Performed By: #### 8 [id number] #### [facility] [address] [facility] [place] [address], [facility] MONOS 6.2 % Normal 5.0-12.0 [facility] Comment on above: Performed By: #### 8 [id number] #### [facility] [address] [place] [address], [facility] Neutrophils/100 WBC (Bld) 56.7 % Normal 40.0-72.0 [facility] Comment on above: Performed By: #### 8 [id number] #### [facility] [address] [place] [address], [facility] Nucleated RBC/100 WBC (Bld) [Ratio] 0 % Normal 0-0 [facility] Comment on above: Performed By: #### 8 [id number] #### [facility] [address] [place] [address], [facility] PLAT CNT 182 10*3/uL Normal 150-400 [facility] Comment on above: Performed By: #### 8 [id number] #### [facility] [address] [facility] [place] [address], [facility] RBC (Bld) [#/Vol] 4.46 10*6/uL Normal 3.80-5.00 [facility] Comment on above: Performed By: #### 8 [id number] #### [facility] [address] [place] [address], [facility] WBC (Bld) [#/Vol] 8.29 10*3/uL Normal 4.00-10.60 [facility] Comment on above: Performed By: #### 8 [id number] #### [address] [address] CHEST AND LATERALon 04-01-20 CHEST AND LATERAL [facility] Department of Radiology [address] [place] [phone] Patient Name: RANDALL ARIAS : 1950 Sex: [...] NOE MD , Exam: CHEST AND LATERAL CHEST AND LATERAL 04/01/2022 4:41 PM CLINICAL [...] of the cardiac silhouette. Electronically signed: Adrian Mahmood. Transcribed by: [email or web address], User Resident: Electronically Signed by: ADRIAN Lee IVANA @ 04/02/2022 07:38 AM Normal [facility] Comment on above: Order Comment: , , = ========= , Ordering Provider - VIPUL NOE MD , PROTHROMBIN TIMEon 2 INR Coag (PPP) [Relative time] 0.97 {INR} Normal 0.91-1.16 [facility] Comment on above: Result Comment: ACCC P RECOMMENDED INR FOR WARFARIN THERAPY --------- ------- CONDITION INR PROPHYLAXIS OF VENOUS THROMBOSIS 2-3 (HIGH-RISK SURGERY) TREATMENT OF VENOUS THROMBOSIS 2-3 TREATMENT OF PULMONARY EMBOLISM 2-3 PREVENTION OF SYSTEMIC EMBOLISM: 2-3 ACUTE MYOCARDIAL INFARCTION TISSUE HEART VALVES VALVULAR HEART DISEASE ATRIAL FIBRILLATION RECURRENT SYSTEMIC EMBOLISM MECHANICAL HEART VALVE 2.5-3.5 FROM: ORAL ANTICOAGULANTS. MECHANISM OF ACTION, CLINICAL EFFECTIVENESS, AND OPTIMAL THERAPEUTIC RANGE. CHEST 1995;108:231S-246S. Performed By: #### 8 [id number] #### [address] PT Coag (PPP) [Time] 12.8 s Normal 12.3-14.8 [facility] Comment on above: Result Comment: ALL RESULTS MUST BE INTERPRETED WITH RESPECT TO BLOOD DRAWING ARTIFACT OR DILUTION ERROR OF ANTICOAGULANT AT THE TIME OF SAMPLING. Performed By: #### 8 0311 #### [facility] [address] [place] [address], [facility] TYPE AND SCREENon 04-01-2022 ABO INTERPRETATION A Normal [facility] Comment on above: Performed By: #### 6 2586 #### [facility] [address] [place] [address], [place] RH INTERPRETATION Positive Normal [facility] Comment on above: Performed By: #### 6 2586 #### [facility] [address] [place] [address], [facility] THYROGLOBULIN ABon Thyroglobulin Antibody <1.0 Normal 0.0-0.9 Th e [facility] Comment on above: Result Comment: Thyr oglobulin Antibody measured by [employer] Methodology Performed By: #### C BC #### [facility] [address] [place], [place] [address] Dr. Lisa Thomson THYROID PEROXIDASE ABon 02-17 Thyroid Peroxidase (TPO) Ab <8 Normal 0-[address] [facility] Comment on above: Performed By: #### M ALBR #### [facility] [address] [place], [place] [address] Dr. Lisa Thomson US THYROIDon 02-20-2022 US THYROID EXAMINATION: US THYR OID HISTORY: Simple goiter COMPARISON: No relevant comparison [...] JACKIE ESCOBEDO Date: 2022-02-20 09:25 Normal [facility] MRI CSPINE WO CONon 02-08-20 22 MRI [...] Celi WALKER Date: 2022-02-07 16:19 Normal [facility] XR CSPINE MIN 4 VIEWSon 01-16 XR CSPINE MIN 4 VIEWS EXAMINATION: XR CS PINE MIN 4 VIEWS HISTORY: Chronic neck pain [...] by: JACKIE ESCOBEDO Date: 2022-01-31 09:[address] [facility] CBC AUTO DIFFon 01-30-2022 BASO # 0.0 103/ul Normal 0.0-0.[address] [facility] Comment on above: Performed By: #### C BC #### [facility] [address] [address] [address] Lisa Thomson Basophils/100 WBC (Bld) 0.4 % Normal 0.2-2.[address] [facility] Comment on above: Performed By: #### C BC #### [facility] [address] [place] [address] Dr. Lisa Thomson EO # 0.1 103/ul Normal 0.0-0.7 [facility] Comment on above: Performed By: #### C BC #### [facility] [address] [place] [address] Dr. Lisa Thomson Eosinophils/100 WBC (Bld) 1.3 % Normal 0.9-7.0 [facility] Comment on above: Performed By: #### C BC #### [facility] [address] [place] [address] Dr. Lisa Thomson Erythrocyte distribution width (RBC) [Ratio] 13.1 % Normal 11.0-15.[address] [facility] Comment on above: Performed By: #### C BC #### [facility] [address] [place] [address] Dr. Lisa Thomson Hematocrit (Bld) [Volume fraction] 37.0 % Normal 36.0-48.[address] [facility] Comment on above: Performed By: #### C BC #### [facility] [address] [place] [address] Dr. Lisa Thomson Hemoglobin (Bld) [Mass/Vol] 12.2 g/dL Normal 12.0-16.0 [facility] Comment on above: Performed By: #### C BC #### [facility] [address] [place] [address] Dr. Lisa Thomson IG # 0.03 10e3/ul Normal 0.00-0.03 [facility] Comment on above: Performed By: #### C BC #### [facility] [address] [place] [address] Dr. Lisa Thomson IG % 0.3 % Normal 0.0-0.5 [facility] Comment on above: Performed By: #### C BC #### [facility] [address] [place] [address] Dr. Lisa Thomson LYMPH # 2.4 103/ul Normal 1.2-3.8 [facility] Comment on above: Performed By: #### C BC #### [facility] [address] [place] [address] Dr. Lisa Thomson Lymphocytes/100 WBC (Bld) 27.1 % Normal 20.5-60.[address] [facility] Comment on above: Performed By: #### C BC #### [facility] [address] [place] [address] Dr. Lisa Thomson MANUAL DIFF REQ NO Normal [facility] Comment on above: Performed By: #### C BC #### [facility] [address] [place] [address] Dr. Lisa Thomson MCH (RBC) [Entitic mass] 29.0 pg Normal 26.7-34.[address] [facility] Comment on above: Performed By: #### C BC #### [facility] [address] [place] [address] Dr. Lisa Thomson MCHC (RBC) [Mass/Vol] 33.0 g/dL Normal 29.9-35.2 [facility] Comment on above: Performed By: #### C BC #### [facility] [address] [place] [address] Dr. Lisa Thomson MCV (RBC) [Entitic vol] 87.9 fL Normal 81.0-99.[address] [facility] Comment on above: Performed By: #### C BC #### [facility] [address] [place] [address] Dr. Lsia Thomson MONO # 0.5 103/ul Normal 0.3-0.8 [facility] Comment on above: Performed By: #### C BC #### [facility] [address] [place] [address] Dr. Lisa Thomson Monocytes/100 WBC (Bld) 5.6 % Normal 1.7-12.0 [facility] Comment on above: Performed By: #### C BC #### [facility] [address] [place] [address] Dr. Lisa Thomson NEUT # 5.8 103/ul Normal 1.4-6.5 [facility] Comment on above: Performed By: #### C BC #### [facility] [address] [place] [address] Dr. Lisa Thomson Neutrophils/100 WBC (Bld) 65.3 % Normal 43.0-75.[address] [facility] Comment on above: Performed By: #### C BC #### [facility] [address] [place] [address] Dr. Lisa Thomson Platelet mean volume (Bld) [Entitic vol] 9.3 fL Critically low 9.5-13.5 [facility] Comment on above: Performed By: #### C BC #### [facility] [address] [place] [address] Dr. Lisa Thomson PLT 242 103/ul Normal 150-450 [facility] Comment on above: Performed By: #### C BC #### [facility] [address] [place] [address] Dr. Lisa Thomson RBC 4.21 106/ul Normal 4.20-5.40 [facility] Comment on above: Performed By: #### C BC #### [facility] [address] [place] [address] Dr. Lisa Thomson WBC 8.9 103/ul Normal 4.0-11.0 [facility] Comment on above: Performed By: #### C BC #### [facility] [address] [place] [address] Dr. Lisa Thomson FREE T3on 01-30-2022 FREE T3 2.14 pg/mlL Critically low 2.18-3.98 [facility] Comment on above: Performed By: #### F T3, TSH #### [facility] [address] [place] [address] Dr. Lisa Thomson FREE T4on 01-30-2022 Free T4 [Mass/Vol] 1.05 ng/dL Normal 0.76-1.46 [facility] Comment on above: Performed By: #### F T4 #### [facility] [address] [place] [address] Dr. Lisa Thomson SED RATE WESTERGRENon 2021 SED RATE 60 mm/hr Critically high <=30 [facility] Comment on above: Performed By: #### S EDR #### [facility] [address] [place] [address] Dr. Lisa Thomson TSHon 01-30-2022 TSH 0.746 uIU/mL Normal 0.358-3.[address] [facility] Comment on above: Performed By: #### F T3, TSH #### [facility] [address] [place] [address] Dr. Lisa Thomson CBC AUTO DIFFon 12-31-2021 BASO # 0.0 103/ul Normal 0.0-0.[address] [facility] Comment on above: Performed By: #### M ALBR #### [facility] [address] [place] [address] Dr. Lisa Thomson Basophils/100 WBC (Bld) 0.2 % Normal 0.2-2.[address] [facility] Comment on above: Performed By: #### M ALBR #### [facility] [address] [place] [address] Dr. Lisa Thomson EO # 0.0 103/ul Normal 0.0-0.[address] [facility] Comment on above: Performed By: #### M ALBR #### [facility] [address] [place] [address] Dr. Lisa Thomson Eosinophils/100 WBC (Bld) 0.0 % Critically low 0.9-7.[address] [facility] Comment on above: Performed By: #### M ALBR #### [facility] [address] [place] [address] Dr. Lisa Thomson Erythrocyte distribution width (RBC) [Ratio] 12.9 % Normal 11.0-15.[address] [facility] Comment on above: Performed By: #### M ALBR #### [facility] [address] [place] [address] Dr. Lisa Thomson Hematocrit (Bld) [Volume fraction] 45.4 % Normal 36.0-48.[address] [facility] Comment on above: Performed By: #### M ALBR #### [facility] [address] [place] [address] Dr. Lisa Thomson Hemoglobin (Bld) [Mass/Vol] 15.4 g/dL Normal 12.0-16.[address] [facility] Comment on above: Performed By: #### M ALBR #### [facility] [address] [place] [address] Dr. Lisa Thomson IG # 0.05 10e3/ul Critically high 0.00-0.[address] [facility] Comment on above: Performed By: #### M ALBR #### [facility] [address] [place] [address] Dr. Lisa Thomson IG % 0.4 % Normal 0.0-0.[address] [facility] Comment on above: Performed By: #### M ALBR #### [facility] [address] [place] [address] Dr. Lisa Thomson LYMPH # 1.4 103/ul Normal 1.2-3.8 [facility] Comment on above: Performed By: #### M ALBR #### [facility] [address] [place] [address] Dr. Lisa Thomson Lymphocytes/100 WBC (Bld) 11.3 % Critically low 20.5-60.[address] [facility] Comment on above: Performed By: #### M ALBR #### [facility] [address] [place] [address] Dr. Lisa Thomson MANUAL DIFF REQ NO Normal [facility] Comment on above: Performed By: #### M ALBR #### [facility] [address] [place] [address] Dr. Lisa Thomson MCH (RBC) [Entitic mass] 29.4 pg Normal 26.7-34.0 [facility] Comment on above: Performed By: #### M ALBR #### [facility] [address] [place] [address] Dr. Lisa Thomson MCHC (RBC) [Mass/Vol] 33.9 g/dL Normal 29.9-35.2 [facility] Comment on above: Performed By: #### M ALBR #### [facility] [address] [place] [address] Dr. Lias Thomson MCV (RBC) [Entitic vol] 86.6 fL Normal 81.0-99.[address] [facility] Comment on above: Performed By: #### M ALBR #### [facility] [address] [place] [address] Dr. Lisa Thomson MONO # 0.1 103/ul Critically low 0.3-0.[address] [facility] Comment on above: Performed By: #### M ALBR #### [facility] [address] [place] [address] Dr. Lisa Thomson Monocytes/100 WBC (Bld) 1.0 % Critically low 1.7-12.[address] [facility] Comment on above: Performed By: #### M ALBR #### [facility] [address] [place] [address] Dr. Lisa Thomson NEUT # 10.8 103/ul Critically high 1.4-6.[address] [facility] Comment on above: Performed By: #### M ALBR #### [facility] [address] [place] [address] Dr. Lisa Thomson Neutrophils/100 WBC (Bld) 87.1 % Critically high 43.0-75.[address] [facility] Comment on above: Performed By: #### M ALBR #### [facility] [address] [place] [address] Dr. Lisa Thomson Platelet mean volume (Bld) [Entitic vol] 9.6 fL Normal 9.5-13.5 [facility] Comment on above: Performed By: #### M ALBR #### [facility] [address] [place] [address] Dr. Lisa Thomson PLT 172 103/ul Normal 150-450 [facility] Comment on above: Performed By: #### M ALBR #### [facility] [address] [place] [address] Dr. Lisa Thomson RBC 5.24 106/ul Normal 4.20-5.40 [facility] Comment on above: Performed By: #### M ALBR #### [facility] [address] [place] [address] Dr. Lisa Thomson WBC 12.4 103/ul Critically high 4.0-11.0 [facility] Comment on above: Performed By: #### M ALBR #### [facility] [address] [place] [address] Dr. Lisa Thomson FREE T4on 12-31-2021 Free T4 [Mass/Vol] 1.15 ng/dL Normal 0.76-1.[address] [facility] Comment on above: Performed By: #### S EDR #### [facility] [address] [place] [address] Dr. Lisa hTomson GLYCOHEMOGLOBIN A1Con 2021 ADA RECOMMENDATION SEE BELOW Normal [facility] Comment on above: Result Comment: ADA RECOMMENDED LIMIT 4.0 - 6.0 ADA THERAPEUTIC TARGET < 7.0 ACTION SUGGESTED > 7.0 Performed By: #### C BC #### [facility] [address] [place] [address] Dr. Lisa Thomson Glucose [Mass/Vol] 140 mg/dL Normal [facility] Comment on above: Performed By: #### C BC #### [facility] [address] [place] [address] Dr. Lisa Thomson HbA1c (Bld) [Mass fraction] 6.5 % Critically high 4.5-6.[address] [facility] Comment on above: Performed By: #### C BC #### [facility] [address] [place] [address] Dr. Lisa Thomson LIPID PROFILEon 12-31-2021 CHOL-HDL RATIO NORM SEE BELOW Normal [facility] Comment on above: Result Comment: 3.3 - 4.4 LOW RISK 4.4 - 7.1 AVERAGE RISK 7.1 - 11.0 MODERATE RISK >11.0 HIGH RISK Performed By: #### C BC #### [facility] [address] [place] [address] Dr. Lisa Thomson Cholesterol [Mass/Vol] 242 mg/dL Critically high <=200 [facility] Comment on above: Performed By: #### C BC #### [facility] [address] [address] [address] Lisa Thomson Cholesterol in HDL [Mass/Vol] 58 mg/dL Normal 40-[address] [facility] Comment on above: Performed By: #### C BC #### [facility] [id number] Lisa Thomson Cholesterol in LDL [Mass/Vol] 149.2 mg/dL Normal [facility] Comment on above: Performed By: #### C BC #### [facility] [address] [address] [address] Lisa Thomson Cholesterol.total/Chol esterol in HDL [Mass ratio] 4.2 {ratio} Normal [facility] Comment on above: Performed By: #### C BC #### [facility] [address] [place] [address] Dr. Lisa Thosmon HDL NORMAL > or = 60 mg/dl - LO W CARDIOVASCULAR RISK <40 mg/dl - HIGH CARDIOVASCULAR RISK Normal [facility] Comment on above: Performed By: #### C BC #### [facility] [address] [place] [address] Dr. Lisa Thomson LDL CALC NORMAL SEE BELOW Normal [facility] Comment on above: Result Comment: <100 mg/dl OPTIMAL 100 - 129 mg/dl NEAR OR ABOVE OPTIMAL 130 - 159 mg/dl BORDERLINE HIGH 160 - 189 mg/dl HIGH >190 mg/dl VERY HIGH Performed By: #### C BC #### [facility] [address] [place] [address] Dr. Lisa Thomson Triglyceride [Mass/Vol] 174 mg/dL Critically high <=150 [facility] Comment on above: Performed By: #### C BC #### [facility] [address] [address] [address] Lisa Thomson VLDL CALC 34.8 mg/dL Normal [facility] Comment on above: Performed By: #### C BC #### [facility] [address] [address] [address] Lisa Thomson MICROALBUMIN, RAND URon 05-1 mALB <1.3 Normal <=30.[address] [facility] Comment on above: Performed By: #### M ALBR #### [facility] [address] [place], [place] [address] Dr. Lisa Thomson MRI LSPINE WO CONon 01-01-20 22 MRI LSPINE WO CON EXAMINATION: MRI LSP INE WO CON HISTORY: Lumbar radiculopathy , right [...] JACKIE ESCOBEDO Date: 2021-12-31 11:29 Normal [facility] PROF 14(COMP METB)on 022 Albumin [Mass/Vol] 4.1 g/dL Normal 3.4-5.0 [facility] Comment on above: Performed By: #### C BC #### [facility] [address] [place], [place] [address] Dr. Lisa Thomson Albumin/Globulin [Mass ratio] 1.1 {ratio} Normal [facility] Comment on above: Performed By: #### C BC #### [facility] [address] [place] [address] Dr. Lisa Thomson ALP [Catalytic activity/Vol] 56 U/L Normal 46-[address] [facility] Comment on above: Performed By: #### C BC #### [facility] [address] [address] [address] Lisa Thomson ALT [Catalytic activity/Vol] 26 U/L Normal 14-[address] [facility] Comment on above: Performed By: #### C BC #### [facility] [address] [address] [address] Lisa Thomson Anion gap [Moles/Vol] 17.0 mmol/L Normal Th e [facility] Comment on above: Performed By: #### C BC #### [facility] [address] [place] [address] Dr. Lisa Thomson AST [Catalytic activity/Vol] 14 U/L Critically low 15-[address] [facility] Comment on above: Performed By: #### C BC #### [facility] [address] [place] [address] Dr. Lisa Thomson Bilirubin [Mass/Vol] 0.9 mg/dL Normal 0.2-1.[address] [facility] Comment on above: Performed By: #### C BC #### [facility] [address] [place] [address] Dr. Lisa Thomson Calcium [Mass/Vol] 8.7 mg/dL Normal 8.5-10.[address] [facility] Comment on above: Performed By: #### C BC #### [facility] [address] [place] [address] Dr. Lisa Thomson Chloride [Moles/Vol] 101 mmol/L Normal 98-107 [facility] Comment on above: Performed By: #### C BC #### [facility] [address] [place] [address] Dr. Lisa Thomson CO2 [Moles/Vol] 23.0 mmol/L Normal 21.0-32.0 [facility] Comment on above: Performed By: #### C BC #### [facility] [address] [place] [address] Dr. Lisa Thomson Creatinine [Mass/Vol] 0.70 mg/dL Normal 0.55-1.[address] [facility] Comment on above: Performed By: #### C BC #### [facility] [address] [place] [address] Dr. Lisa Thomson EGFR-AF ROMANIAN >60 Normal >=[address] [facility] Comment on above: Performed By: #### C BC #### [facility] [address] [place] [address] Dr. Lisa Thomson EGFR-NON AF ROMANIAN >60 Normal >=[address] [facility] Comment on above: Performed By: #### C BC #### [facility] [address] [place] [address] Dr. Lisa Thomson Globulin (S) [Mass/Vol] 3.6 g/dL Normal [facility] Comment on above: Performed By: #### C BC #### [facility] [address] [place] [address] Dr. Lisa Thomson Glucose [Mass/Vol] 178 mg/dL Critically high 74-106 [facility] Comment on above: Performed By: #### C BC #### [facility] [address] [place] [address] Dr. Lisa Thomson Potassium [Moles/Vol] 4.0 mmol/L Normal 3.5-5.1 [facility] Comment on above: Performed By: #### C BC #### [facility] [address] [place] [address] Dr. Lisa Thomson Protein [Mass/Vol] 7.7 g/dL Normal 6.4-8.2 [facility] Comment on above: Performed By: #### C BC #### [facility] [address] [place] [address] Dr. Lisa Thomson Sodium [Moles/Vol] 137 mmol/L Normal 136-[address] [facility] Comment on above: Performed By: #### C BC #### [facility] [address] [place] [address] Dr. Lisa Thomson Urea nitrogen [Mass/Vol] 23.0 mg/dL Critically high 7.0-18.[address] [facility] Comment on above: Performed By: #### C BC #### [facility] [address] [place] [address] Dr. Lisa Thomson Urea nitrogen/Creatinine [Mass ratio] 32.9 mg/mg Normal [facility] Comment on above: Performed By: #### C BC #### [facility] [address] [place] [address] Dr. Lisa Thomson TSHon 12-31-2021 TSH 0.123 uIU/mL Critically low 0.358-3.74 0 [facility] Comment on above: Performed By: #### C BC #### [facility] [address] [place] [address] Dr. Lisa Thomson TSH RANGE SEE BELOW Normal [facility] Comment on above: Result Comment: <0.3 4 UIU/ml HYPERTHYROID 0.34-5.60 UIU/ml EUTHYROID >5.60 UIU/ml HYPOTHYROID Performed By: #### C BC #### [facility] [address] [place] [address] Dr. Lisa Thomson UA RANDOM W/MICROSCOPICon BACTERIA NONE SEEN Normal NONE SEEN [facility] Comment on above: Performed By: #### U AMIC #### [facility] [address] [place] [address] Dr. Lisa Thomson Bilirubin Ql (U) Negative Normal NEGATIVE [facility] Comment on above: Performed By: #### U AMIC #### [facility] [address] [place] [address] Dr. Lisa Thomson CAST NONE SEEN Normal NONE SEEN [facility] Comment on above: Performed By: #### U AMIC #### [facility] [address] [place] [address] Dr. Lisa Thomson Clarity (U) CLEAR Normal CLEAR [facility] Comment on above: Performed By: #### U AMIC #### [facility] [address] [place] [address] Dr. Lisa Thomson Color (U) LT. YELLOW Normal YELLOW [facility] Comment on above: Performed By: #### U AMIC #### [facility] [address] [address] [address] Lisa Thomson Crystals LM Nom (Urine sed) NONE SEEN Normal NONE SEEN [facility] Comment on above: Performed By: #### U AMIC #### [facility] [address] [address] [address] Lisa Thomson Epithelial cells LM Ql (Urine sed) NONE SEEN Normal NONE SEEN /RARE [facility] Comment on above: Performed By: #### U AMIC #### [facility] [address] [address] [address] Lisa Thomson Glucose Ql (U) >1000 Abnormal NEGATIVE [facility] Comment on above: Performed By: #### U AMIC #### [facility] [address] [place] [address] Dr. Lisa Thomson Hemoglobin Ql (U) Negative Normal NEGATIVE [facility] Comment on above: Performed By: #### U AMIC #### [facility] [address] [place] [address] Dr. Lisa Thomson Ketones Ql (U) 15 mg/dl Abnormal NEGATIVE [facility] Comment on above: Performed By: #### U AMIC #### [facility] [address] [address] [address] Lisa Thomson LEUKOCYTES Negative Normal NEGATIVE [facility] Comment on above: Performed By: #### U AMIC #### [facility] [address] [address] [address] Lisa Thomson MUCOUS NONE SEEN Normal NONE SEEN [facility] Comment on above: Performed By: #### U AMIC #### [facility] [address] [address] [address] Lisa Thomson Nitrite Ql (U) Negative Normal NEGATIVE [facility] Comment on above: Performed By: #### U AMIC #### [facility] [address] [place] [address] Dr. Lisa Thomson pH (U) 5.5 [pH] Normal 5-9 [facility] Comment on above: Performed By: #### U AMIC #### [facility] [address] [address] [address] Lisa Thomson RBC NONE SEEN Abnormal 0-2 [facility] Comment on above: Performed By: #### U AMIC #### [facility] [address] [place] [address] Dr. Lisa Thomson SPEC GRAVITY 1.015 Normal 1.005-<=1. 025 [facility] Comment on above: Performed By: #### U AMIC #### [facility] [address] [place] [address] Dr. Lisa Thomson UA PROTEIN Negative Normal NEGATIVE/ TRACE [facility] Comment on above: Performed By: #### U AMIC #### [facility] [address] [place] [address] Dr. Lisa Thomson Urobilinogen Qn (U) 0.2 {Tony'U}/dL Normal 0.2 - 1. 0 [facility] Comment on above: Performed By: #### U AMIC #### [facility] [address] [place] [address] Dr. Lisa Thomson WBC NONE SEEN Normal NONE SEEN [facility] Comment on above: Performed By: #### U AMIC #### [facility] [address] [place] [address] Dr. Lisa Thomson XR LSPINE W_OBLS AND [...] by: JACKIE ESCOBEDO Date: 2021-12-24 14:[address] [facility] NM BONE IMAGE 3 PHASEon 05-0 NM BONE IMAGE 3 PHASE EXAMINATION: NM TEMITOPE NE IMAGE 3 PHASE HISTORY: Pain in right [...] decreased radionuclide activity Electronically authenticated by: NIKA MARSH Date: 2021-12-21 16:[address] [facility] Vital Signs Date Time Vital Sign Value Performing Clinician Facility 04-06-2024 09:49-0400 Body height 160 cm Noemi Soaresmelody INSTALLATION TECH Work Phone: [facility] 04-06-2024 09:49-0400 Body mass index (BMI) [Ratio] 24.98 kg/m2 Noemi Dali INSTALLATION TECH Work Phone: [facility] 04-06-2024 09:49-0400 Body temperature 98.29 [degF] Noemi Dali INSTALLATION TECH Work Phone: [facility] 04-06-2024 09:49-0400 Body weight 63.96 kg Noemi Bolanospaul INSTALLATION TECH Work Phone: [facility] 04-06-2024 09:49-0400 Diastolic blood pressure 78 mm[Hg] Noemi Dali INSTALLATION TECH Work Phone: [facility] 04-06-2024 09:49-0400 Heart rate 85 /min Noemi Dali INSTALLATION TECH Work Phone: [facility] 04-06-2024 09:49-0400 Respiratory rate 18 /min Noemi Dali INSTALLATION TECH Work Phone: [facility] 04-06-2024 09:49-0400 SaO2% (BldA) [Mass fraction] 98 % Noemi Dali INSTALLATION TECH Work Phone: [facility] 04-06-2024 09:49-0400 Systolic blood pressure 118 mm[Hg] Noemi Mcnally INSTALLATION TECH Work Phone: [facility] 03-17-2024 13:17-0400 Body height 160.02 cm DO Jose Kenorma Work Phone: [facility] 03-17-2024 13:17-0400 Body mass index (BMI) [Ratio] 24.4 kg/m2 DO Jose Keister Work Phone: [facility] 03-17-2024 13:17-0400 Body weight 62.59 kg DO Jose Keister Work Phone: [facility] 03-08-2024 05:34-0400 Body temperature 98.1 [degF] DO Jose Lara Work Phone: [facility] 03-08-2024 05:34-0400 Diastolic blood pressure 58 mm[Hg] DO Jose Keister Work Phone: [facility] 03-08-2024 05:34-0400 Heart rate 73 /min DO Jose Keister Work Phone: [facility] 03-08-2024 05:34-0400 Respiratory rate 18 /min DO Jose Lara Work Phone: [facility] 03-08-2024 05:34-0400 SaO2% (BldA) [Mass fraction] 95 % DO Jose Keister Work Phone: [facility] 03-08-2024 05:34-0400 Systolic blood pressure 123 mm[Hg] DO Jose Keister Work Phone: [facility] 03-07-2024 05:25-0400 Body weight 69.1 kg DO Jose Lara Work Phone: [facility] 03-06-2024 16:00-0400 Inhaled oxygen flow rate 1 L/min DO Jose Keister Work Phone: [facility] 03-03-2024 12:02-0400 Body height 160.02 cm DO Jose Keister Work Phone: [facility] 02-25-2024 09:14-0400 Inhaled oxygen flow rate 2 L/min DO Jose Keister Work Phone: [facility] 02-25-2024 09:14-0400 SaO2% (BldA) [Mass fraction] 98 % DO Jose Keister Work Phone: [facility] 02-25-2024 07:56-0400 Body temperature 98.3 [degF] DO Jose Keister Work Phone: [facility] 02-25-2024 07:56-0400 Diastolic blood pressure 73 mm[Hg] DO Jose Keister Work Phone: [facility] 02-25-2024 07:56-0400 Heart rate 81 /min DO Jose Keister Work Phone: [facility] 02-25-2024 07:56-0400 Respiratory rate 19 /min DO Jose Keister Work Phone: [facility] 02-25-2024 07:56-0400 Systolic blood pressure 144 mm[Hg] DO Jose Keister Work Phone: [facility] 02-25-2024 06:21-0400 Body weight 76 kg DO Jose Keister Work Phone: [facility] 02-23-2024 15:36-0400 Body mass index (BMI) [Ratio] 29.8 kg/m2 DO Jose Keister Work Phone: [facility] 02-23-2024 14:51-0400 Body height 160.02 cm DO Jose Keister Work Phone: [facility] 02-20-2024 13:30-0400 Diastolic blood pressure 69 mm[Hg] DO Jose Keister Work Phone: [facility] 02-20-2024 13:30-0400 Heart rate 80 /min DO Jose Keister Work Phone: [facility] 02-20-2024 13:30-0400 Inhaled oxygen flow rate 2 L/min DO Jose Lara Work Phone: [facility] 02-20-2024 13:30-0400 Respiratory rate 18 /min DO Jose Lara Work Phone: [facility] 02-20-2024 13:30-0400 SaO2% (BldA) [Mass fraction] 96 % DO Jose Lara Work Phone: [facility] 02-20-2024 13:30-0400 Systolic blood pressure 124 mm[Hg] DO Jose Lara Work Phone: [facility] 02-20-2024 11:39-0400 Body temperature 97.6 [degF] DO Jose Lara Work Phone: [facility] 02-20-2024 09:51-0400 Body height 167.64 cm DO Jose Lara Work Phone: [facility] 02-20-2024 09:51-0400 Body weight 54.43 kg DO Jose Lara Work Phone: [facility] 10-02-2023 09:32-0500 Body height 160 cm Noemi Mcnally INSTALLATION TECH Work Phone: [facility] 10-02-2023 09:32-0500 Body mass index (BMI) [Ratio] 27.03 kg/m2 Noemi Mcnally INSTALLATION TECH Work Phone: [facility] 10-02-2023 09:32-0500 Body temperature 96.91 [degF] Noemi Mcnally INSTALLATION TECH Work Phone: [facility] 10-02-2023 09:32-0500 Body weight 69.22 kg Noemi Mcnally INSTALLATION TECH Work Phone: [facility] 10-02-2023 09:32-0500 Diastolic blood pressure 82 mm[Hg] Noemi Mcnally INSTALLATION TECH Work Phone: [facility] 10-02-2023 09:32-0500 Heart rate 87 /min Noemi Mcnally INSTALLATION TECH Work Phone: [facility] 10-02-2023 09:32-0500 Respiratory rate 20 /min Noemi Mcnally INSTALLATION TECH Work Phone: [facility] 10-02-2023 09:32-0500 SaO2% (BldA) [Mass fraction] 99 % Noemi Mcnally INSTALLATION TECH Work Phone: [facility] 10-02-2023 09:32-0500 Systolic blood pressure 132 mm[Hg] Noemi Mcnally INSTALLATION TECH Work Phone: [facility] Encounters Encounter Date Encounter Type Care Provider Facility Start: 07-26-2024 End: 07-26-2024 Telephone encounter Noemi Mcnally INSTALLATION TECH Work Phone: [facility] Start: 07-21-2024 End: 07-21-2024 ambulatory Sergio Dailey Facility:[facility] Start: 07-09-2024 End: 08-09-2024 Telephone encounter Jing Robin OT Work Phone: [facility] Comment on above: Cx OT today (She haylie led noting she was contacted by [facility] and they scheduled and appt for wrist; she had to cx due to it conflicting. She said she will call back to and update w/ status.); Call Back Start: 07-06-2024 End: 07-06-2024 Bamboo flowsheet iJng Robin OT Work Phone: [facility] Start: 07-06-2024 End: 07-06-2024 Bamboo flowsheet Jing Robin OT Work Phone: [facility] Start: 07-06-2024 End: 07-06-2024 ambulatory Jing Robin OT Work Phone: [facility] Comment on above: Other closed fractur e of shaft of right ulna with routine healing, subsequent encounter (Primary Dx) Start: 07-02-2024 End: 07-02-2024 ambulatory JING ROBIN Not Available Start: 07-02-2024 End: 07-02-2024 Bamboo flowsheet Jing Robin OT Work Phone: [facility] Start: 07-02-2024 End: 07-02-2024 Bamboo flowsheet Jing Robni OT Work Phone: [facility] Start: 07-02-2024 End: 07-02-2024 ambulatory NON STAFF [facility] Work Phone: Comment on above: Closed fracture of p roximal end of right humerus with routine healing, unspecified fracture morphology, subsequent encounter (Primary Dx); Other closed fracture of shaft of right ulna with routine healing, subsequent encounter Start: 07-02-2024 End: 07-02-2024 Patient encounter procedure [facility] Work Phone: Start: 06-29-2024 End: 06-29-2024 Manual pelvic examination Ligia Elliott FAC ENGINEER [facility] Comment on above: Pain of right hip (P rimary Dx); Pain, joint, pelvic region, right; Difficulty walking; Generalized weakness; Stiffness of right shoulder joint Start: 06-29-2024 End: 06-29-2024 ambulatory Ligia Elliott FAC ENGINEER [facility] Start: 06-29-2024 End: 06-29-2024 Bamboo flowsheet Ligia Valentiney FAC ENGINEER [facility] Start: 06-29-2024 End: 06-29-2024 Bamboo flowsheet Ligia Valentiney FAC ENGINEER [facility] Start: 06-23-2024 End: 06-23-2024 Telephone encounter Noemi Mcnally INSTALLATION TECH Work Phone: [facility] Start: 06-22-2024 End: 06-22-2024 Bamboo flowsheet Loren Marcelo FAC ENGINEER [facility] Start: 06-22-2024 End: 06-22-2024 Bamboo flowsheet Loren Marcelo FAC ENGINEER [facility] Start: 06-22-2024 End: 06-22-2024 ambulatory Loren Marcelo FAC ENGINEER [facility] Start: 06-22-2024 End: 06-22-2024 Manual pelvic examination Loren Marcelo FAC ENGINEER [facility] Comment on above: Pain of right hip (P rimary Dx); Pain, joint, pelvic region, right; Difficulty walking; Generalized weakness Start: 06-11-2024 End: 06-18-2024 Telephone encounter Ligia Elliott FAC ENGINEER [facility] Comment on above: MRI status (Contacte d to check on MRI for foot. She said she, today, is finally getting it done; she has a fu w/ Herman 06/15. She also included that Dr. Sutton was not happy w/ delay, re: she was scheduled and then they would cx. She noted after she is seen per Herman she will contact harpal.); fu (Called to check on status and she said she had MRI, per Herman, and she was contacted noting nerves in her foot are shot . He referred her to a doctor across from the hospital and she is waiting to be contacted. Per Herman, once she is seen off referral she can cont on w/ PT. She said she will contact.); Call Back (She called noting she'll be having an appt w/ foot doctor on 06/23 and then sx on 07/06. She was noted she can be seen for PT; and Dr. Sutton recommended to start the OT as well. On 06/22 she has an PT w/ Loren Marcelo PTA and 07/02 she'll have her OT Everik w/ Jing Robin OT.) Start: 06-03-2024 End: 06-03-2024 Telephone encounter Ligia Elliott FAC ENGINEER [facility] Comment on above: MRI harpal (She called noting her foot doctor is ordering for an MRI to be done harpal. She cx tomorrow's PT and questioned if she should wait till after the results are given per MRI to rs?); fu (Called back and noted to rs we need to wait till post MRI and go by doctors recommendation. She said she will keep us posted.) Wrist referral (Atte mpted to contact re: patient had mentioned and we were to receive referral for OT for wrist. All we had gotten was x-rays w/ no referral. Called over but had to lm w/ Dr. Sergio Dailey requesting the referral to be sent over so we could get OT scheduled.) Start: 06-01-2024 End: 06-01-2024 ambulatory Ligia Elliott FAC ENGINEER [facility] Start: 06-01-2024 End: 06-01-2024 Manual pelvic examination Ligia Elliott FAC ENGINEER [facility] Comment on above: Pain of right hip (P rimary Dx); Pain, joint, pelvic region, right; Difficulty walking; Generalized weakness; Stiffness of right shoulder joint Start: 06-01-2024 End: 06-01-2024 Bamboo flowsheet Ligia Elliott FAC ENGINEER [facility] Start: 06-01-2024 End: 06-01-2024 Bamboo flowsheet Ligia Elliott FAC ENGINEER [facility] Start: 05-26-2024 End: 05-26-2024 Bamboo flowsheet Ligia Elliott FAC ENGINEER [facility] Start: 05-26-2024 End: 05-26-2024 Bamboo flowsheet Ligia Elliott FAC ENGINEER [facility] Start: 05-26-2024 End: 05-26-2024 Manual pelvic examination Ligia Elliott FAC ENGINEER [facility] Comment on above: Pain of right hip (P rimary Dx); Pain, joint, pelvic region, right; Difficulty walking; Generalized weakness; Stiffness of right shoulder joint Start: 05-26-2024 End: 05-26-2024 ambulatory Ligia Elliott FAC ENGINEER [facility] Start: 05-21-2024 End: 05-21-2024 ambulatory LIGIA ELLIOTT Not Available Start: 05-21-2024 End: 05-21-2024 Bamboo flowsheet Ligia Valentiney FAC ENGINEER [facility] Start: 05-21-2024 End: 05-21-2024 Bamboo flowsheet Ligia Valentiney FAC ENGINEER [facility] Start: 05-21-2024 End: 05-21-2024 Manual pelvic examination Ligia Elliott FAC ENGINEER [facility] Comment on above: Pain of right hip (P rimary Dx); Pain, joint, pelvic region, right; Difficulty walking; Generalized weakness; Stiffness of right shoulder joint Start: 05-21-2024 End: 05-21-2024 ambulatory DO Jose Lara Work Phone: [facility] Work Phone: Start: 05-21-2024 End: 05-21-2024 Patient encounter procedure DO Jose Lara Work Phone: [facility] Work Phone: Start: 05-19-2024 End: 05-19-2024 Bamboo flowsheet Ligia Elliott FAC ENGINEER [facility] Start: 05-19-2024 End: 05-19-2024 Bamboo flowsheet Ligia Elliott FAC ENGINEER [facility] Start: 05-19-2024 End: 05-19-2024 ambulatory Ligia Elliott FAC ENGINEER [facility] Start: 05-19-2024 End: 05-19-2024 Manual pelvic examination Ligia Elliott FAC ENGINEER [facility] Comment on above: Pain of right hip (P rimary Dx); Pain, joint, pelvic region, right; Difficulty walking; Generalized weakness; Stiffness of right shoulder joint Start: 05-14-2024 End: 05-14-2024 ambulatory LIGIA ELLIOTT [facility] Start: 05-14-2024 End: 05-14-2024 Bamboo flowsheet Ligia Elliott FAC ENGINEER [facility] Start: 05-14-2024 End: 05-14-2024 Bamboo flowsheet Ligia Elliott FAC ENGINEER [facility] Start: 05-14-2024 End: 05-14-2024 Manual pelvic examination Ligia Elliott FAC ENGINEER [facility] Comment on above: Pain of right hip (P rimary Dx); Pain, joint, pelvic region, right; Difficulty walking; Generalized weakness; Stiffness of right shoulder joint Start: 05-06-2024 End: 05-06-2024 Manual pelvic examination Hamida Robin PT Work Phone: [facility] Comment on above: Pain of right hip (P rimary Dx); Pain, joint, pelvic region, right; Difficulty walking; Generalized weakness; Stiffness of right shoulder joint Start: 05-06-2024 End: 05-06-2024 ambulatory HAMIDA ROBIN [facility] Start: 05-06-2024 End: 05-06-2024 Bamboo flowsheet Hamida Robin PT Work Phone: [facility] Start: 05-06-2024 End: 05-06-2024 Bamboo flowsheet Hamida Robin PT Work Phone: [facility] Start: 05-04-2024 End: 05-04-2024 Manual pelvic examination Ligia Elliott FAC ENGINEER [facility] Comment on above: Pain of right hip (P rimary Dx); Pain, joint, pelvic region, right; Difficulty walking; Generalized weakness; Stiffness of right shoulder joint Start: 05-04-2024 End: 05-04-2024 ambulatory LIGIA ELLIOTT [facility] Start: 05-04-2024 End: 05-04-2024 Bamboo flowsheet Ligia Valentiney FAC ENGINEER [facility] Start: 05-04-2024 End: 05-04-2024 Bamboo flowsheet Ligia Valentiney FAC ENGINEER [facility] Start: 04-29-2024 End: 04-29-2024 Manual pelvic examination Ligia Valentiney FAC ENGINEER [facility] Comment on above: Pain of right hip (P rimary Dx); Pain, joint, pelvic region, right; Difficulty walking; Generalized weakness; Stiffness of right shoulder joint Start: 04-29-2024 End: 04-29-2024 ambulatory LIGIA ELLIOTT [facility] Start: 04-29-2024 End: 04-29-2024 Bamboo flowsheet Ligia Valentiney FAC ENGINEER [facility] Start: 04-29-2024 End: 04-29-2024 Bamboo flowsheet Ligia Valentiney FAC ENGINEER [facility] Start: 04-26-2024 End: 04-26-2024 Manual pelvic examination Loren Marcelo FAC ENGINEER [facility] Comment on above: Pain of right hip (P rimary Dx); Pain, joint, pelvic region, right; Difficulty walking; Generalized weakness; Stiffness of right shoulder joint Start: 04-26-2024 End: 04-26-2024 ambulatory LOREN MARCELO [facility] Start: 04-23-2024 End: 09-06-2024 Bamboo flowsheet Ligia Elliott FAC ENGINEER [facility] Start: 04-23-2024 End: 04-23-2024 Bamboo flowsheet Ligia Elliott FAC ENGINEER [facility] Start: 04-23-2024 End: 04-23-2024 ambulatory LIGIA ELLIOTT [facility] Start: 04-23-2024 End: 04-23-2024 Manual pelvic examination Ligia Elliott FAC ENGINEER [facility] Comment on above: Pain of right hip (P rimary Dx); Pain, joint, pelvic region, right; Difficulty walking; Generalized weakness; Stiffness of right shoulder joint Start: 04-21-2024 End: 04-21-2024 ambulatory LIGIA ELLIOTT [facility] Start: 04-21-2024 End: 04-21-2024 Manual pelvic examination Ligia Elliott FAC ENGINEER [facility] Comment on above: Pain of right hip (P rimary Dx); Pain, joint, pelvic region, right; Difficulty walking; Generalized weakness; Stiffness of right shoulder joint Start: 04-14-2024 End: 04-14-2024 ambulatory HAMIDA Archie LOBITO [facility] Start: 04-14-2024 End: 04-14-2024 Manual pelvic examination Hamida Robin PT Work Phone: [facility] Comment on above: Pain of right hip (P rimary Dx); Pain, joint, pelvic region, right; Difficulty walking; Generalized weakness; Stiffness of right shoulder joint Start: 04-14-2024 End: 04-14-2024 Wadeboo ruddydesean Robin PT Work Phone: [facility] Start: 04-14-2024 End: 04-14-2024 Bamboo flowsheet Hamida Archie Lobito PT Work Phone: [facility] Start: 04-12-2024 End: 04-12-2024 Manual pelvic examination Loren Brsalma FAC ENGINEER [facility] Comment on above: Pain of right hip (P rimary Dx); Pain, joint, pelvic region, right; Difficulty walking; Generalized weakness; Stiffness of right shoulder joint Start: 04-12-2024 End: 04-12-2024 ambulatory LOREN MARCELO [facility] Start: 04-12-2024 End: 04-12-2024 Bamboo flowsheet Loren Marcelo FAC ENGINEER [facility] Start: 04-12-2024 End: 04-12-2024 Bamboo flowsheet Loren Marcelo FAC ENGINEER [facility] Start: 04-09-2024 End: 04-09-2024 Manual pelvic examination Johnathon Ferrari FAC ENGINEER [facility] Comment on above: Pain of right hip (P rimary Dx); Pain, joint, pelvic region, right; Difficulty walking; Generalized weakness; Stiffness of right shoulder joint Start: 04-09-2024 End: 04-09-2024 ambulatory JOHNATHON FERRARI [facility] Start: 04-09-2024 End: 04-09-2024 Bamboo flowsheet Johnathon Ferrari FAC ENGINEER [facility] Start: 04-09-2024 End: 04-09-2024 Bamboo flowsheet Johnathon Ferrari FAC ENGINEER [facility] Start: 04-07-2024 End: 04-07-2024 ambulatory LIGIA ELLIOTT Not Available Start: 04-07-2024 End: 04-07-2024 Manual pelvic examination Ligia Elliott FAC ENGINEER [facility] Comment on above: Pain of right hip (P rimary Dx); Pain, joint, pelvic region, right; Difficulty walking; Generalized weakness; Stiffness of right shoulder joint Start: 04-07-2024 End: 04-07-2024 ambulatory DO Jose Lara Work Phone: [facility] Work Phone: Start: 04-07-2024 End: 04-07-2024 Patient encounter procedure DO Jose Lara Work Phone: [facility] Work Phone: Start: 04-06-2024 End: 04-06-2024 Patient encounter procedure Noemi Mcnally NP Work Phone: [facility] Comment on above: Encounter for subseq uent annual wellness visit (AWV) in Medicare patient (Primary Dx); Mixed hyperlipidemia (CMS/HCC); Chronic pruritus; Allergic rhinitis, unspecified seasonality, unspecified trigger; Type 2 diabetes mellitus without complication, without long-term current use of insulin ([facility]); Primary hypertension ([facility]); Acute right ankle pain; Colon cancer screening; Acute otitis externa of right ear, unspecified type Start: 04-06-2024 End: 04-06-2024 ambulatory NOEMI MCNALLY Not Available Start: 04-05-2024 End: 04-05-2024 Manual pelvic examination Loren Marcelo FAC ENGINEER [facility] Comment on above: Pain of right hip (P rimary Dx); Pain, joint, pelvic region, right; Difficulty walking; Generalized weakness; Stiffness of right shoulder joint Start: 04-05-2024 End: 04-05-2024 ambulatory LOREN MARCELO [facility] Start: 04-05-2024 End: 04-05-2024 Bamboo flowsheet Loren Marcelo FAC ENGINEER [facility] Start: 04-05-2024 End: 04-05-2024 Bamboo flowsheet Loren Marcelo FAC ENGINEER [facility] Start: 04-02-2024 End: 04-02-2024 ambulatory LIGIA KELBLEY Not Available Start: 03-31-2024 End: 03-31-2024 ambulatory LIGIA KELBLEY Not Available Start: 03-29-2024 End: 03-29-2024 ambulatory HAMIDA Archie COXTON Not Available Start: 03-26-2024 End: 03-26-2024 ambulatory LIGIA KELBLEY Not Available Start: 03-24-2024 End: 03-24-2024 ambulatory LIGIA KELBLEY Not Available Start: 03-22-2024 End: 03-22-2024 ambulatory HAMIDA T BLACKSTON Not Available Start: 03-18-2024 End: 03-18-2024 ambulatory LIGIA KELBLEY Not Available Start: 03-17-2024 End: 03-17-2024 ambulatory DO Jose Lara Work Phone: [facility] Work Phone: Start: 03-17-2024 End: 03-17-2024 Patient encounter procedure DO Jose Lara Work Phone: [facility] Work Phone: Start: 03-15-2024 End: 03-15-2024 ambulatory NOEMI MAMADOUZ Not Available Start: 03-03-2024 Non-patient / Non-visit DO Kimberley berta Keister Work Phone: [facility] Work Phone: Start: 02-25-2024 Non-patient / Non-visit DO Kimberley berta Keister Work Phone: [facility] Work Phone: Start: 02-25-2024 End: 03-08-2024 Evaluation and management of inpatient DO Jose Keister Work Phone: [facility] Work Phone: Start: 02-24-2024 End: 02-25-2024 Non-patient / Non-visit DO Jose Meierister Work Phone: [facility] Work Phone: Start: 02-20-2024 Non-patient / Non-visit DO Kimberley Meierister Work Phone: [facility] Work Phone: Start: 02-20-2024 End: 02-25-2024 Evaluation and management of inpatient DO Jose Meierister Work Phone: [facility] Work Phone: Start: 10-13-2023 End: 10-13-2023 ambulatory SONIARANDY CELAYA Not Available Start: 10-02-2023 Bamboo flowsheet Noemi Dali INSTALLATION TECH Work Phone: [facility] Start: 10-02-2023 Bamboo flowsheet Noemi Mamadouz INSTALLATION TECH Work Phone: [facility] Start: 10-02-2023 End: 10-02-2023 ambulatory NOEMI DALI Not Available Start: 10-02-2023 End: 10-02-2023 Office outpatient visit 25 minutes Noemi Mcnally INSTALLATION TECH Work Phone: [facility] Comment on above: Type 2 diabetes madeleine itus without complication, without long- term current use of insulin (CMS/HCC) (Primary Dx); Encounter for screening mammogram for malignant neoplasm of breast; Mixed hyperlipidemia (CMS/HCC); BMI 27.0-27.9,adult; Osteoporosis, unspecified osteoporosis type, unspecified pathological fracture presence (CMS/HCC); Chronic pruritus; Allergic rhinitis, unspecified seasonality, unspecified trigger Start: 06-23-2023 End: 06-24-2023 ambulatory [facility] Start: 12-16-2022 End: 12-17-2022 ambulatory [facility] Start: 11-12-2022 End: 11-13-2022 ambulatory GARRICK MCNALLY Facility:[facility] Start: 10-16-2022 End: 10-17-[address] NIKA MARSH Facility:[facility] Start: 10-07-2022 End: 10-08-2022 ambulatory [facility] Start: 10-07-2022 End: 10-07-2022 ambulatory [facility] Start: 10-04-[address] DOCTOR VERDE Facility :[facility] Start: 08-26-2022 End: 08-27-2022 ambulatory [facility] Start: 07-15-2022 End: 07-15-2022 ambulatory [facility] Start: 07-01-2022 Encounter for preprocedural laboratory examination DR DOCTOR VERDE [facility] Start: 06-27-2022 End: 06-28-[address] DOCTOR VERDE Facility:[facility] Start: 06-27-2022 End: 06-28-2022 Encounter for preprocedural laboratory examination DR DOCTOR VERDE Facility:[facility] Start: 06-25-2022 End: 06-26-[address] DOCTOR VERDE Facility:[facility] Start: 06-20-2022 End: 06-20-[address] NANDO Pierce Facility:[facility] Start: 05-13-2022 End: 05-14-[address] DOCTOR VERDE Facility:[facility] Start: 04-24-2022 End: 04-25-2022 ambulatory Vipul Fortino Hasmukh Facility:[facility] Start: 04-01-2022 End: 04-02-2022 ambulatory Vipuldilip Pepeyt Facility:[facility] Start: 03-14-2022 End: 03-15-2022 ambulatory GARRICK BOLANOSSARAHKendra Facility:[facility] Start: 02-19-2022 End: 02-20-2022 ambulatory TIRE SPOTTER NOEMI BOLANOSSARAHKendra Facility:[facility] Start: 02-07-2022 End: 02-08-2022 ambulatory TIRE SPOTTER NOEMI BOLANOSSARAHKendra Facility:[facility] Start: 01-30-2022 End: 01-31-2022 ambulatory TIRE SPOTTER NOEMI BOLANOSSARAHKendra Facility:[facility] Start: 01-17-2022 End: 01-18-2022 ambulatory DEFAULT PHYSICIAN Facility:[facility] Start: 01-15-2022 End: 01-15-2022 ambulatory GARRICK LOYD ROXANAElliPAUL Facility:[facility] Start: 01-01-2022 End: 01-02-[address] ISHMAEL ROBERTO . Facility:[facility] Start: 12-31-2021 End: 01-01-2022 ambulatory GARRICK MCNALLY Facility:[facility] Start: 12-27-2021 End: 01-05-[address] ISHMAEL ROBERTO . Facility:[facility] Start: 12-25-2021 End: 12-26-[address] ISHMAEL ROBERTO . Facility:[facility] Start: 12-24-2021 End: 12-25-[address] ISHMAEL ROBERTO . Facility:[facility] Start: 12-21-2021 End: 12-22-[address] ISHMAEL ROBERTO . Facility:[facility] Start: 12-18-2021 End: 12-19-2021 ambulatory WHITNEY GOODMAN Facility:[facility] Start: 12-17-2021 End: 12-17-2021 ambulatory WHITNEY GOODMAN Facility:[facility] Start: 12-07-2021 ambulatory GARRICK BOLANOSSARAHKendra Facil ity:[facility] Procedures Date Procedure Procedure Detail Performing Clinician Start: 07-02-2024 Plain X-ray of right humerus Start: 07-02-2024 Plain X-ray of right wrist Start: 05-21-2024 Plain X-ray of right humerus DO Jose Lara Work Phone: Start: 05-21-2024 Plain X-ray of right wrist DO Jose Lara Work Phone: Start: 04-07-2024 Plain X-ray of right humerus DO Jose Lara Work Phone: Start: 04-07-2024 Plain X-ray of right wrist DO Jose Lara Work Phone: Start: 03-17-2024 Plain X-ray of right humerus DO Jose Lara Work Phone: Start: 03-17-2024 Plain X-ray of right wrist DO Jose Lara Work Phone: Start: 03-17-2024 X-ray of right ankle DO Jose Lara Work Phone: Start: 03-04-2024 SARS-CoV-2, Influenz a & RSV (PCR) DO Jose Lara Work Phone: Start: 03-01-2024 X-ray of right foot DO Jose Lara Work Phone: Start: 03-01-2024 Duplex scan of lower limb veins DO Jose Lara Work Phone: Start: 03-01-2024 Duplex scan veins of upper limb DO Jose Lara Work Phone: Start: 03-01-2024 Plain X-ray of right humerus DO Jose Lara Work Phone: Start: 02-25-2024 Plain chest X-ray DO Al exdavian Lara Work Phone: Start: 02-23-2024 Intramedullary naili ng of humerus DO Jose Lara Work Phone: Start: 02-23-2024 Open reduction of fr acture with internal fixation DO Jose Lara Work Phone: Start: 02-23-2024 Plain X-ray of right wrist DO Jose Lara Work Phone: Start: 02-23-2024 End: 02-23-2024 Plain X-ray of right humerus DO Jose Keister Work Phone: Start: 02-21-2024 Plain X-ray of right humerus DO Jose Keister Work Phone: Start: 02-21-2024 Pelvis X-ray DO Elli Lara Work Phone: Start: 02-21-2024 CT of abdomen and pe lvis without contrast DO Jose Keister Work Phone: Start: 02-20-2024 Antibody screen Sergio Dailey Comment on above: Order Comment: Speci men obtained @ 1009 QNS-notified Caity in ER @ 1024 that a new specimen is required. MLG Result Comment: PERF ORMED BY: [facility] [address] [place] [address] PATHOLOGIST [employer] GABRIEL ALVARADO M.D. Start: 02-20-2024 Bacteria identified in Urine by Culture DO Jose Keister Work Phone: Start: 02-20-2024 Urine culture DO Karishma Guevara Work Phone: Start: 02-20-2024 Computed tomography of abdomen and pelvis with contrast DO Jose Keister Work Phone: Start: 02-20-2024 CT of chest DO Elli Lara Work Phone: Start: 02-20-2024 Computed tomography of abdomen and pelvis with contrast DO Jose Keister Work Phone: Start: 02-20-2024 CT cervical spine wi thout contrast DO Jose Keister Work Phone: Start: 02-20-2024 CT of head without contrast DO Jose Keister Work Phone: Start: 02-20-2024 CT of thorax with contrast DO Jose Keister Work Phone: Start: 02-20-2024 Plain X-ray of right wrist DO Jose Keister Work Phone: Start: 02-20-2024 Plain X-ray of right forearm DO Jose Lara Work Phone: Start: 02-20-2024 Plain X-ray of right humerus DO Jose Lara Work Phone: Start: 11-19-2023 Mammography Ligia byrne PTA Start: 11-12-2022 Mammography Noemi Cicielli marjorie INSTALLATION TECH Work Phone: Start: 04-24-2022 Antibody screen DEFAULT PHYSICIAN Comment on above: Performed By: #### [id number] #### [facility] [address] [place] [address], [facility] Start: 04-01-2022 Antibody screen DEFAULT PHYSICIAN Comment on above: Performed By: #### [id number] #### [facility] [address] [place] [address], [facility] Start: 08-18-2012 Colonoscopy Noemi amador INSTALLATION TECH Work Phone: Plan of Treatment Date Care Activity Detail Author Start: 04-06-2025 Medicare Annual Well ness (AWV) Medicare Annual Wellness (AWV) [facility] Start: 11-18-2024 Screening for malign ant neoplasm of breast Mammogram [facility] Start: 07-09-2024 End: 07-09-2024 ambulatory 07/09/2024 2:00 PM EST Treatment [facility] [address] [place] [address] Jing Robin, OT [address] [place] [address] [facility] Start: 07-02-2024 End: 07-02-2024 ambulatory 07/02/2024 2:00 PM EST Evaluation [facility] [address] [place] [address] Jing Robin, OT [address] [place] [address] [facility] Start: 07-02-2024 Plain X-ray of right humerus XR humerus RT* [facility] Start: 07-02-2024 Plain X-ray of right wrist XR wrist RT min 3V* [facility] Start: 07-02-2024 XR Humerus - right Views [facility] Start: 07-02-2024 XR Wrist - right GE 3 Views [facility] Start: 06-22-2024 End: 06-22-2024 ambulatory 06/22/2024 11:30 AM EST Treatment [facility] [address] [place] [address] Loren Marcelo, FAC ENGINEER [facility] Start: 06-04-2024 End: 06-04-2024 ambulatory 06/04/2024 12:30 PM EDT Treatment [facility] [address] [place] [address] Johnathon Ferrari, FAC ENGINEER [facility] Start: 06-01-2024 End: 06-01-2024 ambulatory 06/01/2024 2:30 PM EDT Treatment [facility] [address] [place] [address] Ligia Elliott, FAC ENGINEER [facility] Start: 05-26-2024 End: 05-26-2024 ambulatory 05/26/2024 2:00 PM EDT Treatment [facility] [address] [place] [address] Ligia Elliott, FAC ENGINEER Arrived [facility] Comment on above: Arrived Start: 05-21-2024 Plain X-ray of right humerus XR humerus RT* [facility] Start: 05-21-2024 Plain X-ray of right wrist XR wrist RT min 3V* [facility] Start: 05-21-2024 XR Humerus - right Views [facility] Start: 05-21-2024 XR Wrist - right GE 3 Views [facility] Start: 05-21-2024 End: 05-21-2024 ambulatory [facility] Start: 05-19-2024 End: 05-19-2024 ambulatory 05/19/2024 11:00 AM EDT Treatment [facility] [address] [place] [address] Ligia Elliott, FAC ENGINEER [facility] Start: 05-19-2024 End: 05-19-2024 Patient encounter procedure 05/19/2024 9:40 AM EDT Office Visit [facility] [address] [place] [address] Noemi Mcnally, INSTALLATION TECH [address] [place] [address] [facility] Start: 05-14-2024 End: 05-14-2024 ambulatory 05/14/2024 2:00 PM EDT Treatment [facility] [address] [place] [address] Ligia Elliott, FAC ENGINEER [facility] Start: 05-13-2024 End: 05-13-2024 ambulatory 05/13/2024 3:00 PM EDT Treatment [facility] [address] [place] [address] Hamida Robin, PT [address] [place] [address] [facility] Start: 05-10-2024 End: 05-10-2024 ambulatory 05/10/2024 4:00 PM EDT Treatment [facility] [address] [place] [address] Hamida Robin, PT [address] [place] [address] [facility] Start: 05-06-2024 End: 05-06-2024 ambulatory [facility] Comment on above: Arrived Start: 05-04-2024 End: 05-04-2024 ambulatory [facility] Comment on above: Arrived Start: 04-29-2024 End: 04-29-2024 ambulatory 04/29/2024 3:00 PM EDT Treatment [facility] [address] [facility] [address] [place] [address] Ligia Elliott, FAC ENGINEER [facility] Start: 04-29-2024 End: 04-29-2024 Manual pelvic examination 04/29/2024 3:00 PM EDT Treatment [facility] [address] [facility] [address] [place] [address] Ligia Elliott FAC ENGINEER Pain of right hip (Primary Dx); Pain, joint, pelvic region, right; Difficulty walking; Generalized weakness; Stiffness of right shoulder joint [facility] Comment on above: Pain of right hip (P rimary Dx); Pain, joint, pelvic region, right; Difficulty walking; Generalized weakness; Stiffness of right shoulder joint Start: 04-26-2024 End: 04-26-2024 ambulatory 04/26/2024 2:00 PM EDT Treatment [facility] [address] [facility] [address] [place] [address] Loren Marcelo, FAC ENGINEER [facility] Start: 04-23-2024 End: 04-23-2024 ambulatory 04/23/2024 1:30 PM EDT Treatment [facility] [address] [facility] [address] [place] [address] Ligia Elliott, FAC ENGINEER [facility] Start: 04-18-2024 Influenza vaccination Influenza Vacc ine (#1) [facility] Start: 04-16-2024 End: 04-16-2024 ambulatory 04/16/2024 3:00 PM EDT Treatment [facility] [address] [facility] [address] [place] [address] Johnathon Ferrari, FAC ENGINEER [facility] Start: 04-14-2024 End: 04-14-2024 ambulatory 04/14/2024 3:00 PM EDT Treatment [facility] [address] [facility] [address] [place] [address] Hamida Robin, PT [address] [facility] [address] [place] [address] [facility] Start: 04-12-2024 End: 04-12-2024 ambulatory [facility] Comment on above: Arrived Start: 04-09-2024 End: 04-09-2024 ambulatory 04/09/2024 3:00 PM EDT Treatment [facility] [address] [facility] [address] [place] [address] Johnathon Frerari, ALFONSO [facility] Start: 04-09-2024 End: 04-09-2024 Manual pelvic examination 04/09/2024 3:00 PM EDT Treatment [facility] [address] [facility] [address] [place] [address] Johnathon Ferrari, ALFONSO Pain of right hip (Primary Dx); Pain, joint, pelvic region, right; Difficulty walking; Generalized weakness; Stiffness of right shoulder joint [facility] Comment on above: Pain of right hip (P rimary Dx); Pain, joint, pelvic region, right; Difficulty walking; Generalized weakness; Stiffness of right shoulder joint Start: 04-07-2024 End: 04-07-2024 ambulatory 04/07/2024 3:00 PM EDT Treatment [facility] [address] [facility] [address] [place] [address] Hamida Robin, PT [address] [facility] [address] [place] [address] [facility] Start: 04-07-2024 Plain X-ray of right humerus XR humerus RT* [facility] Start: 04-07-2024 Plain X-ray of right wrist XR wrist RT min 3V* [facility] Start: 04-07-2024 XR Humerus - right Views [facility] Start: 04-07-2024 XR Wrist - right GE 3 Views [facility] Start: 04-06-2024 End: 04-06-2024 Patient encounter procedure 04/06/2024 10:00 AM EDT Office Visit [facility] [address] [place] [address] Noemi Mcnally [facility] [address] [place] [address] [facility] Start: 04-05-2024 End: 04-05-2024 ambulatory 04/05/2024 3:00 PM EDT Treatment [facility] [address] [place] [address] [place] [id number] Loren Marcelo, FAC ENGINEER Arrived [facility] Comment on above: Arrived Start: 03-17-2024 Plain X-ray of right humerus XR humerus RT* [facility] Start: 03-17-2024 Plain X-ray of right wrist XR wrist RT min 3V* [facility] Start: 03-17-2024 X-ray of right ankle XR ankle RT min 3V* [facility] Start: 03-17-2024 XR Ankle - right GE 3 Views [facility] Start: 03-17-2024 XR Humerus - right Views [facility] Start: 03-17-2024 XR Wrist - right GE 3 Views [facility] Start: 03-08-2024 [facility] Start: 02-26-2024 Referral to clinical flatwork finisher hand [facility] Start: 02-25-2024 Hospital admission [facility] Start: 02-25-2024 [facility] Start: 02-24-2024 Referral to rehabili tation physician [facility] Start: 02-22-2024 Referral to clinical flatwork finisher hand [facility] Start: 02-20-2024 Hospital admission [facility] Start: 02-20-2024 Reposition Right Hum eral Shaft with Internal Fixation Device, Open Approach Reposition Right Humeral Shaft with Internal Fixation Device, Open Approach [facility] Start: 02-20-2024 Reposition Right Uln a with Internal Fixation Device, Open Approach Reposition Right Ulna with Internal Fixation Device, Open Approach [facility] Start: 02-20-2024 Referral to public health aides teacher [facility] Start: 02-20-2024 Consultation [facility] Start: 02-20-2024 End: 02-20-2024 [facility] Start: 02-15-2024 Influenza vaccination Influenza Vacc ine (#1) [facility] Comment on above: Postponed from 04/18 (Patient Refused) Start: 02-13-2024 Urine screening for protein Diabetes: Urine Protein Screening [facility] Start: 01-08-2024 Hemoglobin A1c measurement Manasa betes: Hemoglobin A1C [facility] Start: 11-17-2023 Glaucoma screening Diabetes: R etinopathy Screening [facility] Start: 11-14-2023 End: 10-02-2024 DXA Skeletal system Views for bone density DEXA bone density Imaging Routine Osteoporosis, unspecified osteoporosis type, unspecified pathological fracture presence ([facility]) Expected: 11/14/2023, Expires: 10/02/2024 [facility] Comment on above: Expected: 11/14/2023 , Expires: 10/02/2024 Start: 11-13-2023 Screening for malign ant neoplasm of breast Mammogram [facility] Start: 11-13-2023 End: 11-13-2023 Patient encounter procedure 11/13/2023 9:20 AM EDT Office Visit [facility] [address] [place] [address] Noemi Mcnally NP [address] [place] [address] [facility] Start: 10-31-2023 End: 11-30-2024 MG Breast - bilateral Screening Bilateral screening mammogram Imaging Routine Encounter for screening mammogram for malignant neoplasm of breast Expected: 10/31/2023 (Approximate), Expires: 11/30/2024 [facility] Comment on above: Expected: 10/31/2023 (Approximate), Expires: 11/30/2024 Start: 10-02-2023 End: 10-02-2024 Alanine aminotransferase [Enzymatic activity/volume] in Serum or Plasma ALT Lab Routine Mixed hyperlipidemia ([facility]) Expected: 10/02/2023 (Approximate), Expires: 10/02/2024 [facility] Comment on above: Expected: 10/02/2023 (Approximate), Expires: 10/02/2024 Start: 10-02-2023 End: 10-02-2024 Aspartate aminotransferase [Enzymatic activity/volume] in Serum or Plasma AST Lab Routine Mixed hyperlipidemia ([facility]) Expected: 10/02/2023 (Approximate), Expires: 10/02/2024 [facility] Comment on above: Expected: 10/02/2023 (Approximate), Expires: 10/02/2024 Start: 10-02-2023 End: 10-02-2024 Hemoglobin A1c/Hemoglobin.total in Blood Hemoglobin A1c Lab Routine Type 2 diabetes mellitus without complication, without long-term current use of insulin ([facility]) Expected: 10/02/2023 (Approximate), Expires: 10/02/2024 [facility] Comment on above: Expected: 10/02/2023 (Approximate), Expires: 10/02/2024 Start: 10-02-2023 End: 10-02-2024 Lipid 1996 panel - Serum or Plasma Lipid panel Lab Routine Mixed hyperlipidemia ([facility]) Expected: 10/02/2023 (Approximate), Expires: 10/02/2024 [facility] Work Phone: Comment on above: Expected: 10/02/2023 (Approximate), Expires: 10/02/2024 Start: 05-15-2023 Hemoglobin A1c measurement Manasa betes: Hemoglobin A1C [facility] Start: 04-18-2023 Influenza vaccination Influenza Vacc ine (#1) [facility] Start: 08-18-2022 Screening for malign ant neoplasm of colon [facility] Start: 11-17-2019 Glaucoma screening Diabetes: R etinopathy Screening [facility] Start: 07-18-2017 Pneumococcal Vaccine : 65+ Years (2 of 2 - PCV) Pneumococcal Vaccine: 65+ Years (2 of 2 - PCV) [facility] Start: 1950 Medicare Annual Well ness (AWV) Medicare Annual Wellness (AWV) [facility] Start: 1950 Screening for malign ant neoplasm of colon [facility] Electromyography [facility] Noninvasive colorect al cancer DNA and occult blood screening [Presence] in Stool Cologuard colon cancer screening Lab Routine Colon cancer screening Ordered: 04/06/2024 [facility] Work Phone: Comment on above: Ordered: 04/06/2024 Patient Education Pelvic fractur e Diabetes Exchange Diet Blood Glucose Monitoring Diabetic Meal Planning Diabetes and diet Know your Meds [facility] Work Phone: Patient referral [facility] Work Phone: [facility] Immunizations Immunization Date Immunization Notes Care Provider Landon casiano 02-20-2024 tetanus toxoid, redu reymundo diphtheria toxoid, and acellular pertussis vaccine, adsorbed DO Jose Hardeepnorma Work Phone: [facility] 07-22-2022 Influenza, Seasonal, Quadrivalent, Adjuvanted Ligia Kelbley FAC ENGINEER [facility] 07-22-2022 influenza virus vacc ine, unspecified formulation Ligia Kelbley FAC ENGINEER [facility] 06-12-2021 Influenza, High-dose Seasonal, Quadrivalent, Preservative Free Ligia Kelbley FAC ENGINEER [facility] 06-06-2020 Influenza, High-dose Seasonal, Quadrivalent, Preservative Free Ligia Kelbley FAC ENGINEER [facility] 04-14-2019 influenza, high dose seasonal, preservative-free Ligia Kelbley FAC ENGINEER [facility] 06-17-2018 influenza, high dose seasonal, preservative-free Ligia Kelbley FAC ENGINEER [facility] 06-17-2018 Influenza, High-dose Seasonal, Quadrivalent,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 Provider Active Start: Linette madeleine 2023 End: March 08, 2024 Lora Meek MD Other Provider Active Start: February 25, 2024 End: March 08, 2024 Mitul Dupont MD Other Provider Active Start: February 25, 2024 End: March 08, 2024 Power Garcia DO Other Provider Active Start: February 25, 2024 End: March 08, 2024 Crystal Craven MD Other Provider Active Start: Kalli ly 2023 End: March 08, 2024 Tani Simpson MD Other Provider Active Start: Feb End: March 08, 2024 TERRY Menendez Other Provider Active St art: February 25, 2024 End: March 08, 2024 Meryl Hinton APRN Other Provider Active Star t: February 25, 2024 End: March 08, 2024 Bolivar Gomes MD Other Provider Active Start: February 25, 2024 End: March 08, 2024 Ruiz Hassan MD Other Provider Active Start: Ju ly 2023 End: March 08, 2024 Jermaine Hernández MD Other Provider Active Start: Avtar franc 2023 End: March 08, 2024 Eyal Phipps MD Other Provider Active Star t: February 25, 2024 End: March 08, 2024 Rashaun Squires MD Other Provider Active Start: J 2023 End: March 08, 2024 Gayle Hull , Other Provider Active Start: Kalli phillips 2023 End: March 08, 2024 Lj Elizabeth DO Other Provider Active Start : February 25, 2024 End: March 08, 2024 Lissette Lozada APRN Other Provider Active Start: February 25, 2024 End: March 08, 2024 Prieto Reed DO Other Provider Active Start: February 25, 2024 End: March 08, 2024 Anne Matute MD Other Provider Active Sta rt: February 25, 2024 End: March 08, 2024 Toshia Worley APRN Other Provider Active Start : February 25, 2024 End: March 08, 2024 Elizabeth Esquivel APRN Other Provider Active St art: February 25, 2024 End: March 08, 2024 Leatha Contreras MD Other Provider Active Start: 2023 End: March 08, 2024 Irving Tucker MD Other Provider Active S tart: February 25, 2024 End: March 08, 2024 Sonia Au DO Other Provider Active Star t: February 25, 2024 End: March 08, 2024 Pavithra Huitron DO Other Provider Active Start: February 25, 2024 End: March 08, 2024 Mata Hernández MD Other Provider Active Start: February 25, 2024 End: March 08, 2024 Jolene Fox MD Other Provider Active Start: February 24 End: March 08, 2024 Ashleigh Hinojosa APRN Other Provider Active Star t: February 25, 2024 End: March 08, 2024 Bobo Seo MD Other Provider Active Start: Linette [email or web address] End: March 08, 2024 Rodrigo Eli MD Other Provider Active Start: 2023 End: March 08, 2024 Monica Miranda RN Other Provider Active Start: 2023 End: March 08, 2024 Team Status: Active Member Role Status Dates NON STAFF Primary Care Provider Active Start: February 25, 2024 August Alexandra MD Admit Provider, Other Provider Activ e Start: February 25, 2024 Pia Glover APRN Attending Provider Active Start: February 25, 2024 Team Status: Active Member Role Status Dates NON STAFF Primary Care Provider Active Start: March 03, 2024 August Alexandra MD Admit Provider, Othe r Provider Active Start: March 03, 2024 Sally Armando , LORETO Other Provider Active Star t: March 03, 2024 Radha Engel , LORETO Other Provider Active Start : March 03, 2024 Jessica Barnes RN Other Provider Active Star t: March 03, 2024 Barbara Osullivan , LORETO Other Provider Active Start: 2023 Edyta Goodman RN Other Provider Active Start: Kalli phillips 2023 Mekhi Mcleod MD Other Provider Active Start: March 03, 2024 Arina Guzman DO Other Provider Active Start : March 03, 2024 Mika Mena MD Other Provider Active Start : March 03, 2024 Justin Coats DO Other Provider Active Start: March 03, 2024 Fernandez Leon MD Other Provider Active Start: March 03, 2024 Sharon Myers MD Other Provider Active Start : March 03, 2024 Kris Mitchell MD Other Provider Active Start: 2023 Nurys Marte APRN Other Provider Active Start: March 03, 2024 Mansoor Feldman MD Other Provider Active Start: March 03, 2024 Francis Marrero MD Other Provider Active Start: 2023 Lora Meek MD Other Provider Active Start: March 03, 2024 Mitul Dupont MD Other Provider Active Start: March 03, 2024 Power Garcia DO Other Provider Active Start: March 03, 2024 Crystal Craven MD Other Provider Active Start: alan 2023 Tani Simpson MD Other Provider Active Start: Feb Taty Mccormick , INSTALLATION TECH-C Other Provider Active St art: March 03, 2024 Meryl Hinton APRN Other Provider Active Star t: March 03, 2024 Bolivar Gomes MD Other Provider Active Start: March 03, 2024 Ruiz Hassan MD Other Provider Active Start: 2023 Jermaine Hernández MD Other Provider Active Start: Feb Eyal Phipps MD Other Provider Active Star t: March 03, 2024 Rashaun Squires MD Other Provider Active Start: 2023 Gayle Hull DO Other Provider Active Start: 2023 Lj Elizabeth DO Other Provider Active Start : March 03, 2024 Lissette Lozada APRN Other Provider Active Start: March 03, 2024 Prieto Reed DO Other Provider Active Start: March 03, 2024 Anne Matute MD Other Provider Active Sta rt: March 03, 2024 Toshia Worley APRN Other Provider Active Start : March 03, 2024 Elizabeth Esquivel APRN Other Provider Active St art: March 03, 2024 Leatha Contreras MD Other Provider Active Start: 2023 Irving Tucker MD Other Provider Active S tart: March 03, 2024 Sonia Au , Other Provider Active Star t: March 03, 2024 Pavithra Huitron DO Other Provider Active Start: March 03, 2024 Mata Hernández MD Other Provider Active Start: March 03, 2024 Jolene Fox MD Other Provider Active Start: March 03 Ashleigh Hinojosa APRN Other Provider Active Star t: March 03, 2024 Bobo Seo MD Other Provider Active Start: 2023 Rodrgio Eli MD Other Provider Active Start: 2023 Monica Miranda RN Other Provider Active Start: 2023 Pia Glover APRN Attending Provider Active Start: March 03, 2024 Team Status: Inactive Member Role Status Dates NON STAFF Primary Care Provider Active Start: March 17, 2024 End: March 17, 2024 Sergio Dailey , DO Attending Provider Active S tart: March 17, 2024 End: March 17, 2024 Team Status: Active Member Role Status Dates NON STAFF Primary Care Provider Active Start: March 17, 2024 Sergio Dailey , DO Attending Provider Active S tart: March 17, 2024 Team Status: Inactive Member Role Status Dates NON STAFF Primary Care Provider Active Start: April 07, 2024 End: April 07, 2024 Sergio Dailey , DO Attending Provider Active S tart: April 07, 2024 End: April 07, 2024 Team Status: Active Member Role Status Dates NON STAFF Primary Care Provider Active Start: April 07, 2024 Sergio Dailey , DO Attending Provider Active S tart: April 07, 2024 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 Specialty Start Date End Date Cristopher Harvey MD [address] [place] [id number] PCP - General Family Medicine 09/29/23 Noemi Mcnally NP [address] [place] [phone] Nurse Practitioner Family Medicine 05/28/23 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 Specialty Start Date End Date Cristopher Harvey MD [address] [place] [phone] PCP - General Family Medicine 09/29/23 Noemi Mcnally NP [address] [place] [phone] Nurse Practitioner Family Medicine 05/28/23 Team Status: Active Member Role Status Dates Jose Lara DO Emergency Provider Active Start: February 24, 2024 End: February 25, 2024 NON STAFF Primary Care Provider Active Start: February 24, 2024 End: February 25, 2024 Favian Damon MD Admit Provider, Othe r Provider Active Start: February 24, 2024 End: February 25, 2024 Sergio Dailey DO Other Provider Active Start : February 24, 2024 End: February 25, 2024 Sally Armando , LORETO Other Provider Active Star t: February 24, 2024 End: February 25, 2024 Radha Engel , LORETO Other Provider Active Start : February 24, 2024 End: February 25, 2024 Jessica Barnes RN Other Provider Active Star t: February 24, 2024 End: February 25, 2024 Barbara Osullivan , LORETO Other Provider Active Start: 2023 End: February 25, 2024 Edyta Goodman RN Other Provider Active Start: alan 2023 End: February 25, 2024 Mekhi Mcleod MD Other Provider Active Start: February 24, 2024 End: February 25, 2024 Arina Guzman DO Other Provider Active Start : February 24, 2024 End: February 25, 2024 Mika Mena MD Other Provider Active Start : February 24, 2024 End: February 25, 2024 Justin Coats DO Other Provider Active Start: February 24, 2024 End: February 25, 2024 Fernandez Leon MD Other Provider Active Start: February 24, 2024 End: February 25, 2024 Sharon Myers MD Other Provider Active Start : February 24, 2024 End: February 25, 2024 Kris Mitchell MD Other Provider Active Start: 2023 End: February 25, 2024 Nurys Marte APRN Other Provider Active Start: February 24, 2024 End: February 25, 2024 Mansoor Feldman MD Other Provider Active Start: February 24, 2024 End: February 25, 2024 Francis Marrero MD Other Provider Active Start: 2023 End: February 25, 2024 Lora Meek MD Other Provider Active Start: February 24, 2024 End: February 25, 2024 Mitul Dpuont MD Other Provider Active Start: February 24, 2024 End: February 25, 2024 Power Garcia DO Other Provider Active Start: February 24, 2024 End: February 25, 2024 Crystal Craven MD Other Provider Active Start: ly 2023 End: February 25, 2024 Tani Simpson MD Other Provider Active Start: Feb End: February 25, 2024 Taty Mccormick , INSTALLATION TECH-C Other Provider Active St art: February 24, 2024 End: February 25, 2024 Meryl Hinton APRN Other Provider Active Star t: February 24, 2024 End: February 25, 2024 Bolivar Gomes MD Other Provider Active Start: February 24, 2024 End: February 25, 2024 Ruiz Hassan MD Other Provider Active Start: ly 2023 End: February 25, 2024 Jermaine Hernández MD Other Provider Active Start: Feb End: February 25, 2024 Eyal Phipps MD Other Provider Active Star t: February 24, 2024 End: February 25, 2024 Rashaun Squires MD Other Provider Active Start: Linette madeleine 2023 End: February 25, 2024 Gayle Hull DO Other Provider Active Start: ly 2023 End: February 25, 2024 Lj Elizabeth DO Other Provider Active Start : February 24, 2024 End: February 25, 2024 Lissette Lozada APRN Other Provider Active Start: February 24, 2024 End: February 25, 2024 Prieto Reed DO Other Provider Active Start: February 24, 2024 End: February 25, 2024 Anne Matute MD Other Provider Active Sta rt: February 24, 2024 End: February 25, 2024 Toshia Worley APRN Other Provider Active Start : February 24, 2024 End: February 25, 2024 Elizabeth Esquivel APRN Other Provider Active St art: February 24, 2024 End: February 25, 2024 Leatha Contreras MD Other Provider Active Start: J madeleine 2023 End: February 25, 2024 Irving Tucker MD Other Provider Active S tart: February 24, 2024 End: February 25, 2024 Sonia Au , DO Other Provider Active Star t: February 24, 2024 End: February 25, 2024 Pavithra Huitron , Other Provider Active Start: February 24, 2024 End: February 25, 2024 Mata Hernández MD Other Provider Active Start: February 24, 2024 End: February 25, 2024 Jolene Fox MD Other Provider Active Start: February 23 End: February 25, 2024 Ashleigh Hinojosa APRN Other Provider Active Star t: February 24, 2024 End: February 25, 2024 Bobo Seo MD Other Provider Active Start: J 2023 End: February 25, 2024 Rodrigo Eli MD Other Provider Active Start: Ju ly 2023 End: February 25, 2024 Monica Miranda RN Other Provider Active Start: J madeleine 2023 End: February 25, 2024 Natalio Aguilera Jr, DO Other Provider Active S tart: February 24, 2024 End: February 25, 2024 Ev Sandra MD Other Provider Active Start: Ju ly 2023 End: February 25, 2024 August Alexandra MD Other Provider Active Start: J madeleine 2023 End: February 25, 2024 Gus Quesada MD Attending Pr eduardo, Other Provider Active Start: February 24, 2024 End: February 25, 2024 Pia Glover APRN Other Provider Active St art: February 24, 2024 End: February 25, 2024 Team Status: Inactive Member Role Status Dates NON STAFF Primary Care Provider Active Start: May 21, 2024 End: May 21, 2024 Sergio Dailey DO Attending Provider Active S tart: May 21, 2024 End: May 21, 2024 Team Status: Active Member Role Status Dates NON STAFF Primary Care Provider Active Start: May 21, 2024 Sergio Dailey DO Attending Provider Active S tart: May 21, 2024 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 Specialty Start Date End Date Cristopher Harvey MD [address] [place] [address] PCP - General Family Medicine 09/29/23 Noemi Mcnally NP [address] [place] [phone] Nurse Practitioner Family Medicine 05/28/23 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 Specialty Start Date End Date Cristopher Harvey MD [address] [place] [address] PCP - General Family Medicine 09/29/23 Noemi Mcnally NP [address] [place] [phone] Nurse Practitioner Family Medicine 05/28/23 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 Specialty Start Date End Date Cristopher Harvey MD [address] [place] [address] PCP - General Family Medicine 09/29/23 Noemi Mcnally NP [address] [place] [address] Nurse Practitioner Family Medicine 05/28/23 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 Specialty Start Date End Date Cristopher Harvey MD [address] [place] [address] PCP - General Family Medicine 09/29/23 Noemi Mcnally NP [address] [place] [address] Nurse Practitioner Family Medicine 05/28/23 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 Specialty Start Date End Date Cristopher Harvey MD [address] [place] [address] PCP - General Family Medicine 09/29/23 Noemi Mcnally NP [address] [place] [address] Nurse Practitioner Family Medicine 05/28/23 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 Specialty Start Date End Date Cristopher Harvey MD [address] [place] [address] PCP - General Family Medicine 09/29/23 Noemi Mcnally NP [address] [place] [address] Nurse Practitioner Family Medicine 05/28/23 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 Specialty Start Date End Date Cristopher Harvey MD [address] [place] [address] PCP - General Family Medicine 09/29/23 Noemi Mcnally NP [address] [place] [address] Nurse Practitioner Family Medicine 05/28/23 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 Specialty Start Date End Date Cristopher Harvey MD [address] [place] [address] PCP - General Family Medicine 09/29/23 Noemi Mcnally NP [address] [place] [address] Nurse Practitioner Family Medicine 05/28/23 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 Specialty Start Date End Date Cristopher Harvey MD [address] [place] [phone] PCP - General Family Medicine 09/29/23 Noemi Mcnally NP [address] [place] [address] Nurse Practitioner Family Medicine 05/28/23 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 Specialty Start Date End Date Cristopher Harvey MD [address] [place] [phone] PCP - General Family Medicine 09/29/23 Noemi Mcnally NP [address] [place] [phone] Nurse Practitioner Family Medicine 05/28/23 Team Status: Inactive Member Role Status Dates NON STAFF Primary Care Provider Active Start: July 02, 2024 End: July 02, 2024 Sergio Dailey DO Attending Provider Active S tart: July 02, 2024 End: July 02, 2024 Team Status: Active Member Role Status Dates NON STAFF Primary Care Provider Active Start: July 02, 2024 Sergio Dailey DO Attending Provider Active S tart: July 02, 2024 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 Specialty Start Date End Date Cristopher Harvey MD [address] [place] [address] PCP - General Family Medicine 09/29/23 Noemi Mcnally NP [address] [place] [address] Nurse Practitioner Family Medicine 05/28/23 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 Specialty Start Date End Date Naderer, Cristopher, MD [address] [place] [address] PCP - General Family Medicine 09/29/23 Noemi Mcnally NP [address] [place] [address] Nurse Practitioner Family Medicine 05/28/23 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 Specialty Start Date End Date Cristopher Harvey MD [address] [place] [address] PCP - General Family Medicine 09/29/23 Noemi Mcnally NP [address] [place] [address] Nurse Practitioner Family Medicine 05/28/23 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 Specialty Start Date End Date Cristopher Harvey MD [address] [place] [address] PCP - General Family Medicine 09/29/23 Noemi Mcnally NP [address] [place] [phone] Nurse Practitioner Family Medicine 05/28/23 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 Specialty Start Date End Date Cristopher Harvey MD [address] [place] [address] PCP - General Family Medicine 09/29/23 Noemi Mcnally NP [address] [place] [address] Nurse Practitioner Family Medicine 05/28/23 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 Specialty Start Date End Date Cristopher Harvey MD [address] [place] [address] PCP - General Family Medicine 09/29/23 Noemi Mcnally NP [address] [place] [address] Nurse Practitioner Family Medicine 05/28/23 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 Specialty Start Date End Date Cristopher Harvey MD [address] [place] [address] PCP - General Family Medicine 09/29/23 Noemi Mcnally NP [address] [place] [address] Nurse Practitioner Family Medicine 05/28/23 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 Specialty Start Date End Date Cristopher Harvey MD [address] [place] [address] PCP - General Family Medicine 09/29/23 Noemi Mcnally NP [address] [place] [address] Nurse Practitioner Family Medicine 05/28/23 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 Specialty Start Date End Date Cristopher Harvey MD [address] [place] [address] PCP - General Family Medicine 09/29/23 Noemi Mcnally NP [address] [place] [address] Nurse Practitioner Family Medicine 05/28/23 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 Specialty Start Date End Date Cristopher Harvey MD [address] [place] [address] PCP - General Family Medicine 09/29/23 Noemi Mcnally NP [address] [place] [address] Nurse Practitioner Family Medicine 05/28/23 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 Specialty Start Date End Date Cristopher Harvey MD [address] [place] [address] PCP - General Family Medicine 09/29/23 Noemi Mcnally NP [address] [place] [address] Nurse Practitioner Family Medicine 05/28/23 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 Specialty Start Date End Date Cristopher Harvey MD [address] [place] [address] PCP - General Family Medicine 09/29/23 Noemi Mcnally NP [address] [place] [address] Nurse Practitioner Family Medicine 05/28/23 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 Specialty Start Date End Date Cristopher Harvey MD [address] [place] [address] PCP - General Family Medicine 09/29/23 Noemi Mcnally NP [address] [place] [address] Nurse Practitioner Family Medicine 05/28/23 Reason for Visit (unrecogniz ed section and content) Specialty Diagnoses / Procedures Referred By Christie ramirez Referred To Contact Physical Therapy Diagnoses Unspecified fracture of shaft of humerus, unspecified arm, initial encounter for closed fracture Unspecified fracture of shaft of unspecified ulna, initial encounter for closed fracture Procedures [place] PHYSICAL THERAPY EVALUATION LOW COMPLEX 20 MINS August Alexandra MD [address] [facility] [address] [place] [address] Hamida Robin, PT [address] [facility] [address] [place] [address] Referral ID Status Reason Start Date Expiration Date V isits Requested Visits Authorized [id number] Authorized 03/08/2024 09/04/2024 30 30 Referral ID Status Reason Start Date Expiration Date V isits Requested Visits Authorized [id number] Authorized 03/08/2024 09/04/2024 30 25 Reason Onset Date Comments MRI harpal 06/03/2024 She called elle lipscomb her foot doctor is ordering for an MRI to be done harpal. She cx tomorrow's PT and questioned if she should wait till after the results are given per MRI to rs? fu 06/03/2024 Called back and noted to rs we need to wait till post MRI and go by doctors recommendation. She said she will keep us posted. Reason Onset Date Comments Wrist referral 06/03/2024 Attempted to con tact re: patient had mentioned and we were to receive referral for OT for wrist. All we had gotten was x-rays w/ no referral. Called over but had to lm w/ Dr. Sergio Dailey requesting the referral to be sent over so we could get OT scheduled. Reason Onset Date Comments MRI status 06/11/2024 Contacted to nathaly shandra on MRI for foot. She said she, today, is finally getting it done; she has a fu w/ Herman 06/15. She also included that Dr. Sutton was not happy w/ delay, re: she was scheduled and then they would cx. She noted after she is seen per Herman she will contact [facility]. fu 06/16/2024 Called to check on status and she said she had MRI, per Heramn, and she was contacted noting nerves in her foot are shot . He referred her to a doctor across from the hospital and she is waiting to be contacted. Per Herman, once she is seen off referral she can cont on w/ PT. She said she will contact. Call Back 06/18/2024 She called elle lipscomb she'll be having an appt w/ foot doctor on 06/23 and then sx on 07/06. She was noted she can be seen for PT; and Dr. Sutton recommended to start the OT as well. On 06/22 she has an PT w/ Loren Marcelo PTA and 07/02 she'll have her OT [place] w/ Jing Robin OT. Reason Onset Date Comments Cx OT today 07/09/2024 She called elle lipscomb she was contacted by [facility] and they scheduled and appt for wrist; she had to cx due to it conflicting. She said she will call back to rs and update w/ status. Call Back 07/30/2024 Goals (unrecognized section and content) Goals may be documented in a n alternate sectionGoals may be documented in an alternate section FOR RECORDS PERTAINING TO PATIENTS WHO ARE [...] BE BASED ON THE PRIMARY CLINICAL RECORDS. [employer] provides no warranty or guarantee of the accuracy or completeness of information in this document.
--- NOTE | 2024-09-01 14:57 | PM.CN ---
Consult Note: HPI Data of Consult Patient: known to practice within the last 3 years Requesting Physician: Capri Dallas NP Primary Care Provider: Noemi Mcnally NP Consult Narrative Reason for consult: f/u Narrative: Michela Arias a pleasant 74 year old female presents for evaluation and management of chronic pain, severe lumbar pain and radiculopathy post numerous lumbar surgeries. Today pain 9/10 in right ankle and toes, increasing to 10/10. Pain increased with standing, walking, sitting too long, pushing, pulling, weather changes, activity, and ADLs. Pain improved mildly with heat, baclofen, otc motrin PRN, and zonegran. denies side effects. STEPHANIE 62%. has failed PT and HEP greater than 6 weeks. recently underwent updated lumbar MRI with results in paper chart. cc:: CC: Capri Dallas NP Review of Systems ROS Status of ROS 10 or more systems reviewed and unremarkable except as noted in history and below Musculoskeletal Reports: back pain, extremity pain and extremity swelling; Denies: joint pain PFSH PFSH Medical History Kidney stones ?N20.0 - Calculus of kidney (ICD-10) Diabetes 1.5, managed as type 2 ?E13.9 - Other specified diabetes mellitus without complications (ICD-10) Hypothyroid ?E03.9 - Hypothyroidism, unspecified (ICD-10) Surgical History H/O thyroidectomy ?E89.0 - Postprocedural hypothyroidism (ICD-10) H/O: hysterectomy ?Z90.710 - Acquired absence of both cervix and uterus (ICD-10) Hx of cholecystectomy ?Z90.49 - Acquired absence of other specified parts of digestive tract (ICD-10) Meds Home Medications and Allergies Home Medications ?Medication ?Instructions ?Recorded ?Confirmed ?Type metformin 500 mg tablet,extended 250 mg PO DAILY 05/02/23 06/23/24 History release 24 hr pioglitazone 15 mg tablet 15 mg PO DAILY 05/02/23 06/23/24 History baclofen 10 mg tablet 10 mg PO BID PRN muscle spasm #60 06/23/24 Rx tabs zonisamide 25 mg capsule (Zonegran) 25 mg PO BID #60 caps 06/23/24 Rx Allergies Allergy/AdvReac Type Severity Reaction Status Date / Time penicillins Allergy Mild Dizziness Uncoded 08/26/23 07:22 Exam Constitutional Documenting provider has reviewed patient's vital signs: yes Common normals: no apparent distress, oriented x3, healthy appearing, alert and well nourished General appearance: cooperative HENNJ Common normals: normocephalic, hearing grossly normal bilaterally and moist oral mucous membranes Head and scalp: normocephalic Eye Common normals: PERRL Pupil: PERRL Neck & C-Spine Common normals: full ROM General: normal visual inspection Chest Common normals: inspection of chest normal Respiratory Common normals: normal respiratory effort, no retractions and no use of accessory muscles Back & Pelvis Lumbar spine/lower back: ROM limited, pain with ROM and straight leg raise positive right Other: pain following right L5/S1 dermatomal pattern Extremity Common normals: full ROM Other: pain increased in bottom of right foot, lateral foot, and ankle mild edema to right foot, no discoloration Neuro Common normals: oriented x3, CN's II-XII intact bilaterally, moves all extremities, no focal motor deficits, no sensory deficits noted and deep tendon reflexes 2+ bilaterally Sensorium/orientation: alert Motor exam: strength 5/5 throughout and no movement abnormalities noted Psych Common normals: mental status grossly normal, thought process normal, cooperative, affect normal, speech normal and activity/motor behavior normal Speech: normal speech Thought process: normal thought process Results Additional Findings Additional findings: If on a controlled substance or opioids, I have checked an [place] report on this patient and there are no aberrancies noted in the prescribing history.??If on a controlled substance or opioid a drug screen was completed and reviewed within the last year, and if there has not been a drug screen completed we ordered one today to monitor higher risk, state monitored pain medication use. As part of providing excellent, safe, comprehensive care, the following was completed at our patient's visit: 1. A medication reconciliation and review to ensure accurate knowledge of current/active medications, including asking our patients to inform us about any cdyy-qwy-lectcha medications or herbal remedies/nutritional supplements/alternative remedies. 2. A review to specifically ensure our patients have had annual screening for screening for depression, screening for tobacco use, and screening for unhealthy alcohol use. For concerning screenings had a discussion with the patient, provided patient education, and recommended follow-up with primary care provider when appropriate. If patient noted with a risk of falling, they received education on strength, gait, and balance training to prevent future risk of falling. Portions of this note may have been carried over from the previous visit and updated as appropriate. Please note this office utilizes paper charting in addition to the electronic medical record. A list of current medications, vitals, and PMH is available there as the clinical staff outside of myself do not have access to [employer] charting during the clinic day operations. As part of providing quality comprehensive care the current medications, vitals, and PMH were reviewed in the paper chart. Assessment and Plan Assessment and Plan (1) Failed back syndrome: (2) Lumbar radiculopathy: (3) Post laminectomy syndrome: (4) Myalgia: Plan increase zonegran 75mg BID, risks vs benefits reviewed MRI reviewed with pt. I recommend pt undergo spinal cord stim trial for M96.1. send back to Dr Kike HIRSCH prior to spinal cord stimulation trial for workup, previously he did not recommend additional surgery pt given information to complete psychiatric evaluation for spinal cord stim trial continue baclofen 10mg BID PRN pain/spasms f/u after NS consultation
== END 2024-09-01 14:29 | disposition home or self-care (01) ==
LOC: PM 14:28
PROVIDERS: PCP Nurse Practitioner; Visit Provider Nurse Practitioner
DX: M96.1 Postlaminectomy syndrome, not elsewhere classified (principal); M54.16 Radiculopathy, lumbar region; M79.18 Myalgia, other site
CPT/HCPCS: G0463

== ENCOUNTER 2024-10-25 15:24 | Outpatient (OUT) | payer MEDICARE, SELFPAY ==
[2024-10-25 15:55] LABS: Basophils Percent Auto 0.2 % (0.2-2.0); Eosinophils Absolute Auto 0.1 10^3/uL (0.0-0.7); Eosinophils Percent Auto 1.6 % (0.9-7.0); Hemoglobin 12.8 g/dL (12.0-16.0); Immature Granulocytes Abs Auto 0.03 10^3/uL (0.00-0.03); Immature Granulocytes Pct Auto 0.4 % (0.0-0.5); Lymphocytes Absolute Auto 2.8 10^3/uL (1.2-3.8); Mean Corpuscular HGB Conc 32.8 g/dL (29.9-35.2); Mean Corpuscular Hemoglobin 29.9 pg (26.7-34.0); Mean Corpuscular Volume 91.1 fL (81.0-99.0); Mean Platelet Volume 9.7 fL (9.5-13.5); Monocytes Absolute Auto 0.4 10^3/uL (0.3-0.8); Monocytes Percent Auto 5.1 % (1.7-12.0); Neutrophils Absolute Auto 4.6 10^3/uL (1.4-6.5); Neutrophils Percent Auto 57.7 % (43.0-75.0); Platelet Count 170 10^3/uL (150-450); Red Blood Count 4.28 10^6/uL (4.20-5.40); Red Cell Distribution Width 13.8 % (11.0-15.0)
[2024-10-25 16:26] LABS: Alanine Aminotransferase 19 U/L (14-59); Albumin Globulin Ratio 0.9; Albumin Level 3.6 g/dL (3.4-5.0); Alkaline Phosphatase 76 U/L (46-116); Anion Gap 9.7; Aspartate Amino Transferase 11 U/L (15-37); BUN Creatinine Ratio 21.2; Bilirubin Total 0.4 mg/dL (0.2-1.0); Calcium 8.8 mg/dL (8.5-10.1); Carbon Dioxide 30.1 mmol/L (21.0-32.0); Chloride 103 mmol/L (98-107); Chol HDL Ratio 4.3; Cholesterol 247 mg/dL (<=200); Estimated GFR (African America >60 (>=60 mL/min/1.73m^2); Estimated GFR (Non-African Ame >60 (>=60 mL/min/1.73m^2); Globulin 3.8 g/dL; Glucose 110 mg/dL (74-106); HDL Cholesterol 57 mg/dL (40-60); Potassium 3.8 mmol/L (3.5-5.1); Sodium 139 mmol/L (136-145); Thyroid Stimulating Hormone 1.103 uIU/mL (0.358-3.740); Total Protein 7.4 g/dL (6.4-8.2); Triglycerides 223 mg/dL (<=150); VLDL CHOLESTEROL 44.6 mg/dL
[2024-10-25 16:27] LABS: Bilirubin Urine NEGATIVE (NEGATIVE); Blood Urine NEGATIVE (NEGATIVE); Clarity Urine CLEAR (CLEAR); Color Urine LT. YELLOW (YELLOW); Glucose Urine UA NEGATIVE (NEGATIVE); Ketones Urine NEGATIVE (NEGATIVE); Leukocyte Esterase Urine SMALL (NEGATIVE); Nitrite Urine NEGATIVE (NEGATIVE); Protein Urine NEGATIVE (NEG/TRACE); Specific Gravity Urine <=1.005 (1.005-1.025); Urobilinogen Urine 0.2 EU/dL (0.2-1.0); pH Urine 6.5 (5.0-9.0)
[2024-10-25 16:38] LABS: Urine Microscopic Indicated YES
[2024-10-25 16:39] LABS: RBC Urine 0-2 #/HPF (0-2)
[2024-10-25 16:40] LABS: Bacteria Urine SMALL #/HPF (NONE SEEN)
[2024-10-25 16:41] LABS: Cast Seen? NONE SEEN #/LPF (NONE SEEN); Crystals Seen? None Seen #/HPF (None Seen); Mucus Urine NONE SEEN (NONE SEEN); Squamous Epithelial Cell Urine FEW #/LPF (NONE/RARE); Urine Culture Indicated YES-FRMC
[2024-10-25 16:44] LABS: Free T4 0.91 ng/dL (0.76-1.46)
[2024-10-25 16:51] LABS: Creatinine Urine Random 16.75 mg/dL (20.00-300.00); Microalbumin Urine Random <1.3 mg/dL (<=30.0)
== END 2024-10-25 15:25 | disposition home or self-care (01) ==
LOC: LAB 15:33
PROVIDERS: PCP Nurse Practitioner; Visit Provider Nurse Practitioner
DX: I73.9 Peripheral vascular disease, unspecified (principal); E03.9 Hypothyroidism, unspecified; E11.9 Type 2 diabetes mellitus without complications; E78.2 Mixed hyperlipidemia; M81.0 Age-related osteoporosis without current pathological fracture; R82.998 Other abnormal findings in urine
CPT/HCPCS: 36415; 80053; 80061; 81001; 82043; 82306; 82570; 84439; 84443; 85025; 87086; 87150; 87186

== ENCOUNTER 2024-11-22 10:43 | Emergency (ER) | payer MEDICARE, SELFPAY ==
[2024-11-22] VITALS (15 sets, daily range): BP systolic 154; BP diastolic 90; PULSE 87–106; TEMP 36.9; O2SAT 93–100; BMI 22.7
--- NOTE | 2024-11-22 11:09 | ECG_ITS ---
[facility] Test Date: 2024-11-22 Pat Name: RANDALL PRADO Department: Room: - Gender: Female Check Examiner: : 1950 Requested By: [id number] Order Number: [id number] Reading MD: LANIE WHELAN M.D. Measurements Intervals [place] Rate: 90 P: 30 [place]: 140 QRS: 12 QRSD: 80 T: 66 QT: 352 QTc: 400 Interpretive Statements 1100 Sinus rhythm 4068 Nonspecific Twave abnormality Abnormal ECG Compared to ECG 07/18/2021 12:13:56 Sinus arrhythmia no longer present Electronically Signed On 11-22-2024 17:49:47 EDT by LANIE WHELAN M.D.
--- NOTE | 2024-11-22 11:12 | ED_ITS ---
HPI HPI - General Adult General Chief complaint: Shortness of Breath/Dyspnea Stated complaint: URTI COMPLAINTS Time Seen by Provider: 11/22/24 11:09 Source: patient Mode of arrival: walk-in History of Present Illness HPI narrative: Patient is a 74-year-old female who is presenting to the ER as recommended by her PCP. Patient saw her nurse practitioner Noemi Up. Patient has had cough, congestion this been going on for approximately 1 week. Patient has no nausea or vomiting. Patient is a lot of sinus congestion, sinus headache, mild sore throat. Patient does not wear oxygen at home. Patient has been taking doxycycline since along with Flonase and Tessalon Perles. Patient was recommended to come to the ER for further evaluation. Patient has a medical record list from the office from Noemi Up. HPI states she picked up medication and started taking medication. She has been feeling weak and sick over a week ago. She has had a wet barky cough, lightheaded dizzy foggy feeling aches congestion yellow mucus headache sinus pressure and flulike symptoms. Patient has been taking doxycycline since , not getting better. Patient is diabetic, takes metformin. In looking at the note from today's office visit, Noemi was suspecting pneumonia, for full days of Doxy and worsening symptoms. Moderate chest congestion, recommending patient go to the ER. We received no phone call ahead of time on this patient, but it was nice we received patient's chart from the office. All systems are negative except as noted/marked. All systems reviewed and otherwise negative. Nurses note and vital signs reviewed and patient is not hypoxic. General: The patient appears well and in no apparent distress. Patient is resting comfortably on cart. Patient is not toxic, lethargic, or listless Skin: Warm, dry, no pallor noted. There is no rash noted. No petechiae, purpura. Head: Normocephalic, atraumatic; no tenderness to palpation to bilateral frontal and maxillary sinus. Eye: Normal conjunctiva, no drainage, EOMI. PERRL Ears, Nose, Mouth, and Throat: oral mucosa is moist. Nares patent. Mouth without vesicles. Patient has no unilateral swelling, no obvious signs of peritonsillar abscess, no posterior pharyngeal petechiae or exudate. Airways patent. Patient tolerating secretions well. No trismus. Patient has clear drainage noted to the posterior pharynx. Patient has mild cobblestoning to the posterior pharynx. No bilateral anterior or posterior cervical lymphadenopathy. Cardiovascular: Regular Rate and Rhythm, no murmur, gallop, rub Respiratory: Patient is in no distress, no accessory muscle use, lungs are clear to auscultation, no wheezing, rales or rhonchi Back: non-tender, no CVA tenderness bilaterally to percussion. No CT LS midline pain GI: no tenderness to palpation, no masses appreciated. No rebound, guarding, or rigidity noted. No distention Musculoskeletal: Patient has full range of motion of all of the extremities, no motor, sensory, or focal neurological deficits Neurological: A&O x4, normal speech Psychiatric: Cooperative Related Data Home Medications ?Medication ?Instructions ?Recorded ?Confirmed metformin 500 mg tablet,extended 1,000 mg PO BID 05/02/23 11/22/24 release 24 hr pioglitazone 15 mg tablet 15 mg PO DAILY 05/02/23 11/22/24 acetaminophen 500 mg tablet 500 mg PO TID 11/22/24 11/22/24 aspirin 81 mg tablet,delayed 81 mg PO DAILY 11/22/24 11/22/24 release (Adult Low Dose Aspirin) atorvastatin 80 mg tablet 80 mg PO QPM 11/22/24 11/22/24 benzonatate 200 mg capsule 200 mg PO TID PRN cough 11/22/24 11/22/24 cetirizine 10 mg tablet (Allergy 10 mg PO DAILY 11/22/24 11/22/24 Relief (cetirizine)) cholecalciferol (vitamin D3) 50 50 mcg PO DAILY 11/22/24 11/22/24 mcg (2,000 unit) capsule doxycycline hyclate 100 mg tablet 100 mg PO BID 11/22/24 11/22/24 ezetimibe 10 mg tablet 10 mg PO DAILY 11/22/24 11/22/24 fluticasone propionate 50 2 spray intranasal DAILY 11/22/24 11/22/24 mcg/actuation nasal spray,suspension triamcinolone acetonide 0.1 % 1 applic topical DAILY PRN flares 11/22/24 11/22/24 topical cream zonisamide 25 mg capsule (Zonegran) 75 mg PO BID 04/07/25 04/07/25 Previous Rx's ?Medication ?Instructions ?Recorded albuterol sulfate 90 mcg/actuation 2 inh inhalation Q4H PRN shortness 11/22/24 aerosol inhaler of breath or wheezing 7 days #8.5 grams benzonatate 100 mg capsule 100 mg PO TID PRN cough #21 caps 11/22/24 jbjzhqmevjwplxq-vycjbfumwozviiu-BL 10 ml PO Q6H PRN cold symptoms 11/22/24 2 mg-30 mg-10 mg/5 mL oral syrup #200 mL (Bromfed DM) Allergies Allergy/AdvReac Type Severity Reaction Status Date / Time Iodinated Contrast Media Allergy Severe Dizziness Verified 11/22/24 10:57 iodine Allergy Severe Gastrointestinal Verified 11/22/24 10:57 Upset metformin Allergy Severe Gastrointestinal Verified 11/22/24 10:57 Upset nalbuphine (From Nubain) Allergy Severe Unknown Verified 11/22/24 10:57 Penicillins Allergy Severe Hives Verified 11/22/24 10:57 sitagliptin Allergy Severe Unknown Verified 11/22/24 10:57 aminosyn li Allergy Severe Unknown Uncoded 11/22/24 10:57 Opioid HPI Opioid Management Most Recent Opioid Data: Last Pain Scale 9 08/26/23 07:16 08/26/23 [facility] Medical History (Updated 11/22/24 @ 13:11 by Yuriy Robbins MD) Type 2 diabetes mellitus ?E11.9 - Type 2 diabetes mellitus without complications (ICD-10) Thyroid goiter ?E04.9 - Nontoxic goiter, unspecified (ICD-10) Sinusitis ?J32.9 - Chronic sinusitis, unspecified (ICD-10) Radiculopathy ?M54.10 - Radiculopathy, site unspecified (ICD-10) Positive H. pylori test ?A04.8 - Other specified bacterial intestinal infections (ICD-10) Osteoarthritis ?M19.90 - Unspecified osteoarthritis, unspecified site (ICD-10) Non-proliferative diabetic retinopathy, both eyes ?E11.3293 - Type 2 diabetes mellitus with mild nonproliferative diabetic retinopathy without macular edema, bilateral (ICD-10) Menopause ?Z78.0 - Asymptomatic menopausal state (ICD-10) Lumbar back pain ?M54.50 - Low back pain, unspecified (ICD-10) Hip pain ?M25.559 - Pain in unspecified hip (ICD-10) High triglycerides ?E78.1 - Pure hyperglyceridemia (ICD-10) Hematuria ?R31.9 - Hematuria, unspecified (ICD-10) Diverticulosis large intestine w/o perforation or abscess w/o bleeding ?K57.30 - Diverticulosis of large intestine without perforation or abscess without bleeding (ICD-10) Diaphragmatic hernia ?K44.9 - Diaphragmatic hernia without obstruction or gangrene (ICD-10) DDD (degenerative disc disease) Colon polyp ?K63.5 - Polyp of colon (ICD-10) Cervical pain ?M54.2 - Cervicalgia (ICD-10) Allergic rhinitis ?J30.9 - Allergic rhinitis, unspecified (ICD-10) Kidney stones ?N20.0 - Calculus of kidney (ICD-10) Diabetes 1.5, managed as type 2 ?E13.9 - Other specified diabetes mellitus without complications (ICD-10) Hypothyroid ?E03.9 - Hypothyroidism, unspecified (ICD-10) Surgical History H/O thyroidectomy ?E89.0 - Postprocedural hypothyroidism (ICD-10) H/O: hysterectomy ?Z90.710 - Acquired absence of both cervix and uterus (ICD-10) Hx of cholecystectomy ?Z90.49 - Acquired absence of other specified parts of digestive tract (ICD- 10) Social History Little interest or pleasure in doing things: not at all Feeling down, depressed, or hopeless: not at all Exam Constitutional Vital Signs, click to edit/add: Last Vital Signs Temp 98.4 F 11/22/24 10:46 Pulse 88 11/22/24 12:50 Resp 17 11/22/24 11:40 BP 154/90 H 11/22/24 10:53 Pulse Ox 100 11/22/24 12:50 O2 Del Method Room Air 11/22/24 11:16 O2 Flow Rate 2 11/22/24 11:16 Course Vital Signs Vital signs: Vital Signs Temperature 98.4 F 11/22/24 10:46 Pulse Rate 102 H 11/22/24 10:46 Respiratory Rate 22 H 11/22/24 10:46 Blood Pressure 154/90 H 11/22/24 10:46 Pulse Oximetry 97 11/22/24 10:46 Oxygen Delivery Method Room Air 11/22/24 10:46 Temperature 98.4 F 11/22/24 10:46 Pulse Rate 88 11/22/24 12:50 Respiratory Rate 17 11/22/24 11:40 Blood Pressure 154/90 H 11/22/24 10:53 Pulse Oximetry 100 11/22/24 12:50 Oxygen Delivery Method Room Air 11/22/24 11:16 Oxygen Delivery Flow Rate 2 11/22/24 11:16 Medical Decision Making [facility] Narrative Medical decision making narrative: Patient seen and examined: Patient will have septic workup in place secondary to initial vital signs Differential diagnosis includes but is not limited to: Pneumonia, sepsis, pleural effusion, pneumothorax, [place], URI, bronchitis, electrolyte abnormality Diagnostics and management: Patient will have laboratory studies Relevant laboratory interpretation: Patient potassium is 3.4, BUN is 19, Radiological studies: Please see the formal radiological report. X-ray report shows cardiomegaly, otherwise no acute findings. Reevaluation: Patient felt better after IV fluids and treatments and medications that were given in the ER. Shared decision making: I discussed with the patient the necessary laboratory findings and radiological findings. Social barriers to healthcare: There are no food insecurities, there is no issue with transportation, there are no insurance barriers. Disposition: I discussed with the patient patient will continue doxycycline, Tessalon Perles, and Flonase. Patient was prescribed albuterol inhaler and Bromfed. Patient will continue taking medications at home along with adding vitamins. Patient will increase fluids. Patient will follow-up with PCP. No indication for admission. Lab Data Lab results reviewed: Yes I reviewed the patient's lab results Labs: Lab Results 11/22/24 11/22/24 Range/Units 11:28 12:05 WBC 6.4 (4.0-11.0) 10^3/uL RBC 4.11 L (4.20-5.40) 10^6/uL Hgb 12.5 (12.0-16.0) g/dL Hct 36.9 (36.0-48.0) % MCV 89.8 (81.0-99.0) fL MCH 30.4 (26.7-34.0) pg MCHC 33.9 (29.9-35.2) g/dL RDW 13.2 (11.0-15.0) % Plt Count 147 L (150-450) 10^3/uL MPV 9.9 (9.5-13.5) fL Neut % (Auto) 59.6 (43.0-75.0) % Lymph % (Auto) 27.6 (20.5-60.0) % Terry % (Auto) 8.7 (1.7-12.0) % Eos % (Auto) 3.6 (0.9-7.0) % Baso % (Auto) 0.3 (0.2-2.0) % Neut # (Auto) 3.8 (1.4-6.5) 10^3/uL Lymph # (Auto) 1.8 (1.2-3.8) 10^3/uL Terry # (Auto) 0.6 (0.3-0.8) 10^3/uL Eos # (Auto) 0.2 (0.0-0.7) 10^3/uL Baso # (Auto) 0.0 (0.0-0.1) 10^3/uL Abs Immat Gran (auto) 0.01 (0.00-0.03) 10^3/uL Imm/Tot Granulo (auto) 0.2 (0.0-0.5) % PT 10.8 (9.0-11.6) sec INR 1.02 VBG pH 7.386 (7.330-7.430) VBG pCO2 41.7 (40.0-52.0) mmHg Sodium 138 (136-145) mmol/L Potassium 3.4 L (3.5-5.1) mmol/L Chloride 102 (98-107) mmol/L Carbon Dioxide 25.3 (21.0-32.0) mmol/L Anion Gap 14.1 BUN 19.0 H (7.0-18.0) mg/dL Creatinine 0.82 (0.55-1.02) mg/dL Est GFR ( Amer) >60 (>=60 mL/min/1.73m^2) Est GFR (Non-Af Amer) >60 (>=60 mL/min/1.73m^2) BUN/Creatinine Ratio 23.2 Glucose 113 H (74-106) mg/dL Lactate 0.9 (0.4-2.0) mmol/L Calcium 8.6 (8.5-10.1) mg/dL Magnesium 1.8 (1.8-2.4) mg/dL Total Bilirubin 0.9 (0.2-1.0) mg/dL AST 16 (15-37) U/L ALT 20 (14-59) U/L Alkaline Phosphatase 83 (46-116) U/L Troponin I High Sens <4.0 L (4.0-51.3) pg/mL NT-Pro-B Natriuret Pep 174.0 (<=900.0) pg/mL Total Protein 7.5 (6.4-8.2) g/dL Albumin 3.7 (3.4-5.0) g/dL Globulin 3.8 g/dL Albumin/Globulin Ratio 1.0 Urine Color Lt. yellow (YELLOW) Urine Clarity Clear (CLEAR) Urine pH 6.0 (5.0-9.0) Ur Specific [place] <=1.005 A (1.005-1.025) Urine Protein Negative (NEG/TRACE) mg/dL Urine Glucose (UA) Negative (NEGATIVE) mg/dL Urine Ketones Negative (NEGATIVE) mg/dL Urine Occult Blood Negative (NEGATIVE) Urine Nitrite Negative (NEGATIVE) Urine Bilirubin Negative (NEGATIVE) Urine Urobilinogen 0.2 (0.2-1.0) EU/dL Ur Leukocyte Esterase Negative (NEGATIVE) Urine RBC None seen (0-2) #/HPF Urine WBC 0-2 A (NONE SEEN) #/HPF Ur Squamous Epith Cells Few A (NONE/RARE) #/LPF Urine Crystals None seen (None Seen) #/HPF Urine Bacteria Trace A (NONE SEEN) #/HPF Urine Casts None seen (NONE SEEN) #/LPF Urine Starch Few Urine Mucus None seen (NONE SEEN) Ur Culture Indicated? No ECG Data Attestation: I personally reviewed and interpreted this ECG as follows: (EKG interpretation. Normal sinus rhythm at 90 beats a minute. Normal axis deviation. No acute ST elevation, no acute ectopy. QTc of 400.) Discharge Plan Discharge Chief Complaint: Shortness of Breath/Dyspnea Clinical Impression: Sinus congestion, Bronchitis, Wheezing Patient Disposition: Home, Self-Care Time of Disposition Decision: 13:11 Condition: Fair Prescriptions / Home Meds: New benzonatate 100 mg capsule 100 mg PO TID PRN (Reason: cough) Qty: 21 0RF albuterol sulfate 90 mcg/actuation HFA aerosol inhaler 2 inh inhalation Q4H PRN (Reason: shortness of breath or wheezing) 7 Days Qty: 8.5 0RF ownutnkplttkqmi-bhnoxoruh-QM [Bromfed DM] 2-30-10 mg/5 mL syrup 10 ml PO Q6H PRN (Reason: cold symptoms) Qty: 200 0RF No Action acetaminophen 500 mg tablet 500 mg PO TID atorvastatin 80 mg tablet 80 mg PO QPM benzonatate 200 mg capsule 200 mg PO TID PRN (Reason: cough) cetirizine [Allergy Relief (cetirizine)] 10 mg tablet 10 mg PO DAILY cholecalciferol (vitamin D3) 50 mcg (2,000 unit) capsule 50 mcg PO DAILY doxycycline hyclate 100 mg tablet 100 mg PO BID ezetimibe 10 mg tablet 10 mg PO DAILY aspirin [Adult Low Dose Aspirin] 81 mg tablet,delayed release (DR/EC) 81 mg PO DAILY fluticasone propionate 50 mcg/actuation spray,suspension 2 spray intranasal DAILY Rx Instructions: administer into each nostril triamcinolone acetonide 0.1 % cream 1 applic topical DAILY PRN (Reason: flares) zonisamide [Zonegran] 25 mg capsule 75 mg PO BID metformin 500 mg tablet extended release 24 hr 1,000 mg PO BID pioglitazone 15 mg tablet 15 mg PO DAILY Print Language: Yi Instructions: How to Use a Metered-Dose Inhaler (ED), Acute Bronchitis (ED), Cold Symptoms (ED), Wheezing (ED), How to Use Nasal [place] (ED) Additional Instructions: Use your inhaler every 4 hours while you are awake for the next 5 to 7 days. Continue taking Flonase twice a day as prescribed from your PCP Continue taking antibiotics that were prescribed to increase fluids at home, Gatorade, Powerade, or water. Alternate using DayQuil, NyQuil, and Flonase. Add Mucinex as well as needed. Alternate Tylenol and Motrin every 4 hours to help with fever control, body aches or joint pain. Use [id number] vitamin C, vitamin D3, and zinc to help fight infection and help with her immune system. Sleep in the upright position at nighttime to help with nighttime coughing secondary to gravity Increase fluids, popsicles, ice water Your potassium was slightly low, you are given oral potassium to drink. Continue with multivitamins. Referrals: Noemi Mcnally NP [Primary Care Provider] - 1 week Discharge Date/Time: 11/22/24 13:20
[2024-11-22] MEDS: IPRATROPIUM/ALBUTEROL SULFATE 3 ML AMPUL.NEB IH (11:23)
[2024-11-22] MEDS: LACTATED RINGER'S SOLUTION 1,000 ML 999 ML IV (11:30)
[2024-11-22 11:44] LABS: PCO2 VBG 41.7 mmHg (40.0-52.0); pH VBG 7.386 (7.330-7.430)
[2024-11-22 11:46] LABS: Basophils Percent Auto 0.3 % (0.2-2.0); Eosinophils Absolute Auto 0.2 10^3/uL (0.0-0.7); Eosinophils Percent Auto 3.6 % (0.9-7.0); Hematocrit 36.9 % (36.0-48.0); Hemoglobin 12.5 g/dL (12.0-16.0); Immature Granulocytes Abs Auto 0.01 10^3/uL (0.00-0.03); Immature Granulocytes Pct Auto 0.2 % (0.0-0.5); Lymphocytes Absolute Auto 1.8 10^3/uL (1.2-3.8); Lymphocytes Percent Auto 27.6 % (20.5-60.0); Mean Corpuscular HGB Conc 33.9 g/dL (29.9-35.2); Mean Corpuscular Hemoglobin 30.4 pg (26.7-34.0); Mean Corpuscular Volume 89.8 fL (81.0-99.0); Mean Platelet Volume 9.9 fL (9.5-13.5); Monocytes Absolute Auto 0.6 10^3/uL (0.3-0.8); Monocytes Percent Auto 8.7 % (1.7-12.0); Neutrophils Absolute Auto 3.8 10^3/uL (1.4-6.5); Neutrophils Percent Auto 59.6 % (43.0-75.0); Platelet Count 147 10^3/uL (150-450); Red Blood Count 4.11 10^6/uL (4.20-5.40); Red Cell Distribution Width 13.2 % (11.0-15.0); White Blood Count 6.4 10^3/uL (4.0-11.0)
[2024-11-22 11:57] LABS: Alanine Aminotransferase 20 U/L (14-59); Albumin Level 3.7 g/dL (3.4-5.0); Alkaline Phosphatase 83 U/L (46-116); Anion Gap 14.1; Aspartate Amino Transferase 16 U/L (15-37); BUN Creatinine Ratio 23.2; Bilirubin Total 0.9 mg/dL (0.2-1.0); Calcium 8.6 mg/dL (8.5-10.1); Carbon Dioxide 25.3 mmol/L (21.0-32.0); Chloride 102 mmol/L (98-107); Estimated GFR (African America >60 (>=60 mL/min/1.73m^2); Estimated GFR (Non-African Ame >60 (>=60 mL/min/1.73m^2); Globulin 3.8 g/dL; Glucose 113 mg/dL (74-106); Potassium 3.4 mmol/L (3.5-5.1); Sodium 138 mmol/L (136-145); Total Protein 7.5 g/dL (6.4-8.2)
[2024-11-22 11:59] LABS: Lactate/Lactic Acid 0.9 mmol/L (0.4-2.0)
[2024-11-22 12:02] LABS: INR 1.02; Prothrombin Time 10.8 sec (9.0-11.6)
[2024-11-22 12:05] LABS: Magnesium 1.8 mg/dL (1.8-2.4); Troponin I High Sensitivity <4.0 pg/mL (4.0-51.3)
[2024-11-22 12:35] LABS: Bilirubin Urine NEGATIVE (NEGATIVE); Blood Urine NEGATIVE (NEGATIVE); Clarity Urine CLEAR (CLEAR); Color Urine LT. YELLOW (YELLOW); Glucose Urine UA NEGATIVE (NEGATIVE); Ketones Urine NEGATIVE (NEGATIVE); Leukocyte Esterase Urine NEGATIVE (NEGATIVE); Nitrite Urine NEGATIVE (NEGATIVE); Protein Urine NEGATIVE (NEG/TRACE); Specific Gravity Urine <=1.005 (1.005-1.025); Urobilinogen Urine 0.2 EU/dL (0.2-1.0)
[2024-11-22 12:48] LABS: Bacteria Urine TRACE #/HPF (NONE SEEN); Cast Seen? NONE SEEN #/LPF (NONE SEEN); Crystals Seen? None Seen #/HPF (None Seen); Mucus Urine NONE SEEN (NONE SEEN); RBC Urine NONE SEEN #/HPF (0-2); Squamous Epithelial Cell Urine FEW #/LPF (NONE/RARE); WBC Urine 0-2 #/HPF (NONE SEEN)
[2024-11-22 12:49] LABS: Starch Urine FEW
[2024-11-22 12:50] LABS: Urine Culture Indicated NO
[2024-11-22] MEDS: POTASSIUM BICARBONATE/CIT 25 MEQ TABLET EFF 50 MEQ PO (12:55)
== END 2024-11-22 13:20 | disposition home or self-care (01) ==
PROVIDERS: Emergency Provider Emergency Medicine; PCP Nurse Practitioner
DX: R09.81 Nasal congestion (principal); J40 Bronchitis, not specified as acute or chronic; R06.2 Wheezing; R05.9 Cough, unspecified; R51.9 Headache, unspecified; R06.02 Shortness of breath; J02.9 Acute pharyngitis, unspecified; R09.89 Other specified symptoms and signs involving the circulatory and respiratory systems; E11.9 Type 2 diabetes mellitus without complications; Z79.84 Long term (current) use of oral hypoglycemic drugs
CPT/HCPCS: 36415; 71046; 80053; 81001; 82800; 83605; 83735; 83880; 84484; 85025; 85610; 87040; 93005; 94640; 99285

== ENCOUNTER 2025-02-15 11:58 | Outpatient (OUT) | payer MEDICARE, SELFPAY ==
[2025-02-15 13:23] LABS: Alanine Aminotransferase 18 U/L (14-59); Aspartate Amino Transferase 11 U/L (15-37); Cholesterol 228 mg/dL (<=200); HDL Cholesterol 58 mg/dL (40-60); Triglycerides 177 mg/dL (<=150); VLDL CHOLESTEROL 35.4 mg/dL
== END 2025-02-15 11:59 | disposition home or self-care (01) ==
PROVIDERS: PCP Nurse Practitioner; Visit Provider Nurse Practitioner
DX: E78.2 Mixed hyperlipidemia (principal)
CPT/HCPCS: 36415; 80061; 84450; 84460

== ENCOUNTER 2025-02-22 09:23 | Outpatient (OUT) | payer MEDICARE, SELFPAY ==
--- OUTSIDE RECORDS SUMMARY | 2025-02-15 11:00 | XMS_ITS | Encounter Summary ---
Author Organization [facility] Address [address] [place] [address] Care Team Providers Care Table Operator Name Role Phone Noemi Mcnally NP Unavailable [phone] Cristopher Harvey MD Primary Care Provider [phone] Noemi Mcnally NP Unavailable [phone] Reason for Referral * Consultation (Routine) - Authorized Specialty Diagnoses / Procedures Referred By Contlachelle t Referred To Contact General Surgery Diagnoses Colon cancer screening Procedures OR OFFICE/OUTPATIENT NEW HIGH MDM 60 MINUTES Noemi Mcnally NP [address] [place] [address] Phone: tel: fax: Power Rubi MD [address] [place] [address] Phone: tel: fax: Referral ID Status Reason Start Date Expiration Date Visits Requested Visits Authorized [id number] Authorized Specialty Services Required 02/15/2025 08/14/2025 1 1 Scheduling Instructions Would like [facility], and [facility] Reason for Visit * Reason Comments Follow-up Encounter Details Date Type Department Care Team (Late Contact Info) Description 02/15/2025 11:00 AM EDT Office Visit [facility] [address] [place] [phone] Noemi Mcnally NP [address] [place] [phone] Type 2 diabetes mellitus with hyperglycemia, without long-term current use of insulin (HCC) (Primary Dx); Type 2 diabetes mellitus with diabetic polyneuropathy, without long-term current use of insulin (HCC); Primary hypertension ; Type 2 diabetes mellitus with diabetic peripheral angiopathy without gangrene, without long-term current use of insulin (HCC); Hypothyroidism, unspecified type ; Colon cancer screening; Mixed hyperlipidemia ; Chronic pruritus; Allergic rhinitis, unspecified seasonality, unspecified trigger; Type 2 diabetes mellitus without complication, without long-term current use of insulin (HCC) Social History Tobacco Use Types Packs/Day Years Used Date Smoking Tobacco: Never Alcohol Use Standard Drinks/Week Comments Not Currently 0 (1 standard drink = 0.6 oz pur e alcohol) PHQ-2 Answer Date Recorded Patient Health Questionnaire-2 Score 0 04/06/2024 Comments Unknown Sex and Gender Information Value Date Recorded Sex Assigned at Not on file Legal Sex Female 8:21 PM EDT Gender Identity Not on file Sexual Orientation Not on file documented as of this encounter Last Filed Vital Signs Vital Sign Reading Time Taken Comments Blood Pressure 132/80 02/15/2025 11:07 AM EDT Pulse 82 02/15/2025 11:07 AM EDT Temperature 36.9 C (98.5 F) 02/15/2025 11:07 AM EDT Respiratory Rate 18 02/15/2025 11:07 AM EDT Oxygen Saturation 98% 02/15/2025 11:07 AM EDT Inhaled Oxygen Concentration - - Weight 68.1 kg (150 lb 3.2 oz) 02/15/2025 11:07 AM EDT Height - - Body Mass Index 26.61 12/01/2024 2:27 PM EDT documented in this encounter Patient Instructions * Patient Instructions* Noemi Mcnally NP - 02/15/2025 11:00 AM EDT Start gabapentin 300mg at bedtime for 2 weeks, then add a dose in the morning so you will take you to twice a day Dr Rubi: colonoscopy, they will call you documented in this encounter Progress Notes * Noemi Mcnally NP - 02/15/2025 11:19 AM EDTAssociated Problem(s): Type 2 diabetes mellitus with hyperglycemia (HCC) Check blood sugars daily, notify if <70 [...] diet low in carbohydrates, and simple sugars. Current meds; asa, statin, zetia, metformin, actos, A1c: * Noemi Mcnally NP - 02/15/2025 11:18 AM EDTAssociated Problem(s): Hypothyroidism Had partial thyroidectomy likely, does not take supplemental levothyroxine Periodic monitoring * Noemi Mcnally NP - 02/15/2025 11:17 AM EDTAssociated Problem(s): Type 2 diabetes mellitus with diabetic peripheral angiopathy without gangrene (HCC) Statin Goal of good glucose control * Noemi Mcnally NP - 02/15/2025 11:17 AM EDTAssociated Problem(s): Primary hypertension Please check blood pressure daily and record DASH diet Limit caffeine Contact office if chest pain, pressure, dizziness, shortness of breath, swelling legs Current meds: none * Noemi Mcnally NP - 02/15/2025 11:17 AM EDTAssociated Problem(s): Type 2 diabetes mellitus with diabetic polyneuropathy (HCC) Recommend good blood glucose control Freq foot checks for open wounds etc Nerve pain: ?lumbar , vs post trauma, vs DN * YOANDY REYNOSO - 02/15/2025 11:00 AM EDT Pt would like to discuss the pain from right leg down to toes-keeping her up at night. * Noemi Mcnally NP - 02/15/2025 11:00 AM EDT Images from the original note were not included. Kylah Arias is a 75 y.o. female presents with chief complaint of Follow-up HPI: Continues w nerve pain to RLE, no hx of DDD, was going to possibly have spinal cord stimulator, then they decided against this Urine: dribbles urine on way to bathroom, no dysuria, +urge present, no stool issues Diabetes She presents for her follow-up diabetic visit. She has type 2 diabetes mellitus. Her disease coursehas been stable. Pertinent negatives for hypoglycemia include no dizziness, headaches, nervousness/anxiousness, seizures or tremors. Pertinent negatives for diabetes include no chest pain, no polydipsia, no polyphagia and no polyuria. There are no hypoglycemic complications. There are no diabetic co mplications. Pertinent negatives for diabetic complications include no CVA, heart disease or peripheral neuropathy. Risk factors for coronary artery disease include diabetes mellitus and dyslipidemia. Current diabetic treatment includes oral agent (dual therapy). An SONIA inhibitor/angiotensin II receptor dony is not being taken. She does not see a adventure education teacher.Eye exam is current. SUBJECTIVE: MEDICATIONS: Current Outpatient Medications Medication Instructions Acetaminophen Extra Strength 500 MG tablet 2 tablets, 3 times daily albuterol HFA 90 mcg/act inhaler 2 puffs, Inhalation, Every 6 hours PRN aspirin 81 mg, Daily atorvastatin (LIPITOR) 80 mg, Oral, Nightly cetirizine (ZYRTEC) 10 mg, Oral, Daily ezetimibe (ZETIA) 10 mg, Oral, Daily fluticasone (Flonase) 50 MCG/ACT nasal spray 2 sprays, Each Nostril, Daily gabapentin (Neurontin) 300 MG capsule Start with 1 at bedtime for 2 weeks, then increase to 1 pill twice a day metFORMIN XR (GLUCOPHAGE-XR) 1,000 mg, Oral, 2 times daily pioglitazone (ACTOS) 15 mg, Oral, Daily triamcinolone (Kenalog) 0.1 % cream APPLY TO AFFECTED AREAS DAILY, THEN NEEDED FOR FLARES. zoledronic acid (RECLAST) 5 mg, Once ALLERGIES: Allergies Allergen Reactions Aminosyn Ii Iodinated [...] Negative for difficulty urinating, dysuria and frequency. Urge incontinence at times Musculoskeletal: Positive for back pain. Negative for arthralgias (right wrist pain), joint swelling and myalgias. Skin: Negative for rash and wound. Neurological: Positive for numbness (right lower leg/foot/ankle). Negative for dizziness, tremors, seizures, syncope and [...] without bleeding Hematuria, microscopic 10/02/2023 High triglycerides Hip pain, left Hypothyroidism 10/02/2023 Lumbar back pain with radiculopathy affecting right lower extremity 10/02/2023 Lumbar degenerative disc disease Lumbar radiculopathy 07/30/2023 Menopause Non-proliferative diabetic retinopathy, both eyes (HCC) 10/02/2023 Osteoporosis 10/02/2023 Positive H. pylori test 2019 Radiculopathy of arm 10/02/2023 Sinusitis 10/02/2023 Thyroid goiter 10/02/2023 Thyroiditis 10/02/2023 Type 2 diabetes mellitus without complication, without long-term current use of insulin (HCC) 07/30/2023 Past Surgical History: Procedure Laterality Date [...] father and sibling. OBJECTIVE: Visit Vitals BP 132/80 (BP Location: Left arm, Patient Position: Sitting, BP Cuff Size: Adult long) Pulse 82 Temp 98.5 ??F (Temporal) Resp 18 Wt 150 lb 3.2 oz SpO2 98% BMI 26.61 kg/m?? Smoking Status Never BSA 1.74 m?? Physical Exam Vitals and nursing note reviewed. Constitutional: General: She is not in acute distress. Appearance: Normal appearance. HENT: Head: Normocephalic and atraumatic. Right Ear: External ear normal. Left Ear: External ear normal. Nose: Nose normal. Mouth/Throat: Mouth: Mucous membranes are moist. Eyes: Extraocular Movements: Extraocular movements intact. Conjunctiva/sclera: Conjunctivae normal. Neck: Vascular: No carotid bruit. Cardiovascular: Rate and Rhythm: Normal rate and regular rhythm. Pulses: Normal pulses. Heart sounds: Normal heart sounds. Pulmonary: Effort: Pulmonary effort is normal. Breath sounds: Normal breath sounds. No wheezing or rhonchi. Abdominal: General: Bowel sounds are normal. There is no distension. Palpations: Abdomen is soft. There is no mass. Tenderness: There is no abdominal tenderness. Musculoskeletal: Cervical back: Normal range of motion and neck supple. Right lower leg: No edema. Left lower leg: No edema. Skin: General: Skin is warm and dry. Capillary Refill: Capillary refill takes 2 to 3 seconds. Findings: No rash. Neurological: General: No focal deficit present. Mental Status: She is alert and oriented to person, place, and time. Psychiatric: Mood and Affect: Mood normal. Behavior: Behavior normal. Thought Content: Thought content normal. Judgment: Judgment normal. ASSESSMENT AND PLAN: Follow up in about 8 weeks (around 04/12/2025) for Recheck. Problem List Items Addressed This Visit Hyperlipidemia Relevant Medications atorvastatin (Lipitor) 80 MG tablet ezetimibe (Zetia) 10 MG tablet Primary hypertension Please check blood pressure daily and record DASH diet Limit caffeine Contact office if chest pain, pressure, dizziness, shortness of breath, swelling legs Current meds: none Hypothyroidism Had partial thyroidectomy likely, does not take supplemental levothyroxine Periodic monitoring Allergic rhinitis Relevant Medications fluticasone (Flonase) 50 MCG/ACT nasal spray Chronic pruritus Relevant Medications cetirizine (ZyrTEC) 10 MG tablet Colon cancer screening Relevant Orders Ambulatory referral to General Surgery Type 2 diabetes mellitus with diabetic polyneuropathy (HCC) Recommend good blood glucose control Freq foot checks for open wounds etc Nerve pain: ?lumbar , vs post trauma, vs DN Relevant Orders POCT glycosylated hemoglobin (Hb A1C) docked device (Completed) Type 2 diabetes mellitus with diabetic peripheral angiopathy without gangrene (HCC) Statin Goal of good glucose control Relevant Medications gabapentin (Neurontin) 300 MG capsule Type 2 diabetes mellitus with hyperglycemia (HCC) - Primary Check blood sugars daily, notify if <70 [...] diet low in carbohydrates, and simple sugars. Current meds; asa, statin, zetia, metformin, actos, A1c: Other Visit Diagnoses Type 2 diabetes mellitus without complication, without long-term current use of insulin (HCC) Relevant Medications metFORMIN XR (Glucophage-XR) 500 MG 24 hr tablet pioglitazone (Actos) 15 MG tablet documented in this encounter Plan of Treatment Upcoming Encounters Date Type Department Care Team (Late st Contact Info) Description 04/19/2025 10:00 AM EDT Office Visit [facility] [address] [place] [address] Noemi Mcnally NP [address] [place] [address] Scheduled Referrals Name Type Priority Associated Diagnoses Order Schedule Ambulatory referral to General Surgery Outpatient Referral Routine Colon cancer screening Expected: 02/15/2025 (Approximate), Expires: 08/18/2025 documented as of this encounter Procedures Procedure Name Priority Date/Time Associated Diagnosis Comments POCT GLYCOSYLATED HEMOGLOBIN (HGB A1C) Routine 02/15/2025 11:29 AM EDT Type 2 diabetes mellitus with diabetic polyneuropathy, without long-term current use of insulin ([facility]) documented in this encounter Results * (ABNORMAL) POCT glycosylated hemoglobin (Hb A1C) docked device (02/15/2025 11:29 AM EDT) Hemoglobin A1C 6.2 Blood Venous blood specimen / Unknown 02/15/2025 11:29 AM EDT us Noemi Mcnally NP POINT OF CARE TEST ENTER/EDIT O RDERABLES Final Result documented in this encounter Visit Diagnoses Diagnosis Type 2 diabetes mellitus with hyperglycemia, without long-term current use of insulin (HCC)- Primary Type 2 diabetes mellitus with diabetic polyneuropathy, without long-term current use of insulin (HCC) Primary hypertension Unspecified essential hypertension Type 2 diabetes mellitus with diabetic peripheral angiopathy without gangrene, without long-term current use of insulin (HCC) Hypothyroidism, unspecified type Colon cancer screening Special screening for malignant neoplasms, colon Mixed hyperlipidemia Mixed hyperlipidemia Chronic pruritus Allergic rhinitis, unspecified seasonality, unspecified trigger Type 2 diabetes mellitus without complication, without long-term current use of insulin (HCC) documented in this encounter Additional Health Concerns Assessment Noted Time PHQ-9 Depression Total Score: 5 04/06/20 24 10:02 AM EDT documented as of this encounter Care Teams Table Operator Relationship Specialty Start Date End Date Cristopher Harvey MD [address] [place] [phone] PCP - General Family Medicine 09/29/23 Noemi Mcnally NP [address] [place] [address] PCP - ACO Reach 09/24/24 Noemi Mcnally NP [address] [place] [phone] Nurse Practitioner Family Medicine 05/28/23 documented as of this encounter
--- NOTE | 2025-02-22 09:26 | MM_ITS ---
Patient Name: RANDALL PRADO MR#: [id number] : 1950 Exam Date: 02/22/2025 Ordering Doctor: GARRICK MAHARAJ CNP RADIOLOGY REPORT PROCEDURE: MM TOMOSYNTHESIS SCREENING BI COMPARISON: MM TOMOSYNTHESIS SCREENING BI, 11/17/2023. MG MAMM SCREEN 3D DIONE CAD, 11/12/2022. MG MAMM SCREEN 3D DIONE CAD, 11/07/2021. MG MAMM DIONE SCRN W CAD DIG, 08/06/2013. INDICATIONS: Screening Calculator Name NCI Breast Cancer Risk Assessment Tool 5 Year Breast Cancer Risk 7.60% Lifetime Breast Cancer Risk 15.70% Personal Breast Cancer No Personal Ovarian Cancer No Treatments None Family Cancers Mother with breast cancer at age 42; Sister with breast cancer at age ~20. LOCATION: [facility] BREAST COMPOSITION: There are scattered areas of fibroglandular density. FINDINGS: RIGHT BREAST: No significant suspicious finding. LEFT BREAST: No significant suspicious finding. DIAGNOSTIC CATEGORY 1--NEGATIVE. RECOMMENDATIONS: ROUTINE MAMMOGRAM AND CLINICAL EVALUATION IN 12 MONTHS. PLEASE NOTE: A NORMAL MAMMOGRAM DOES NOT EXCLUDE THE POSSIBILITY OF BREAST CANCER. A CLINICALLY SUSPICIOUS PALPABLE LUMP SHOULD BE BIOPSIED. Dictated by: Yuriy Carvajal DO on 02/22/2025 at 10:23 Approved by: Yuriy Carvajal DO on 02/22/2025 at 10:25
--- OUTSIDE RECORDS SUMMARY | 2025-02-22 09:26 | XMS_ITS | Encounter Summary ---
Author Organization [facility] Address [address] [place] [address] Phone Care Team Providers Care Abattoir Supervisor Name Role Phone Unavailable Primary Care Provider Unavailabl e Encounter Details Date Type Department Care Team (Late st Contact Info) Description 02/21/2024 Scanned Document [facility] [address] [place] [address] Scanning, Generic Provider Social History Tobacco Use Types Packs/Day Years Used Date Smoking Tobacco: Never Assessed Comments Unknown Sex and Gender Information Value Date Recorded Sex Assigned at Not on file Legal Sex Unknown 02/20/2024 2:55 PM EDT Gender Identity Not on file Sexual Orientation Not on file documented as of this encounter Plan of Treatment Not on file documented as of this encounter Procedures Procedure Name Priority Date/Time Associated Diagnosis Comments ECHOCARDIOGRAM 02/21/2024 documented in this encounter Results * Echocardiogram (02/21/2024) Narrative 02/21/2024 Ordered by an unspecified provider. us Generic Provider Scanning CV ECHO PROCEDURES Fin al Result documented in this encounter Visit Diagnoses Not on filedocumented in this encounter
--- OUTSIDE RECORDS SUMMARY | 2025-02-22 09:26 | XMS_ITS | Encounter Summary ---
Author Organization [facility] Address [address] [place] [address] Care Team Providers Care Benefits Advisor Name Role Phone Noemi Mcnally NP Unavailable [phone] Cristopher Harvey MD Primary Care Provider [phone] Noemi Mcnally NP Unavailable [phone] Encounter Details Date Type Department Care Team (Late st Contact Info) Description 02/15/2025 Clinisync Result Encounter [facility] External Department Unsolicited Noemi Mcnally NP [address] [place] [address] Social History Tobacco Use Types Packs/Day Years [...] as of this encounter Plan of Treatment Upcoming Encounters Date Type Department Care Team (Late st Contact Info) Description 04/19/2025 10:00 AM EDT Office Visit [facility] [address] [place] [phone] Noemi Mcnally NP [address] [place] [phone] documented as of this encounter Procedures Procedure Name Priority Date/Time Associated Diagnosis Comments [facility] AST Routine 02/15/2025 12:21 PM EDT [facility] ALT Routine 02/15/2025 12:21 PM EDT ALL LIPID PROFILE (FASTING) Routine 02/15/2025 12:21 PM EDT documented in this encounter Results * (ABNORMAL) ALL LIPID PROFILE (FASTING) (02/15/2025 12:21 PM EDT) TRIGLYCERIDES 177(H) <=150 mg/dL TBH CHOLESTEROL 228(H) <=200 mg/dL TBH HDL CHOLESTEROL 58 40 - 60 mg/dL [facility]H Comment: > or =60 mg/dl - LOW CARDIOVASCULAR RISK <40 mg/dl - HIGH CARDIOVASCULAR RISK LDL CHOLESTEROL CALCULATED 135.0 mg/dL TB Comment: <100 mg/dl OPTIMAL 100-129 mg/dl NEAR OR ABOVE OPTIMAL 130-159 mg/dl BORDERLINE HIGH 160-189 mg/dl HIGH >190 mg/dl VERY HIGH VLDL CHOLESTEROL 35.4 mg/dL TBH CHOL HDL RATIO 3.9 [facility] Comment: 3.3 - 4.4 LOW RISK 4.4 - 7.1 AVERAGE RISK 7.1 - 11.0 MODERATE RISK >11.0 HIGH RISK 02/15/2025 12:2 1 PM EDT 02/15/2025 12:23 PM EDT Narrative CLINISYNC - 02/15/2025 1:31 PM EDT us Noemi Mcnally NP CLINISYNC Final Result CLINISYNC TB * [facility] ALT (02/15/2025 12:21 PM EDT) ALANINE AMINOTRANSFERASE 18 14 - 59 U/L TB 02/15/2025 12:2 1 PM EDT 02/15/2025 12:23 PM EDT Narrative CLINISYNC - 02/15/2025 1:31 PM EDT Noemi Mcnally NP CLINISYNC Final Result CLINISYTASHA TBH * (ABNORMAL) [facility]CF AST (02/15/2025 12:21 PM EDT) ASPARTATE AMINO TRANSFERASE 11(L) 15 - 37 U/L TBH 02/15/2025 12:2 1 PM EDT 02/15/2025 12:23 PM EDT Narrative CLINISYNC - 02/15/2025 1:31 PM EDT us Noemi Mcnally NP CLINISYTASHA Final Result YURIY TBH documented in this encounter Visit Diagnoses Not on filedocumented in this encounter Additional Health Concerns Assessment Noted Time PHQ-9 Depression Total Score: 5 04/06/20 24 10:02 AM EDT documented as of this encounter Care Teams Benefits Advisor Relationship Specialty Start Date End Date Cristopher Harvey MD [address] [place] [address] PCP - General Family Medicine 09/29/23 Noemi Mcnally NP [address] [place] [address] PCP - ACO Reach 09/24/24 Noemi Mcnally NP [address] [place] [address] Nurse Practitioner Family Medicine 05/28/23 documented as of this encounter
--- OUTSIDE RECORDS SUMMARY | 2025-02-22 09:26 | XMS_ITS | Encounter Summary ---
Author Organization [facility] Address [address] [place] [address] Care Team Providers Care Corporate Travel Expert Name Role Phone Noemi Mcnally NP Unavailable [phone] Cristopher Harvey MD Primary Care Provider [phone] Noemi Mcnally NP Unavailable [phone] Encounter Details Date Type Department Care Team (Late st Contact Info) Description 10/27/2024 Orders Only [facility] [address] [place] [address] Noemi Mcnally NP [address] [place] [address] Social History Tobacco Use Types Packs/Day Years [...] 04/19/2025 10:00 AM EDT Office Visit [facility] [address] [place] [address] Noemi Mcnally NP [address] [place] [address] documented as of this encounter Procedures Procedure Name Priority Date/Time Associated Diagnosis Comments SCANNED LABS Routine 10/27/2024 1:18 PM EDT documented in this encounter Results * SCANNED LABS (10/27/2024 1:18 PM EDT) Noemi Mcnally [facility] CHG PERFORMABLES Final Resu lt documented in this encounter Visit Diagnoses Not on filedocumented in this encounter Additional Health Concerns Assessment Noted Time PHQ-9 Depression Total Score: 5 04/06/20 10:02 AM EDT documented as of this encounter Care Teams Corporate Travel Expert Relationship Specialty Start Date End Date Cristopher Harvey MD [address] [place] [phone] PCP - General Family Medicine 09/29/23 Noemi Mcnally NP [address] [place] [phone] PCP - ACO Reach 09/24/24 Noemi Mcnally NP [address] [place] [address] Nurse Practitioner Family Medicine 05/28/23 documented as of this encounter
--- OUTSIDE RECORDS SUMMARY | 2025-02-22 09:26 | XMS_ITS | Encounter Summary ---
Author Organization [facility] Address [address] [place] [address] Care Team Providers Care Assistant City Attorney Name Role Phone Noemi Mcnally NP Unavailable [phone] Cristopher Harvey MD Primary Care Provider [phone] Noemi Mcnally NP Unavailable [phone] Encounter Details Date Type Department Care Team (Late st Contact Info) Description 10/28/2024 Orders Only [facility] [address] [place] [address] Noemi Mcnally NP [address] [place] [address] Social History Tobacco Use Types Packs/Day Years [...] 04/19/2025 10:00 AM EDT Office Visit [facility] [address] [place] [address] Noemi Mcnally NP [address] [place] [address] documented as of this encounter Procedures Procedure Name Priority Date/Time Associated Diagnosis Comments SCANNED LABS Routine 10/28/2024 9:35 AM EDT documented in this encounter Results * SCANNED LABS (10/28/2024 9:35 AM EDT) Noemi Mcnally [facility] CHG PERFORMABLES Final Resu lt documented in this encounter Visit Diagnoses Not on filedocumented in this encounter Additional Health Concerns Assessment Noted Time PHQ-9 Depression Total Score: 5 04/06/20 10:02 AM EDT documented as of this encounter Care Teams Assistant City Attorney Relationship Specialty Start Date End Date Cristopher Harvey MD [address] [place] [phone] PCP - General Family Medicine 09/29/23 Noemi Mcnally NP [address] [place] [address] PCP - ACO Reach 09/24/24 Noemi Mcnally NP [address] [place] [phone] Nurse Practitioner Family Medicine 05/28/23 documented as of this encounter
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
--- OUTSIDE RECORDS SUMMARY | 2025-02-22 09:26 | XMS_ITS | Encounter Summary ---
Author Organization [facility] Address [address] [place] [address] Phone Care Team Providers Care Process Engineering Intern Name Role Phone Unavailable Primary Care Provider Unavailabl e Encounter Details Date Type Department Care Team (Late st Contact Info) Description 02/23/2024 Scanned Document [facility] [address] [place] [address] Scanning, Generic Provider Social History [...] Name Priority Date/Time Associated Diagnosis Comments ECHOCARDIOGRAM 02/23/2024 documented in this encounter Results * Echocardiogram (02/23/2024) Narrative 02/23/2024 Ordered by an unspecified provider. us Generic Provider Scanning CV ECHO PROCEDURES Fin al Result documented in this encounter Visit Diagnoses Not on filedocumented in this encounter
--- OUTSIDE RECORDS SUMMARY | 2025-02-22 09:26 | XMS_ITS | Encounter Summary ---
Author Organization [facility] Address [address] [place] [address] Care Team Providers Care Montessori Toddler Teacher Name Role Phone Noemi Mcnally NP Unavailable [phone] Cristopher Harvey MD Primary Care Provider [phone] Noemi Mcnally NP Unavailable [phone] Encounter Details Date Type Department Care Team (Late Contact Info) Description 01/11/2025 Orders Only [facility] [address] [place] [address] Celio Caballero MD [address] [place] [phone] Social History Tobacco Use Types Packs/Day Years [...] 04/19/2025 10:00 AM EDT Office Visit [facility] [address] [place] [address] Noemi Mcnally NP [address] [place] [address] documented as of this encounter Procedures Procedure Name Priority Date/Time Associated Diagnosis Comments DIABETIC RETINOPATHY SCREENING - OU - BOTH EYES Routine 01/11/2025 11:21 AM EDT documented in this encounter Results * Diabetic Retinopathy Screening - OU - Both Eyes (01/11/2025 11:21 AM EDT) Anatomical Region Laterality Modality Head Other us Celio Caballero MD OPHTH PHOTOGRAPHY Final Result documented in this encounter Visit Diagnoses Not on filedocumented in this encounter Additional Health Concerns Assessment Noted Time PHQ-9 Depression Total Score: 5 04/06/20 24 10:02 AM EDT documented as of this encounter Care Teams Montessori Toddler Teacher Relationship Specialty Start Date End Date Cristopher Harvey MD [address] [place] [address] PCP - General Family Medicine 09/29/23 Noemi Mcnally NP [address] [place] [address] PCP - ACO Reach 09/24/24 Noemi Mcnally NP [address] [place] [address] Nurse Practitioner Family Medicine 05/28/23 documented as of this encounter
--- OUTSIDE RECORDS SUMMARY | 2025-02-22 09:26 | XMS_ITS | Encounter Summary ---
Author Organization [facility] Address [address] [place] [address] Phone Care Team Providers Care Chief Marketing Officer Name Role Phone Unavailable Primary Care Provider Unavailabl e Encounter Details Date Type Department Care Team (Late st Contact Info) Description 02/20/2024 Scanned Document [facility] [address] [place] [address] Scanning, Generic Provider Social History [...] Name Priority Date/Time Associated Diagnosis Comments ECHOCARDIOGRAM 02/20/2024 documented in this encounter Results * Echocardiogram (02/20/2024) Narrative 02/20/2024 Ordered by an unspecified provider. us Generic Provider Scanning CV ECHO PROCEDURES Fin al Result documented in this encounter Visit Diagnoses Not on filedocumented in this encounter
--- OUTSIDE RECORDS SUMMARY | 2025-02-22 09:27 | XMS_ITS | Encounter Summary ---
Author Organization [facility] Address [address] [place] [address] Care Team Providers Care Cattle Manager Name Role Phone Noemi Mcnally NP Unavailable [phone] Cristopher Harvey MD Primary Care Provider [phone] Noemi Mcnally NP Unavailable [phone] Encounter Details Date Type Department Care Team (Late st Contact Info) Description 03/16/2024 Clinisync Result Encounter [facility] External Department Unsolicited Noemi Mcnally NP [address] [place] [address] Social History Tobacco Use Types Packs/Day Years Used Date Smoking Tobacco: Never Alcohol Use Standard Drinks/Week Comments Not Currently 0 (1 standard drink = 0.6 oz pur e alcohol) PHQ-2 Answer Date Recorded Patient Health Questionnaire-2 Score 0 10/02/2023 Comments Unknown Sex and Gender Information Value Date Recorded Sex Assigned at Not on file Legal Sex Female 8:21 PM EDT Gender Identity Not on file Sexual Orientation Not on file documented as of this encounter Plan of Treatment Upcoming Encounters Date Type Department Care Team (Late st Contact Info) Description 04/19/2025 10:00 AM EDT Office Visit [facility] [address] [place] [phone] Noemi Mcnally NP [address] [place] [address] documented as of this encounter Procedures Procedure Name Priority Date/Time Associated Diagnosis Comments XR FOOT RT MIN 3V 03/16/2024 7:3 1 AM EDT documented in this encounter Results * XR FOOT RT MIN 3V (03/16/2024 7:31 AM EDT) Anatomical Region Laterality Modality Other 03/16/2024 7:31 AM EDT Narrative 03/16/2024 7:34 [place] [address] XRay Report Signed Patient: RANDALL PRADO MR#: [id number] : 1950 Acct:[id number] Age/Sex: 74 / F ADM Date: 03/15/24 Loc: [facility] Attending Dr: Noemi Mcnally NP Ordering Physician: Noemi Mcnally NP Date of Service: 03/15/24 Procedure(s): XR foot RT min 3V Accession Number(s): [id number] cc: Noemi Mcnally NP [place] [address] Patient Name: RANDALL PRADO MRN: [id number] date: 1950 Sex: F Assigned Patient Location: [facility] Current Patient Location: Accession/Order Number: [id number] Exam Date: 03/15/2024 11:58 Report Date: 03/16/2024 07:31 At the request of: NOEMI MCNALLY Procedure: XR foot RT min 3V PROCEDURE: XR ankle RT min 3V, XR foot RT min 3V COMPARISON: None. HISTORY: Foot Swelling FINDINGS: BONES:Corticated bone fragment identified along the inferior medial malleolus, remote injury. No acute fracture or dislocation. Moderate enthesopathic spurring of the calcaneus at the Achilles and plantar insertions SOFT TISSUES:Negative. No visible soft tissue swelling. EFFUSION:None visible. OTHER: Negative. XR/XR foot RT min 3V IMPRESSION: No acute fracture of the foot or ankle Electronically authenticated by: NIKA YI Date: 03/16/2024 07:31 Dictated By: Nika Yi M.D. Signed By: 03/16/24 0734 DD/ 0 TD/TT: Cfa: Procedure Note Radiology, Radiologist, MD - 03/16/2024 [facility] [place] [id number] XRay Report Signed Patient: RANDALL PRADO LMR#: [id number] : 1950Acct:[id number] Age/Sex: 74 / FADM Date: 03/15/24 Loc: RAD Attending Dr: Noemi Mcnally OUTPATIENT FACILITY PHYSICAL THERAPIST Ordering Physician: Noemi Mcnally NP Date of Service: 03/15/24 Procedure(s): XR foot RT min 3V Accession Number(s): [id number] cc: Noemi Mcnally NP [place] [address] Patient Name: RANDALL PRADO MRN: [id number] date: 1950 Sex: F Assigned Patient Location: [facility] Current Patient Location: Accession/Order Number: [id number] Exam Date: 03/15/2024 11:58 Report Date: 03/16/2024 07:31 At the request of: NOEMI MCNALLY Procedure: XR foot RT min 3V PROCEDURE: XR ankle RT min 3V, XR foot RT min 3V COMPARISON: None. HISTORY: Foot Swelling FINDINGS: BONES:Corticated bone fragment identified along the inferior medialmalleolus, remote injury. No acute fracture or dislocation. Moderate enthesopathic spurring of the calcaneus at the Achilles and plantar insertions SOFT TISSUES:Negative. No visible soft tissue swelling. EFFUSION:None visible. OTHER: Negative. XR/XR foot RT min 3V IMPRESSION: No acute fracture of the foot or ankle Electronically authenticated by: NIKA YI Date: 03/16/2024 07:31 Dictated By: Nika Yi M.D. Signed By:03/16/2434 DD/ TD/TT: Cfa: us Noemi Mcnally NP [facility] Final Result documented in this encounter Visit Diagnoses Not on filedocumented in this encounter Care Teams Cattle Manager Relationship Specialty Start Date End Date Cristopher Harvey MD [address] [place] [address] PCP - General Family Medicine 09/29/23 Noemi Mcnally NP [address] [place] [address] PCP - ACO Reach 09/24/24 Noemi Mcnally NP [address] [place] [address] Nurse Practitioner Family Medicine 05/28/23 documented as of this encounter
--- OUTSIDE RECORDS SUMMARY | 2025-02-22 09:27 | XMS_ITS | Encounter Summary ---
Author Organization [facility] Address [address] [place] [address] Care Team Providers Care Tar Distributor Operator Name Role Phone Noemi Mcnally CLINICAL PHLEBOTOMIST Unavailable [phone] Cristopher Harvey MD Primary Care Provider [phone] Noemi Mcnally NP Unavailable [phone] Encounter Details Date Type Department Care Team (Late st Contact Info) Description 02/15/2025 Telephone [facility] [address] [place] [address] Noemi Mcnally NP [address] [place] [address] Social History Tobacco Use Types Packs/Day Years [...] on file documented as of this encounter Miscellaneous Notes * Telephone Encounter - YOANDY REYNOSO - 02/15/2025 2:47 PM EDT Text Instrument Technician Apprentice Hi, this is Emi from Dr. Ward's office calling about referral for Kylah Anne date of , [id number]. The referral came over for screening conoscope. However, in her medical history it says she had a colonoscopy in 2019. So I am assuming maybe there was some kind of abnormality with that colonoscopy and they wanted it repeated sooner, so it really would not be screening. I am just calling juancarlos, are we doing this colonoscopy as a follow up or did you not realize she had a colonoscopy in 2019 if it is a follow up to that history of abnormal in 2019I will need a copy of that operativeand path report. Fax numbers [phone] phone number [phone]. Thank you, bye. * Telephone Encounter - Noemi Mcnally NP - 02/15/2025 12:35 PM EDT Call [facility] find out when last reclast was [place] documented in this encounter Plan of Treatment Upcoming Encounters Date Type Department Care Team (Late st Contact Info) Description 04/19/2025 10:00 AM EDT Office Visit [facility] [address] [place] [address] Noemi Mcnally NP [address] [place] [address] documented as of this encounter Visit Diagnoses Not on filedocumented in this encounter Additional Health Concerns Assessment Noted Time PHQ-9 Depression Total Score: 5 04/06/20 10:02 AM EDT documented as of this encounter Care Teams Tar Distributor Operator Relationship Specialty Start Date End Date Cristopher Harvey MD [address] [place] [address] PCP - General Family Medicine 09/29/23 Noemi Mcnally NP [address] [place] [address] PCP - ACO Reach 09/24/24 Noemi Mcnally NP [address] [place] [address] Nurse Practitioner Family Medicine 05/28/23 documented as of this encounter
--- OUTSIDE RECORDS SUMMARY | 2025-02-22 09:27 | XMS_ITS | Encounter Summary ---
Author Organization [facility] Address [address] [place] [address] Care Team Providers Care Bottom Crane Operator Name Role Phone Noemi Mcnally NP Unavailable [phone] Cristopher Harvey MD Primary Care Provider [phone] Noemi Mcnally NP Unavailable [phone] Encounter Details Date Type Department Care Team (Late st Contact Info) Description 03/18/[address] [facility] [address] [place] [address] Noemi Mcnally, [place] [address] [place] [address] Social History Tobacco Use Types Packs/Day Years [...] 04/19/2025 10:00 AM EDT Office Visit [facility] [address] [place] [address] Noemi Mcnally NP [address] [place] [address] documented as of this encounter Visit Diagnoses Not on filedocumented in this encounter Care Teams Bottom Crane Operator Relationship Specialty Start Date End Date Cristopher Harvey MD [address] [place] [address] PCP - General Family Medicine 09/29/23 Noemi Mcnally NP [address] [place] [address] PCP - ACO Reach 09/24/24 Noemi Mcnally NP [address] [place] [address] Nurse Practitioner Family Medicine 05/28/23 documented as of this encounter
--- OUTSIDE RECORDS SUMMARY | 2025-02-22 09:27 | XMS_ITS | Encounter Summary ---
Author Organization [facility] Address [address] [facility] [place] [address] Care Team Providers Care Inventory Manager Name Role Phone Noemi Mcnally NP Unavailable [phone] Cristopher Harvey MD Primary Care Provider [phone] Noemi Mcnally OPTICAL EFFECTS LAYOUT PERSON Unavailable [phone] Encounter Details Date Type Department Care Team (Late st Contact Info) Description 04/22/2024 Orders Only [facility] [address] [place] [address] Bud Sutton MD [address] [place] [address] [address] [place], [place] [id number] Social History Tobacco Use Types Packs/Day Years [...] 04/19/2025 10:00 AM EDT Office Visit [facility] [address] [place] [address] Noemi Mcnally NP [address] [place] [address] documented as of this encounter Procedures Procedure Name Priority Date/Time Associated Diagnosis Comments XR FOOT 3+ VIEWS RIGHT Routine 04/22/2024 8:08 AM EDT documented in this encounter Results * XR foot 3+ views right (04/22/2024 8:08 AM EDT) Anatomical Region Laterality Modality Lower Extremities, Foot Right Radiogra phic Imaging Bud Sutton MD IMG XR PROCEDURES Final Re sult documented in this encounter Visit Diagnoses Not on filedocumented in this encounter Additional Health Concerns Assessment Noted Time PHQ-9 Depression Total Score: 5 04/06/20 10:02 AM EDT documented as of this encounter Care Teams Inventory Manager Relationship Specialty Start Date End Date Cristopher Harvey MD [address] [place] [address] PCP - General Family Medicine 09/29/23 Noemi Mcnally NP [address] [place] [address] PCP - ACO Reach 09/24/24 Noemi Mcnally NP [address] [place] [address] Nurse Practitioner Family Medicine 05/28/23 documented as of this encounter
--- OUTSIDE RECORDS SUMMARY | 2025-02-22 09:27 | XMS_ITS | Encounter Summary ---
Author Organization [facility] Address [address] [place] [address] Care Team Providers Care Utility Tender Carding Name Role Phone Noemi Mcnally NP Unavailable [phone] Cristopher Harvey MD Primary Care Provider [phone] Noemi Mcnally NP Unavailable [phone] Encounter Details Date Type Department Care Team (Late st Contact Info) Description 06/13/2024 Clinisync Result Encounter [facility] External Department Unsolicited Provider, Generic External Data Social History Tobacco Use Types Packs/Day Years [...] Upcoming Encounters Date Type Department Care Team ([facility] Contact Info) Description 04/19/2025 10:00 AM EDT Office Visit [facility] [address] [place] [address] Noemi Mcnally NP [address] [place] [address] documented as of this encounter Procedures Procedure Name Priority Date/Time Associated Diagnosis Comments MR ANKLE RIGHT WO IV CONTRAST 06/13/2024 1:00 PM EDT documented in this encounter Results * MR ankle right wo IV contrast (06/13/2024 1:00 PM EDT) Anatomical Region Laterality Modality Lower Extremities, Ankle Right Magneti c Resonance 06/13/2024 1:00 PM EDT Narrative 06/13/2024 1:02 PM EDT [address] [address] Magnetic Resonance Report Signed Patient: RANDALL PRADO MR#: [id number] : 1950 Acct:[id number] Age/Sex: 74 / F ADM Date: 06/11/24 Loc: MRI Attending Dr: Trinidad Sutton D.P.M. Ordering Physician: Trinidad Sutton D.P.M. Date of Service: 06/11/24 Procedure(s): MR ankle RT wo con Accession Number(s): [id number] cc: Noemi Mcnally GROUP WORKER; Trinidad Sutton D.P.M. [place] [id number] Patient Name: RANDALL PRADO MRN: [id number] date: 1950 Sex: F Assigned Patient Location: MRI Current Patient Location: Accession/Order Number: [id number] Exam Date: 06/11/2024 08:57 Report Date: 06/13/2024 13:00 At the request of: TRINIDAD SUTTON Procedure: MR ankle RT wo con EXAM: MR ankle RT wo con REASON FOR EXAM: Peroneal Tendonitis. TECHNIQUE: Multiplanar, multisequence imaging of the right ankle was performed before and after the uneventful intravenous administration of gadolinium contrast COMPARISON: Radiographs 04/21/2024. FINDINGS: There is fusiform thickening and intermediate signal the Achilles tendon, consistent with tendinosis. Distal Achilles enthesophytes are present. No tear is evident. Nonspecific edema is present in Kager's fat pad. The plantar fascia is thickened with an inferior calcaneal spur. No tear. Laterally, the peroneal tendons are mildly thickened with intermediate signal consistent with tendinosis. No tear. The superficial peroneal retinaculum is intact. The lateral ligaments appear intact. Medially, the medial flexor tendons demonstrate normal thickness and signal without tendinosis or tear. The deep deltoid ligament appears intact. The spring ligament is intact. Anteriorly, the anterior extensor tendons demonstrate normal thickness and signal without tendinosis or tear. The bone marrow signal is without fracture. The talar dome is congruent. The subtalar joints intact. The sinus tarsi is nonedematous. The midfoot appears congruent. The plantar musculature demonstrates normal bulk and signal. Nonspecific subcutaneous edema about the ankle. MR/MR ankle RT wo con IMPRESSION: 1. Mild peroneal tendinosis without tear. 2. 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 3. Chronic plantar fasciopathy. 4. No acute osseous abnormality. Electronically authenticated by: TSERING BAILEY Date: 06/13/2024 13:00 Dictated By: Tsering Bailey M.D. Signed By: 06/13/24 1302 DD/ 1300 TD/TT: Brake Press Operator: Procedure Note Radiology, Radiologist, MD - 06/13/2024 [place] [address] Magnetic Resonance Report Signed Patient: RANDALL PRADO LMR#: [id number] : 1950Acct:[id number] Age/Sex: 74 / FADM Date: 06/11/24 Loc: MRI Attending Dr: Trinidad Sutton D.P.M. Ordering Physician: Trinidad Sutton D.P.M. Date of Service: 06/11/24 Procedure(s): MR ankle RT wo con Accession Number(s): [id number] cc: Noemi Mcnally GROUP WORKER; Trinidad Sutton D.P.M. [facility] [place] [address] Patient Name: RANDALL PRADO MRN: [id number] date: 1950 Sex: F Assigned Patient Location: MRI Current Patient Location: Accession/Order Number: [id number] Exam Date: 06/11/2024 08:57 Report Date: 06/13/2024 13:00 At the request of: TRINIDAD SUTTON Procedure: MR ankle RT wo con EXAM: MR ankle RT wo con REASON FOR EXAM: Peroneal Tendonitis. TECHNIQUE: Multiplanar, multisequence imaging of the right ankle wasperformed before and after the uneventful intravenous administration of gadolinium contrast COMPARISON: Radiographs 04/21/2024. FINDINGS: There is fusiform thickening and intermediate signal the Achilles tendon, consistent with tendinosis. Distal Achilles enthesophytes are present. Notear is evident. Nonspecific edema is present in Kager's fat pad. The plantar fascia is thickened with an inferior calcaneal spur. No tear. Laterally, the peroneal tendons are mildly thickened with intermediatesignal consistent with tendinosis. No tear. The superficial peroneal retinaculumis intact. The lateral ligaments appear intact. Medially, the medial flexor tendons demonstrate normal thickness andsignal without tendinosis or tear. The deep deltoid ligament appears intact. The spring ligament is intact. Anteriorly, the anterior extensor tendons demonstrate normal thickness and signal without tendinosis or tear. The bone marrow signal is without fracture. The talar dome is congruent.The subtalar joints intact. The sinus tarsi is nonedematous. The midfootappears congruent. The plantar musculature demonstrates normal bulk and signal. Nonspecific subcutaneous edema about the ankle. MR/MR ankle RT wo con IMPRESSION: 1. Mild peroneal tendinosis without tear. 2. 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 3. Chronic plantar fasciopathy. 4. No acute osseous abnormality. Electronically authenticated by: TSERING BAILEY Date: 06/13/2024 13:00 Dictated By: Tsering Bailey M.D. Signed By:06/13/24 1302 DD/ 1300 TD/TT: Brake Press Operator: Generic External Data Provider IMG MRI PROCEDURE S Final Result documented in this encounter Visit Diagnoses Not on filedocumented in this encounter Additional Health Concerns Assessment Noted Time PHQ-9 Depression Total Score: 5 04/06/20 24 10:02 AM EDT documented as of this encounter Care Teams Utility Tender Carding Relationship Specialty Start Date End Date Cristopher Harvey MD [address] [place] [address] PCP - General Family Medicine 09/29/23 Noemi Mcnally NP [address] [place] [address] PCP - ACO Reach 09/24/24 Noemi Mcnally NP [address] [place] [address] Nurse Practitioner Family Medicine 05/28/23 documented as of this encounter
--- OUTSIDE RECORDS SUMMARY | 2025-02-22 09:27 | XMS_ITS | Clinical Summary ---
Author Organization [facility] Address [address] [place] [address] Phone Care Team Providers Care Insurance Manager Name Role Phone Unavailable Primary Care Provider Unavailabl e Social History Tobacco Use Types Packs/Day Years Used Date Smoking Tobacco: Never Assessed Comments Unknown Sex and Gender Information Value Date Recorded Sex Assigned at Not on file Legal Sex Unknown 02/20/2024 2:55 PM EDT Gender Identity Not on file Sexual Orientation Not on file Plan of Treatment Health Maintenance Due Date Last Done Comments Bone Density Scan 1950 CT Colonography 1950 Colonoscopy 1950 Colorectal Cancer Screening 1950 FIT-DNA (Cologuard) 1950 FIT 1950 Lipid Panel 1950 Medicare Annual Wellness Vis it (AWV) 1950 Sigmoidoscopy 1950 Hepatitis C Screening 02/04/1968 Pneumococcal Vaccine (1 of 2 - PCV) 1969 DTaP/Tdap/Td Vaccines (1 - Tdap) 02/04/1972 Zoster Vaccines (1 of 2) 02/04/2000 COVID-19 Vaccine (1 - 2023-2 5 season) 2024 RSV High Risk: (Elderly (60+ ) or Population) (1 - 1-dose 75+ series) 2025 Influenza Vaccine (#1) 2025 HIB Vaccines Aged Out No longer eligi ble based on patient's age to complete this topic HPV Vaccines (No Doses Required) Completed Hepatitis A Vaccines Aged Out No long er eligible based on patient's age to complete this topic Hepatitis B Vaccines Aged Out No long er eligible based on patient's age to complete this topic IPV Vaccines Aged Out No longer eligi ble based on patient's age to complete this topic Meningococcal Vaccine Aged Out No travon michael eligible based on patient's age to complete this topic Rotavirus Vaccines Aged Out No longer eligible based on patient's age to complete this topic Insurance MEDICARE RAILROAD
--- OUTSIDE RECORDS SUMMARY | 2025-02-22 09:27 | XMS_ITS | Encounter Summary ---
Author Organization [facility] Address [address] [place] [address] Care Team Providers Care It Account Manager Name Role Phone Noemi Mcnally NP Unavailable [phone] Cristopher Harvey MD Primary Care Provider [phone] Noemi Mcnally NP Unavailable [phone] Encounter Details Date Type Department Care Team (Late st Contact Info) Description 03/16/2024 Orders Only [facility] [address] [place] [address] Noemi Mcnally NP [address] [place] [address] Social History Tobacco Use Types Packs/Day Years [...] 04/19/2025 10:00 AM EDT Office Visit [facility] [address] [place] [address] Noemi Mcnally NP [address] [place] [address] documented as of this encounter Procedures Procedure Name Priority Date/Time Associated Diagnosis Comments XR FOOT 3+ VIEWS RIGHT Routine 03/16/2024 10:11 AM EDT documented in this encounter Results * XR foot 3+ views right (03/16/2024 10:11 AM EDT) Anatomical Region Laterality Modality Lower Extremities, Foot Right Radiogra phic Imaging Noemi Mcnally NP IMG XR PROCEDURES Final Result documented in this encounter Visit Diagnoses Not on filedocumented in this encounter Care Teams It Account Manager Relationship Specialty Start Date End Date Cristopher Harvey MD [address] [place] [address] PCP - General Family Medicine 09/29/23 Noemi Mcnally NP [address] [place] [address] PCP - ACO Reach 09/24/24 Noemi Mcnally NP [address] [place] [address] Nurse Practitioner Family Medicine 05/28/23 documented as of this encounter
--- OUTSIDE RECORDS SUMMARY | 2025-02-22 09:27 | XMS_ITS | Encounter Summary ---
Author Organization [facility] Address [address] [place] [address] Care Team Providers Care Family Sociologist Name Role Phone Noemi Mcnally OBIEE REPORT DEVELOPER Unavailable [phone] Cristopher Harvey MD Primary Care Provider [phone] Noemi Mcnally NP Unavailable [phone] Encounter Details Date Type Department Care Team (Late st Contact Info) Description 09/29/2023 Abstract [facility] [address] [place] [address] Noemi Mcnally NP [address] [place] [address] Social History Tobacco Use Types Packs/Day Years [...] on file documented as of this encounter Functional Status * Over the past 2 weeks, how often have you been bothered by any of the following problems? Question Answer Date of Assessment Author Little interest or pleasure in doing things Not at all 10/02/2023 9:44 AM CHRISTIAN WEAVER Feeling down, depressed, or hopeless Not at all 10/02/2023 9:44 AM CHRISTIAN WEAVER Patient Health Questionnaire -2 Score 0 10/02/2023 9:44 AM CHRISTIAN WEAVER documented as of this encounter Plan of Treatment Upcoming Encounters Date Type Department Care Team (Late st Contact Info) Description 04/19/2025 10:00 AM EDT Office Visit [facility] [address] [place] [address] Noemi Mcnally NP [address] [place] [address] documented as of this encounter Visit Diagnoses Not on filedocumented in this encounter Care Teams Family Sociologist Relationship Specialty Start Date End Date Cristopher Harvey MD [address] [place] [address] PCP - General Family Medicine 09/29/23 Noemi Mcnally NP [address] [place] [address] PCP - ACO Reach 09/24/24 Noemi Mcnally NP [address] [place] [address] Nurse Practitioner Family Medicine 05/28/23 documented as of this encounter
--- OUTSIDE RECORDS SUMMARY | 2025-02-22 09:27 | XMS_ITS | Encounter Summary ---
Author Organization [facility] Address [address] [place] [address] Care Team Providers Care Portfolio Administrator Name Role Phone Noemi Mcnally NP Unavailable [phone] Cristopher Harvey MD Primary Care Provider [phone] Noemi Mcnally NP Unavailable [phone] Encounter Details Date Type Department Care Team (Late st Contact Info) Description 02/15/2025 Bamboo flowsheet [facility] [address] [place] [address] Noemi Mcnally NP [address] [place] [address] Social History Tobacco Use Types Packs/Day Years [...] 04/19/2025 10:00 AM EDT Office Visit [facility] [address] [place] [address] Noemi Mcnally NP [address] [place] [address] documented as of this encounter Visit Diagnoses Not on filedocumented in this encounter Additional Health Concerns Assessment Noted Time PHQ-9 Depression Total Score: 5 04/06/20 10:02 AM EDT documented as of this encounter Care Teams Portfolio Administrator Relationship Specialty Start Date End Date Cristopher Harvey MD [address] [place] [address] PCP - General Family Medicine 09/29/23 Noemi Mcnally NP [address] [place] [address] PCP - ACO Reach 09/24/24 Noemi Mcnally NP [address] [place] [address] Nurse Practitioner Family Medicine 05/28/23 documented as of this encounter
--- OUTSIDE RECORDS SUMMARY | 2025-02-22 09:27 | XMS_ITS | Encounter Summary ---
Author Organization [facility] Address [facility] [place] [address] Care Team Providers Care Hotel Guest Service Agent Name Role Phone Noemi Mcnally NP Unavailable [phone] Cristopher Harvey MD Primary Care Provider [phone] Noemi Mcnally NP Unavailable [phone] Encounter Details Date Type Department Care Team (Late st Contact Info) Description 04/28/2024 Clinisync Result Encounter [facility] External Department Unsolicited [...] Encounters Date Type Department Care Team (Late Contact Info) Description 04/19/2025 10:00 AM EDT Office Visit [facility] [address] [place] [address] Noemi Mcnally NP [address] [place] [address] documented as of this encounter Procedures Procedure Name Priority Date/Time Associated Diagnosis Comments SEGMENTAL BLOOD PRESSURE 04/28/2024 7:25 AM EDT documented in this encounter Results * SEGMENTAL BLOOD PRESSURE (04/28/2024 7:25 AM EDT) Anatomical Region Laterality Modality Radiographic Robyn ging 04/28/2024 7:25 AM EDT Narrative 04/28/2024 7:27 AM EDT [address] [address] Vein Report Signed Patient: RANDALL PRADO MR#: [id number] : 1950 Acct:[id number] Age/Sex: 74 / F ADM Date: 04/27/24 Loc: [facility] Attending Dr: Trinidad Sutton D.P.M. Ordering Physician: Trinidad Sutton D.P.M. Date of Service: 04/27/24 Procedure(s): VC SEGMENTAL PRESSURES Accession Number(s): [id number] cc: Noemi Mcnally FOREPART LASTER; Trinidad Sutton D.P.M. [place] [address] Patient Name: RANDALL PRADO MRN: [id number] date: 1950 Sex: F Assigned Patient Location: Current Patient Location: Accession/Order Number: [id number] Exam Date: 04/27/2024 10:48 Report Date: 04/28/2024 07:25 At the request of: TRINIDAD SUTTON Procedure: VC SEGMENTAL PRESSURES EXAM: VC SEGMENTAL PRESSURES HISTORY: I73.9 Indication: COMPARISON: None. FINDINGS: Segmental pressures presented as follows (right, left) in mmHg. Brachial: Not performed on the right, 158 on the left Upper thigh: 227, 220 Lower thigh: 202, 187 Calf: 180, 187 DPA: 225, 181 RING ROLLING MACHINE OPERATOR: 195, 184 1st Toe: 194, 173 FRANCI: 1.42, 1.16 TBI: 1.13, 1.09 The ABIs are elevated on the right, normal on the left The TBI's are normal bilaterally PVR waveforms: Right leg: Thigh: Mild peripheral arterial disease Above knee: Mild peripheral arterial disease Below knee: Normal Right ankle: Mild peripheral arterial disease Metatarsal: Mild peripheral arterial disease Left leg: Thigh: Normal Above knee: Normal Below knee: Normal Right ankle: Mild peripheral arterial disease Metatarsal: Mild peripheral arterial disease VEIN/VC SEGMENTAL PRESSURES IMPRESSION: Elevated right FRANCI likely related to arterial sclerosis Wave form suggests mild bilateral diffuse peripheral arterial disease Electronically authenticated by: NIKA YI Date: 04/28/2024 07:25 Dictated By: Nika Yi M.D. Signed By: 04/28/24726 DD/ 4 TD/TT: Order Puller: Procedure Note Radiology, Radiologist, MD - 04/28/2024 [place] [address] Vein Report Signed Patient: RANDALL PRADO LMR#: [id number] : 1950Acct:[id number] Age/Sex: 74 / FADM Date: 04/27/24 Loc: VC Attending Dr: Trinidad Sutton D.P.M. Ordering Physician: Trinidad Sutton D.P.M. Date of Service: 04/27/24 Procedure(s): VC SEGMENTAL PRESSURES Accession Number(s): [id number] cc: Noemi Mcnally FOREPART LASTER; Trinidad Sutton D.P.M. The [place] [address] Patient Name: RANDALL PRADO MRN: [id number] date: 1950 Sex: F Assigned Patient Location: Current Patient Location: Accession/Order Number: [id number] Exam Date: 04/27/2024 10:48 Report Date: 04/28/2024 07:25 At the request of: TRINIDAD SUTTON Procedure: VC SEGMENTAL PRESSURES EXAM: VC SEGMENTAL PRESSURES HISTORY: I73.9 Indication: COMPARISON: None. FINDINGS: Segmental pressures presented as follows (right, left) in mmHg. Brachial: Not performed on the right, 158 on the left Upper thigh: 227, 220 Lower thigh: 202, 187 Calf: 180, 187 DPA: 225, 181 RING ROLLING MACHINE OPERATOR: 195, 184 1st Toe: 194, 173 FRANCI: 1.42, 1.16 TBI: 1.13, 1.09 The ABIs are elevated on the right, normal on the left The TBI's are normal bilaterally PVR waveforms: Right leg: Thigh: Mild peripheral arterial disease Above knee: Mild peripheral arterial disease Below knee: Normal Right ankle: Mild peripheral arterial disease Metatarsal: Mild peripheral arterial disease Left leg: Thigh: Normal Above knee: Normal Below knee: Normal Right ankle: Mild peripheral arterial disease Metatarsal: Mild peripheral arterial disease VEIN/VC SEGMENTAL PRESSURES IMPRESSION: Elevated right FRANCI likely related to arterial sclerosis Wave form suggests mild bilateral diffuse peripheral arterial disease Electronically authenticated by: NIKA YI Date: 04/28/2024 07:25 Dictated By: Nika Yi M.D. Signed By:04/28/24726 DD/ 4 TD/TT: Order Puller: Generic External Data Provider IMG XR PROCEDURES Final Result documented in this encounter Visit Diagnoses Not on filedocumented in this encounter Additional Health Concerns Assessment Noted Time PHQ-9 Depression Total Score: 5 04/06/20 10:02 AM EDT documented as of this encounter Care Teams 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 Specialty Start Date End Date Cristopher Harvey MD [address] [place] [address] PCP - General Family Medicine 09/29/23 Noemi Mcnally NP [address] [place] [address] PCP - ACO Reach 09/24/24 Noemi Mcnally NP [address] [place] [address] Nurse Practitioner Family Medicine 05/28/23 documented as of this encounter
--- OUTSIDE RECORDS SUMMARY | 2025-02-22 09:27 | XMS_ITS | Encounter Summary ---
Author Organization [facility] Address [address] [place] [address] Care Team Providers Care Piece Worker Name Role Phone Noemi Mcnally NP Unavailable [phone] Cristopher Harvey MD Primary Care Provider [phone] Noemi Mcnally NP Unavailable [phone] Encounter Details Date Type Department Care Team (Late st Contact Info) Description 03/16/2024 Clinisync Result Encounter [facility] External Department Unsolicited Noemi Mcnally NP [address] [place] [address] Social History Tobacco Use Types [...] Visit [facility] [address] [place] [address] Noemi Mcnally NP [address] [place] [address] documented as of this encounter Procedures Procedure Name Priority Date/Time Associated Diagnosis Comments XR ANKLE RT MIN 3V 03/16/2024 7: 31 AM EDT documented in this encounter Results * XR ANKLE RT MIN 3V (03/16/2024 7:31 AM EDT) Anatomical Region Laterality Modality Other 03/16/2024 7:31 AM EDT Narrative 03/16/2024 7:34 [place] [address] XRay Report Signed Patient: RANDALL PRADO MR#: [id number] : 1950 Acct:[id number] Age/Sex: 74 / F ADM Date: 03/15/24 Loc: [facility] Attending Dr: Noemi Mcnally NP Ordering Physician: Noemi Mcnally NP Date of Service: 03/15/24 Procedure(s): XR ankle RT min 3V Accession Number(s): [id number] cc: Noemi Mcnally NP [place] [address] Patient Name: RANDALL PRADO MRN: [id number] date: 1950 Sex: F Assigned Patient Location: [facility] Current Patient Location: Accession/Order Number: [id number] Exam Date: 03/15/2024 11:57 Report Date: 03/16/2024 07:31 At the request of: NOEMI MCNALLY Procedure: XR ankle RT min 3V PROCEDURE: XR ankle RT min 3V, XR foot RT min 3V COMPARISON: None. HISTORY: Foot Swelling FINDINGS: BONES:Corticated bone fragment identified along the inferior medial malleolus, remote injury. No acute fracture or dislocation. Moderate enthesopathic spurring of the calcaneus at the Achilles and plantar insertions SOFT TISSUES:Negative. No visible soft tissue swelling. EFFUSION:None visible. OTHER: Negative. XR/XR ankle RT min 3V IMPRESSION: No acute fracture of the foot or ankle Electronically authenticated by: NIKA YI Date: 03/16/2024 07:31 Dictated By: Nika Yi M.D. Signed By: 03/16/24 0734 DD/ 0 TD/TT: Lasting Room Supervisor: Procedure Note Radiology, Radiologist, - 03/16/[address] [address] XRay Report Signed Patient: RANDALL PRADO LMR#: [id number] : 1950Acct:[id number] Age/Sex: 74 / FADM Date: 03/15/24 Loc: RAD Attending Dr: Noemi Mcnally CHIEF OPERATOR REFORMER Ordering Physician: Noemi Mcnally NP Date of Service: 03/15/24 Procedure(s): XR ankle RT min 3V Accession Number(s): [id number] cc: Noemi Mcnally NP [place] [address] Patient Name: RANDALL PRADO MRN: [id number] date: 1950 Sex: F Assigned Patient Location: [facility] Current Patient Location: Accession/Order Number: [id number] Exam Date: 03/15/2024 11:57 Report Date: 03/16/2024 07:31 At the request of: ONEMI MCNALLY Procedure: XR ankle RT min 3V PROCEDURE: XR ankle RT min 3V, XR foot RT min 3V COMPARISON: None. HISTORY: Foot Swelling FINDINGS: BONES:Corticated bone fragment identified along the inferior medialmalleolus, remote injury. No acute fracture or dislocation. Moderate enthesopathic spurring of the calcaneus at the Achilles and plantar insertions SOFT TISSUES:Negative. No visible soft tissue swelling. EFFUSION:None visible. OTHER: Negative. XR/XR ankle RT min 3V IMPRESSION: No acute fracture of the foot or ankle Electronically authenticated by: NIKA YI Date: 03/16/2024 07:31 Dictated By: Nika Yi M.D. Signed By:03/16/2434 DD/ 0 TD/TT: Lasting Room Supervisor: us Noemi Mcnally NP [facility] Final Result documented in this encounter Visit Diagnoses Not on filedocumented in this encounter Care Teams Piece Worker Relationship Specialty Start Date End Date Cristopher Harvey MD [address] [place] [address] PCP - General Family Medicine 09/29/23 Noemi Mcnally NP [address] [place] [address] PCP - ACO Reach 09/24/24 Noemi Mcnally NP [address] [place] [address] Nurse Practitioner Family Medicine 05/28/23 documented as of this encounter
--- OUTSIDE RECORDS SUMMARY | 2025-02-22 09:27 | XMS_ITS | Encounter Summary ---
Author Organization [facility] Address [address] [place] [address] Care Team Providers Care Range Conservationist Name Role Phone Noemi Mcnally NP Unavailable [phone] Cristopher Harvey MD Primary Care Provider [phone] Noemi Mcnally NP Unavailable [phone] Encounter Details Date Type Department Care Team (Late st Contact Info) Description 11/19/2023 Clinisync Result Encounter [facility] External Department Unsolicited Noemi Mcnally NP [address] [place] [address] Social History Tobacco Use Types Packs/Day [...] Visit [facility] [address] [place] [address] Noemi Mcnally NP [address] [place] [address] documented as of this encounter Procedures Procedure Name Priority Date/Time Associated Diagnosis Comments MM TOMOSYNTHESIS SCREENING BI 11/19/2023 11:45 AM EDT documented in this encounter Results * MM TOMOSYNTHESIS SCREENING BI (11/19/2023 11:45 AM EDT) Anatomical Region Laterality Modality Other 11/19/2023 11:4 5 AM EDT Narrative 11/19/2023 11:46 [place] [address] Mammography Report Signed Patient: RANDALL PRADO MR#: [id number] : 1950 Acct:[id number] Age/Sex: 73 / F ADM Date: 11/17/23 Loc: MAMMO Attending Dr: Noemi Mcnally NP Ordering Physician: Noemi Mcnally NP Results: Date of Service: 11/17/23 Follow Up: Procedure(s): MM tomosynthesis screening BI Accession Number(s): [id number] cc: Noemi Mcnally NP Patient Name: RANDALL PRADO MR#: [id number] : 1950 Exam Date: 11/17/2023 Ordering Doctor: [...] breast cancer at age 20. LOCATION: [facility] BREAST COMPOSITION: Scattered areas fibroglandular [...] Signed By: 11/19/23 1146 DD/ 1145 TD/TT: Estate And Trust Tax Principal: Procedure Note Radiology, Radiologist, MD - 11/19/2023 [place] [address] Mammography Report Signed Patient: RANDALL PRADO LMR#: [id number] : 1950Acct:[id number] Age/Sex: 73 / FADM Date: 11/17/23 Loc: MAMMO Attending Dr: Noemi Mcnally COILED TUBING OPERATOR Ordering Physician: Noemi Mcnally NPResults: Date of Service: 11/17/23Follow Up: Procedure(s): MM tomosynthesis screening BI Accession Number(s): [id number] cc: Noemi Mcnally NP Patient Name: RANDALL PRADO MR#: [id number] : 1950 Exam Date: 11/17/2023 Ordering Doctor: [...] breast cancer at age 20. LOCATION: [facility] BREAST COMPOSITION: Scattered areas fibroglandular [...] M.D. Signed By:11/19/23 1146 DD/ 1145 TD/TT: Estate And Trust Tax Principal: us Noemi Mcnally NP [facility] Final Result documented in this encounter Visit Diagnoses Not on filedocumented in this encounter Care Teams Range Conservationist Relationship Specialty Start Date End Date Cristopher Harvey MD [address] [place] [address] PCP - General Family Medicine 09/29/23 Noemi Mcnally NP [address] [place] [address] PCP - ACO Reach 09/24/24 Noemi Mcnally NP [address] [place] [address] Nurse Practitioner Family Medicine 05/28/23 documented as of this encounter
--- OUTSIDE RECORDS SUMMARY | 2025-02-22 09:27 | XMS_ITS | Encounter Summary ---
Author Organization [facility] Address [address] [facility] [place] [address] Care Team Providers Care Prosthetic Lab Technician Name Role Phone Noemi Mcnally NP Unavailable [phone] Cristopher Harvey MD Primary Care Provider Noemi Mcnally PAVING SUPERVISOR Unavailable [phone] Encounter Details Date Type Department Care Team (Late st Contact Info) Description 06/14/2024 Orders Only [facility] [address] [place] [address] Bud Sutton MD [address] [place] [address] [address] [place], [place] [id number] Social History Tobacco Use Types Packs/Day Years [...] 04/19/2025 10:00 AM EDT Office Visit [facility] [address] [place] [address] Noemi Mcnally NP [address] [place] [address] documented as of this encounter Procedures Procedure Name Priority Date/Time Associated Diagnosis Comments MRI ANKLE RT WITHOUT CONTRAST Routine 06/14/2024 10:12 AM EDT documented in this encounter Results * MRI ANKLE RT WITHOUT CONTRAST (06/14/2024 10:12 AM EDT) Anatomical Region Laterality Modality Radiographic Robyn ging us Bud Sutton MD IMG XR PROCEDURES Final Re sult documented in this encounter Visit Diagnoses Not on filedocumented in this encounter Additional Health Concerns Assessment Noted Time PHQ-9 Depression Total Score: 5 04/06/20 10:02 AM EDT documented as of this encounter Care Teams Prosthetic Lab Technician Relationship Specialty Start Date End Date Cristopher Harvey MD [address] [place] [address] PCP - General Family Medicine 09/29/23 Noemi Mcnally NP [address] [place] [address] PCP - ACO Reach 09/24/24 Noemi Mcnally NP [address] [place] [address] Nurse Practitioner Family Medicine 05/28/23 documented as of this encounter
--- OUTSIDE RECORDS SUMMARY | 2025-02-22 09:27 | XMS_ITS | Encounter Summary ---
Author Organization [facility] Address [address] [place] [address] Care Team Providers Care Raw Hide Trimmer Name Role Phone Noemi Mcnally NP Unavailable [phone] Cristopher Harvey MD Primary Care Provider [phone] Noemi Mcnally NP Unavailable [phone] Encounter Details Date Type Department Care Team (Late st Contact Info) Description 11/17/2023 Orders Only [facility] [address] [place] [address] Noemi Mcnally NP [address] [place] [address] Social History Tobacco Use Types Packs/Day Years [...] 04/19/2025 10:00 AM EDT Office Visit [facility] [address] [place] [address] Noemi Mcnally NP [address] [place] [address] documented as of this encounter Procedures Procedure Name Priority Date/Time Associated Diagnosis Comments XR DEXA AXIAL SKELETON* Routine 11/17/2023 5:20 PM EDT documented in this encounter Results * XR DEXA AXIAL SKELETON* (11/17/2023 5:20 PM EDT) Anatomical Region Laterality Modality Radiographic Robyn ging Noemi Mcnally INFORMATION DIRECTOR IMG XR PROCEDURES Final Result documented in this encounter Visit Diagnoses Not on filedocumented in this encounter Care Teams Raw Hide Trimmer Relationship Specialty Start Date End Date Cristopher Harvey MD [address] [place] [address] PCP - General Family Medicine 09/29/23 Noemi Mcnally NP [address] [place] [address] PCP - ACO Reach 09/24/24 Noemi Mcnally NP [address] [place] [address] Nurse Practitioner Family Medicine 05/28/23 documented as of this encounter
--- OUTSIDE RECORDS SUMMARY | 2025-02-22 09:27 | XMS_ITS | Encounter Summary ---
Author Organization [facility] Address [address] [place] [address] Care Team Providers Care Technical Translator Name Role Phone Noemi Mcnally NP Unavailable [phone] Cristopher Harvey MD Primary Care Provider [phone] Noemi Mcnally NP Unavailable [phone] Reason for Visit * Reason Comments Med Refill Encounter Details Date Type Department Care Team (Late st Contact Info) Description 10/06/2023 Refill [facility] [address] [place] [address] Noemi Mcnally NP [address] [place] [address] Allergic rhinitis, unspecified seasonality, unspecified trigger Social History Tobacco Use Types Packs/Day Years [...] encounter Miscellaneous Notes * Telephone Encounter - Noemi Mcnally NP - 10/06/2023 3:58 PM EST Already addressed documented in this encounter Plan of Treatment Upcoming Encounters Date Type Department Care Team (Late Contact Info) Description 04/19/2025 10:00 AM EDT Office Visit [facility] [address] [place] [address] Noemi Mcnally NP [address] [place] [address] documented as of this encounter Visit Diagnoses Diagnosis Allergic rhinitis, unspecified seasonality, unspecified trigger documented in this encounter Care Teams Technical Translator Relationship Specialty Start Date End Date Cristopher Harvey MD [address] [place] [address] PCP - General Family Medicine 09/29/23 Noemi Mcnally NP [address] [place] [address] PCP - ACO Reach 09/24/24 Noemi Mcnally NP [address] [place] [address] Nurse Practitioner Family Medicine 05/28/23 documented as of this encounter
--- OUTSIDE RECORDS SUMMARY | 2025-02-22 09:27 | XMS_ITS | Encounter Summary ---
Author Organization [facility] Address [facility] [place] [address] Care Team Providers Care Pyroglazer Name Role Phone Noemi Mcnally NP Unavailable [phone] Cristopher Harvey MD Primary Care Provider [phone] Noemi Mcnally NP Unavailable [phone] Encounter Details Date Type Department Care Team (Late st Contact Info) Description 04/22/2024 Clinisync Result Encounter [facility] External Department Unsolicited [...] Upcoming Encounters Date Type Department Care Team ([facility] Contact Info) Description 04/19/2025 10:00 AM EDT Office Visit [facility] [address] [place] [address] Noemi Mcnally NP [address] [place] [address] documented as of this encounter Procedures Procedure Name Priority Date/Time Associated Diagnosis Comments XR ANKLE RT MIN 3V 04/22/2024 6: 56 AM EDT documented in this encounter Results * XR ANKLE RT MIN 3V (04/22/2024 6:56 AM EDT) Anatomical Region Laterality Modality Other 04/22/2024 6:56 AM EDT Narrative 04/22/2024 6:59 [place] [address] XRay Report Signed Patient: RANDALL PRADO MR#: [id number] : 1950 Acct:[id number] Age/Sex: 74 / F ADM Date: 04/21/24 Loc: EC Attending Dr: Trinidad Sutton D.P.M. Ordering Physician: Trinidad Sutton D.P.M. Date of Service: 04/21/24 Procedure(s): XR ankle RT min 3V Accession Number(s): [id number] cc: Noemi Mcnally NP; Trinidad Sutton D.P.M. [place] [address] Patient Name: RANDALL PRADO MRN: [id number] date: 1950 Sex: F Assigned Patient Location: Current Patient Location: Accession/Order Number: [id number] Exam Date: 04/21/2024 12:50 Report Date: 04/22/2024 06:56 At the request of: TRINIDAD SUTTON Procedure: XR ankle RT min 3V PROCEDURE: XR foot RT min 3V, XR ankle RT min 3V HISTORY: RIGHT FOOT PAIN COMPARISON: XR right foot and ankle 03/15/2024 FINDINGS: BONES:Stable mild degenerative changes and sequela of remote injury. No acute fracture, healing fracture, or bone lesion. SOFT TISSUES:No visible soft tissue swelling. EFFUSION:None visible. OTHER: Negative. XR/XR ankle RT min 3V IMPRESSION: 1. No appreciable acute or subacute abnormality. 2. Stable degenerative and chronic changes. Electronically authenticated by: ISMAEL WASHINGTON Date: 04/22/2024 06:56 Dictated By: Ismael Washington M.D. Signed By: 04/22/2459 DD/ TD/TT: Statistical Programmer Analyst: Procedure Note Radiology, Radiologist, MD - 04/22/2024 The [place] [id number] XRay Report Signed Patient: RANDALL PRADO LMR#: [id number] : 1950Acct:[id number] Age/Sex: 74 / FADM Date: 04/21/24 Loc: EC Attending Dr: Trinidad Sutton D.P.M. Ordering Physician: Trinidad Sutton D.P.M. Date of Service: 04/21/24 Procedure(s): XR ankle RT min 3V Accession Number(s): [id number] cc: Noemi Mcnally INGOT CASTER; Trinidad Sutton D.P.M. The [place] [address] Patient Name: RANDALL PRADO MRN: [id number] date: 1950 Sex: F Assigned Patient Location: Current Patient Location: Accession/Order Number: [id number] Exam Date: 04/21/2024 12:50 Report Date: 04/22/2024 06:56 At the request of: TRINIDAD SUTTON Procedure: XR ankle RT min 3V PROCEDURE: XR foot RT min 3V, XR ankle RT min 3V HISTORY: RIGHT FOOT PAIN COMPARISON: XR right foot and ankle 03/15/2024 FINDINGS: BONES:Stable mild degenerative changes and sequela of remote injury. Noacute fracture, healing fracture, or bone lesion. SOFT TISSUES:No visible soft tissue swelling. EFFUSION:None visible. OTHER: Negative. XR/XR ankle RT min 3V IMPRESSION: 1. No appreciable acute or subacute abnormality. 2. Stable degenerative and chronic changes. Electronically authenticated by: ISMAEL WASHINGTON Date: 04/22/2024 06:56 Dictated By: Ismael Washington M.D. Signed By:04/22/24 0659 DD/ TD/TT: Statistical Programmer Analyst: us Generic External Data Provider [facility] Final Result documented in this encounter Visit Diagnoses Not on filedocumented in this encounter Additional Health Concerns Assessment Noted Time PHQ-9 Depression Total Score: 5 08/20/20 24 10:02 AM EDT documented as of this encounter Care Teams Pyroglazer Relationship Specialty Start Date End Date Cristopher Harvey MD [address] [place] [address] PCP - General Family Medicine 09/29/23 Noemi Mcnally NP [address] [place] [address] PCP - ACO Reach 09/24/24 Noemi Mcnally NP [address] [place] [address] Nurse Practitioner Family Medicine 05/28/23 documented as of this encounter
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
--- OUTSIDE RECORDS SUMMARY | 2025-02-22 09:27 | XMS_ITS | Encounter Summary ---
Author Organization [facility] Address [address] [place] [address] Care Team Providers Care Medical Scientist Name Role Phone Noemi Mcnally NP Unavailable [phone] Cristopher Harvey MD Primary Care Provider [phone] Noemi Mcnally NP Unavailable [phone] Encounter Details Date Type Department Care Team (Late st Contact Info) Description 11/17/2023 Clinisync Result Encounter [facility] External Department Unsolicited Noemi Mcnally NP [address] [place] [address] Social History Tobacco Use Types Packs/Day [...] Visit [facility] [address] [place] [address] Noemi Mcnally NP [address] [place] [address] documented as of this encounter Procedures Procedure Name Priority Date/Time Associated Diagnosis Comments XR DEXA AXIAL SKELETON 11/17/2023 11:19 AM EDT documented in this encounter Results * XR DEXA AXIAL SKELETON (11/17/2023 11:19 AM EDT) Anatomical Region Laterality Modality Other 11/17/2023 11:1 9 AM EDT Narrative 11/17/2023 11:22 [place] [address] XRay Report Signed Patient: RANDALL PRADO MR#: [id number] : 1950 Acct:[id number] Age/Sex: 73 / F ADM Date: 11/17/23 Loc: MAMMO Attending Dr: Noemi Mcnally NP Ordering Physician: Noemi Mcnally NP Date of Service: 11/17/23 Procedure(s): XR DEXA axial skeleton Accession Number(s): [id number] cc: Noemi Mcnally NP [place] [id number] Patient Name: RANDALL PRADO MRN: [id number] date: 1950 Sex: F Assigned Patient Location: [facility] Current Patient Location: [facility] Accession/Order Number: [id number] Exam Date: 11/17/2023 10:30 Report Date: 11/17/2023 11:19 At the request of: NOEMI MCNALLY Procedure: XR DEXA axial skeleton EXAMINATION: XR DEXA axial skeleton HISTORY: Screening COMPARISON: DEXA bone densitometry 11/07/2021 TECHNIQUE: Dual-energy X-ray absorptiometry (DXA) was performed. FINDINGS: FOREARM ANALYSIS: Average bone mineral density is 0.518 g/cm2. T-score (standard deviation relative to young adult mean): -2.7 . HIP ANALYSIS: Lowest bone mineral density is within the right femoral neck, 0.667 g/cm2. T-score (standard deviation relative to young adult mean): -2.7 . +2.7% change since prior study. XR/XR DEXA axial skeleton IMPRESSION: World Rhett Organization Classification: Osteoporosis - High Fracture Risk Electronically authenticated by: ISMAEL WASHINGTON Date: 11/17/2023 11:19 Dictated By: Ismael Washington M.D. Signed By: 11/17/23 1122 DD/ 1119 TD/TT: Physicist Cryogenics: Procedure Note Radiology, Radiologist, - 11/20/2023 [place] [address] XRay Report Signed Patient: RANDALL PRADO LMR#: [id number] : 1950Acct:[id number] Age/Sex: 73 / FADM Date: 11/17/23 Loc: MAMMO Attending Dr: Noemi Mcnally NP Ordering Physician: Noemi Mcnally NP Date of Service: 11/17/23 Procedure(s): XR DEXA axial skeleton Accession Number(s): [id number] cc: Noemi Mcnally NP The [place] [id number] Patient Name: RANDALL PRADO MRN: [id number] date: 1950 Sex: F Assigned Patient Location: [facility] Current Patient Location: [facility] Accession/Order Number: [id number] Exam Date: 11/17/2023 10:30 Report Date: 11/17/2023 11:19 At the request of: NOEMI MCNALLY Procedure: XR DEXA axial skeleton EXAMINATION: XR DEXA axial skeleton HISTORY: Screening COMPARISON: DEXA bone densitometry 11/07/2021 TECHNIQUE: Dual-energy X-ray absorptiometry (DXA) was performed. FINDINGS: FOREARM ANALYSIS: Average bone mineral density is 0.518 g/cm2. T-score (standard deviation relative to young adult mean): -2.7 . HIP ANALYSIS: Lowest bone mineral density is within the right femoral neck, 0.667 g/cm2. T-score (standard deviation relative to young adult mean): -2.7 . +2.7% change since prior study. XR/XR DEXA axial skeleton IMPRESSION: World Rhett Organization Classification: Osteoporosis - High Fracture Risk Electronically authenticated by: ISMAEL WASHINGTON Date: 11/17/2023 11:19 Dictated By: Ismael Washington M.D. Signed By:11/17/23 1122 DD/ 1119 TD/TT: Physicist Cryogenics: Noemi Mcnally NP [facility] Final Result documented in this encounter Visit Diagnoses Not on filedocumented in this encounter Care Teams Medical Scientist Relationship Specialty Start Date End Date Cristopher Harvey MD [address] [place] [address] PCP - General Family Medicine 09/29/23 Noemi Mcnally NP [address] [place] [address] PCP - ACO Reach 09/24/24 Noemi Mcnally NP [address] [place] [address] Nurse Practitioner Family Medicine 05/28/23 documented as of this encounter
--- OUTSIDE RECORDS SUMMARY | 2025-02-22 09:27 | XMS_ITS | Encounter Summary ---
Author Organization [facility] Address [facility] [place] [address] Care Team Providers Care Radiology Rn Name Role Phone Noemi Mcnally NP Unavailable [phone] Cristopher Harvey MD Primary Care Provider [phone] Noemi Mcnally NP Unavailable [phone] Encounter Details Date Type Department Care [...] Visit [facility] [address] [place] [address] Noemi Mcnally NP [address] [place] [address] documented as of this encounter Procedures Procedure Name Priority Date/Time Associated Diagnosis Comments XR FOOT RT MIN 3V 04/22/2024 6:5 6 AM EDT documented in this encounter Results * XR FOOT RT MIN 3V (04/22/2024 6:56 AM EDT) Anatomical Region Laterality Modality Other 04/22/2024 6:56 AM EDT Narrative 04/22/2024 6:59 [place] [address] XRay Report Signed Patient: RANDALL PRADO MR#: [id number] : 1950 Acct:[id number] Age/Sex: 74 / F ADM Date: 04/21/24 Loc: EC Attending Dr: Trinidad Sutton D.P.M. Ordering Physician: Trinidad Sutton D.P.M. Date of Service: 04/21/24 Procedure(s): XR foot RT min 3V Accession Number(s): [id number] cc: Noemi Mcnally PARK WORKER SUPERVISOR; Trinidad Sutton D.P.M. [place] [address] Patient Name: RANDALL PRADO MRN: [id number] date: 1950 Sex: F Assigned Patient Location: Current Patient Location: Accession/Order Number: [id number] Exam Date: 04/21/2024 12:50 Report Date: 04/22/2024 06:56 At the request of: TRINIDAD SUTTON Procedure: XR foot RT min 3V PROCEDURE: XR foot RT min 3V, XR ankle RT min 3V HISTORY: RIGHT FOOT PAIN COMPARISON: XR right foot and ankle 03/15/2024 FINDINGS: BONES:Stable mild degenerative changes and sequela of remote injury. No acute fracture, healing fracture, or bone lesion. SOFT TISSUES:No visible soft tissue swelling. EFFUSION:None visible. OTHER: Negative. XR/XR foot RT min 3V IMPRESSION: 1. No appreciable acute or subacute abnormality. 2. Stable degenerative and chronic changes. Electronically authenticated by: ISMAEL WASHINGTON Date: 04/22/2024 06:56 Dictated By: Ismael Washington M.D. Signed By: 04/22/2459 DD/ TD/TT: Wound Care Center Consultant: Procedure Note Radiology, Radiologist, MD - 04/22/2024 [place] [address] XRay Report Signed Patient: RANDALL PRADO LMR#: [id number] : 1950Acct:[id number] Age/Sex: 74 / FADM Date: 04/21/24 Loc: EC Attending Dr: Trinidad Sutton D.P.M. Ordering Physician: Trinidad Sutton D.P.M. Date of Service: 04/21/24 Procedure(s): XR foot RT min 3V Accession Number(s): [id number] cc: Noemi Mcnally PARK WORKER SUPERVISOR; Trinidad Sutton D.P.M. The [place] [address] Patient Name: RANDALL PRADO MRN: [id number] date: 1950 Sex: F Assigned Patient Location: Current Patient Location: Accession/Order Number: [id number] Exam Date: 04/21/2024 12:50 Report Date: 04/22/2024 06:56 At the request of: TRINIDAD SUTTON Procedure: XR foot RT min 3V PROCEDURE: XR foot RT min 3V, XR ankle RT min 3V HISTORY: RIGHT FOOT PAIN COMPARISON: XR right foot and ankle 03/15/2024 FINDINGS: BONES:Stable mild degenerative changes and sequela of remote injury. Noacute fracture, healing fracture, or bone lesion. SOFT TISSUES:No visible soft tissue swelling. EFFUSION:None visible. OTHER: Negative. XR/XR foot RT min 3V IMPRESSION: 1. No appreciable acute or subacute abnormality. 2. Stable degenerative and chronic changes. Electronically authenticated by: ISMAEL WASHINGTON Date: 04/22/2024 06:56 Dictated By: Ismael Washington M.D. Signed By:04/22/24 0659 DD/ TD/TT: Wound Care Center Consultant: us Generic External Data Provider [facility] Final Result documented in this encounter Visit Diagnoses Not on filedocumented in this encounter Additional Health Concerns Assessment Noted Time PHQ-9 Depression Total Score: 5 08/20/20 24 10:02 AM EDT documented as of this encounter Care Teams Radiology Rn Relationship Specialty Start Date End Date Cristopher Harvey MD [address] [place] [phone] PCP - General Family Medicine 09/29/23 Noemi Mcnally NP [address] [place] [address] PCP - ACO Reach 09/24/24 Noemi Mcnally NP [address] [place] [phone] Nurse Practitioner Family Medicine 05/28/23 documented as of this encounter
== END 2025-02-22 09:24 | disposition home or self-care (01) ==
LOC: MAMMO 09:23
PROVIDERS: PCP Nurse Practitioner; Visit Provider Nurse Practitioner
DX: Z12.31 Encounter for screening mammogram for malignant neoplasm of breast (principal); Z80.3 Family history of malignant neoplasm of breast
CPT/HCPCS: 77063; 77067